=== PATIENT | female | born 1940 | race Hispanic/Latino ===

== ENCOUNTER 2019-09-25 20:04 | Inpatient (IN) | payer SELFPAY ==
[2019-09-25] MEDS ORDERED: MORPHINE 2 MG/ML SYR ONE (20:52)
[2019-09-25] MEDS ORDERED: ONDANSETRON 4 MG/2 ML VIAL ONE ×2 (20:52→22:52)
[2019-09-25 21:18] LABS: Absolute Lymphocytes (CBC) 1.9 K/uL (0.7-4.9); Basophils % 0.6 % (0-1.3); Hematocrit 33.3 % (36.0-45.0); Lymphocytes % 15.2 % (15.3-44.8); MPV 7.8 fL (7.6-11.3); RBC Red Blood Cell Count 4.32 M/uL (3.86-4.86)
[2019-09-25] MEDS ORDERED: PANTOPRAZOLE 40 MG INJ ONE (21:18)
[2019-09-25 21:20] LABS: Protime INR 1.02
[2019-09-25 21:34] LABS: ALT/SGPT 17 U/L (12-78); AST/SGOT 18 U/L (15-37); Albumin 3.7 g/dL (3.4-5.0); Alkaline Phosphatase 66 U/L (45-117); BUN Blood Urea Nitrogen 19 mg/dL (7-18); Bicarbonate 28 mmol/L (21-32); Bilirubin Direct 0.1 mg/dL (0-0.2); Bilirubin Total 0.4 mg/dL (0.2-1.0); Glucose Level 238 mg/dL (74-106); Magnesium 1.8 mg/dL (1.8-2.4); Potassium 3.7 mmol/L (3.5-5.1); Protein, Total 7.4 g/dL (6.4-8.2); Sodium Level 122 mmol/L (136-145); Troponin (Emerg Dept Use Only) < 0.02 ng/mL (0.0-0.045)
[2019-09-25] MEDS ORDERED: MORPHINE 2 MG/ML SYR IV PRN (22:52)
[2019-09-25] MEDS ORDERED: ONDANSETRON 4 MG/2 ML VIAL IV PRN (22:52)
[2019-09-25] MEDS ORDERED: NA CHLORIDE 0.9% 1,000 ML ONE (22:53)
--- NOTE | 2019-09-25 22:54 | ER ---
Nurse's Notes [facility] Name: Emily Villalobos Age: 79 yrs Sex: Female : 1940 Arrival Date: 09/25/2019 Time: 20:11 Bed 20 Private MD: Diagnosis: Nausea and vomiting-intractable;Dehydration Presentation: 09/24 20:14 Chief complaint: Patient's son or daughter states: "The past week she was vomiting, but aj1 today she has constipation, she vomiting like a dark black color" Denies fever. Reports that the last time she had a bowel movement was 3 days ago, but her stool was hard and difficult to pass. Coronavirus screen: The patient has NOT traveled to a country currently being monitored by the CDC within the last 14 days. Ebola Screen: Patient denies travel to an Ebola-affected area in the 21 days before illness onset. Initial Sepsis Screen: Does the patient meet any 2 criteria? HR > 90 bpm. No. Patient's initial sepsis screen is negative. Does the patient have a suspected source of infection? Yes: Acute abdominal pain. Risk Assessment: Do you want to hurt yourself or someone else? Patient reports no desire to harm self or others. 20:14 Method Of Arrival: Ambulatory aj1 20:14 Acuity: HERMAN 3 aj1 20:15 Onset of symptoms was September 2019. rr5 Triage Assessment: 20:22 General: Appears in no apparent distress. uncomfortable, Behavior is calm, cooperative, aj1 appropriate for age. Pain: Pain currently is 10 out of 10 on a pain scale. Neuro: Level of Consciousness is awake, alert, obeys commands. Cardiovascular: Patient's skin is warm and dry. Respiratory: Airway is patent Respiratory effort is even, unlabored, Respiratory pattern is regular, symmetrical. GI: Reports constipation, nausea, vomiting. Historical: - Allergies: 20:22 No Known Allergies; aj1 - Home Meds: 20:22 metformin 850 mg Oral tab 1 tab 2 times per day [Active]; alprazolam 0.25 mg Oral TbDL aj1 1 tab as needed [Active]; gabapentin 100 mg oral cap 3 caps 3 times per day [Active]; bupropion HCl 100 mg Oral tab 1 tab 3 times per day [Active]; Zofran (as hydrochloride) 4 mg Oral tab 1 tabs as needed [Active]; mirtazapine 45 mg Oral tab 1 tab once daily [Active]; nifedipine 30 mg Oral TbER 1 tab once daily [Active]; tramadol 50 mg Oral tab 1 tab as needed [Active]; levothyroxine 100 mcg tab 1 tab once daily [Active]; - PMHx: 20:22 Diabetes - NIDDM; Hypothyroidism; Hypertension; spine fracture; aj1 - Immunization history:: Flu vaccine is not up to date. - Social history:: Smoking status: Patient/guardian denies using tobacco. Screenin:50 Abuse screen: Denies threats or abuse. Denies injuries from another. Nutritional rr5 screening: No deficits noted. Tuberculosis screening: No symptoms or risk factors identified. Fall Risk IV access (20 points). Total Cormier Fall Scale indicates No Risk (0-24 pts). Assessment: 20:30 General: Appears in no apparent distress. uncomfortable, Behavior is calm, cooperative, rr5 appropriate for age. 20:30 Pain: Complains of pain in abdomen Pain does not radiate. Pain currently is 10 out of rr5 10 on a pain scale. Quality of pain is described as aching, Pain began gradually, Is intermittent. Neuro: Level of Consciousness is awake, alert, obeys commands, Oriented to person, place, time, situation, Appropriate for age. Cardiovascular: Capillary refill < 3 seconds Patient's skin is warm and dry. Respiratory: Airway is patent Respiratory effort is even, unlabored, Respiratory pattern is regular, symmetrical. GI: Abdomen is round Reports lower abdominal pain, upper abdominal pain, constipation, nausea, vomiting, dark stool. : No signs and/or symptoms were reported regarding the genitourinary system. EENT: No signs and/or symptoms were reported regarding the EENT system. Derm: Skin is intact, is healthy with good turgor, Skin temperature is warm. Musculoskeletal: Circulation, motion, and sensation intact. Capillary refill < 3 seconds. 22:00 Reassessment: Patient appears in no apparent distress at this time. Patient is alert, rr5 oriented x 3, equal unlabored respirations, skin warm/dry/pink. came back from CT scan Patient states symptoms have improved. 22:45 Reassessment: Patient appears in no apparent distress at this time. complaint of rr5 abdominal pain, review done by ED provider with order made and carried out, advised for admission. 23:11 Reassessment: Patient appears in no apparent distress at this time. hospitalist at rr5 bedside. 09/25 00:00 Reassessment: Patient appears in no apparent distress at this time. Patient is alert, rr5 oriented x 3, equal unlabored respirations, skin warm/dry/pink. for transfer to room [facility] Patient states symptoms have improved. Vital Signs: 09/24 20:14 BP 159 / 92; Pulse 105; Resp 20; Temp 98.1; Pulse Ox 100% on R/A; Weight 55.34 kg (R); aj1 Height 5 ft. 0 in. (152.40 cm) (R); Pain 10/10; 21:00 BP 156 / 105; Pulse 105; Resp 22; Pulse Ox 98% on R/A; Pain 10/10; rr5 22:00 BP 141 / 85; Pulse 99; Resp 15; Pulse Ox 98% ; Pain 7/10; rr5 23:00 BP 132 / 63; Pulse 95; Resp 19; Temp 98.2; Pulse Ox 97% on R/A; Pain 8/10; rr5 20:14 Body Mass Index 23.83 (55.34 kg, 152.40 cm) aj1 ED Course: 20:11 Patient arrived in ED. es 20:17 Triage completed. aj1 20:22 Arm band placed on Patient placed in an exam room. aj1 20:27 Isaiah Schultz PA is PHCP. cp 20:27 Kaden Potter MD is Attending Physician. cp 20:28 Elio Purdy, THUAN is Primary Nurse. rr5 20:30 Patient has correct armband on for positive identification. Placed in gown. Bed in low rr5 position. Call light in reach. Side rails up X2. gambling monitor on. Pulse ox on. NIBP on. 21:00 EKG done, by ED staff, reviewed by Isaiah JOSÉ. rr5 21:03 Radiology exam delayed due to lab results not completed at this time. (BUN/Creatinine). vm2 21:05 No provider procedures requiring assistance completed. Inserted saline lock: 20 gauge rr5 in left forearm, using aseptic technique. Blood collected. 21:26 Radiology exam delayed due to lab results not completed at this time. (BUN/Creatinine). 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 family member at bedside. rr5 22:53 Johan Gao MD is Hospitalizing Provider. cp 23:54 Patient admitted, IV remains in place. intact, No redness/swelling at site. rr5 Administered Medications: 21:05 Drug: Zofran (Ondansetron) 4 mg Route: IVP; Site: left forearm; rr5 22:00 Follow up: Response: No adverse reaction; No change in condition rr5 21:07 Drug: morphine 2 mg {Note: rass 0.} Route: IVP; Site: left forearm; rr5 21:15 Drug: ProTONIX 40 mg Route: IVP; Site: left forearm; rr5 22:15 Follow up: Response: No adverse reaction rr5 22:44 CANCELLED (Physician Discretion): NS 0.9% 500 ml IV at bolus once cp 22:46 CANCELLED (Physician Discretion): Fleet Enema 133 ml [place] once; may repeat once cp 22:48 CANCELLED (Physician Discretion): Zofran (Ondansetron) 4 mg IVP once; over 2 minutes cp 23:05 Drug: NS 0.9% 1000 ml Route: IV; Rate: 1000 ml/hr; Site: left forearm; rr5 23:56 Follow up: Response: No adverse reaction; IV Status: Completed infusion; IV Intake: rr5 1000ml 23:06 Drug: morphine 2 mg {Note: rass 0.} Route: IVP; Site: left forearm; rr5 03 00:10 Follow up: Response: No adverse reaction; Pain is decreased rr5 00:10 Follow up: Response: RASS: Alert and Calm (0) rr5 03 23:06 Drug: Phenergan 25 mg Route: IVP; Site: left forearm; rr5 23:56 Follow up: Response: No adverse reaction rr5 Intake: 23:56 IV: 1000ml; Total: 1000ml. rr5 Outcome: 22:54 Decision to Hospitalize by Provider. cp 23:54 Admitted to Tele accompanied by winter, via stretcher, room 423, with chart, Report rr5 called to foreign 23:54 Condition: stable 23:54 Instructed on the need for admit. 09/25 00:09 Patient left the ED. rr5 Signatures: Triny Nguyen RN RN aj1 Lizzy Jaffe Corey, PA PA cp McGuire, Victoria 2 Elio Purdy, RN RN rr5
--- NOTE | 2019-09-25 22:54 | EDPHYS ---
Physician Documentation [facility] Name: Emily Villalobos Age: 79 yrs Sex: Female : 1940 Arrival Date: 09/25/2019 Time: 20:11 Bed 20 Private MD: ED Physician Kaden Potter HPI: 09/24 20:45 This 79 yrs old Female presents to ER via Ambulatory with complaints of cp Vomiting, Constipation. Historical: - Allergies: 20:22 No Known Allergies; aj1 - Home Meds: 20:22 metformin 850 mg Oral tab 1 tab 2 times per day [Active]; alprazolam 0.25 mg Oral TbDL aj1 1 tab as needed [Active]; gabapentin 100 mg oral cap 3 caps 3 times per day [Active]; bupropion HCl 100 mg Oral tab 1 tab 3 times per day [Active]; Zofran (as hydrochloride) 4 mg Oral tab 1 tabs as needed [Active]; mirtazapine 45 mg Oral tab 1 tab once daily [Active]; nifedipine 30 mg Oral TbER 1 tab once daily [Active]; tramadol 50 mg Oral tab 1 tab as needed [Active]; levothyroxine 100 mcg tab 1 tab once daily [Active]; - PMHx: 20:22 Diabetes - NIDDM; Hypothyroidism; Hypertension; spine fracture; aj1 - Immunization history:: Flu vaccine is not up to date. - Social history:: Smoking status: Patient/guardian denies using tobacco. ROS: 20:55 Constitutional: Positive for poor PO intake, Negative for body aches, chills, fever. cp 20:55 Eyes: Negative for injury, pain, redness, and discharge. cp 20:55 ENT: Negative for drainage from ear(s), ear pain, sore throat, difficulty swallowing, difficulty handling secretions. 20:55 Cardiovascular: Positive for chest pain, Negative for edema, palpitations. 20:55 Respiratory: Negative for cough, shortness of breath, wheezing. 20:55 Abdomen/GI: Positive for abdominal pain, nausea and vomiting, constipation, anorexia, Negative for diarrhea, hematemesis, black/tarry stool, rectal bleeding. 20:55 Back: Positive for pain at rest, pain with movement. 20:55 : Negative for urinary symptoms. 20:55 Neuro: Negative for altered mental status, headache, syncope, weakness. 20:55 All other systems are negative. Exam: 21:00 Constitutional: The patient appears alert, awake, non-diaphoretic, non-toxic, well cp developed, well nourished, uncomfortable. 21:00 Head/Face: Normocephalic, atraumatic. cp 21:00 Eyes: Periorbital structures: appear normal, Pupils: equal, round, and reactive to light and accomodation, Extraocular movements: intact throughout, Conjunctiva: normal, no exudate, no injection, Sclera: no appreciated abnormality, Lids and lashes: appear normal, bilaterally. 21:00 ENT: External ear(s): are unremarkable, Ear canal(s): are normal, clear, TM's: dullness, bilaterally, Nose: is normal, Mouth: Lips: dry, Oral mucosa: pink and intact, moist, Posterior pharynx: is normal, airway is patent, no erythema, no exudate. 21:00 Neck: ROM/movement: is normal, is supple, no meningismus, no nuchal rigidity. 21:00 Chest/axilla: Inspection: normal, Palpation: is normal, no crepitus, no tenderness. 21:00 Cardiovascular: Rate: tachycardic, Rhythm: regular, Edema: is not appreciated, JVD: is not appreciated. 21:00 Respiratory: the patient does not display signs of respiratory distress, Respirations: normal, no use of accessory muscles, no retractions, no tachypnea, labored breathing, is not present, Breath sounds: are clear throughout, no decreased breath sounds, no stridor, no wheezing. 21:00 Abdomen/GI: Inspection: abdomen appears normal, Bowel sounds: active, all quadrants, Palpation: soft, in all quadrants, moderate abdominal tenderness, in all quadrants, rebound tenderness, is not appreciated, voluntary guarding, is elicited in all quadrants. 21:00 Back: pain, that is moderate, ROM is painful, with all movement. 21:00 Skin: cellulitis, is not appreciated, no rash present. 21:00 Neuro: Orientation: to person, place \T\ time. Mentation: is normal, Motor: moves all fours. 21:07 ECG was reviewed by the Attending Physician. cp 22:43 Abdomen/GI: Rectal exam: rectal tone normal, Stool: brown, guaiac negative, fecal cp impaction, that is moderate. Vital Signs: 20:14 BP 159 / 92; Pulse 105; Resp 20; Temp 98.1; Pulse Ox 100% on R/A; Weight 55.34 kg (R); aj1 Height 5 ft. 0 in. (152.40 cm) (R); Pain 10/10; 21:00 BP 156 / 105; Pulse 105; Resp 22; Pulse Ox 98% on R/A; Pain 10/10; rr5 22:00 BP 141 / 85; Pulse 99; Resp 15; Pulse Ox 98% ; Pain 7/10; rr5 23:00 BP 132 / 63; Pulse 95; Resp 19; Temp 98.2; Pulse Ox 97% on R/A; Pain 8/10; rr5 20:14 Body Mass Index 23.83 (55.34 kg, 152.40 cm) aj1 MDM: 20:33 Patient medically screened. cp 22:51 Data reviewed: vital signs, nurses notes, lab test result(s), EKG, radiologic studies, cp CT scan, plain films. Response to treatment: the patient's symptoms have mildly improved after treatment, and as a result, I will admit patient. Physician consultation: Johan Gao MD was called at 22:50, was contacted at 22:50, regarding admission, to the telemetry unit. patient's condition. 03 20:42 Order name: Troponin (emerg Dept Use Only) cp 09/24 20:42 Order name: Basic Metabolic Panel cp 09/24 20:42 Order name: CBC with Diff cp 09/24 20:42 Order name: LFT's cp 09/24 20:42 Order name: Magnesium cp 09/24 20:42 Order name: PT-INR cp 09/24 20:44 Order name: Lipase cp 09/24 21:24 Order name: CBC with Automated Diff; Complete Time: 21:55 EDMS 09/24 22:50 Interpretation: Normal except: WBC 12.2; HGB 11.0; HCT 33.3; MCV 77.1; MCH 25.4; CHERIE% cp 78.7; LYM% 15.2; NEUT A 9.6; RDW 15.0. 09/24 21:27 Order name: Lipase; Complete Time: 21:55 EDMS 09/24 21:55 Interpretation: Abnormal: LIP 70. cp 09/24 21:28 Order name: Protime (+INR); Complete Time: 21:55 EDMS 09/24 21:37 Order name: Basic Metabolic Panel; Complete Time: 21:55 EDMS 09/24 21:55 Interpretation: Normal except: NA 122; CL 83; GLUC 238; BUN 19; GFR 55. cp 09/24 21:37 Order name: Liver (Hepatic) Function; Complete Time: 21:55 EDMS 09/24 21:56 Interpretation: Normal except: GLOB 3.7; A/G 1.0. cp 09/24 21:37 Order name: Troponin (Emerg Dept Use Only); Complete Time: 21:55 EDMS 03 21:56 Interpretation: Within normal limits: TROPED < 0.02. cp 09/24 21:37 Order name: Magnesium; Complete Time: 21:55 EDMS 09/24 21:56 Interpretation: Within normal limits: MG 1.8. cp 09/24 20:42 Order name: XRAY Chest (1 view) cp 09/24 20:42 Order name: EKG; Complete Time: 20:42 cp 09/24 20:42 Order name: Cardiac monitoring; Complete Time: 21:10 cp 09/24 20:42 Order name: EKG - Nurse/Tech; Complete Time: 21:10 cp 09/24 20:42 Order name: IV Saline Lock; Complete Time: 21:10 cp 09/24 20:42 Order name: Labs collected and sent; Complete Time: 21:10 cp 09/24 20:44 Order name: CT Abd/Pelvis - IV Contrast Only cp 09/25 00:07 Order name: Osmolality, Serum EDMS 09/24 20:42 Order name: O2 Per Protocol; Complete Time: 21:10 cp 09/24 20:42 Order name: O2 Sat Monitoring; Complete Time: 21:10 cp 09/24 22:41 Order name: PO challenge; Complete Time: 23:56 cp EC:07 Rate is 94 beats/min. Rhythm is regular. [place] interval is normal. QRS interval is normal. cp QT interval is normal. Interpreted by me. Reviewed by me. Administered Medications: 21:05 Drug: Zofran (Ondansetron) 4 mg Route: IVP; Site: left forearm; rr5 22:00 Follow up: Response: No adverse reaction; No change in condition rr5 21:07 Drug: morphine 2 mg {Note: rass 0.} Route: IVP; Site: left forearm; rr5 21:15 Drug: ProTONIX 40 mg Route: IVP; Site: left forearm; rr5 22:15 Follow up: Response: No adverse reaction rr5 22:44 CANCELLED (Physician Discretion): NS 0.9% 500 ml IV at bolus once cp 22:46 CANCELLED (Physician Discretion): Fleet Enema 133 ml WY once; may repeat once cp 22:48 CANCELLED (Physician Discretion): Zofran (Ondansetron) 4 mg IVP once; over 2 minutes cp 23:05 Drug: NS 0.9% 1000 ml Route: IV; Rate: 1000 ml/hr; Site: left forearm; rr5 23:56 Follow up: Response: No adverse reaction; IV Status: Completed infusion; IV Intake: rr5 1000ml 23:06 Drug: morphine 2 mg {Note: rass 0.} Route: IVP; Site: left forearm; rr5 03 00:10 Follow up: Response: No adverse reaction; Pain is decreased rr5 00:10 Follow up: Response: RASS: Alert and Calm (0) rr5 06 23:06 Drug: Phenergan 25 mg Route: IVP; Site: left forearm; rr5 23:56 Follow up: Response: No adverse reaction rr5 Disposition: 09/25 06:36 Co-signature as Attending Physician, Kaden Potter MD. pk Disposition: 09/25/19 22:54 Hospitalization ordered by Johan Gao for Observation. Preliminary diagnosis are Nausea and vomiting - intractable, Dehydration. - Bed requested for Telemetry/MedSurg (observation). - Status is Observation. rr5 - Condition is Stable. - Problem is new. - Symptoms have improved. Signatures: Dispatcher [employer] EDMS Triny Nguyen RN RN aj1 Kaden Potter MD MD pkl Isaiah Schultz PA PA cp Garcia, Cindy, RN RN Elio Purdy RN RN rr5 Corrections: (The following items were deleted from the chart) 03 22:44 22:44 NS 0.9% 500 ml IV at bolus once ordered. cp cp 22:46 22:41 Fleet Enema 133 ml WY once; may repeat once ordered. cp cp 22:48 22:41 Zofran (Ondansetron) 4 mg IVP once; over 2 minutes ordered. cp cp 22:50 21:55 Normal except: WBC 12.2; HGB 11.0; HCT 33.3; MCV 77.1; MCH 25.4; CHERIE% 78.7; LYM% cp 15.2; NEUT A 9.6. cp 23:15 22:54 Hospitalization Ordered by Johan Gao MD for Observation. Preliminary cg diagnosis is Nausea and vomiting - intractable; Dehydration. Bed requested for Telemetry/MedSurg (observation). Status is Observation. Condition is Stable. Problem is new. Symptoms have improved. cp 09/25 00:09 03 23:15 09/25/2019 22:54 Hospitalization Ordered by Johan Gao MD for rr5 Observation. Preliminary diagnosis is Nausea and vomiting - intractable; Dehydration. Bed requested for Telemetry/MedSurg (observation). Status is Observation. Condition is Stable. Problem is new. Symptoms have improved. cg
[2019-09-25] MEDS ORDERED: PROMETHAZINE INJ 25 MG/ML AMP IV PRN (22:57)
[2019-09-25] MEDS ORDERED: HYDRALAZINE HCL 20 MG/ML VIAL IV PRN (22:58)
[2019-09-25] MEDS ORDERED: CEFTRIAXONE 1000 MG/VIAL ONE (23:58)
[2019-09-26 00:10] LABS: Thyroid Stimulating Hormone 5.75 uIU/mL (0.360-3.740)
[2019-09-26] MEDS: NA CHLORIDE 0.9% 1,000 ML IV SCH ×2 (00:49→12:20)
[2019-09-26] MEDS ORDERED: NA CHLORIDE 0.9% 0 ML ONE (00:50)
[2019-09-26] MEDS: METRONIDAZOLE 250mg IVPB 250 MG/50 ML BAG IV SCH ×3 (01:00→17:05)
[2019-09-26 01:42] VITALS: BMI 40.7
[2019-09-26 02:00] LABS: Urine Appearance CLEAR; Urine Bilirubin NEGATIVE (NEG); Urine Blood NEGATIVE (NEG); Urine Color YELLOW; Urine Glucose 1+ (NEG); Urine Protein NEGATIVE (NEG); Urine Specific Gravity 1.025 (1.005-1.030); Urine Urobilinogen 0.2 mg/dL (0.2-1.0)
[2019-09-26 02:36] LABS: Urine Bacteria <20 /HPF (<20); Urine Culture Reflex Order REFLEXED; Urine RBC <5 /HPF (NONE SEEN)
--- NOTE | 2019-09-26 02:45 | HP ---
Date of Admission: 09/25/2019 Presenting Complaint: Intractable nausea and vomiting. History Of Present Illness: A 79-year-old speaking female with past medical history of hype rtension, hypothyroidism, abdominal hernia repair 4 years ago with mesh, who developed recurrent naus ea with vomiting since the last 1 week. She denies any diarrhea. She admit to abdominal cramps. Kali karimi was evaluated at the [facility] where CT was essentially negative except for diverticulos is, but no diverticulitis. She also had a urinalysis done at the time that shows trace leukocyte est erase. The patient was not started on antibiotics. She was sent on Pepcid and Zofran. Patient stat es as per daughter, her symptoms continued to worsen and she has presented back there today and was s ent to the ER where a repeat CT was still nonrevealing. She was noted with a sodium of 122 and be ad mitted. Daughter who is acting as mold forms builder also provided labs report from the [facility] 1 week ago. Patient admits to transient fever last week that has since resolved. She denies an y cough. She denies any shortness of breath. She is very worried about the pain, which seems to be more generalized in the abdomen, but nonradiating. She admit to intermittent low back pain, but none at this time. Past Medical History: Hypertension, hyperlipidemia, osteoporosis, L1 compression fracture, ventral w all hernias. Past Surgical History: Ventral hernia repair 4 years ago. Allergies: NO KNOWN DRUG ALLERGIES. Home Medications: See med list. Review of Systems: Poor given patient is in pain and distress, but all other review of systems x14 were negative. Daliatrev nt admits to constipation since the last 2 days. Family History: Noncontributory in this 79-year-old female. Social History: She resides in the community with the spouse. Functional at baseline. No history o f tobacco, alcohol, or illicit drug use. Physical Examination: Current Vitals: Blood pressure of 130/68, pulse of 93, respiratory rate of 18, O2 saturation 95 on r oom air, temperature afebrile at 98.6. General: Small built elderly female, lying in bed, in mild pain distress, conversant. HEENT: Head is atraumatic, normocephalic. Pupils equal, reactive to light anicteric. Neck: No JVD. No carotid bruits. Dry oral mucosa. Respiratory: Good air entry. No crepitation. Cardiovascular: S1, S2. Rate and rhythm regular. GI: Mild generalized abdominal tenderness, but no rebound, no guarding. Bowel sounds positive in al l 4 quadrants. Tenderness appears to be more in the left mid and lower quadrant. No palpable hepato splenomegaly. No suprapubic fullness or tenderness. Back: No CVA tenderness. Tenderness over the lumbar spine. Extremities: No pedal edema. No calf tenderness. Neuro: Patient is alert. Conversant. Laboratory Data: WBC 12.2, hemoglobin 11, platelet 335, neutrophils 78%. INR 1.02, potassium 3.7, c hloride 83. Sodium 122, creatinine 0.9, magnesium 1.8. Lipase 70, albumin 3.7. AST, alkaline phosp hatase, T-bilirubin normal. Chest x-ray shows no acute infiltrate. CT of the abdomen shows evidence of small ventral wall hernias with medications in-situ. Evidence of diverticulosis with no divertic ulitis. Otherwise, no acute intraabdominal pathology. CT from 1 week ago has shown a 3 cm soft tiss ue mass calcification around the urethra area of unknown significance. Impression: 1.Presumed gastroenteritis. 2.Acute on chronic hyponatremia. 3.Hypertension. 4.History of hypothyroidism. Plan: We will admit patient to observation. We will do nausea control with Zofran. We will add pro methazine as needed. We will do clear liquid diet for now. We will do gentle hydration with normal saline since hyponatremia is likely due to volume depletion. We will not start fluid restriction. W e will not start free water restriction at this time, but we will monitor. If not improving, then we will consider free water restriction. Obtain urine sodium as well as urine osmolarity. We will con sult Nephrology team to follow in a.m. Given presence of compression fractures, we will start topica l lidocaine patch to lumbar area. Etiology of intractable nausea and vomiting may be due to infectio us etiology given mild leukocytosis. We will obtain urinalysis. We will start patient on empirical Rocephin as well as Flagyl for presumed colitis. Monitor response and CBC trend in a.m. We will do subcutaneous heparin for DVT prophylaxis. We will continue patient on Pepcid. Advanced directives, patient is full code. Total time spent in review of record, discussion with patient and family greater than 60 minutes. EO/MODL Voice ID: [id number]
[2019-09-26 05:34] LABS: Absolute Lymphocytes (CBC) 3.2 K/uL (0.7-4.9); Basophils % 0.4 % (0-1.3); Hematocrit 26.3 % (36.0-45.0); Lymphocytes % 35.3 % (15.3-44.8); MPV 7.5 fL (7.6-11.3); RBC Red Blood Cell Count 3.46 M/uL (3.86-4.86)
[2019-09-26 05:52] LABS: Albumin 2.8 g/dL (3.4-5.0); Bilirubin Total 0.3 mg/dL (0.2-1.0); Potassium 3.4 mmol/L (3.5-5.1); Protein, Total 5.6 g/dL (6.4-8.2)
[2019-09-26] MEDS: INSULIN -REGULAR HUMAN 50 UNIT/0.5 ML ML SQ SCH ×4 (07:30→22:00)
[2019-09-26] MEDS ORDERED: CEFTRIAXONE 1 GM/NS 50 ML 1 GM/50 ML BAG IV SCH (09:00)
[2019-09-26] MEDS: HEPARIN 5000 UNIT/ML 1 ML VIAL SQ SCH ×2 (09:17→22:00)
[2019-09-26] MEDS: LIDOCAINE 4% PATCH TOP SCH (09:18)
[2019-09-26] MEDS: FAMOTIDINE 20 MG/2 ML VIAL IV SCH ×2 (09:18→22:00)
[2019-09-26] MEDS: CEFTRIAXONE/SWI 1gm 1 GM/10 ML SYR IV SCH (09:18)
[2019-09-26 09:21] LABS: Uric Acid 4.3 mg/dL (2.6-6.0)
--- NOTE | 2019-09-26 09:21 | EKG ---
Test Date: 2019-09-25 Test Time: 20:53:35 Commercial Title Examiner: RR MEASUREMENT RESULTS: Intervals: Rate: 94 WY: 154 QRSD: 82 QT: 378 QTc: 472 [place]: P: 18 WY: 154 QRS: -27 T: 45 INTERPRETIVE STATEMENTS: Normal sinus rhythm Septal infarct, age undetermined Abnormal ECG No previous ECG available for comparison Electronically Signed On 09-26-19 09:20:09 FABRICATION MIG WELDER by Matthew Sharp
[2019-09-26 09:26] LABS: Thyroid Stimulating Hormone 5.03 uIU/mL (0.360-3.740)
--- NOTE | 2019-09-26 09:37 | RAD REPORT ---
EXAM DESCRIPTION: [facility] Single View09/25/2019 9:32 pm CLINICAL HISTORY: Chest pain COMPARISON: none FINDINGS: The lungs appear clear of acute infiltrate. The heart is normal size. Small hiatal hernia IMPRESSION: No acute abnormalities displayed
[2019-09-26 10:08] LABS: Urine Appearance CLEAR; Urine Bilirubin NEGATIVE (NEG); Urine Blood NEGATIVE (NEG); Urine Color YELLOW; Urine Glucose TRACE (NEG); Urine Protein NEGATIVE (NEG); Urine Urobilinogen 0.2 mg/dL (0.2-1.0); Urine pH 7.5 (5.0-7.0)
[2019-09-26 10:24] LABS: Urine Microscopic Reflex NO UMIC
--- NOTE | 2019-09-26 11:13 | P.PN ---
Subjective Date of Service: 09/26/19 Chief Complaint: Nausea Patient admitted with nausea some abdominal cramps Kinyarwanda-speaking only feels better now no new complaint CT scan of the abdomen shows diverticulosis in a compression deformity of the were T brown L1 patient was mildly hypernatremic Review of Systems Unremarkable General: Weakness Physical Examination - Vital Signs Temperature: 98.5 F Blood Pressure: 136/57 Pulse: 80 Respirations: 18 Pulse Ox (%): 99 - Physical Exam General: Alert, Oriented x3 HEENT: Atraumatic Neck: Supple Respiratory: Clear to auscultation bilaterally, Diminished Gastrointestinal: Other (Mild left low quadrant tenderness no rebound guarding) - Studies Laboratory Data (last 24 hrs) 09/25/19 21:04: Lipase 70 L 09/25/19 21:04: PT 12.0, INR 1.02 09/25/19 21:04: WBC 12.2 H, Hgb 11.0 L, Hct 33.3 L, Plt Count 335 09/25/19 21:04: Sodium 122 L, Potassium 3.7, BUN 19 H, Creatinine 0.98, Glucose 238 H, Magnesium 1.8, Total Bilirubin 0.4, AST 18, ALT 17, Alkaline Phosphatase 66 Assessment & Plan - Problems (Diagnosis) (1) Nausea Current Visit: No Status: Acute Plan: Patient is 79 years of age admitted with mild nausea mild microcytic anemia mild hyponatremia hypokalemia CT scan just shows diverticulosis neck compression deformity on L1 patient's vital signs are stable she does see a pain doctor is a diabetic patient is on an short continue with observation possible discharge tomorrow quite possible that she has underlying mild diverticulitis white count was elevated probably discharge tomorrow on p.o. antibiotics Discharge Plan: Home Plan to discharge in: 24 Hours
[2019-09-26] MEDS ORDERED: D5.45NS W/KCL 40MEQ 40 MEQ/1,000 ML BAG IV SCH (14:00)
[2019-09-26] MEDS: D5.45NS W/KCL 40MEQ 40 MEQ/1,000 ML BAG IV SCH (17:03)
[2019-09-26 23:33] LABS: BUN Blood Urea Nitrogen 10 mg/dL (7-18); Bicarbonate 26 mmol/L (21-32); Glucose Level 117 mg/dL (74-106); Potassium 3.9 mmol/L (3.5-5.1); Sodium Level 135 mmol/L (136-145)
[2019-09-27] MEDS: D5.45NS W/KCL 40MEQ 40 MEQ/1,000 ML BAG IV SCH ×2 (00:37→03:00)
[2019-09-27] MEDS: METRONIDAZOLE 250mg IVPB 250 MG/50 ML BAG IV SCH ×2 (00:37→09:04)
--- NOTE | 2019-09-27 05:23 | CON ---
Date of Consultation: 09/26/2019 Subjective: The patient was admitted with hyponatremia after GI symptoms ____. Artificial Limb Maker: Terry Grady MD Reason For Consultation: Hyponatremia, hypomagnesemia. History Of Present Illness: This is a 74-year-old f with significant past medical history of coronary artery disease, hypothyroidism, coronary artery disease status post PTCA back in 2014, carotid stenosis status post endarterectomy, hypertension, hypothyroidism. Patient was in the GI doctor's office and found to be low blood pressure down to the 60s. Patient apparently started on IV fluids. Blood pressure upon arrival of 200. Workup show hyponatremia, sodium to 122. For that reason, we have been consulted. Patient apparently been on hydrochlorothiazide as outpatient with the losartan. Patient denied taking any nonsteroidal, no IV contrast. No other changes in her medication. Past Medical History: 1. Hypertension. 2. Hypothyroidism. Past Surgical History: NONE CONTRIUTE Allergy: No known drugs allergy. Social History: Ex-smoker. Denied alcohol. Denied drug abuse. Family History: Positive for hypertension. Home Medications: Include losartan, hydrochlorothiazide, metoprolol, levothyroxine, aspirin, atorvastatin, pantoprazole, isosorbide. Current Medications In The Hospital: Include aspirin, docusate, hydralazine, metoprolol. Review of Systems: Head and Neck: No red eye. No ear pain. GI: Has constipation. : No polyuria. No dysuria. No hematuria. Certified Bench Jeweler Technician: No vaginal discharge. Respiratory: No shortness of breath. Cardiovascular: No chest pain. Endocrine: No polydipsia. Skin: No rash. Neuro: Has dizziness. Musculoskeletal: No joint pain. Physical Examination: Objective: Vital Signs: Blood pressure 154/72, pulse of 73. Chest: Clear to auscultation. Heart: S1, S2 regular. Abdomen: Soft, nontender. Extremities: No edema. Vascular: Carotid bruit on the left side. Laboratory Data: Sodium 122, potassium 3.3, bicarb 25, BUN 12, creatinine 0.8, serum osmolality 255, calcium 8.5, phosphorus 2.8, magnesium 1.4. Cortisol level 38. TSH 0.5. Urinalysis; specific gravity of 1.020, wbc of 10, urine sodium 77, urine potassium of 60. Urine osmolality 370. Again, patient was on hydrochlorothiazide. Assessment And Plan: 1. Hyponatremia, mostly secondary to prerenal superimposed with hydrochlorothiazide use. I WILL go ahead and increase IV fluids and start the patient on salt tablets. We will follow up the lab tomorrow. I am going to repeat the lab in 6 hours. Our goal is to achieve rising sodium to 128 in the next 12 hour. 2. Hypertension with the presence of hyponatremia, hold losartan and hydrochlorothiazide for the time being. 3. Renal cyst. Patient will follow up with primary. JUAN ALBERTO/JASON Voice ID: [id number] Report ID: [id number] CAROL
[2019-09-27 06:47] LABS: ALT/SGPT 13 U/L (12-78); AST/SGOT 17 U/L (15-37); Albumin 2.7 g/dL (3.4-5.0); Alkaline Phosphatase 41 U/L (45-117); BUN Blood Urea Nitrogen 8 mg/dL (7-18); Bicarbonate 24 mmol/L (21-32); Bilirubin Total 0.1 mg/dL (0.2-1.0); Glucose Level 103 mg/dL (74-106); Potassium 4.1 mmol/L (3.5-5.1); Protein, Total 5.5 g/dL (6.4-8.2); Sodium Level 138 mmol/L (136-145)
[2019-09-27 06:55] LABS: Albumin 2.8 g/dL (3.4-5.0); BUN Blood Urea Nitrogen 8 mg/dL (7-18); Bicarbonate 22 mmol/L (21-32); Glucose Level 105 mg/dL (74-106); Magnesium 1.9 mg/dL (1.8-2.4); Phosphorus 2.1 mg/dL (2.5-4.9); Potassium 4.2 mmol/L (3.5-5.1); Sodium Level 139 mmol/L (136-145)
[2019-09-27 06:58] LABS: Hematocrit 24.8 % (36.0-45.0); MPV 8.2 fL (7.6-11.3); RBC Red Blood Cell Count 3.23 M/uL (3.86-4.86)
[2019-09-27] MEDS: INSULIN -REGULAR HUMAN 50 UNIT/0.5 ML ML SQ SCH (07:30)
[2019-09-27 07:48] LABS: Blood Morphology Comment NOT SEEN (NOT SEEN); Platelet Estimate ADEQ; Urine White Blood Cell Casts OK
[2019-09-27] MEDS: CEFTRIAXONE/SWI 1gm 1 GM/10 ML SYR IV SCH (09:03)
[2019-09-27] MEDS: FAMOTIDINE 20 MG/2 ML VIAL IV SCH (09:03)
[2019-09-27] MEDS: LIDOCAINE 4% PATCH TOP SCH (09:03)
[2019-09-27] MEDS: HEPARIN 5000 UNIT/ML 1 ML VIAL SQ SCH (09:04)
--- NOTE | 2019-09-27 09:39 | P.DS ---
Admission Date: 09/25/19 (Hospitalist) Discharge Date: 09/27/19 Disposition: ROUTINE DISCHARGE Discharge Condition: GOOD Reason for Admission: Nausea - Problems (1) Nausea Current Visit: No Status: Acute Brief History of Present Illness: Patient is 79 years of age admitted with abdominal cramps and nausea Hospital Course: Diagnosed with possible diverticulitis white count normal no evidence of sepsis discharged home on Cipro and Flagyl the also has microcytic anemia she needs to follow up with the primary care doctor a GI doctor for endoscopy time of discharge vital signs all stable chest clear abdomen soft tolerating a diet ambulating cultures negative Vital Signs/Physical Exam: Temp Pulse Resp BP Pulse Ox 97.0 F 66 16 143/67 H 100 09/27/19 04:00 09/27/19 04:00 09/27/19 04:00 09/27/19 04:00 09/27/19 04:00 Laboratory Data at Discharge: WBC 7.9 K/uL (4.3-10.9) 09/27/19 06:41 Hgb 8.0 g/dL (12.0-15.0) L 09/27/19 06:41 Hct 24.8 % (36.0-45.0) L 09/27/19 06:41 Plt Count 229 K/uL (152-406) D 09/27/19 06:41 PT 12.0 SECONDS (9.5-12.5) 09/25/19 21:04 INR 1.02 09/25/19 21:04 Sodium 138 mmol/L (136-145) 09/27/19 05:18 Potassium 4.1 mmol/L (3.5-5.1) 09/27/19 05:18 BUN 8 mg/dL (7-18) 09/27/19 05:18 Creatinine 0.60 mg/dL (0.55-1.3) 09/27/19 05:18 Glucose 103 mg/dL (74-106) 09/27/19 05:18 Uric Acid 4.3 mg/dL (2.6-6.0) 09/26/19 08:49 Phosphorus 2.1 mg/dL (2.5-4.9) L 09/27/19 05:00 Magnesium 1.9 mg/dL (1.8-2.4) 09/27/19 05:00 Total Bilirubin 0.1 mg/dL (0.2-1.0) L 09/27/19 05:18 AST 17 U/L (15-37) 09/27/19 05:18 ALT 13 U/L (12-78) 09/27/19 05:18 Alkaline Phosphatase 41 U/L (45-117) L 09/27/19 05:18 Lipase 70 U/L (73-393) L 09/25/19 21:04 Home Medications: Alprazolam [Xanax] 1 tab PO DAILY PRN 09/26/19 Gabapentin 1 tab PO Q8H 09/26/19 Levotiroxina Sodica 100 mcg PO DAILY 09/26/19 Metformina 850 mg PO BID 09/26/19 Mirtazapine 1 tab PO DAILY 09/26/19 Nifedipino 30 mg PO DAILY 09/26/19 Ondansetron HCl 1 tab PO Q6HP PRN 09/26/19 Tramadol HCl [Ultram] 1 tab PO Q8H PRN 09/26/19 buPROPion HCL [Bupropion HCl] 1 tab PO DAILY 09/26/19 Ciprofloxacin HCl [Cipro 500 MG Tablet] 500 mg PO BID #14 tab 09/27/19 metroNIDAZOLE [Flagyl] 500 mg PO Q8H #21 tablet 09/27/19 New Medications: Ciprofloxacin HCl [Cipro 500 MG Tablet] 500 mg PO BID #14 tab metroNIDAZOLE [Flagyl] 500 mg PO Q8H #21 tablet Patient Discharge Instructions: I have faxed in ciprofloxacin and Flagyl to the pharmacy low residue diet please give a list of primary care doctor's. Patient has anemia she needs to see a GI doctor did please give a list of names of the GI doctor Diet: Regular Activity: Ad humphrey
[2019-09-27 10:45] VITALS: BP 145/65; TEMP 97
[2019-09-27 13:12] VITALS: O2SAT 96
--- NOTE | 2019-09-28 08:39 | CON ---
patient admit Past Medical History: hypertension, Allergies: NO KNOWN DRUG ALLERGIES. Social History: denies drugs abuse. Review of Systems: PRESCHOOL EDUCATION DIRECTOR: Endocrine: . SKIN: No rash. Neuro: Altered mental status Physical Examination: Chest: Bilateral breath sounds. irregular. Abdomen: Extremities: No edema. Neuro: Alert . Laboratory Data: Patient anemia MA/MODL Voice ID: [id number] Report ID: [id number]
--- NOTE | 2019-09-28 13:11 | RAD REPORT ---
EXAM DESCRIPTION: CT - Abdomen Pelvis W Contrast - 09/25/2019 10:42 pm CLINICAL HISTORY: Nausea/vomiting COMPARISON: None Available. TECHNIQUE: CT of the abdomen and pelvis performed following IV administration of iodinated contrast FINDINGS: Lung Bases: The visualized lung bases are clear. Bones: Chronic appearing severe compression deformity of the L1 vertebral body. Endplate spondylosis. Degenerative disc height narrowing at L5/S1. Facet arthropathy. Abdomen: Liver: The liver has normal size and density. No intrahepatic mass or biliary dilatation. Gallbladder: No calcified gallstones. Spleen, Pancreas, and Adrenal Glands: The spleen, pancreas, and adrenal glands are unremarkable. Kidneys: The kidneys have normal size without evidence of solid mass or hydronephrosis. Left will l cortical cyst. Vasculature: Aortoiliac atherosclerosis. IVC is unremarkable. The portal vein is patent. The proximal visceral and renal arteries are patent. Stomach: Moderate hiatal hernia. Other: No free intraperitoneal air. Small right paracentral ventral fat-containing hernia. Prior hernia repair. Pelvis: Bladder: Urinary bladder is unremarkable. Bowel: No dilated loops of large or small bowel. Scattered diverticula of the colon. Moderate amoun t of stool. Appendix: Normal appendix. Pelvis: Uterus is not enlarged. IMPRESSION: 1. No acute inflammatory or obstructive process identified. 2. Diverticulosis without evidence of acute diverticulitis. 3. Chronic appearing severe L1 compression deformity. 4. Moderate hiatal hernia. This exam was performed according to our departmental dose-optimization program, which includes autom ated exposure control, adjustment of the mA and/or kV according to patient size and/or use of iterati ve reconstruction technique. Electronically signed by: Pérez Benedict 09/25/2019 10:29 PM ELECTRIC SCOOP OPERATOR Due to temporary technical issues with the PACS/Fluency reporting system, reports are being signed by the in house radiologist as a courtesy to ensure prompt reporting. The interpreting radiologist is f ully responsible for the content of the report.
== END 2019-09-27 11:44 | disposition home or self-care (01) | DRG 392 ==
LOC: ER 20:04 → OBSVTOIN 22:53 → ERHOLD 22:53 → 4TH 23:55
PROVIDERS: ADMIT Internal Medicine Sleep Medicine; ATTEND Internal Medicine
DX: K57.92 Diverticulitis of intestine, part unspecified, without perforation or abscess without bleeding (principal); E87.1 Hypo-osmolality and hyponatremia; D50.9 Iron deficiency anemia, unspecified; I25.10 Atherosclerotic heart disease of native coronary artery without angina pectoris; E03.9 Hypothyroidism, unspecified; I10 Essential (primary) hypertension; N28.1 Cyst of kidney, acquired; E87.6 Hypokalemia
CPT/HCPCS: 36415; 71045; 74177; 80048; 80053; 80069; 80076; 81001; 81003; 82533; 82947; 83690; 83735; 83930; 83935; 84132; 84300; 84439; 84443; 84484; 84550; 85025; 85027; 85610; 87086; 87088; 93005; 96361; 96374; 96375; 99285; C9113; J0696; J1644; J2270; J2405; J2550; J7030; Q9967

== ENCOUNTER 2019-10-09 11:54 | Inpatient (IN) | payer SELFPAY ==
--- OUTSIDE RECORDS SUMMARY | 2019-10-09 11:57 | XMS REPORT ---
:1940 [facility] Address [address] [place] [address] [address] [place] [address] Care Team Providers Name Role Phone Unavailable Unavailable Unavailable Problems This patient has no known problems. Allergies, Adverse Reactions, Alerts This patient has no known allergies or adverse reactions. Medications This patient has no known medications. Results Test Description Test Time Test Comments Text Results Atomic Results Result Comments SCR MAMM BILATERAL CHIN CAD 2019-03-16 16:22:46 - SCR MAMM BILATERAL CHIN CAD DIGITAL DIGITALBILATERAL DIGITAL SCREENING MAMMOGRAM 3D/2D WITH CAD: 02/26/2019CLINICAL: Asymptomatic. Digital breast tomosynthesis was performed in addition to routine CC and MLO views. Current mammographic images were evaluated by either a [employer] M-Vu or a [employer] ImageChecker CAD (computer aided detection system). No requested prior outside exams have yet been made available for comparison. There are scattered fibroglandular tissues in both breasts. There are benign calcifications in both breasts. There also are benign intramammary nodes in both breasts. Additionally, there is a benign-appearing asymmetry in the subareolar left breast. No suspicious mass, architectural distortion, malignant type calcification, or lymph node abnormality detected. IMPRESSION: BENIGNThere is no mammographic evidence of malignancy. Resume annual screening mammography in one year. An addendum will be issued if/when prior outside exams are made available for comparison.Andrea Luna M.D. rb/:03/16/2019 16:22:46 Career Technical Education Teacher: Renetta DANIELS, [facility]-FWletter sent: BIRADS 1-2 Normal Mammogram BI-RADS: 2 Benign
[2019-10-09] MEDS ORDERED: MORPHINE 2 MG/ML SYR ONE (12:44)
[2019-10-09] MEDS ORDERED: NA CHLORIDE 0.9% 1,000 ML ONE ×2 (12:45→15:26)
[2019-10-09] MEDS ORDERED: PANTOPRAZOLE 40 MG INJ ONE (12:45)
[2019-10-09] MEDS ORDERED: ONDANSETRON 4 MG/2 ML VIAL ONE ×2 (12:45→14:33)
[2019-10-09 13:19] LABS: Absolute Lymphocytes (CBC) 1.6 K/uL (0.7-4.9); Basophils % 0.2 % (0-1.3); Hematocrit 30.4 % (36.0-45.0); Lymphocytes % 10.5 % (15.3-44.8); MPV 7.4 fL (7.6-11.3); RBC Red Blood Cell Count 4.07 M/uL (3.86-4.86)
[2019-10-09 13:29] LABS: Protime INR 0.97
--- NOTE | 2019-10-09 13:58 | RAD REPORT ---
EXAM DESCRIPTION: US - Abdomen Exam Limited - 10/09/2019 12:55 pm CLINICAL HISTORY: ABD PAIN COMPARISON: Abdomen Pelvis W Contrast dated 09/25/2019 FINDINGS: No gallstones, sludge or other abnormalities within the gallbladder lumen. There is no wal l thickening or pericholecystic fluid. No common duct stone or biliary tree dilatation identified. IMPRESSION: Normal gallbladder and biliary tree ultrasound.
--- NOTE | 2019-10-09 13:59 | RAD REPORT ---
EXAM DESCRIPTION: RAD - Chest Single View - 10/09/2019 12:58 pm CLINICAL HISTORY: CHEST PAIN COMPARISON: September 24 TECHNIQUE: AP portable chest image was obtained 10/09/2019 12:58 pm . FINDINGS: Lungs are clear. Heart and vasculature are normal. No measurable pleural effusion and no p neumothorax. No acute bony abnormality seen. No acute aortic findings suspected. IMPRESSION: No acute cardiopulmonary process. No significant change from comparison.
[2019-10-09 14:02] LABS: ALT/SGPT 17 U/L (12-78); AST/SGOT 17 U/L (15-37); Albumin 3.4 g/dL (3.4-5.0); Alkaline Phosphatase 54 U/L (45-117); BUN Blood Urea Nitrogen 18 mg/dL (7-18); Bicarbonate 20 mmol/L (21-32); Bilirubin Direct 0.1 mg/dL (0-0.2); Bilirubin Total 0.4 mg/dL (0.2-1.0); Glucose Level 272 mg/dL (74-106); Lipase 99 U/L (73-393); Magnesium 2.1 mg/dL (1.8-2.4); NT PRO-BNP 456 pg/mL (<450); Potassium 3.6 mmol/L (3.5-5.1); Troponin (Emerg Dept Use Only) < 0.02 ng/mL (0.0-0.045)
[2019-10-09 14:05] LABS: Sodium Level 114 mmol/L (136-145)
[2019-10-09] MEDS ORDERED: NACHLORIDE 0.45% 1,000 ML IV ONE (14:58)
--- NOTE | 2019-10-09 15:01 | RAD REPORT ---
EXAM DESCRIPTION: CT - Angio Aorta For Dissection - 10/09/2019 2:39 pm CLINICAL HISTORY: abdominal pain;Chest pain COMPARISON: AP chest October 08, abdominal ultrasound October 08, CT abdomen and pelvis September 24 TECHNIQUE: Dynamically enhanced 3 mm thick images of the chest, abdomen, and upper pelvis were obtai raj during administration of approximately 150mL Isovue 370 IV contrast. Sagittal and coronal reconst ruction images were generated using MIP and reviewed. Exam utilizes a protocol to evaluate entire cou rse of the aorta. All CT scans are performed using dose optimization technique as appropriate and may include automated exposure control or mA/KV adjustment according to patient size. FINDINGS: Aorta is normal in diameter with no dissection or other acute aortic findings. Reconstruct ion images show no significant findings. Aorta is 3 vessel arch configuration with no origins stenose s. Vertebral artery origin show no stenosis. No subclavian artery abnormality identified. Pulmonary arteries are normal as well. No cardiomegaly, pericardial thickening or pericardial effusio n. No mass or infiltrate in the lung parenchyma. No pleural thickening, pleural effusion or pneumothorax . No abnormal mediastinal or hilar mass or lymphadenopathy seen. No chest wall mass or abnormal axillar y lymphadenopathy. Celiac, SMA and renal arteries show no suspicious findings. Inferior mesenteric artery is intact. No acute or suspicious findings in the solid abdominal viscera. Gallbladder is normal size. No biliary t ree dilatation. No mass or abnormal lymphadenopathy. No free air, free fluid or inflammatory strandi ng. No urinary bladder abnormality. Uterus and ovaries show no suspicious findings. Esophagus is dilated along its entire course from the cervicothoracic junction to the GE junction. Th ere is a moderate size hiatal hernia. The dilated esophagus is filled with fluid present to be reflux ed gastric content. Stomach not distended. There is no gastric wall thickening or mass. Small bowel l oops are not dilated. There are fluid-filled distal small bowel loops without wall thickening or yashira a. Terminal ileum is unremarkable. The appendix is normal. Patient has a moderately large stool volum e throughout the colon. Rectum is distended by stool to 6 cm. No wall thickening or edema. No free air, free fluid or inflammatory stranding. No mass or bulky lymphadenopathy. Postsurgical bubba nges are present in the abdominal wall in the periumbilical level. There is a remnant fat only hernia to the right of the umbilicus. No congestion or edema. Degenerative changes are present. The patient has an 80% L1 compression fracture. Posterior wall encr oaches into the central canal. There is advanced degenerative disc disease at L1-L2. The L1 findings are stable back to at least September 24. Significant L5-S1 degenerative disc disease present. Patient has prominent aortoiliac calcifications. No displaced calcifications. IMPRESSION: Negative CT scan of the aorta for acute finding. Atherosclerotic calcifications are pres ent without dissection or displacement of the calcifications. Patient has a dilated esophagus from the cervicothoracic junction to the GE junction. There is a mode rate hiatal hernia as well. Esophagus is filled with fluid presumed to be refluxed gastric content. No acute bowel process seen. Nondilated distal fluid-filled small bowel loops could potentially refle ct a mild enteritis. The kwon are not thickened or edematous. Additional nonacute findings detailed in the body of the report. No other significant findings on chest, abdomen and upper pelvis examination.
[2019-10-09] MEDS ORDERED: FLEET ENEMA ADULT PR ONE (15:27)
--- NOTE | 2019-10-09 15:45 | ER ---
Nurse's Notes [facility] Name: Emily Villalobos Age: 79 yrs Sex: Female : 1940 Arrival Date: 10/09/2019 Time: 11:57 Bed 8 Private MD: Diagnosis: Nausea and vomiting-intractable;Hypo-osmolality and hyponatremia;Diabetes mellitus due to underlying condition with hyperglycemia Presentation: 10/08 12:15 Chief complaint: Patient states: abdominal pain and nausea and vomiting for about a em week, was seen here already and discharged with medication but medications aren't working, made an appointment with GI doctor and they did a upper GI scope but won't have results for about 14 days, denies fever or diarrhea. Coronavirus screen: The patient has NOT traveled to a country currently being monitored by the [facility] within the last 14 days. The patient has NOT had contact with any known and/or suspected case of coronavirus. Ebola Screen: Patient negative for fever greater than or equal to 101.5 degrees Fahrenheit, and additional compatible Ebola Virus Disease symptoms Patient denies exposure to infectious person. Patient denies travel to an Ebola-affected area in the 21 days before illness onset. No symptoms or risks identified at this time. Initial Sepsis Screen: Does the patient meet any 2 criteria? HR > 90 bpm. Does the patient have a suspected source of infection? No. Patient's initial sepsis screen is negative. Risk Assessment: Do you want to hurt yourself or someone else? Patient reports no desire to harm self or others. 12:15 Method Of Arrival: Wheelchair em 12:15 Acuity: HERMAN 3 em Historical: - Allergies: 12:20 No Known Allergies; em - Home Meds: 12:20 alprazolam 0.25 mg Oral TbDL 1 tab as needed [Active]; bupropion HCl 100 mg Oral tab 1 em tab 3 times per day [Active]; tramadol 50 mg Oral tab 1 tab as needed [Active]; Zofran (as hydrochloride) 4 mg Oral tab 1 tabs as needed [Active]; nifedipine 30 mg Oral TbER 1 tab once daily [Active]; mirtazapine 45 mg Oral tab 1 tab once daily [Active]; metformin 850 mg Oral tab 1 tab 2 times per day [Active]; levothyroxine 100 mcg tab 1 tab once daily [Active]; gabapentin 100 mg Oral cap 3 caps 3 times per day [Active]; - PMHx: 12:20 Diabetes - NIDDM; Hypertension; Hypothyroidism; spine fracture; em - Immunization history:: Adult Immunizations up to date. - Social history:: Smoking status: Patient denies any tobacco usage or history of. Screenin:20 Abuse screen: Denies threats or abuse. Nutritional screening: No deficits noted. em Tuberculosis screening: No symptoms or risk factors identified. Fall Risk None identified. Assessment: 12:15 General: Appears in no apparent distress. uncomfortable, well groomed, well developed, em well nourished, Behavior is calm, cooperative, Denies fever. Pain: Complains of pain in abdomen Pain currently is 9 out of 10 on a pain scale. Pain began 1 week. Neuro: Level of Consciousness is awake, alert, obeys commands, Oriented to person, place, time, situation, Appropriate for age. Cardiovascular: Denies chest pain, Capillary refill < 3 seconds Patient's skin is warm and dry. Respiratory: Airway is patent Respiratory effort is even, unlabored, Respiratory pattern is regular, symmetrical. GI: Abdomen is flat, Bowel sounds present X 4 quads. Abd is soft X 4 quads Abdomen is tender to palpation in epigastric area, right upper quadrant and left upper quadrant Reports nausea, vomiting, Patient currently denies diarrhea. : Denies burning with urination. Derm: Skin is intact, is healthy with good turgor, Skin is pink, warm \T\ dry. Musculoskeletal: Capillary refill < 3 seconds, Range of motion: intact in all extremities. 12:30 Reassessment: US at bedside at this time. tw2 12:45 Reassessment: xray at bedside at this time. tw2 13:30 Reassessment: Patient appears in no apparent distress at this time. Patient and/or em family updated on plan of care and expected duration. Pain level reassessed. Patient is alert, oriented x 3, equal unlabored respirations, skin warm/dry/pink. Patient states symptoms have improved. 14:25 Reassessment: pt actively vomiting in CT, provider notified, received new medication em orders. 15:00 Reassessment: Patient appears in no apparent distress at this time. Patient is alert, em oriented x 3, equal unlabored respirations, skin warm/dry/pink. Patient states feeling better. Patient states symptoms have improved. 15:29 Reassessment: Patient appears in no apparent distress at this time. Dr. Proctor at em bedside. 16:30 Reassessment: Patient appears in no apparent distress at this time. Patient and/or em family updated on plan of care and expected duration. Pain level reassessed. Patient is alert, oriented x 3, equal unlabored respirations, skin warm/dry/pink. Patient states symptoms have improved. Vital Signs: 12:15 BP 125 / 57; Pulse 99; Resp 18; Temp 97.7(O); Pulse Ox 100% on R/A; Weight 56.7 kg; em Pain 9/10; 13:30 BP 129 / 62; Pulse 91; Resp 18; Pulse Ox 100% on R/A; Pain 6/10; em 14:30 BP 111 / 54; Pulse 90; Resp 17; Pulse Ox 97% on R/A; tw2 15:30 BP 128 / 55; Pulse 93; Resp 18; Pulse Ox 100% on R/A; tw2 16:41 BP 100 / 56; Pulse 90; Resp 18; Temp 97.7; Pulse Ox 99% on R/A; Pain 3/10; em ED Course: 11:57 Patient arrived in ED. ag5 12:07 Isaiah Schultz PA is PHCP. cp 12:07 David Flores MD is Attending Physician. cp 12:09 Navdeep Blakely, THUAN is Primary Nurse. em 12:19 Triage completed. em 12:20 Arm band placed on. em 12:20 Patient has correct armband on for positive identification. Placed in gown. Bed in low em position. Call light in reach. Adult w/ patient. Pulse ox on. NIBP on. 12:50 Initial lab(s) drawn, by me, sent to lab. Inserted saline lock: 22 gauge in left em antecubital area, using aseptic technique. Blood collected. 12:58 US Abdomen Limited: RUQ/epigastric area In Process Unspecified. EDMS 13:01 XRAY Chest (1 view) In Process Unspecified. EDMS 14:05 Side rails up X 1. Side rails up X2. Seizure precautions initiated. Warm blanket given. jp3 Pillow given. Verbal reassurance given. 14:26 called and left a message with Dr. Erickson's answering service / Dr. Baptiste will be calling eb back. 14:30 Inserted saline lock: 22 gauge in right antecubital area, using aseptic technique. em 14:[address] Baptiste with Isaiah JOSÉ for patient consultation. eb 14:42 CT Aorta for Dissection In Process Unspecified. EDMS 15:42 Mayank Proctor DO is Hospitalizing Provider. cp 15:50 Bahena cath inserted, using sterile technique, 16 Fr., by me, balloon inflated, to tw2 gravity drainage, urine specimen collected. christopher Sethi RN served as expediter service order. 16:35 No provider procedures requiring assistance completed. Patient admitted, IV remains in em place. 17:18 First set of blood cultures drawn by me. em Administered Medications: Discontinued: NS 0.9% 500 ml IV at 100 ml/hr continuous 13:05 Drug: Zofran (Ondansetron) 4 mg Route: IVP; Site: left antecubital; em 13:30 Follow up: Response: No adverse reaction; Marked relief of symptoms; Nausea is decreasedem 13:05 Drug: NS 0.9% 500 ml Route: IV; Rate: 500 ml/hr; Site: left antecubital; em 14:25 Follow up: IV Status: Completed infusion; IV Intake: 500ml em 13:07 Drug: ProTONIX 40 mg Route: IVP; Site: left antecubital; em 14:25 Follow up: Response: No adverse reaction em 13:08 Drug: morphine 2 mg Route: IVP; Site: left antecubital; em 13:30 Follow up: Response: No adverse reaction; Marked relief of symptoms; Pain is decreased; em RASS: Alert and Calm (0) 13:33 Drug: NS 0.9% 500 ml Route: IV; Rate: 100 ml/hr; Site: left antecubital; em 14:30 Drug: Zofran (Ondansetron) 4 mg Route: IVP; Site: left antecubital; em 15:00 Follow up: Response: No adverse reaction; Marked relief of symptoms; Nausea is decreasedem 15:20 Not Given (Physician Discretion): NS 0.45 % 1000 ml IV at 50 ml/hr continuous cp 15:28 Drug: NS 0.9% 1000 ml Route: IV; Rate: 50 ml/hr; Site: left antecubital; em 17:21 Follow up: IV Status: Infusion continued upon admission tw2 16:35 Drug: Fleet Enema 133 ml Route: PA; em 17:41 Follow up: Response: No adverse reaction em Intake: 14:25 IV: 500ml; Total: 500ml. em Output: 17:20 Urine: 850ml (Bahena); Total: 850ml. tw2 Outcome: 15:44 Decision to Hospitalize by Provider. cp 16:35 Admitted to ICU accompanied by nurse, family with patient, via stretcher, on monitor, em with chart, Report called to THUAN Spaulding 16:35 Condition: good 16:35 Instructed on the need for admit, Demonstrated understanding of instructions. 17:40 Patient left the ED. em Signatures: Dispatcher [employer] Navdeep Merritt, RN RN em Isaiah Schultz PA PA cp Wise, Tara RN RN tw2 Maureen Almonte Jacob jp3 Dayana Garcia 5
--- NOTE | 2019-10-09 15:45 | EDPHYS ---
Physician Documentation [facility] Name: Emily Villalobos Age: 79 yrs Sex: Female : 1940 Arrival Date: 10/09/2019 Time: 11:57 Bed 8 Private MD: ED Physician David Flores HPI: 10/08 12:28 This 79 yrs old Female presents to ER via Wheelchair with complaints of cp Vomiting. 12:28 The patient presents to the emergency department with nausea, with "dry heaves", cp vomiting, that is intermittent, abdominal pain, of the epigastric area, right upper quadrant and left upper quadrant. Onset: The symptoms/episode began/occurred 1 week(s) ago. 12:28 Possible causes: unknown. cp 12:28 Associated signs and symptoms: Pertinent positives: constipation, chest pain, Pertinent cp negatives: fever, GI bleeding. The patient has experienced a previous episode, earlier this month. Historical: - Allergies: 12:20 No Known Allergies; em - Home Meds: 12:20 alprazolam 0.25 mg Oral TbDL 1 tab as needed [Active]; bupropion HCl 100 mg Oral tab 1 em tab 3 times per day [Active]; tramadol 50 mg Oral tab 1 tab as needed [Active]; Zofran (as hydrochloride) 4 mg Oral tab 1 tabs as needed [Active]; nifedipine 30 mg Oral TbER 1 tab once daily [Active]; mirtazapine 45 mg Oral tab 1 tab once daily [Active]; metformin 850 mg Oral tab 1 tab 2 times per day [Active]; levothyroxine 100 mcg tab 1 tab once daily [Active]; gabapentin 100 mg Oral cap 3 caps 3 times per day [Active]; - PMHx: 12:20 Diabetes - NIDDM; Hypertension; Hypothyroidism; spine fracture; em - Immunization history:: Adult Immunizations up to date. - Social history:: Smoking status: Patient denies any tobacco usage or history of. ROS: 12:35 Constitutional: Positive for poor PO intake, Negative for body aches, chills, fever. cp 12:35 Eyes: Negative for injury, pain, redness, and discharge. cp 12:35 ENT: Negative for drainage from ear(s), ear pain, sore throat, difficulty swallowing, difficulty handling secretions. 12:35 Cardiovascular: Positive for chest pain, Negative for edema, palpitations. 12:35 Respiratory: Negative for cough, shortness of breath, wheezing. 12:35 Abdomen/GI: Positive for abdominal pain, nausea and vomiting, constipation, Negative for diarrhea, anorexia, hematemesis, black/tarry stool, rectal bleeding. 12:35 Back: Positive for pain at rest, pain with movement. 12:35 : Negative for urinary symptoms. 12:35 Skin: Negative for rash. 12:35 Neuro: Negative for altered mental status, headache, syncope. 12:35 All other systems are negative. Exam: 12:40 ECG was reviewed by the Attending Physician. cp 12:42 Constitutional: The patient appears in no acute distress, alert, awake, cp non-diaphoretic, non-toxic, well developed, well nourished, in obvious pain, uncomfortable. 12:42 Head/Face: Normocephalic, atraumatic. cp 12:42 Eyes: Periorbital structures: appear normal, Pupils: equal, round, and reactive to light and accomodation, Extraocular movements: intact throughout, Conjunctiva: normal, no exudate, no injection, Sclera: no appreciated abnormality, Lids and lashes: appear normal, bilaterally. 12:42 ENT: External ear(s): are unremarkable, Ear canal(s): are normal, TM's: dullness, bilaterally, Nose: is normal, Mouth: Lips: moist, Oral mucosa: pink and intact, moist, Posterior pharynx: is normal, airway is patent, no erythema, no exudate. 12:42 Neck: ROM/movement: is normal, is supple, without pain, no range of motions limitations, no meningismus. 12:42 Chest/axilla: Inspection: normal, Palpation: is normal, no crepitus, no tenderness. 12:42 Cardiovascular: Rate: normal, Rhythm: regular, Edema: is not appreciated, JVD: is not appreciated. 12:42 Respiratory: the patient does not display signs of respiratory distress, Respirations: cp normal, no use of accessory muscles, no retractions, labored breathing, is not present, Breath sounds: are clear throughout, no decreased breath sounds, no stridor, no wheezing. 12:42 Abdomen/GI: Inspection: abdomen appears normal, Bowel sounds: active, all quadrants, Palpation: soft, in all quadrants, severe abdominal tenderness, in the epigastric area, right upper quadrant and left upper quadrant, rebound tenderness, is not appreciated, voluntary guarding, is elicited in the epigastric area, right upper quadrant and left upper quadrant. 12:42 Back: pain, that is moderate, of the mid back area, ROM is painful, with all movement. 12:42 Skin: cellulitis, is not appreciated, no rash present. cp 12:42 Neuro: Orientation: to person, place \\T\\ time. Mentation: is normal, Cerebellar function: is grossly normal, Motor: moves all fours, strength is normal, Sensation: is normal. Vital Signs: 12:15 BP 125 / 57; Pulse 99; Resp 18; Temp 97.7(O); Pulse Ox 100% on R/A; Weight 56.7 kg; em Pain 9/10; 13:30 BP 129 / 62; Pulse 91; Resp 18; Pulse Ox 100% on R/A; Pain 6/10; em 14:30 BP 111 / 54; Pulse 90; Resp 17; Pulse Ox 97% on R/A; tw2 15:30 BP 128 / 55; Pulse 93; Resp 18; Pulse Ox 100% on R/A; tw2 16:41 BP 100 / 56; Pulse 90; Resp 18; Temp 97.7; Pulse Ox 99% on R/A; Pain 3/10; em MDM: 12:26 Patient medically screened. cp 14:38 Physician consultation: DR Baptiste, clerk funeral detail, recommends ICU and sodium replacement cp with NS at 50 mL/hr. 15:15 Differential diagnosis: gastritis, cholecystitis, pancreatitis, viral gastroenteritis, cp gastroenteritis, bowel obstruction, mesenteric ischemia. 15:22 Physician consultation: Mayank Proctor was called at 15:20, was contacted at 15:23, cp regarding admission, to the ICU, patient's condition, and will see patient in ED, shortly. 15:25 Data reviewed: vital signs, nurses notes, lab test result(s), EKG, radiologic studies, cp CT scan, plain films, ultrasound. 15:25 Test interpretation: by ED physician or midlevel provider: ECG. cp 10/08 12:27 Order name: Basic Metabolic Panel; Complete Time: 14:15 cp 10/08 14:26 Interpretation: Normal except: CL 78; CO2 20; GLUC 272; GFR 51; CA 8.3. cp 10/08 12:27 Order name: CBC with Diff; Complete Time: 13:34 cp 10/08 13:34 Interpretation: Normal except: WBC 15.7; RBC 4.07; HGB 9.8; HCT 30.4; MCV 74.7; MCH cp 24.2; PLT 451; RDW 15.3; MPV 7.4; CHERIE% 81.4; LYM% 10.5; NEUT A 12.8. 10/08 12:27 Order name: LFT's; Complete Time: 14:18 cp 10/08 14:19 Interpretation: Normal except: GLOB 3.6; A/G 0.9. cp 10/08 12:27 Order name: Magnesium; Complete Time: 14:18 cp 10/08 12:27 Order name: NT PRO-BNP; Complete Time: 14:18 cp 10/08 12:27 Order name: PT-INR; Complete Time: 13:34 cp 10/08 12:27 Order name: Troponin (emerg Dept Use Only); Complete Time: 14:19 cp 10/08 14:19 Interpretation: TROPED < 0.02; Reviewed. cp 10/08 12:27 Order name: Lipase; Complete Time: 14:19 cp 10/08 12:32 Order name: Urine Microscopic Only cp 10/08 15:16 Order name: Urine Osmolality cp 10/08 15:16 Order name: Urine Potassium Random cp 10/08 15:16 Order name: Urine Sodium Random cp 10/08 15:16 Order name: Osmolality, Serum cp 10/08 16:00 Order name: Urine Dipstick--Ancillary (enter results) eb 10/08 16:33 Order name: Basic Metabolic Panel EDMS 10/08 16:33 Order name: Blood Culture EDFL 10/08 16:33 Order name: Procalcitonin EDFL 10/08 16:37 Order name: Urinalysis EDFL 10/08 16:37 Order name: Basic Metabolic Panel EDMS 10/08 16:37 Order name: Basic Metabolic Panel EDFL 10/08 16:37 Order name: Basic Metabolic Panel EDMS 10/08 16:37 Order name: Basic Metabolic Panel EDFL 10/08 16:37 Order name: CBC with Automated Diff EDMS 10/08 16:37 Order name: CBC with Automated Diff EDMS 10/08 16:37 Order name: CBC with Automated Diff EDMS 10/08 16:37 Order name: CBC with Automated Diff EDMS 10/08 16:37 Order name: Magnesium EDMS 10/08 16:37 Order name: Magnesium EDMS 10/08 16:37 Order name: Magnesium EDMS 10/08 16:37 Order name: Magnesium EDMS 10/08 12:27 Order name: XRAY Chest (1 view); Complete Time: 14:19 cp 10/08 12:27 Order name: EKG; Complete Time: 12:28 cp 10/08 12:27 Order name: Cardiac monitoring; Complete Time: 12:37 cp 10/08 12:27 Order name: EKG - Nurse/Tech; Complete Time: 13:13 cp 10/08 12:27 Order name: IV Saline Lock; Complete Time: 12:37 cp 10/08 12:27 Order name: Labs collected and sent; Complete Time: 12:37 cp 10/08 12:27 Order name: O2 Per Protocol; Complete Time: 12:37 cp 10/08 12:27 Order name: O2 Sat Monitoring; Complete Time: 12:37 cp 10/08 12:32 Order name: US Abdomen Limited: RUQ/epigastric area; Complete Time: 14:19 cp 10/08 14:19 Interpretation: Report reviewed. cp 10/08 12:32 Order name: Urine Dipstick-Ancillary (obtain specimen); Complete Time: 16:08 cp 10/08 12:55 Order name: CT Aorta for Dissection; Complete Time: 15:09 cp 10/08 15:13 Interpretation: Report reviewed. cp 10/08 15:16 Order name: Bahena; Complete Time: 15:55 cp 10/08 15:19 Order name: NPO; Complete Time: 15:24 cp 10/08 16:33 Order name: CONS Pharmacy Consult EDMS 10/08 16:33 Order name: CONS Physician Consult EDMS 10/08 16:33 Order name: NPO EDMS 10/08 16:37 Order name: T4 Free EDMS 10/08 16:37 Order name: T4 Free EDMS 10/08 16:37 Order name: Thyroid Stimulating Hormone EDMS 10/08 16:37 Order name: Thyroid Stimulating Hormone EDMS 10/08 16:38 Order name: Patient Safety Orders EDMS EC:40 Rate is 98 beats/min. Rhythm is regular. MT interval is normal. QRS interval is normal. cp QT interval is normal. Interpreted by me. Reviewed by me. Administered Medications: Discontinued: NS 0.9% 500 ml IV at 100 ml/hr continuous 13:05 Drug: Zofran (Ondansetron) 4 mg Route: IVP; Site: left antecubital; em 13:30 Follow up: Response: No adverse reaction; Marked relief of symptoms; Nausea is decreasedem 13:05 Drug: NS 0.9% 500 ml Route: IV; Rate: 500 ml/hr; Site: left antecubital; em 14:25 Follow up: IV Status: Completed infusion; IV Intake: 500ml em 13:07 Drug: ProTONIX 40 mg Route: IVP; Site: left antecubital; em 14:25 Follow up: Response: No adverse reaction em 13:08 Drug: morphine 2 mg Route: IVP; Site: left antecubital; em 13:30 Follow up: Response: No adverse reaction; Marked relief of symptoms; Pain is decreased; em RASS: Alert and Calm (0) 13:33 Drug: NS 0.9% 500 ml Route: IV; Rate: 100 ml/hr; Site: left antecubital; em 14:30 Drug: Zofran (Ondansetron) 4 mg Route: IVP; Site: left antecubital; em 15:00 Follow up: Response: No adverse reaction; Marked relief of symptoms; Nausea is decreasedem 15:20 Not Given (Physician Discretion): NS 0.45 % 1000 ml IV at 50 ml/hr continuous cp 15:28 Drug: NS 0.9% 1000 ml Route: IV; Rate: 50 ml/hr; Site: left antecubital; em 17:21 Follow up: IV Status: Infusion continued upon admission tw2 16:35 Drug: Fleet Enema 133 ml Route: MT; em 17:41 Follow up: Response: No adverse reaction em Disposition: 18:58 Co-signature as Attending Physician, David Flores MD Did not see or evaluate patient. ps1 Signature for administrative purposes. . Disposition: 10/09/19 15:44 Hospitalization ordered by Mayank Proctor for Inpatient Admission. Preliminary diagnosis are Nausea and vomiting - intractable, Hypo-osmolality and hyponatremia, Diabetes mellitus due to underlying condition with hyperglycemia. - Bed requested for Intensive Care Unit. - Status is Inpatient Admission. em - Condition is Critical. - Problem is an ongoing problem. - Symptoms have improved. Signatures: Dispatcher [employer] [facility] Navdeep Blakely, RN RN em Deepak Skinner PA PA [id number] Isaiah Schultz PA PA cp David Flores MD MD ps1 Botello, Elizabeth eb Wise, Tara RN tw2 Corrections: (The following items were deleted from the chart) 14:27 14:25 Normal except: CL 78; CO2 20; GLUC 272; GFR 51. cp cp 15:44 15:44 Hospitalization Ordered by [facility] for Inpatient Admission. Preliminary cp diagnosis is Nausea and vomiting - intractable; Hypo-osmolality and hyponatremia. Bed requested for Intensive Care Unit. Status is Inpatient Admission. Condition is Critical. Problem is an ongoing problem. Symptoms have improved. cp 16:14 15:44 10/09/2019 15:44 Hospitalization Ordered by [facility] for Inpatient eb Admission. Preliminary diagnosis is Nausea and vomiting - intractable; Hypo-osmolality and hyponatremia; Diabetes mellitus due to underlying condition with hyperglycemia. Bed requested for Intensive Care Unit. Status is Inpatient Admission. Condition is Critical. Problem is an ongoing problem. Symptoms have improved. cp 16:32 16:01 URINE DIPSTICK--ANCILLARY+U.LAB.BRZ ordered. [facility] 17:40 16:14 10/09/2019 15:44 Hospitalization Ordered by [facility] for Inpatient em Admission. Preliminary diagnosis is Nausea and vomiting - intractable; Hypo-osmolality and hyponatremia; Diabetes mellitus due to underlying condition with hyperglycemia. Bed requested for Intensive Care Unit. Status is Inpatient Admission. Condition is Critical. Problem is an ongoing problem. Symptoms have improved. eb
[2019-10-09] MEDS ORDERED: ACETAMINOPHEN 650MG/RECT SUPP PR PRN (16:30)
[2019-10-09] MEDS: INSULIN -REGULAR HUMAN 50 UNIT/0.5 ML ML SQ SCH ×2 (16:30→21:00)
[2019-10-09] MEDS ORDERED: LORazepam 2 MG/ML VIAL IV PRN (16:30)
[2019-10-09] MEDS ORDERED: NA CHLORIDE 0.9% 1,000 ML IV SCH (16:30)
[2019-10-09] MEDS ORDERED: SODIUM CHLORIDE 0.9% 10ML INJ IV PRN (16:30)
[2019-10-09] MEDS ORDERED: HYDRALAZINE HCL 20 MG/ML VIAL IV PRN (16:30)
[2019-10-09] MEDS ORDERED: ACETAMINOPHEN 500 MG TAB PO PRN (16:30)
--- NOTE | 2019-10-09 16:32 | P.HP ---
Certification for Inpatient Patient admitted to: Inpatient With expected LOS: >2 Midnights Patient will require the following post-hospital care: None Practitioner: I am a practitioner with admitting privileges, knowledge of patient current condition, hospital course, and medical plan of care. Services: Services provided to patient in accordance with Admission requirements found in Title 42 Section 412.3 of the Code of Federal Regulations Patient History Date of Service: 10/09/19 Primary Care Provider: None, GI-Dr. House/Adela; Nephrology-Dr. Grady Reason for admission: Nausea, vomiting, abdominal pain History of Present Illness: 79-year-old female with history of diabetes, hypertension, hypothyroidism, GERD with hiatal hernia and recent hospitalization for hyponatremia with suspected diverticulitis. Patient recently admitted to the hospital September 24 through the . She presented with nausea and vomiting at that time. Patient was hypernatremic. Diverticulitis was suspected. CT scan at that time was unremarkable but diverticulosis noted. Patient was discharged with Cipro. Sodium improved to normal range prior to discharge at that time. Since that time she has been having some nausea and vomiting. She has since been to see a GI specialist. She had the EGD done. She does not know the results. Over the past several days he has been having increased nausea and vomiting. She had not been able to keep anything down. She denies any diarrhea. She reports some abdominal pain throughout mainly to the right upper quadrant. She reports some constipation as well. Her last bowel movement was 3 days ago. Patient denies any chest pain or shortness of breath. No fever noted. Patient came to the ER for further evaluation. In the ER patient was evaluated. Vital signs stable. White count 15.7, hemoglobin 9.8. Platelet count 451. Sodium 114. Potassium 3.7. BUN 18, creatinine 1.04 with a GFR 51. Glucose 272. LFTs unremarkable. Lipase unremarkable. Troponin unremarkable. Chest x-ray unremarkable. Abdominal ultrasound unremarkable for cholelithiasis were common bile duct dilation. CT scan revealed moderate-size hiatal hernia at with dilated esophagus. Some nondilated loops of bowel noted. Large amount of stool noted. Evidence is some enteritis likely. Patient was started on IV fluids. Patient admitted to ICU due to severe hyponatremia. When I saw the patient the ER, she denied appear septic. Patient stable this time. Some nausea reported. Allergies No Known Allergies Allergy (Unverified 09/26/19 00:24) Home medications list reviewed: Yes Home Medications: Alprazolam [Xanax] 1 tab PO DAILY PRN 09/26/19 Gabapentin 1 tab PO Q8H 09/26/19 Levotiroxina Sodica 100 mcg PO DAILY 09/26/19 Metformina 850 mg PO BID 09/26/19 Mirtazapine 1 tab PO DAILY 09/26/19 Nifedipino 30 mg PO DAILY 09/26/19 Ondansetron HCl 1 tab PO Q6HP PRN 09/26/19 Tramadol HCl [Ultram] 1 tab PO Q8H PRN 09/26/19 buPROPion HCL [Bupropion HCl] 1 tab PO DAILY 09/26/19 Ciprofloxacin HCl [Cipro 500 MG Tablet] 500 mg PO BID #14 tab 09/27/19 metroNIDAZOLE [Flagyl] 500 mg PO Q8H #21 tablet 09/27/19 - Past Medical/Surgical History Diabetic: Yes -: Diabetes mellitus type 2 [id number] -: Hypothyroidism -: Compression fracture -: GERD with hiatal hernia -: Depression with anxiety -: Insomnia -: Obesity -: Umbilical hernia repair Psychosocial/ Personal History: Patient is - Family History Father -: Heart disease - Social History Smoking Status: Never smoker Alcohol use: No CD- Drugs: No Caffeine use: Yes Place of Residence: Home Review of Systems General: Weakness, As per HPI Eyes: Unremarkable ENT: Unremarkable Respiratory: Unremarkable Cardiovascular: Unremarkable Gastrointestinal: Nausea, Vomiting, Abdominal Pain, Constipation, As per HPI Genitourinary: Unremarkable Musculoskeletal: Unremarkable Integumentary: Unremarkable Neurological: Unremarkable Lymphatics: Unremarkable Physical Examination - Physical Exam General: Alert, Oriented x3, Cooperative, Other (Some nausea noted during examination) HEENT: Atraumatic, Normocephalic, Other (Dry mucous membranes) Neck: Supple Respiratory: Clear to auscultation bilaterally, Normal air movement Cardiovascular: Normal pulses, Regular rate/rhythm Gastrointestinal: Normal bowel sounds, Soft and benign, Non-distended, No masses , No rebound, No guarding, Tenderness (Abdominal pain to route) Musculoskeletal: No erythema, No tenderness, No warmth Integumentary: No tenderness/swelling, No erythema, No warmth, No cyanosis Neurological: Normal speech, Normal strength at 5/5 x4 extr, Normal tone, Normal affect - Studies Laboratory Data (last 24 hrs) 10/09/19 13:05: PT 11.5, INR 0.97 10/09/19 13:05: WBC 15.7 H D, Hgb 9.8 L, Hct 30.4 L D, Plt Count 451 H D 10/09/19 13:05: Sodium 114 L* D, Potassium 3.6, BUN 18, Creatinine 1.04, Glucose 272 H, Magnesium 2.1, Total Bilirubin 0.4, AST 17, ALT 17, Alkaline Phosphatase 54, Lipase 99 Assessment and Plan - Plan Impression: Nausea, vomiting with abdominal pain suspect enteritis with constipation complicated with severe acute on chronic, recurrent hyponatremia Acute renal injury secondary to nausea and vomiting Hiatal hernia with likely esophagitis/GERD Diabetes mellitus type 2 non-insulin dependent with hyperglycemia Depression with anxiety Hypothyroidism Anemia likely of chronic disease Plan: Nausea, vomiting with abdominal pain suspect enteritis with constipation complicated with severe acute on chronic, recurrent hyponatremia: Patient will be admitted to the ICU for close monitoring. Case discussed with Nephrology. Due to her hyponatremia will start normal saline at 50 cc/hour. Will recheck lab-BMP at 9:00 p.m.. Further adjustment will be done by Nephrology. Will start IV Zosyn to cover for enteritis. Will provide medication for pain. Will keep the patient NPO at this time. Once improved will consider starting clear liquids. Patient recently seen by GI for hiatal hernia. Will try to obtain results of recent EGD. Etiology of hyponatremia unclear may be related to nausea and vomiting likely related to GERD/esophagitis versus medication. Will discontinue mirtazapine as this may cause hyponatremia. Enteritis may be related to her constipation and current issues. Will continue to reassess and monitor. Anticipate improvement over the next 2-3 days. Acute renal injury secondary to nausea and vomiting: Continue with IV fluids as recommended above. Will provide medication for nausea. Will continue monitor and assess. Electrolyte protocol in place. Hiatal hernia with likely esophagitis/GERD: Will start PPI. Will discuss with GI and obtained recent EGD results. Diabetes mellitus type 2 non-insulin dependent with hyperglycemia: Will monitor Accu-Cheks. Insulin sliding scale in place. Hold metformin at this time. Depression with anxiety: Hold her current medications this time. Will provide medication for anxiety as needed. Hypothyroidism: Restart home medication. Will recheck tsh and free T4. Anemia likely of chronic disease: Will monitor closely. Would check see if recent iron and B12 studies have been evaluated. Discharge Plan: Home Plan to discharge in: Greater than 2 days - Advance Directives Does patient have a Living Will: No Does patient have a Durable POA for Healthcare: No - Code Status/Comfort Care Code Status Assessed: Yes (Patient is full code) Time Spent Managing Pts Care (In Minutes): 55
[2019-10-09 16:46] LABS: Urine Bacteria <20 /HPF (<20); Urine Culture Reflex Order NOT NEEDED; Urine RBC NONE SEEN /HPF (NONE SEEN)
--- NOTE | 2019-10-09 17:45 | EKG ---
Test Date: 2019-10-09 Test Time: 12:32:00 Pellet Press Operator: ZIGGY MEASUREMENT RESULTS: Intervals: Rate: 98 CO: 164 QRSD: 90 QT: 356 QTc: 454 [place]: P: 58 CO: 164 QRS: 18 T: 64 INTERPRETIVE STATEMENTS: Normal sinus rhythm Septal infarct, age undetermined Abnormal ECG Compared to ECG 09/25/2019 20:53:35 No significant changes Electronically Signed On 10-09-19 17:44:34 CDT by Matthew Sharp
[2019-10-09] MEDS: PIPER/TAZO/NS 3.375gm 3.375 GM/100 ML BAG IVPB SCH (17:54)
[2019-10-09] MEDS: ENOXAPARIN 40 MG/0.4 ML SQ SCH (17:56)
[2019-10-09] MEDS ORDERED: PROMETHAZINE INJ 25 MG/ML AMP IV PRN (18:27)
[2019-10-09] MEDS: ONDANSETRON 4 MG/2 ML VIAL IV PRN (18:41)
[2019-10-09] MEDS: MORPHINE 2 MG/ML SYR IV PRN (18:49)
[2019-10-09 21:11] LABS: Potassium 3.2 mmol/L (3.5-5.1)
[2019-10-09] MEDS: D5W 1,000 ML IV SCH (23:04)
[2019-10-10] MEDS: PIPER/TAZO/NS 3.375gm 3.375 GM/100 ML BAG IVPB SCH ×3 (01:22→17:25)
[2019-10-10 02:59] LABS: Urine Blood NEGATIVE (NEG); Urine Glucose 3+ (NEG); Urine Protein NEGATIVE (NEG)
[2019-10-10] MEDS: D5W 1,000 ML IV SCH (04:05)
[2019-10-10] MEDS: LEVOTHYROXINE SOD 0.1 MG TAB PO SCH (04:22)
[2019-10-10 05:41] LABS: Absolute Lymphocytes (CBC) 2.1 K/uL (0.7-4.9); Basophils % 0.4 % (0-1.3); Hematocrit 24.9 % (36.0-45.0); Lymphocytes % 26.9 % (15.3-44.8); MPV 7.6 fL (7.6-11.3); RBC Red Blood Cell Count 3.31 M/uL (3.86-4.86)
[2019-10-10 05:51] LABS: Uric Acid 2.9 mg/dL (2.6-6.0)
[2019-10-10 05:57] LABS: Thyroid Stimulating Hormone 9.7 uIU/mL (0.360-3.740)
[2019-10-10 06:00] LABS: Magnesium 2.4 mg/dL (1.8-2.4); Potassium 3.2 mmol/L (3.5-5.1)
[2019-10-10] MEDS: INSULIN -REGULAR HUMAN 50 UNIT/0.5 ML ML SQ SCH ×4 (07:30→21:00)
[2019-10-10 08:05] LABS: Blood Morphology Comment NOT SEEN (NOT SEEN); Platelet Estimate ADEQ
--- NOTE | 2019-10-10 08:06 | P.PN ---
Subjective Date of Service: 10/10/19 Primary Care Provider: None, GI-Dr. House/Adela; Nephrology-Dr. Grady Chief Complaint: Nausea, vomiting, abdominal pain Subjective: Improving, Other (No nausea, vomiting or abdominal pain.) Physical Examination - Vital Signs Temperature: 97 F Blood Pressure: 88/40 Pulse: 79 Respirations: 14 Pulse Ox (%): 97 - Physical Exam General: Alert, In no apparent distress, Oriented x3 HEENT: Atraumatic Neck: Supple Respiratory: Clear to auscultation bilaterally, Normal air movement Cardiovascular: Normal pulses, Regular rate/rhythm Gastrointestinal: Normal bowel sounds, Soft and benign, Non-distended, No tenderness, No masses, No rebound, No guarding Musculoskeletal: No tenderness, No warmth Integumentary: No cyanosis Neurological: Normal speech, Normal strength at 5/5 x4 extr, Normal tone, Normal affect - Studies Laboratory Data (last 24 hrs) 10/09/19 13:05: PT 11.5, INR 0.97 10/09/19 13:05: WBC 15.7 H D, Hgb 9.8 L, Hct 30.4 L D, Plt Count 451 H D 10/09/19 13:05: Sodium 114 L* D, Potassium 3.6, BUN 18, Creatinine 1.04, Glucose 272 H, Magnesium 2.1, Total Bilirubin 0.4, AST 17, ALT 17, Alkaline Phosphatase 54, Lipase 99 Medications List Reviewed: Yes Assessment & Plan Discharge Plan: Home Plan to discharge in: 24 Hours Physician Review Additional Text: Impression: Nausea, vomiting with abdominal pain suspect enteritis with constipation complicated with severe acute on chronic, recurrent hyponatremia Acute renal injury secondary to nausea and vomiting Hiatal hernia with likely esophagitis/GERD Diabetes mellitus type 2 non-insulin dependent with hyperglycemia Depression with anxiety Hypothyroidism Anemia likely of chronic disease Plan: Nausea, vomiting with abdominal pain suspect enteritis with constipation complicated with severe acute on chronic, recurrent hyponatremia: IV fluids adjusted by Nephrology Overnite. Sodium level improved. Continue to replace electrolytes. No nausea, vomiting or abdominal pain today. Will start off with a clear liquid diet then advance to ADA diet as tolerated. If Nephrology agrees with transfer to the floor then will transfer to the floor and ambulate. Continue IV antibiotic therapy. Continue DVT prophylaxis. Anticipate improvement over the next 24-48 hr. Acute renal injury secondary to nausea and vomiting: IV fluids adjusted by Nephrology. Continue electrolyte protocol. Hiatal hernia with likely esophagitis/GERD: Continue with PPI. Will discuss with GI and obtained recent EGD results. Diabetes mellitus type 2 non-insulin dependent with hyperglycemia: Will monitor Accu-Cheks. Insulin sliding scale in place. Hold metformin at this time. Depression with anxiety: Restart home medication Hypothyroidism: Continue home medication. Tsh elevated normal free T4. Anemia likely of chronic disease: Hemoglobin drops slightly. Likely dilutional. Will recheck hemoglobin and iron and B12 studies at noontime. Will monitor for melena or bloody stool. Time Spent Managing Pts Care (In Minutes): 55
[2019-10-10] MEDS ORDERED: DESMOPRESSIN 4 MCG/ML AMP SQ ONE (08:58)
[2019-10-10] MEDS ORDERED: D5W 500 ML IV SCH (09:00)
[2019-10-10] MEDS ORDERED: HOME MED 1 EA UNK (Mirtazapine [Mirtazapine] 1 TAB) PO SCH (09:00)
[2019-10-10] MEDS ORDERED: THIAMINE 200 MG/2 ML INJ IVP ONE (09:07)
[2019-10-10] MEDS: ENOXAPARIN 40 MG/0.4 ML SQ SCH (09:15)
[2019-10-10] MEDS: PANTOPRAZOLE 40 MG INJ IVP SCH (09:15)
[2019-10-10] MEDS: buPROPion HCL 100 MG TAB PO SCH (09:27)
[2019-10-10] MEDS: ONDANSETRON 4 MG/2 ML VIAL IV PRN ×2 (09:32→20:24)
[2019-10-10] MEDS ORDERED: D5W 500 ML IV ONE (10:00)
[2019-10-10] MEDS ORDERED: LACTULOSE 20 GM/30 ML UCUP PO PRN (10:24)
[2019-10-10] MEDS ORDERED: NA CHLORIDE 0.9% IV ONE ×2 (10:30→15:00)
[2019-10-10] MEDS ORDERED: DESMOPRESSIN IV ONE ×2 (10:30→15:00)
[2019-10-10 12:32] LABS: Hematocrit 26.3 % (36.0-45.0)
[2019-10-10 13:12] LABS: Potassium 3.3 mmol/L (3.5-5.1)
[2019-10-10] MEDS ORDERED: DESMOPRESSIN 4 MCG/ML AMP IV ONE ×3 (13:34→21:12)
[2019-10-10] MEDS ORDERED: KCL 20 MEQ/100 mL IVPB 20 MEQ/100 ML BAG IV SCH (14:00)
[2019-10-10] MEDS: D5W 1,000 ML with POTASSIUM CL 20 MEQ IV SCH ×2 (14:14)
[2019-10-10 18:33] LABS: BUN Blood Urea Nitrogen 7 mg/dL (7-18); Bicarbonate 23 mmol/L (21-32); Glucose Level 138 mg/dL (74-106); Sodium Level 127 mmol/L (136-145)
[2019-10-10 18:37] LABS: Potassium 2.9 mmol/L (3.5-5.1)
[2019-10-10] MEDS: KCL 20 MEQ/100 mL IVPB 20 MEQ/100 ML BAG IV SCH ×2 (20:23→23:23)
[2019-10-10] MEDS ORDERED: POTASSIUM CL SA 10 MEQ TAB PO ONE (21:18)
[2019-10-10] MEDS: D5W 500 ML IV SCH (22:00)
[2019-10-10] MEDS: MORPHINE 2 MG/ML SYR IV PRN (22:25)
--- NOTE | 2019-10-10 23:18 | CON ---
Date of Consultation: 10/10/2019 Chief Complaint: Hyponatremia, hypoosmolar. History Of Present Illness: Patient came to the hospital and lab work showed severe hyponatremia. Sodium level was 114. Patient received IV fluids and sodium level elevated up to 123 after the first order with IV fluids. Patient subsequently was switched to hypotonic fluids to slow down fast correction of hyponatremia. Patient remains in ICU. She was found to have hypokalemia and received potassium replacement. Patient is on protocol with hypotonic fluids and needs DDAVP to slow down rapid correction of hyponatremia. She has had multiple medical problems including history of hypertension, diabetes mellitus, hypothyroidism, GERD, hernia. She is admitted to ICU with suspected diverticulitis. Patient is a 79-year-old woman with diabetes mellitus, hypertension. Recently, she was admitted to the hospital back in September and discharged on September 26. She presented with nausea, vomiting at that time. She had hyponatremia, diverticulitis was suspected and CT scan was unremarkable, bad diverticulosis was noted. Patient was discharged on Cipro. Sodium improved to normal ranges prior to discharge. Recently, she developed nausea and vomiting at home. She was seen by GI specialist and had an EGD done. She was unable to tolerate p.o. intake. She denied diarrhea, melena, hematemesis. She came to the hospital and was evaluated in the ER and was found to have leukocytosis, white count of 15.7, anemia was present. Hemoglobin was 9.8, platelet count 451, and sodium 114, potassium 3.7, glucose 272. Chest x-ray was unremarkable. Abdominal ultrasound unremarkable for cholelithiasis and common bile duct dilatation. CT scan revealed moderate-sized hernia with dilated esophagus. Some non-dilated loops of bowel were noted and impression was likely enteritis. Patient was started on IV fluids to correct hyponatremia. Subsequently, IV fluids were changed to D5W because of the overly rapid correction of hyponatremia. Review of Systems: Constitutional: Today, patient is feeling better. She denies nausea, vomiting. Eyes: Denies vision changes. Ears, Nose, Mouth and Throat: Denies sore throat, earache. Respiratory: Denies PND, orthopnea. Cardiovascular: Denies chest pain, palpitation. GI: Denies nausea, vomiting. : Denies dysuria, hematuria. All other systems reviewed and all are negative. Past Medical History: Diabetes mellitus, non-insulin dependent; hypothyroidism ; compression fracture; GERD with hiatal hernia; depression with anxiety; insomnia; obesity; umbilical hernia. Family History: Father, heart disease. Social History: Denies tobacco, alcohol, or illicit drugs. Physical Examination: General: The patient is awake, alert, follows commands. Eyes: Anicteric sclerae. EOMI. Ears, Nose, Mouth and Throat: Oral mucosa moist. No pallor. Neck: Supple. No bruits. Lungs: Clear to auscultation bilaterally. No rhonchi, no wheezing. Heart: S1, S2. No pericardial friction rub. Abdomen: Soft, benign, nontender. No rebound, no guarding. Extremities: No edema, no clubbing, no cyanosis. Skin: warm and dry , no oozing Neurologic: no tremor , CN intact Laboratory Data: WBC 15.7, hemoglobin 9.8, platelet count 451. Sodium 114, potassium 3.6, BUN 18, creatinine 1.04, glucose 272, total bilirubin 0.4. Impression And Plan: 1. Nausea, vomiting, abdominal pain, hyponatremia, depletion. Patient will have workup to check TSH, rule out hypothyroidism. Patient will continue IV fluids and IV fluids will be adjusted to gradually correct chronic hyponatremia. Patient at this point is asymptomatic. She did not have nausea or vomiting today. She denies syncope, confusion. 2. Acute kidney injury secondary to prerenal azotemia. Renal hypoperfusion. There is elevation of BUN and creatinine ratio corresponding with prerenal azotemia. Continue IV fluids , adjust treatment according to labs results. . 3. Diabetes mellitus, insulin dependent. Continue insulin. Patient cannot take metformin due to complicated history of kidney problems. 4. Abdominal pain, nausea and vomiting, controlled. Continue treatment. Follow up with GI service. ELVIN/JASON Voice ID: [id number] Report ID: [id number] CAROL
[2019-10-11] MEDS: D5W 1,000 ML with POTASSIUM CL 20 MEQ IV SCH ×2 (00:55)
[2019-10-11] MEDS: PIPER/TAZO/NS 3.375gm 3.375 GM/100 ML BAG IVPB SCH ×3 (00:56→17:31)
[2019-10-11] MEDS: D5W 500 ML IV SCH ×4 (02:00→06:00)
[2019-10-11] MEDS: LEVOTHYROXINE SOD 0.1 MG TAB PO SCH (05:55)
[2019-10-11 06:00] LABS: BUN Blood Urea Nitrogen 3 mg/dL (7-18); Bicarbonate 21 mmol/L (21-32); Glucose Level 152 mg/dL (74-106); Magnesium 1.6 mg/dL (1.8-2.4); Potassium 3.5 mmol/L (3.5-5.1)
[2019-10-11 06:02] LABS: Sodium Level 118 mmol/L (136-145)
[2019-10-11 06:09] LABS: Absolute Lymphocytes (CBC) 2.7 K/uL (0.7-4.9); Basophils % 0.8 % (0-1.3); Hematocrit 22.2 % (36.0-45.0); Lymphocytes % 36.6 % (15.3-44.8); MPV 7.7 fL (7.6-11.3); RBC Red Blood Cell Count 2.97 M/uL (3.86-4.86)
[2019-10-11] MEDS ORDERED: POTASSIUM CL SA 10 MEQ TAB PO ONE ×2 (06:36→12:00)
[2019-10-11] MEDS ORDERED: CALCIUM GLUC 10% INJ 4.65 MEQ in NA CHLORIDE 0.9% 100 ML IV ONE (06:38)
[2019-10-11] MEDS ORDERED: MAGNESIUM SULFATE 1 gm IVPB 1 GM/100 ML BAG IV ONE (06:38)
[2019-10-11] MEDS ORDERED: NA CHLORIDE 0.9% 1,000 ML IV SCH (07:00)
[2019-10-11] MEDS: INSULIN -REGULAR HUMAN 50 UNIT/0.5 ML ML SQ SCH ×4 (07:30→21:00)
[2019-10-11] MEDS: THIAMINE 200 MG/2 ML INJ IVP SCH (08:07)
[2019-10-11] MEDS: PANTOPRAZOLE 40 MG INJ IVP SCH ×2 (08:07→21:45)
[2019-10-11] MEDS: MIRTAZAPINE 15 MG TAB PO SCH (08:07)
[2019-10-11] MEDS: ENOXAPARIN 40 MG/0.4 ML SQ SCH (08:08)
[2019-10-11] MEDS: buPROPion HCL 100 MG TAB PO SCH (08:10)
[2019-10-11] MEDS: ONDANSETRON 4 MG/2 ML VIAL IV PRN (09:15)
[2019-10-11 09:30] LABS: BUN Blood Urea Nitrogen 2 mg/dL (7-18); Bicarbonate 21 mmol/L (21-32); Glucose Level 179 mg/dL (74-106); Potassium 3.4 mmol/L (3.5-5.1)
[2019-10-11 09:31] LABS: Sodium Level 116 mmol/L (136-145)
--- NOTE | 2019-10-11 09:32 | P.PN ---
Subjective Date of Service: 10/11/19 Primary Care Provider: None, GI-Dr. House/Adela; Nephrology-Dr. Grady Chief Complaint: Nausea, vomiting, abdominal pain Subjective: Other (Patient appears improved. Abdominal pain improved. Less nausea and vomiting today.) Physical Examination - Vital Signs Temperature: 98.2 F Blood Pressure: 129/72 Pulse: 74 Respirations: 14 Pulse Ox (%): 99 - Physical Exam General: Alert, In no apparent distress, Oriented x3, Cooperative HEENT: Atraumatic, Other (Dry mucous membranes) Neck: Supple Respiratory: Clear to auscultation bilaterally, Normal air movement Cardiovascular: Normal pulses, Regular rate/rhythm Gastrointestinal: Normal bowel sounds, Soft and benign, Non-distended, No masses , No rebound, No guarding, Tenderness (Less tenderness to the abdomen) Musculoskeletal: No erythema, No tenderness, No warmth Integumentary: No tenderness/swelling, No erythema, No warmth, No cyanosis Neurological: Normal speech, Normal strength at 5/5 x4 extr, Normal tone, Normal affect - Studies Medications List Reviewed: Yes Assessment & Plan Discharge Plan: Other (care home placement) Plan to discharge in: Greater than 2 days Physician Review Additional Text: Impression: Nausea, vomiting with abdominal pain secondary to enteritis/esophagitis with constipation complicated with severe acute on chronic, recurrent hyponatremia Acute renal injury secondary to nausea and vomiting Hiatal hernia with likely esophagitis/GERD Diabetes mellitus type 2 non-insulin dependent with hyperglycemia Depression with anxiety Hypothyroidism Anemia of chronic disease with iron deficiency/B12 deficiency Plan: Nausea, vomiting with abdominal pain secondary to enteritis/esophagitis with constipation complicated with severe acute on chronic, recurrent hyponatremia: Electrolytes improved. Nephrology continues to adjust IV fluids. Hyponatremia improved. Continue with nephrology recommendation. Continue IV antibiotic therapy for enteritis. Will increase Protonix to twice daily. Will add Carafate. Will start clear liquid diet today. Will advance as tolerated. Will have physical therapy assess ambulation. Patient will likely require detention placement at discharge. Will consult social work. Continue DVT prophylaxis. Will check hemoglobin later today. Patient may require transfusion if hemoglobin below 7. Will monitor closely. I will turn the service over to the hospitalist team tomorrow. I will go over the plan of care with him. Acute renal injury secondary to nausea and vomiting: Renal function improved. IV fluids continued to be adjusted by Nephrology. Continue electrolyte protocol in place. Hiatal hernia with likely esophagitis/GERD: Will increase PPI to twice daily. Will add Carafate. Will start with a clear liquid diet and advanced slowly. Will discuss with GI and obtained recent EGD results. Diabetes mellitus type 2 non-insulin dependent with hyperglycemia: Will monitor Accu-Cheks. Insulin sliding scale in place. Hold metformin at this time. Depression with anxiety: Continue medication Hypothyroidism: Continue home medication. Tsh elevated normal free T4. Anemia of chronic disease with iron and B12 deficiency: Will start IV iron. Will start B12 supplementation. Hemoglobin slightly low. Will recheck hemoglobin. If hemoglobin below 7.5 will transfuse. Time Spent Managing Pts Care (In Minutes): 55
[2019-10-11 09:40] LABS: Anisocytosis 1+; Blood Morphology Comment NOTED (NOT SEEN); Platelet Estimate ADEQ; Polychromasia 1+; Urine White Blood Cell Casts OK
[2019-10-11] MEDS ORDERED: SODIUM CHLORIDE 1 GM TAB PO ONE (09:58)
[2019-10-11] MEDS ORDERED: NA CHLORIDE 3% 500 ML IV SCH (11:00)
[2019-10-11] MEDS: SUCRALFATE 1 GM TABLET PO SCH ×3 (11:30→21:39)
[2019-10-11 12:33] LABS: Hematocrit 27.8 % (36.0-45.0)
[2019-10-11 14:08] LABS: BUN Blood Urea Nitrogen 3 mg/dL (7-18); Bicarbonate 21 mmol/L (21-32); Glucose Level 151 mg/dL (74-106); Potassium 3.2 mmol/L (3.5-5.1)
[2019-10-11 14:09] LABS: Sodium Level 117 mmol/L (136-145)
--- NOTE | 2019-10-11 15:38 | RAD REPORT ---
EXAM DESCRIPTION: RAD - Chest Single View - 10/11/2019 3:26 pm CLINICAL HISTORY: R/O Pneumo, central line placement COMPARISON: October 08 TECHNIQUE: AP portable chest image was obtained 10/11/2019 3:26 pm . FINDINGS: Right jugular central line has been placed. Tip is in the mid SVC. No pneumothorax. No significant change to the heart, vasculature or lung parenchyma.
[2019-10-11] MEDS: KCL 20 MEQ/100 mL IVPB 20 MEQ/100 ML BAG IV SCH ×2 (15:45→17:30)
[2019-10-11 18:49] LABS: BUN Blood Urea Nitrogen 2 mg/dL (7-18); Bicarbonate 19 mmol/L (21-32); Glucose Level 236 mg/dL (74-106); Sodium Level 121 mmol/L (136-145)
--- NOTE | 2019-10-11 19:01 | CON ---
Date of Consultation: 10/11/2019 Reason For Consult: Emergent central line placement in the intensive care unit. History Of Present Illness: This is a case of a female, who comes to us with multiple medical proble ms including problems with the sodium. They have been trying to fix with some other ways. Right now , they are trying to fix it with some other medical treatment that requires a central line placement as per primary doctors. So, they asked for an emergent central line placement. Past Medical History: Diabetes, depression, insomnia, obesity, hypothyroidism. Past Surgical History: Umbilical hernia repair. Social History: She does not smoke. She does not drink alcohol. Family History: Noncontributory. Review of Systems: Ten points otherwise unremarkable. Physical Examination: General: Patient is awake and alert. HEENT: Pupils are equal and reactive. Anicteric. Neck: Supple. Chest: Clear. Abdomen: Soft and depressible. No guarding or rebound. Extremities: Good capillary refill. Laboratory Data: Blood work shows a hemoglobin of 7.3, WBC count of 7.4. INR is normal. Sodium is 117. Chloride is 84. Assessment: 79-year-old patient in need for emergent central line. The benefits, alternatives, and risks of central line placement fully explained to the patient and her in Korean and [place]o with benefits, alternatives, and risks including, but not limited to, infection, bleeding, damage to adjacent structures, anesthesia complication, pneumothorax, hemothorax, cardiac arrhythmias, NC, and even . They understood, signed a consent. ELVIS/JASON Voice ID: [id number] Report ID: [id number]
--- NOTE | 2019-10-11 20:16 | OP ---
Date of Procedure: 10/11/2019 Surgeon: Quentin Chapman MD Diagnosis: Improved peripheral access and need for emergent IV therapy with emergent central line pl acement. Postoperative Diagnosis: Improved peripheral access and need for emergent IV therapy with emergent c entral line placement. Procedure: Placement of a triple-lumen central line in the right internal jugular vein. Anesthesia: Local. Indication: This is the case of a 79-year-old patient with multiple medical problems, in the ICU who was requested by the primary doctor an emergent central line placement. The benefits, alternatives, and risks were explained to the patient, which include but are not limited to infection, bleeding, d amage to adjacent structures, anesthesia complication, pneumothorax, hemothorax, ME even . They also understood this may not relieve the symptoms. They might need more than one surgical intervent ion. They understood, signed a consent. Description Of Procedure: Patient was brought to the Trendelenburg position, we are in the room in t ICU. The right chest and neck were prepped and draped in sterile fashion. Patient placed in [place] position. A time-out was called. Local anesthesia was applied in the area the right neck. After that, we proceed to place an 18-gauge needle in the right internal jugular vein on the first attempt. Guidewire was passed through needle was removed and a central line triple lumen was placed using Seldinger technique. Excellent backflow and inflow. The line was secured in place with 3-0 ny rosendo and flushed with normal saline. Chest x-ray was ordered stat. The patient tolerated the procedure well. ELVIS/JASON Voice ID: [id number] Report ID: [id number]
--- NOTE | 2019-10-11 22:16 | PN ---
Date of Progress Note: 10/11/2019 Chief Complaint: Hyponatremia, hypo-osmolar. History Of Present Illness: The patient received DDAVP to slow down overly rapid correction of hyponatremia. Primarily, she came to the hospital because generalized weakness and nausea. When work-up was done in the ER sodium level was 114. Subsequently, patient, when the sodium level was up to 127, was started on DDAVP and IV fluids were adjusted to alleviate overly rapid correction. This morning, sodium level dropped to 118 and 116. Patient had IV line placed for 3% of sodium chloride and she was to be medicated with sodium chloride tablets, although she was vomiting and did not take tablets. Patient was found to have hypokalemia and received potassium replacement. After 2 hours of 3% of sodium chloride infused at 15 cc/hour, she received a total of 30 cc of 3% sodium chloride infusion and sodium level improved gradually to 121. Patient was feeling better and nausea and vomiting resolved. Patient was medicated with potassium by mouth and potassium improved from 3.2 to 4.0. 3% sodium chloride infusion was stopped when Sodium level was at 121 and nausea resolved. The sodium was obtained and it showed sodium being of 121. The patient has a history of diabetes mellitus. Blood glucose was ranging from 151 to 236. Review of Systems: The patient is feeling better. Denies nausea and vomiting. Physical Examination: Lungs: Clear to auscultation bilaterally. Heart: S1, S2. Abdomen: Soft, benign. Extremities: No edema. Impression And Plan: Hyponatremia hypo-osmolar, improving , although the patient required DDAVP to slow down overly rapid correction of hyponatremia and currently sodium level is 121. Plan is to increase p.o. fluid intake and reevaluate another BMP in 3 hours. Diuresis is improving and plan is to control electrolytes accordingly with IV fluids as needed. Currently, patient tolerates p.o. intake and fluid restriction up to 1.3 L per day. I spent total 35 min including 25 min to coordinate care plan. ELVIN/MODL Voice ID: [id number] Report ID: [id number] CAROL
[2019-10-11 23:22] LABS: BUN Blood Urea Nitrogen 3 mg/dL (7-18); Bicarbonate 22 mmol/L (21-32); Glucose Level 151 mg/dL (74-106); Potassium 3.9 mmol/L (3.5-5.1); Sodium Level 127 mmol/L (136-145)
[2019-10-12] MEDS: PIPER/TAZO/NS 3.375gm 3.375 GM/100 ML BAG IVPB SCH ×3 (00:41→17:35)
[2019-10-12 05:41] LABS: Magnesium 2.3 mg/dL (1.8-2.4); Potassium 3.8 mmol/L (3.5-5.1)
[2019-10-12] MEDS: LEVOTHYROXINE SOD 0.1 MG TAB PO SCH (05:43)
[2019-10-12] MEDS ORDERED: D5W 1,000 ML IV SCH (06:00)
[2019-10-12 06:28] LABS: Absolute Lymphocytes (CBC) 2.3 K/uL (0.7-4.9); Basophils % 0.7 % (0-1.3); Hematocrit 24.9 % (36.0-45.0); MPV 7.2 fL (7.6-11.3); RBC Red Blood Cell Count 3.31 M/uL (3.86-4.86)
[2019-10-12] MEDS: INSULIN -REGULAR HUMAN 50 UNIT/0.5 ML ML SQ SCH ×4 (07:30→21:25)
[2019-10-12] MEDS: CALCIUM CARBONATE 500 MG TAB PO SCH ×2 (08:24→21:25)
[2019-10-12] MEDS: ENOXAPARIN 40 MG/0.4 ML SQ SCH (08:28)
[2019-10-12] MEDS: MIRTAZAPINE 15 MG TAB PO SCH (08:28)
[2019-10-12] MEDS: CYANOCOBALAMIN 1,000 MCG TAB PO SCH (08:29)
[2019-10-12] MEDS: VITAMIN D 1000 UNIT TAB PO SCH (08:29)
[2019-10-12] MEDS: THIAMINE 200 MG/2 ML INJ IVP SCH (08:29)
[2019-10-12] MEDS: SUCRALFATE 1 GM TABLET PO SCH ×4 (08:29→21:25)
[2019-10-12] MEDS: buPROPion HCL 100 MG TAB PO SCH (08:29)
[2019-10-12] MEDS: PANTOPRAZOLE 40 MG INJ IVP SCH ×2 (08:30→21:26)
[2019-10-12] MEDS: ONDANSETRON 4 MG/2 ML VIAL IV PRN (08:36)
[2019-10-12 09:16] LABS: Potassium 3.8 mmol/L (3.5-5.1)
[2019-10-12] MEDS: SOD FERRIC GLUC COMPLX/SUCROSE 125 MG in NA CHLORIDE 0.9% 100 ML IV SCH (10:02)
--- NOTE | 2019-10-12 11:42 | P.PN ---
Subjective Date of Service: 10/12/19 Primary Care Provider: None, GI-Dr. House/Adela; Nephrology-Dr. Grady Chief Complaint: Nausea, vomiting, abdominal pain Subjective: No new changes No vomiting today. Patient denies diarrhea. Good urine output. Sodium level at 127 She is tolerating diet. Physical Examination - Vital Signs Temperature: 97 F Blood Pressure: 105/70 Pulse: 82 Respirations: 19 Pulse Ox (%): 100 - Physical Exam General: Alert, In no apparent distress, Oriented x3 HEENT: Mucous membr. moist/pink, Sclerae nonicteric Neck: Supple Respiratory: Clear to auscultation bilaterally, Normal air movement Cardiovascular: No edema, Regular rate/rhythm, Normal S1 S2 Gastrointestinal: Normal bowel sounds, Soft and benign, Non-distended, No tenderness Musculoskeletal: No swelling, No erythema Integumentary: No rashes Neurological: Normal strength at 5/5 x4 extr, Normal affect - Studies Medications List Reviewed: Yes Assessment And Plan - Current Problems (Diagnosis) (1) Esophagitis Current Visit: Yes Status: Acute (2) Hiatal hernia Current Visit: Yes Status: Acute (3) Enteritis Current Visit: Yes Status: Acute (4) Functional constipation Current Visit: Yes Status: Acute (5) Hyponatremia Current Visit: Yes Status: Acute (6) DM type 2 (diabetes mellitus, type 2) Current Visit: Yes Status: Acute (7) Hypothyroidism Current Visit: Yes Status: Acute (8) Chronic anemia Current Visit: Yes Status: Acute - Plan Nephrology input appreciated. Nephrology is assisting with management of the hyponatremia. Patient had multiple bowel movements. Constipation resolved. Continued PPI and Carafate for esophagitis. Advanced diet as tolerated. Continue IV hydration. Continue to monitor urine output. Hemoglobin is stable at 8. Continue to monitor H and H, iron supplementation, constipation prophylaxis. Follow up with GI as outpatient regarding hiatal hernia, dilated esophagus, severe acid reflux and esophagitis. Physician Review: Patient Assessed, Agree with Above Assessment and Plan
[2019-10-12] MEDS: D5W 1,000 ML IV SCH ×2 (13:35→19:45)
[2019-10-12 18:09] LABS: Potassium 3.3 mmol/L (3.5-5.1)
[2019-10-12] MEDS ORDERED: DESMOPRESSIN 4 MCG/ML AMP IV ONE (19:24)
[2019-10-12] MEDS: SENOSIDES 8.6 MG TAB PO SCH ×2 (21:00→21:25)
[2019-10-12 21:47] LABS: Potassium 3.4 mmol/L (3.5-5.1)
--- NOTE | 2019-10-12 23:59 | PN ---
Date of Progress Note: 10/12/2019 Chief Complaint: Hyponatremia, hypo-osmolar. History Of Present Illness: The patient has mild multiple medical problems. She presented to the hospital when she developed generalized weakness associated with nausea and vomiting. The patient has history of diabetes mellitus, has been treated with insulin. She was found to have severe hyponatremia, and during this admission, she received DDAVP to slow down overly rapid correction of hyponatremia. The patient received IV fluids with hypotonic D5W when sodium level was up to 127 and subsequently DDAVP was also used to adjust correction of the hyponatremia. Today, the patient is feeling well. She denies PND or orthopnea. Physical Examination: Lungs: Clear to auscultation bilaterally. Heart: S1, S2. Abdomen: Soft, benign. Extremities: No edema. Lab Work: Sodium 127, potassium 3.8, chloride 98, CO2 of 22, BUN 4, creatinine 0.69, glucose 115, calcium 7.5, magnesium 2.3. Impression And Plan: 1. Hyponatremia, hypo-osmolar. The patient received D5W to slow down overly rapid correction of hyponatremia. DDAVP was used, and to obtain gradual correction, patient received yesterday 3% of sodium chloride 15 cc/hour for 2 hours. Plan is to monitor electrolytes. Adjust IV fluids as needed. Advance p.o. intake with protein intake. 2. Diabetes mellitus. Continue insulin. I spent total 36 min including 25 min to coordinate care plan. EB/MODL Voice ID: [id number] Report ID: [id number] CAROL
[2019-10-13] MEDS: PIPER/TAZO/NS 3.375gm 3.375 GM/100 ML BAG IVPB SCH ×2 (00:46→08:10)
[2019-10-13 05:34] LABS: Absolute Lymphocytes (CBC) 2.2 K/uL (0.7-4.9); Lymphocytes % 32.7 % (15.3-44.8); MPV 6.9 fL (7.6-11.3); RBC Red Blood Cell Count 2.93 M/uL (3.86-4.86)
[2019-10-13 05:59] VITALS: BMI 23.3
[2019-10-13] MEDS: LEVOTHYROXINE SOD 0.1 MG TAB PO SCH (06:03)
[2019-10-13] MEDS: INSULIN -REGULAR HUMAN 50 UNIT/0.5 ML ML SQ SCH ×4 (07:30→20:20)
[2019-10-13 07:57] LABS: ALT/SGPT 13 U/L (12-78); AST/SGOT 12 U/L (15-37); Albumin 2.5 g/dL (3.4-5.0); Alkaline Phosphatase 45 U/L (45-117); BUN Blood Urea Nitrogen 4 mg/dL (7-18); Bicarbonate 24 mmol/L (21-32); Bilirubin Total 0.2 mg/dL (0.2-1.0); Glucose Level 101 mg/dL (74-106); Potassium 3.2 mmol/L (3.5-5.1); Protein, Total 5.2 g/dL (6.4-8.2); Sodium Level 128 mmol/L (136-145)
[2019-10-13] MEDS: CALCIUM CARBONATE 500 MG TAB PO SCH ×2 (08:09→20:19)
[2019-10-13] MEDS: PANTOPRAZOLE 40 MG INJ IVP SCH ×2 (08:09→20:19)
[2019-10-13] MEDS: SUCRALFATE 1 GM TABLET PO SCH ×4 (08:09→20:19)
[2019-10-13] MEDS: CYANOCOBALAMIN 1,000 MCG TAB PO SCH (08:10)
[2019-10-13] MEDS: MIRTAZAPINE 15 MG TAB PO SCH (08:10)
[2019-10-13] MEDS: VITAMIN D 1000 UNIT TAB PO SCH (08:10)
[2019-10-13] MEDS: THIAMINE 200 MG/2 ML INJ IVP SCH (08:10)
[2019-10-13] MEDS: buPROPion HCL 100 MG TAB PO SCH (08:10)
[2019-10-13] MEDS: ENOXAPARIN 40 MG/0.4 ML SQ SCH (09:00)
[2019-10-13] MEDS: SOD FERRIC GLUC COMPLX/SUCROSE 125 MG in NA CHLORIDE 0.9% 100 ML IV SCH (09:19)
[2019-10-13] MEDS: SENOSIDES 8.6 MG TAB PO SCH ×2 (09:54→20:19)
--- NOTE | 2019-10-13 11:45 | P.PN ---
Subjective Date of Service: 10/13/19 Primary Care Provider: None, GI-Dr. House/Adela; Nephrology-Dr. Grady Chief Complaint: Nausea, vomiting, abdominal pain Patient reports the nausea has improved significantly. She is no longer vomiting. Her oral intake has improved. She currently has no complain Noted drop in hemoglobin to 7.2. Physical Examination - Vital Signs Temperature: 96.9 F Blood Pressure: 125/53 Pulse: 83 Respirations: 18 Pulse Ox (%): 100 - Physical Exam General: Alert, In no apparent distress, Oriented x3 HEENT: Mucous membr. moist/pink Neck: Supple Respiratory: Clear to auscultation bilaterally, Normal air movement Cardiovascular: No edema, Normal pulses, Regular rate/rhythm Gastrointestinal: Normal bowel sounds, Soft and benign, Non-distended, No tenderness Musculoskeletal: No swelling, No erythema Integumentary: No rashes Neurological: Other (Nonfocal) - Studies Medications List Reviewed: Yes Assessment And Plan - Current Problems (Diagnosis) (1) Esophagitis Current Visit: Yes Status: Acute (2) Hiatal hernia Current Visit: Yes Status: Acute (3) Enteritis Current Visit: Yes Status: Acute (4) Functional constipation Current Visit: Yes Status: Acute (5) Hyponatremia Current Visit: Yes Status: Acute (6) DM type 2 (diabetes mellitus, type 2) Current Visit: Yes Status: Acute (7) Hypothyroidism Current Visit: Yes Status: Acute (8) Chronic anemia Current Visit: Yes Status: Acute - Plan Patient has clinically improved. Sodium level has stabilized. She was given a dose of desmopressin yesterday for sodium overcorrection. Nephrology is assisting with management of the hyponatremia. Constipation resolved. Patient symptoms have improved with PPI and Carafate. Advanced diet as tolerated. Continue IV hydration. Continue to monitor urine output. Continue to monitor H and H, transfuse for hemoglobin less than 7, iron supplementation, constipation prophylaxis with senna Transfer from the ICU to the medical floor. Follow up with GI as outpatient regarding hiatal hernia, dilated esophagus, severe acid reflux and esophagitis.
[2019-10-13 12:13] LABS: Hematocrit 23.6 % (36.0-45.0)
[2019-10-13 12:29] LABS: Potassium 3.4 mmol/L (3.5-5.1)
[2019-10-13] MEDS ORDERED: POTASSIUM CL SA 10 MEQ TAB PO ONE (13:19)
[2019-10-13] MEDS: SODIUM CHLORIDE 1 GM TAB PO SCH ×2 (13:55→20:18)
--- NOTE | 2019-10-13 21:35 | PN ---
Date of Progress Note: 10/13/2019 Subjective: The patient was admitted with significant hyponatremia. Patient received hypertonic saline. The patient over corrected. For that reason, patient received DDAVP and then placed on D5. D5 has been discontinued since yesterday at 11 o'clock, sodium stabilized. Physical Examination: Vital Signs: When I saw the patient, blood pressure 146/82, pulse of 63, afebrile. The patient had urine output on the last 12 hours only 500 because she was NPO_. Chest: Clear to auscultation. Heart: S1, S2. Regular. Abdomen: Soft, nontender. Extremities: No edema. Neurological: Alert and oriented x3. No focal. No tremor. Laboratory Data: H and H 7.6/23.6. Sodium 128, potassium 3.2, bicarb 24, BUN 4 , creatinine 0.6, calcium 7.6. Urinalysis, specific gravity of 1.010. Urine electrolyte is still pending. Current Medications: The patient on include IV iron, bupropion, calcium carbonate, hydralazine, mirtazapine, pantoprazole, Carafate, levothyroxine, KCl, ergocalciferol. 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 I am going to start the patient on salt tablets. We will monitor the patient. 2. Hypokalemia. We will supplement. 3. Hypothyroidism with the presence of hyponatremia. I going to be more aggressive on the correction. We will increase her levothyroxine to 125 and we will follow up the patient. HO Voice ID: [id number] Report ID: [id number] CAROL
[2019-10-14 05:36] LABS: Absolute Lymphocytes (CBC) 2.5 K/uL (0.7-4.9); Basophils % 0.8 % (0-1.3); Hematocrit 21.8 % (36.0-45.0); Lymphocytes % 34.9 % (15.3-44.8); MPV 6.9 fL (7.6-11.3); RBC Red Blood Cell Count 2.84 M/uL (3.86-4.86)
[2019-10-14 05:48] LABS: Albumin 2.6 g/dL (3.4-5.0); Potassium 3.7 mmol/L (3.5-5.1); Uric Acid 2.6 mg/dL (2.6-6.0)
[2019-10-14] MEDS ORDERED: LEVOTHYROXINE SOD 0.125 MG TAB PO SCH (06:30)
[2019-10-14] MEDS: INSULIN -REGULAR HUMAN 50 UNIT/0.5 ML ML SQ SCH ×2 (07:30→12:10)
[2019-10-14] MEDS: PANTOPRAZOLE 40 MG INJ IVP SCH (08:07)
[2019-10-14] MEDS: buPROPion HCL 100 MG TAB PO SCH (08:07)
[2019-10-14] MEDS: CALCIUM CARBONATE 500 MG TAB PO SCH (08:08)
[2019-10-14] MEDS: VITAMIN D 1000 UNIT TAB PO SCH (08:08)
[2019-10-14] MEDS: MIRTAZAPINE 15 MG TAB PO SCH (08:08)
[2019-10-14] MEDS: CYANOCOBALAMIN 1,000 MCG TAB PO SCH (08:09)
[2019-10-14] MEDS: SENOSIDES 8.6 MG TAB PO SCH (08:09)
[2019-10-14] MEDS: SODIUM CHLORIDE 1 GM TAB PO SCH (08:09)
[2019-10-14] MEDS: SUCRALFATE 1 GM TABLET PO SCH ×2 (08:09→10:37)
[2019-10-14] MEDS: THIAMINE 200 MG/2 ML INJ IVP SCH (08:11)
[2019-10-14] MEDS ORDERED: POTASSIUM CL SA 10 MEQ TAB PO ONE (09:00)
[2019-10-14] MEDS: ENOXAPARIN 40 MG/0.4 ML SQ SCH (09:00)
[2019-10-14] MEDS: SOD FERRIC GLUC COMPLX/SUCROSE 125 MG in NA CHLORIDE 0.9% 100 ML IV SCH (10:19)
[2019-10-14] MEDS ORDERED: NA CHLORIDE 0.9% 250 ML ONE (10:45)
[2019-10-14] MEDS ORDERED: POTASSIUM PHOS 10 MM in NA CHLORIDE 0.9% 250 ML IV ONE (11:45)
--- NOTE | 2019-10-14 12:55 | PN ---
Date of Progress Note: 10/14/2019 Subjective: Patient was admitted with significant hyponatremia, had overcorrection, received DDAVP a nd IV fluid. Day before yesterday, we stopped IV fluid. The patient maintained on salt tablet. Physical Examination: Vital Signs: Blood pressure 114/64, pulse of 86. Patient had urine output of 2900. Chest: Clear to auscultation. Heart: S1, S2. Regular. Abdomen: Soft, nontender. Extremities: No edema. Laboratory Data: Sodium 135, potassium 3.7, bicarb 24, BUN 4, creatinine 0.7, uric acid of 2.6, calc ium 7.9, phosphorus 2. Albumin 2.6. Current Medications: The patient on include IV iron, Lovenox, calcium carbonate, hydralazine, buprop ion, lorazepam, mirtazapine, Zofran, Carafate, levothyroxine, salt tablet 2 g t.i.d., and ergocalcife rol. Assessment And Plan: 1.Hyponatremia secondary to syndrome of inappropriate antidiuretic hormone secretion supported with high sodium in the urine and low uric acid, responding very well to salt tablet, appropriate correcti on. We will decrease salt tablet to 1 g t.i.d. and we will monitor. Patient cleared from the Renal standpoint for discharge planning. To follow up in the office in 2-3 weeks with chemistry. 2.Hypertension, controlled optimal. Continue current treatment. 3.Hypokalemia, hypomagnesemia. We will supplement. HO Voice ID: [id number] Report ID: [id number]
--- NOTE | 2019-10-14 13:21 | P.DS ---
Admission Date: 10/09/19 Discharge Date: 10/14/19 Primary Care Provider: None, GI-Dr. House/Adela; Nephrology-Dr. Grady Disposition: ROUTINE DISCHARGE Discharge Condition: FAIR Reason for Admission: Nausea, vomiting, abdominal pain Consultations: Nephrology-Dr. Grady Surgery-Dr. Chapman. Procedures: Central line placement - Problems (1) Esophagitis Status: Acute (2) Hiatal hernia Status: Acute (3) Enteritis Status: Acute (4) Functional constipation Status: Acute (5) Hyponatremia Status: Acute (6) DM type 2 (diabetes mellitus, type 2) Status: Acute (7) Hypothyroidism Status: Acute (8) Chronic anemia Status: Acute Brief History of Present Illness: 79-year-old woman with a history of hiatal hernia, recurrent nausea and vomiting , recently hospitalized for hyponatremia and abdominal symptoms presented again to the ED with similar symptoms. Patient report intractable nausea and vomiting and not being able to eat. CT abdomen and pelvis done in the ED reported moderate sized hiatal hernia and dilated esophagus, as well as large amount of stool in the colon. Her sodium level was down to 114. Patient was admitted for further management. Hospital Course: Patient admitted to the ICU, started on 3% saline to correct severe hyponatremia. Nephrology team assisted with management. She was on the 3% saline for only a few hrs. Her sodium level responded and improved significantly. She required D5 infusion and desmopressin to prevent over- correction of sodium level. She was also put on oral sodium. Her sodium level improved to normal. Nephrology suspect possible SIADH and recommend to continue oral sodium replacement as outpatient. Her constipation was treated with lactulose and other laxatives. Patient had multiple bowel movements. She was also treated for esophagitis, severe acid reflux disease and hiatal hernia with IV Protonix and oral sucralfate. Patient's symptoms improved significantly , she tolerated feeding without nausea or vomiting. His hemoglobin dropped to 7.1, from 9.8 on admission. She was given 1 unit of PRBC transfusion. Noted she has microcytic anemia and low wall percentage iron saturation indicating significant iron-deficiency. She was treated with IV iron replacement. The patient is discharged with oral iron replacement along with stool softeners for constipation prophylaxis. She is supposed to follow with a aircraft parts assembler as an outpatient regarding her endoscopy result and further management of her severe reflux disease and hiatal hernia. Vital Signs/Physical Exam: Temp Pulse Resp BP Pulse Ox 97.8 F 86 18 114/64 97 10/14/19 08:00 10/14/19 08:00 10/14/19 08:00 10/14/19 08:00 10/14/19 08:00 General: Alert, In no apparent distress, Oriented x3 HEENT: Mucous membr. moist/pink, Sclerae nonicteric Neck: Supple, JVD not distended Respiratory: Clear to auscultation bilaterally, Normal air movement Cardiovascular: No edema, Regular rate/rhythm, Normal S1 S2 Gastrointestinal: Normal bowel sounds, Soft and benign, Non-distended, No tenderness Musculoskeletal: No swelling, No erythema Integumentary: No rashes Neurological: Normal strength at 5/5 x4 extr Laboratory Data at Discharge: WBC 7.3 K/uL (4.3-10.9) 10/14/19 04:40 Hgb 7.1 g/dL (12.0-15.0) L* 10/14/19 04:40 Hct 21.8 % (36.0-45.0) L 10/14/19 04:40 Plt Count 369 K/uL (152-406) 10/14/19 04:40 PT 11.5 SECONDS (9.5-12.5) 10/09/19 13:05 INR 0.97 10/09/19 13:05 Sodium 135 mmol/L (136-145) L 10/14/19 04:40 Potassium 3.7 mmol/L (3.5-5.1) 10/14/19 04:40 BUN 4 mg/dL (7-18) L 10/14/19 04:40 Creatinine 0.70 mg/dL (0.55-1.3) 10/14/19 04:40 Glucose 96 mg/dL (74-106) 10/14/19 04:40 Uric Acid 2.6 mg/dL (2.6-6.0) 10/14/19 04:40 Phosphorus 2.0 mg/dL (2.5-4.9) L 10/14/19 04:40 Magnesium 2.3 mg/dL (1.8-2.4) D 10/12/19 04:47 Total Bilirubin 0.2 mg/dL (0.2-1.0) 10/13/19 07:26 AST 12 U/L (15-37) L 10/13/19 07:26 ALT 13 U/L (12-78) 10/13/19 07:26 Alkaline Phosphatase 45 U/L (45-117) 10/13/19 07:26 Lipase 99 U/L (73-393) 10/09/19 13:05 Home Medications: Levotiroxina Sodica 100 mcg PO DAILY 09/26/19 Mirtazapine 1 tab PO DAILY 09/26/19 Ondansetron HCl 1 tab PO Q8H PRN 09/26/19 Tramadol HCl [Ultram] 1 tab PO Q8H PRN 09/26/19 buPROPion HCL [Bupropion HCl] 1 tab PO DAILY 09/26/19 Omeprazole 20 mg PO DAILY 10/09/19 Calcium Carbonate [Oscal*] 1,000 mg PO BID #60 tab 10/14/19 Cholecalciferol (Vitamin D3) [Vitamin D 1000 Iu Tab*] 1,000 unit PO DAILY #30 tab 10/14/19 Cyanocobalamin [Vitamin B-12*] 1,000 mcg PO DAILY #30 tab 10/14/19 Iron Polysaccharide Complex [Ferric X-150] 150 mg PO DAILY #30 capsule 10/14/19 Senosides [Senokot*] 17.2 mg PO BID #120 tab 10/14/19 Sodium Chloride Tab [Sodium Chloride*] 1 gm PO TID 10 Days #30 tab 10/14/19 Sucralfate [Carafate*] 1 gm PO ACHS #42 tab 10/14/19 New Medications: Calcium Carbonate [Oscal*] 1,000 mg PO BID #60 tab Cholecalciferol (Vitamin D3) [Vitamin D 1000 Iu Tab*] 1,000 unit PO DAILY #30 tab Cyanocobalamin [Vitamin B-12*] 1,000 mcg PO DAILY #30 tab Iron Polysaccharide Complex [Ferric X-150] 150 mg PO DAILY #30 capsule Senosides [Senokot*] 17.2 mg PO BID #120 tab Sodium Chloride Tab [Sodium Chloride*] 1 gm PO TID 10 Days #30 tab Sucralfate [Carafate*] 1 gm PO ACHS #42 tab Diet: ADA Activity: Fall precautions Followup: Terry Grady MD [ACTIVE - CAN ADMIT] - 1-2 Weeks (Follow up in two weeks. Call to make an appointment. ) Time spent managing pt's care (in minutes): 42
[2019-10-14 13:48] VITALS: O2SAT 100
[2019-10-14] MEDS ORDERED: SODIUM CHLORIDE 1 GM TAB PO SCH (14:00)
[2019-10-14 14:09] VITALS: BP 123/59; TEMP 97.3
[2019-10-14 15:22] LABS: Hematocrit 29.4 % (36.0-45.0)
== END 2019-10-14 16:20 | disposition home or self-care (01) | DRG 644 ==
LOC: ER 11:54 → 3RD-ICU 16:43 → 2ND 10-13 15:16
PROVIDERS: ADMIT Family Medicine; ATTEND Internal Medicine
PROC: 05HM33Z Insertion of Infusion Device into Right Internal Jugular Vein, Percutaneous Approach (ICD-10-PCS; principal; 2019-10-11)
PROC: 30233N1 Transfusion of Nonautologous Red Blood Cells into Peripheral Vein, Percutaneous Approach (ICD-10-PCS; 2019-10-14)
DX: E22.2 Syndrome of inappropriate secretion of antidiuretic hormone (principal); N17.9 Acute kidney failure, unspecified; K52.9 Noninfective gastroenteritis and colitis, unspecified; D51.9 Vitamin B12 deficiency anemia, unspecified; I10 Essential (primary) hypertension; Z79.899 Other long term (current) drug therapy; F41.8 Other specified anxiety disorders; K44.9 Diaphragmatic hernia without obstruction or gangrene; K21.0 Gastro-esophageal reflux disease with esophagitis; E11.65 Type 2 diabetes mellitus with hyperglycemia; E03.9 Hypothyroidism, unspecified; D63.8 Anemia in other chronic diseases classified elsewhere; E87.6 Hypokalemia; Z79.4 Long term (current) use of insulin; D50.9 Iron deficiency anemia, unspecified; K59.04 Chronic idiopathic constipation; E83.42 Hypomagnesemia
CPT/HCPCS: 36415; 51702; 71045; 71275; 74175; 76705; 80048; 80053; 80069; 80076; 81003; 81015; 82533; 82607; 82728; 82947; 83540; 83690; 83735; 83880; 83930; 83935; 84132; 84145; 84300; 84439; 84443; 84466; 84484; 84550; 85014; 85018; 85025; 85610; 86850; 86900; 86901; 87040; 93005; 96361; 96374; 96375; 97112; 97116; 97161; 97530; 99285; C9113; J0610; J1650; J2270; J2405; J2543; J2550; J2597; J2916; J3411; J3475; J7030; J7131; P9016; Q9967

== ENCOUNTER 2022-06-09 20:07 | Inpatient (IN) | payer SELFPAY ==
--- OUTSIDE RECORDS SUMMARY | 2022-06-09 20:13 | XMS REPORT | Continuity of Care Document ---
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 Social History Smoking Status Start Date Stop Date Source Social History [facility] Medications Ordered Filled Start Stop Current Ordering Indication Dosage Frequency Signature Comments Components Source Medication Medication Date Date Medication? Clinician (SIG) Name Name Dose 2021-0 No Unknown 5-06 00:00: 00 levothyroxi 2021-0 No 1mcg ne 88 mcg 5-06 tablet 00:00: 00 metformin 2021-0 No 1mg 850 mg 5-06 tablet 00:00: 00 levothyroxi 2021-0 No 1mcg ne 88 mcg 5-06 tablet 00:00: 00 Dose 2021-0 No Unknown 5-05 00:00: 00 nifedipine 2021-0 No 1mg ER 30 mg 5-05 tablet,exte 00:00: nded 00 release atorvastati 2022-0 No 1mg n 10 mg 5-05 tablet 00:00: 00 Dose 2022-0 No Unknown 5-05 00:00: 00 Dose 2022-0 No Unknown 5-05 00:00: 00 nifedipine 2022-0 No 1mg ER 30 mg 5-05 tablet,exte 00:00: nded 00 release atorvastati 2022-0 No 1mg n 10 mg 5-05 tablet 00:00: 00 Dose 2022-0 No Unknown 5-05 00:00: 00 Dose 2022-0 No Unknown 5-05 00:00: 00 Dose 2022-0 No Unknown 5-05 00:00: 00 Dose 2022-0 No Unknown 5-05 00:00: 00 Dose 2022-0 No Unknown 5-05 00:00: 00 Dose 2022-0 No Unknown 5-05 00:00: 00 Dose 2022-0 No Unknown 5-05 00:00: 00 Dose 2022-0 No Unknown 5-05 00:00: 00 Dose 2022-0 No Unknown 5-05 00:00: 00 Dose 2022-0 No Unknown 5-05 00:00: 00 Dose 2022-0 No Unknown 5-05 00:00: 00 Dose 2022-0 No Unknown 5-05 00:00: 00 Dose 2022-0 No Unknown 5-05 00:00: 00 Dose 2022-0 No Unknown 5-05 00:00: 00 Dose 2022-0 No Unknown 5-05 00:00: 00 Dose 2022-0 No Unknown 5-05 00:00: 00 Dose 2022-0 No Unknown 5-05 00:00: 00 Dose 2022-0 No Unknown 5-05 00:00: 00 Dose 2022-0 No Unknown 5-05 00:00: 00 Dose 2022-0 No Unknown 5-05 00:00: 00 Dose 2022-0 No Unknown 5-05 00:00: 00 Dose 2022-0 No Unknown 5-05 00:00: 00 Dose 2022-0 No Unknown 5-05 00:00: 00 Dose 2022-0 No Unknown 5-05 00:00: 00 Dose 2022-0 No Unknown 5-05 00:00: 00 Dose 2022-0 No Unknown 5-05 00:00: 00 Dose 2022-0 No Unknown 5-05 00:00: 00 Dose 2022-0 No Unknown 5-05 00:00: 00 Dose 2022-0 No Unknown 5-05 00:00: 00 Dose 2022-0 No Unknown 5-05 00:00: 00 Dose 2022-0 No Unknown 5-05 00:00: 00 Dose 2022-0 No Unknown 5-05 00:00: 00 Dose 2022-0 No Unknown 5-05 00:00: 00 Dose 2022-0 No Unknown 5-05 00:00: 00 Dose 2022-0 No Unknown 5-05 00:00: 00 Dose 2022-0 No Unknown 5-05 00:00: 00 Dose 2022-0 No Unknown 5-05 00:00: 00 Dose 2022-0 No Unknown 5-05 00:00: 00 Dose 2022-0 No Unknown 5-05 00:00: 00 Dose 2022-0 No Unknown 5-05 00:00: 00 Dose 2022-0 No Unknown 5-05 00:00: 00 Dose 2022-0 No Unknown 5-05 00:00: 00 Dose 2022-0 No Unknown 5-05 00:00: 00 Dose 2022-0 No Unknown 5-05 00:00: 00 Dose 2022-0 No Unknown 5-05 00:00: 00 Dose 2022-0 No Unknown 5-05 00:00: 00 Dose 2022-0 No Unknown 5-05 00:00: 00 Dose 2022-0 No Unknown 5-05 00:00: 00 Dose 2022-0 No Unknown 5-05 00:00: 00 Dose 2022-0 No Unknown 5-05 00:00: 00 Dose 2022-0 No Unknown 5-05 00:00: 00 Dose 2022-0 No Unknown 5-05 00:00: 00 Dose 2022-0 No Unknown 5-05 00:00: 00 Dose 2022-0 No Unknown 5-05 00:00: 00 Dose 2022-0 No Unknown 5-05 00:00: 00 Dose 2022-0 No Unknown 5-05 00:00: 00 Dose 2022-0 No Unknown 5-05 00:00: 00 Dose 2022-0 No Unknown 5-05 00:00: 00 Dose 2022-0 No Unknown 5-05 00:00: 00 Dose 2022-0 No Unknown 5-05 00:00: 00 Dose 2022-0 No Unknown 5-05 00:00: 00 Dose 2022-0 No Unknown 5-05 00:00: 00 Dose 2022-0 No Unknown 5-05 00:00: 00 Dose 2022-0 No Unknown 5-05 00:00: 00 Dose 2022-0 No Unknown 5-05 00:00: 00 Dose 2022-0 No Unknown 5-05 00:00: 00 Dose 2022-0 No Unknown 5-05 00:00: 00 Dose 2022-0 No Unknown 5-05 00:00: 00 Dose 2022-0 No Unknown 5-05 00:00: 00 Dose 2022-0 No Unknown 5-05 00:00: 00 Dose 2022-0 No Unknown 5-05 00:00: 00 Dose 2022-0 No Unknown 5-05 00:00: 00 Dose 2022-0 No Unknown 5-05 00:00: 00 Dose 2022-0 No Unknown 5-05 00:00: 00 Dose 2022-0 No Unknown 5-05 00:00: 00 Dose 2022-0 No Unknown 5-05 00:00: 00 Dose 2022-0 No Unknown 5-05 00:00: 00 Dose 2022-0 No Unknown 5-05 00:00: 00 Dose 2022-0 No Unknown 5-05 00:00: 00 Dose 2022-0 No Unknown 5-05 00:00: 00 Dose 2022-0 No Unknown 5-05 00:00: 00 Dose 2022-0 No Unknown 5-05 00:00: 00 Dose 2022-0 No Unknown 5-05 00:00: 00 Dose 2022-0 No Unknown 5-05 00:00: 00 Dose 2022-0 No Unknown 5-05 00:00: 00 Dose 2022-0 No Unknown 5-05 00:00: 00 Dose 2022-0 No Unknown 5-05 00:00: 00 Dose 2022-0 No Unknown 5-05 00:00: 00 Dose 2022-0 No Unknown 5-05 00:00: 00 Dose 2022-0 No Unknown 5-05 00:00: 00 Dose 2022-0 No Unknown 5-05 00:00: 00 Dose 2022-0 No Unknown 5-05 00:00: 00 Dose 2022-0 No Unknown 5-05 00:00: 00 Dose 2022-0 No Unknown 5-05 00:00: 00 Dose 2022-0 No Unknown 5-05 00:00: 00 Dose 2022-0 No Unknown 5-05 00:00: 00 Dose 2022-0 No Unknown 5-05 00:00: 00 Dose 2022-0 No Unknown 5-05 00:00: 00 Dose 2022-0 No Unknown 5-05 00:00: 00 Dose 2022-0 No Unknown 5-05 00:00: 00 Dose 2022-0 No Unknown 5-05 00:00: 00 Dose 2022-0 No Unknown 5-05 00:00: 00 Dose 2022-0 No Unknown 5-05 00:00: 00 Dose 2022-0 No Unknown 5-05 00:00: 00 Dose 2022-0 No Unknown 5-05 00:00: 00 Dose 2022-0 No Unknown 5-05 00:00: 00 Dose 2022-0 No Unknown 5-05 00:00: 00 Dose 2022-0 No Unknown 5-05 00:00: 00 Dose 2022-0 No Unknown 5-05 00:00: 00 Dose 2022-0 No Unknown 5-05 00:00: 00 Dose 2022-0 No Unknown 5-05 00:00: 00 Dose 2022-0 No Unknown 5-05 00:00: 00 Dose 2022-0 No Unknown 5-05 00:00: 00 Dose 2022-0 No Unknown 5-05 00:00: 00 Dose 2022-0 No Unknown 5-05 00:00: 00 Dose 2022-0 No Unknown 5-05 00:00: 00 Dose 2022-0 No Unknown 5-05 00:00: 00 Dose 2022-0 No Unknown 5-05 00:00: 00 Dose 2022-0 No Unknown 5-05 00:00: 00 Dose 2022-0 No Unknown 5-05 00:00: 00 Dose 2022-0 No Unknown 5-05 00:00: 00 Dose 2022-0 No Unknown 2-15 00:00: 00 Dose 2022-0 No Unknown 2-15 00:00: 00 Dose 2022-0 No Unknown 2-15 00:00: 00 Dose 2022-0 No Unknown 2-15 00:00: 00 Dose 2022-0 No Unknown 2-15 00:00: 00 Dose 2022-0 No Unknown 2-15 00:00: 00 Dose 2021-0 No Unknown 2-15 00:00: 00 Dose 0 No Unknown 2-15 00:00: 00 atorvastati 2020-07 No 1mg n 10 mg 1-15 tablet 00:00: 00 atorvastati 2020-07 No 1mg n 10 mg 1-15 tablet 00:00: 00 Dose 2020-07 No Unknown 1-13 00:00: 00 Dose 2020-07 No Unknown 1-13 00:00: 00 Dose 2020-07 No Unknown 1-13 00:00: 00 amoxicillin 2020-07 No 1mg 875 mg 1-13 tablet 00:00: 00 Dose 2020-07 No Unknown 1-13 00:00: 00 Dose 2020-07 No Unknown 1-13 00:00: 00 Dose 2020-07 No Unknown 1-13 00:00: 00 amoxicillin 2020-07 No 1mg 875 mg 1-13 tablet 00:00: 00 gabapentin 2019-0 Yes PO, 0 Memori a 3-04 Refill(s) l 16:02: Tramadol 2020-0 Yes 50 mg, PO, Mem oria 3-04 Q4-6H, PRN l 16:02: Pain, # 20 tab, 0 Refill(s) Mirtazapine 2020-0 Yes PO, Memori a 3-04 Bedtime, 0 l 16:02: Refill(s) Bupropion 2020-0 Yes PO, 0 Memoria 3-04 Refill(s) l 16:02: Ondansetron 2020-0 Yes 0 Memori a 3-04 Refill(s) l 16:02: Alprazolam 2020-0 Yes PO, 0 Memori a 3-04 Refill(s) l 16:02: NIFEdipine 2020-0 Yes 30 mg = 1 Me moria 30 mg oral 3-04 tab, PO, l tablet, 16:02: Daily, 0 Cole n extended 00 Refill(s) release Thyroxine 2020-0 Yes Daily, 0 Kashif jose 3-04 Refill(s) l 16:02: Metformin 2020-0 Yes PO, 0 Memoria 3-04 Refill(s) l 16:02: gabapentin 2020-0 Yes PO, 0 Memori a 3-04 Refill(s) l 16:02: Tramadol 2020-0 Yes 50 mg, PO, Mem oria 3-04 Q4-6H, PRN l 16:02: Pain, # 20 [place] 00 tab, 0 Refill(s) Mirtazapine 2020-0 Yes PO, Memori a 3-04 Bedtime, 0 l 16:02: Refill(s) Bupropion 2020-0 Yes PO, 0 Memoria 3-04 Refill(s) l 16:02: Ondansetron 2020-0 Yes 0 Memori a 3-04 Refill(s) l 16:02: Alprazolam 2020-0 Yes PO, 0 Memori a 3-04 Refill(s) l 16:02: NIFEdipine 2020-0 Yes 30 mg = 1 Me moria 30 mg oral 3-04 tab, PO, l tablet, 16:02: Daily, 0 Cole n extended 00 Refill(s) release Thyroxine 2020-0 Yes Daily, 0 Kashif jose 3-04 Refill(s) l 16:02: Metformin 2020-0 Yes PO, 0 Memoria 3-04 Refill(s) l 16:02: gabapentin 2020-0 Yes PO, 0 Memori a 3-04 Refill(s) l 16:02: Tramadol 2020-0 Yes 50 mg, PO, Mem oria 3-04 Q4-6H, PRN l 16:02: Pain, # 20 [place] 00 tab, 0 Refill(s) Mirtazapine 2020-0 Yes PO, Memori a 3-04 Bedtime, 0 l 16:02: Refill(s) Bupropion 2020-0 Yes PO, 0 Memoria 3-04 Refill(s) l 16:02: Ondansetron 2020-0 Yes 0 Memori a 3-04 Refill(s) l 16:02: Alprazolam 2020-0 Yes PO, 0 Memori a 3-04 Refill(s) l 16:02: NIFEdipine 2020-0 Yes 30 mg = 1 Me moria 30 mg oral 3-04 tab, PO, l tablet, 16:02: Daily, 0 Cole n extended 00 Refill(s) release Thyroxine 2020-0 Yes Daily, 0 Kashif jose 3-04 Refill(s) l 16:02: Metformin 2020-0 Yes PO, 0 Memoria 3-04 Refill(s) l 16:02: Thyroxine 2020-0 Yes Daily, 0 Kashif jose 3-04 Refill(s) l 16:02: Metformin 2020-0 Yes PO, 0 Memoria 3-04 Refill(s) l 16:02: gabapentin 2020-0 Yes PO, 0 Memori a 3-04 Refill(s) l 16:02: Tramadol 2020-0 Yes 50 mg, PO, Mem oria 3-04 Q4-6H, PRN l 16:02: Pain, # 20 tab, 0 Refill(s) Mirtazapine 2020-0 Yes PO, Memori a 3-04 Bedtime, 0 l 16:02: Refill(s) Bupropion 2020-0 Yes PO, 0 Memoria 3-04 Refill(s) l 16:02: Ondansetron 2020-0 Yes 0 Memori a 3-04 Refill(s) l 16:02: Alprazolam 2020-0 Yes PO, 0 Memori a 3-04 Refill(s) l 16:02: NIFEdipine 2020-0 Yes 30 mg = 1 Me moria 30 mg oral 3-04 tab, PO, l tablet, 16:02: Daily, 0 Cole n extended 00 Refill(s) release mirtazapine 2019-0 No 1mg 45 mg 7-18 tablet 00:00: 00 Wellbutrin 2019-0 No 1mg SR 100 mg 7-18 tablet, 12 00:00: hr 00 sustained-r elease metformin 2019-0 No 1mg 850 mg 7-18 tablet 00:00: 00 tramadol 50 2019-0 No 1mg mg tablet 7-18 00:00: 00 mirtazapine 2019-0 No 1mg 45 mg 7-18 tablet 00:00: 00 Wellbutrin 2019-0 No 1mg SR 100 mg 7-18 tablet, 12 00:00: hr 00 sustained-r elease metformin 2019-0 No 1mg 850 mg 7-18 tablet 00:00: 00 tramadol 50 2019-0 No 1mg mg tablet 18 00:00: 00 Vital Signs Vital Name Observation Time Observation Value Comments Source BP Systolic 2022-05-31 08:05:00 144 mm[Hg] BP Diastolic 2022-05-31 08:05:00 75 mm[Hg] Weight Measured 2022-05-31 08:05:00 125.40 pounds Height Measured 2022-05-31 08:05:00 57.28 inches Body Temperature 2022-05-31 08:05:00 98.20 degrees Heart Rate 2022-05-31 08:05:00 99.00 /min Respiratory Rate 2022-05-31 08:05:00 18.00 /min BP Systolic 2022-03-03 16:19:00 134 mm[Hg] BP Diastolic 2022-03-03 16:19:00 67 mm[Hg] Weight Measured 2022-03-03 16:19:00 126.80 pounds Height Measured 2022-03-03 16:19:00 57.28 inches Body Temperature 2022-03-03 16:19:00 98.90 degrees Heart Rate 2022-03-03 16:19:00 94.00 /min Respiratory Rate 2022-03-03 16:19:00 18.00 /min BP Systolic 2021-11-23 08:52:00 157 mm[Hg] BP Diastolic 2021-11-23 08:52:00 73 mm[Hg] Weight Measured 2021-11-23 08:52:00 120.40 pounds Height Measured 2021-11-23 08:52:00 57.28 inches Body Temperature 2021-11-23 08:52:00 98.10 degrees Heart Rate 2021-11-23 08:52:00 85.00 /min Respiratory Rate 2021-11-23 08:52:00 16.00 /min BP Systolic 2021-09-01 08:16:00 151 mm[Hg] BP Diastolic 2021-09-01 08:16:00 76 mm[Hg] Weight Measured 2021-09-01 08:16:00 121.60 pounds Height Measured 2021-09-01 08:16:00 57.28 inches Body Temperature 2021-09-01 08:16:00 98.10 degrees Heart Rate 2021-09-01 08:16:00 81.00 /min Respiratory Rate 2021-09-01 08:16:00 BP Systolic 2021-07-18 15:09:00 134 mm[Hg] BP Diastolic 2021-07-18 15:09:00 71 mm[Hg] Weight Measured 2021-07-18 15:09:00 121.60 pounds Height Measured 2021-07-18 15:09:00 60.00 inches Body Temperature 2021-07-18 15:09:00 97.80 degrees Heart Rate 2021-07-18 15:09:00 98.00 /min Respiratory Rate 2021-07-18 15:09:00 16.00 /min BP Systolic 2021-06-03 14:21:00 112 mm[Hg] BP Diastolic 2021-06-03 14:21:00 67 mm[Hg] Weight Measured 2021-06-03 14:21:00 120.40 pounds Height Measured 2021-06-03 14:21:00 60.00 inches Body Temperature 2021-06-03 14:21:00 98.70 degrees Heart Rate 2021-06-03 14:21:00 88.00 /min Respiratory Rate 2021-06-03 14:21:00 16.00 /min Systolic (mm Hg) 2019-09-23 15:44:00 Kashif Lewis Diastolic (mm Hg) 2019-09-23 15:44:00 [facility] carmen Lewis Heart Rate 2019-09-23 15:44:00 [facility] Height 2019-09-23 15:44:00 152.4 cm [facility] Weight 2019-09-23 15:44:00 [facility] BMI Calculated 2019-09-23 15:44:00 Danica Figueroa BP Systolic 2019-02-05 14:58:00 139 mm[Hg] BP Diastolic 2019-02-05 14:58:00 80 mm[Hg] Weight Measured 2019-02-05 14:58:00 126.00 pounds Height Measured 2019-02-05 14:58:00 57.68 inches Body Temperature 2019-02-05 14:58:00 97.40 degrees Heart Rate 2019-02-05 14:58:00 97.00 /min Respiratory Rate 2019-02-05 14:58:00 16.00 /min Procedures Procedure Date / Time Performed Performing Clinician [facility] e Hernia repair [facility] Plan of Care Planned Activity Planned Date Details Comments Source Goal Plan of Care Note [code = 62744-8] Goal Plan of Care Note [code = 10162-8] Goal Plan of Care Note [code = 98445-7] Goal Plan of Care Note [code = 84687-9] Goal Plan of Care Note [code = 51804-3] Goal Plan of Care Note [code = 90251-3] Goal Plan of Care Note [code = 90047-0] Goal Plan of Care Note [code = 08758-2] Goal Plan of Care Note [code = 21803-6] Goal Plan of Care Note [code = 12172-4] Goal Plan of Care Note [code = 06391-6] Goal Plan of Care Note [code = 51603-1] Goal Plan of Care Note [code = 66489-0] Goal Plan of Care Note [code = 12734-5] Goal Plan of Care Note [code = 04218-7] Goal Plan of Care Note [code = 81921-0] Goal Plan of Care Note [code = 65373-1] Goal Plan of Care Note [code = 25852-9] Goal Plan of Care Note [code = 40450-6] Goal Plan of Care Note [code = 94447-8] Goal Plan of Care Note [code = 21926-1] Goal Plan of Care Note [code = 89835-3] Goal Plan of Care Note [code = 73594-0] Goal Plan of Care Note [code = 14979-1] Goal Plan of Care Note [code = 16395-2] Goal Plan of Care Note [code = 68178-2] Goal Plan of Care Note [code = 63267-4] Goal Plan of Care Note [code = 75388-0] Goal Plan of Care Note [code = 93538-3] Goal Plan of Care Note [code = 99077-6] Goal Plan of Care Note [code = 05682-9] Goal Plan of Care Note [code = 96803-3] Goal Plan of Care Note [code = 07034-6] Goal Plan of Care Note [code = 83296-3] Goal Plan of Care Note [code = 20084-2] Goal Plan of Care Note [code = 80727-9] Goal Plan of Care Note [code = 58340-7] Goal Plan of Care Note [code = 55486-5] Goal Plan of Care Note [code = 57511-7] Goal Plan of Care Note [code = 71101-2] Goal Plan of Care Note [code = 06090-1] Goal Plan of Care Note [code = 96474-4] Encounters Start End Encounter Admission Attending Care Care Encounter Source Date/Time Date/Time Type Type Clinicians Facility Department ID 2022-06-08 2022-06-08 Outpatient [facility] [id number] [place] 08:04:04 08:04:04 1118 F Mau 2022-06-01 2022-06-01 Outpatient [facility] [id number] [place] 13:21:56 13:21:56 1111 F Mau 2022-05-31 2022-05-31 Outpatient [facility] [id number] [place] 07:54:51 07:54:51 1110 F Mau 2022-05-31 2022-05-31 Outpatient [id number] 00:00:00 00:00:00 Visit [id number] 2022-03-03 2022-03-03 Outpatient [id number] 00:00:00 00:00:00 Visit [id number] 2019-10-16 [place] [id number] Memoria 19:55:00 19:55:00 Pre-Reg r Urology 01 lanny pizarro Time Share 2019-10-16 2019-10-16 Ambulatory nullFlavo [facility] [id number] Memoria 19:55:00 19:55:00 Pre-Reg r Urology 01 lanny pizarro Time Share 2019-10-16 2019-10-16 [place] [id number] Memoria 19:45:00 19:45:00 Pre-Reg r Urology 02 lanny pizarro Time Share 2019-10-16 2019-10-16 [place] [id number] Memoria 19:45:00 19:45:00 Pre-Reg r Urology 02 l [facility] Sulma nn Time Share 2019-10-16 2019-10-16 Outpatient MHIE DEEP [id number] Memoria 14:55:00 14:55:[address] [facility] 2019-10-16 2019-10-16 Outpatient [place], [place] [id number] 14:55:00 14:55:00 Olinda L 01 2019-10-16 2019-10-16 Outpatient MHIE SKYLERIE [id number] Memoria 14:45:00 14:45:[address] [facility] 2019-10-16 2019-10-16 Outpatient VISIT, [facility] [id number] 14:45:00 14:45:00 NURSE UATS 2019-09-23 2019-09-24 Outpatient nullFlavo MG Multi 55 [id number] Memoria 15:40:00 05:59:59 r Specialty 00 l [facility] 2019-09-23 2019-09-24 Outpatient nullFlavo MG Multi 55 [id number] Memoria 15:40:00 05:59:59 r Specialty 00 l [facility] 2019-09-23 2019-09-23 Outpatient Tash, [facility] [id number] 09:40:00 23:59:59 Olinda L 00 Results Test Description Test Time Test Comments Results Result Comments Source TSH, THIRD GENERATION 2022-03-06 06:52:21 Test Item Value Reference Range Interpretation Comme nts TSH, THIRD GENERATION (test 1.330 UIU/ML 0.400-4.100 UNLESS OTHERWISE INDICATED, code = 2821) ALL TESTING PER [facility]MED [facility], [facility]. [address] [place] [address] 2657 CORPORATE DIRECTOR TALENT ASSESSMENT: Reba HORTON [id number] [place] [id number] COMPREHENSIVE METABOLIC [id number] 04:39:29 Test Item Value Reference Range Interpretation Comments GLUCOSE (test code = 167 MG/DL 70-99 H 2216) BUN (test code = 17 MG/DL 03-13) CREATININE (test 0.56 MG/DL 0.60-1.30 L code = 221) eGFR (2020 CKD-EPI) 93 ML/MIN/1.73 >60 (test code = 29881) CALC BUN/CREAT (test 30 RATIO 6-28 H code = 223) SODIUM (test code = 135 MEQ/L 900-826 0146) POTASSIUM (test code 4.5 MEQ/L 3.5-5.4 = 2227) CHLORIDE (test code 95 MEQ/L 95-107 = 2214) CARBON DIOXIDE (test 24 MEQ/L 19-31 code = 220) CALCIUM (test code = 10.0 MG/DL 8.5-10.5 2208) PROTEIN, TOTAL (test 7.4 G/DL 6.1-8.3 code = 2228) ALBUMIN (test code = 4.8 G/DL 3.5-5.2 2200) CALC GLOBULIN (test 2.6 G/DL 1.9-3.7 code = 2239) CALC A/G RATIO (test 1.8 RATIO 1.0-2.6 code = 2233) BILIRUBIN, TOTAL 0.3 MG/DL See_Comment [Automated message] (test code = 220) The syste m which generated this result transmit brian reference range : <=1.2. The refe rence range was not u sed to interpret th is result as normal/abnormal . ALKALINE PHOSPHATASE 60 U/L 40-142 (test code = 220) AST (test code = 18 U/L 9-40 2217) ALT (test code = 11 U/L 5-40 2218) LIPID [id number] 04:39:29 Test Item Value Reference Range Interpretation Comments CHOLESTEROL (test 212 MG/DL <200 H code = 2210) TRIGLYCERIDES (test 250 MG/DL <150 H code = 2232) HDL CHOLESTEROL (test 56 MG/DL >39 code = 2220) CALC LDL CHOL (test 120 MG/DL <100 H NOTE: C ALCULATED LDL code = 2237) IS BASED ON RASHEEDA-BO METHOD WHICHINCLUDES ADJUSTABLE TRIGLYCERIDE:VL DL CHOLESTEROL RAT IO.THIS FACTOR VARIES B Y MEASURED TRIGLY CERIDE AND NON-HDLCHOL ESTEROL CONCENTRATIONS WITH INCREASED CALCU LATED LDL SEENIN HIGH ER TRIGLYCERIDE OR LOWER NON-HDL SPECIME NS. FOR MOREINFORMATION , SEE CLIENT ANNOUNCE MENT AT [email or web address] RATIO LDL/HDL 2.14 RATIO <3.22 (test code = 2238) HEMOGLOBIN [id number] 03:51:11 Test Item Value Reference Range Interpretation Comments HEMOGLOBIN A1c (test 8.8 % 4.2-5.6 H AMERIC AN DIABETES code = 36106) ASSOCIATION IDELINES FOR HGB A1C: PREDIABETES/INC REASED RISK . . . . . . . 5.7 -6.4% DIAGNOSIS OF DI ABETES . . . . . . . . . >=6 .5% WITH CONFIRMATION OR APPROPRIATE SYMPTOMS NOTE: ASSAY MAY BE AFFECTED BY HEMOGLOBINOPATH IES (SICKLE CELL ANEMIA, S- C DISEASE, OTHERS) OR EMMIE FICIALLY LOWERED BY DECR EASED RED CELL SURVIVAL ( HEMOLYTIC ANEMIAS, BLOOD LOSS, ETC.). CONSIDER ALTERN ATE TESTING OR LABORATORY C ONSULTATION. COMPREHENSIVE METABOLIC [id number] 00:00:00 Test Item Value Reference Range Interpretation Comments GLUCOSE (test code = 2217) 167 MG/DL BUN (test code = 2208) 17 MG/DL CREATININE (test code = 2214) 0.56 MG/DL eGFR (2020 CKD-EPI) (test code 93 ML/MIN/1.73 = 20821) CALC BUN/CREAT (test code = 30 RATIO 2235) SODIUM (test code = 2231) 135 MEQ/L POTASSIUM (test code = 2228) 4.5 MEQ/L CHLORIDE (test code = 2215) 95 MEQ/L CARBON DIOXIDE (test code = 24 MEQ/L 2205) CALCIUM (test code = 2209) 10.0 MG/DL PROTEIN, TOTAL (test code = 7.4 G/DL 2228) ALBUMIN (test code = 2201) 4.8 G/DL CALC GLOBULIN (test code = 2.6 G/DL 0) CALC A/G RATIO (test code = 1.8 RATIO 2234) BILIRUBIN, TOTAL (test code = 0.3 MG/DL 2206) ALKALINE PHOSPHATASE (test 60 U/L code = 2204) AST (test code = 2218) 18 U/L ALT (test code = 2219) 11 U/L COMPREHENSIVE METABOLIC [id number] 00:00:00 Test Item Value Reference Range Interpretation Comments GLUCOSE (test code = 2217) 167 MG/DL BUN (test code = 2208) 17 MG/DL CREATININE (test code = 2214) 0.56 MG/DL eGFR (2020 CKD-EPI) (test code 93 ML/MIN/1.73 = 43383) CALC BUN/CREAT (test code = 30 RATIO 2235) SODIUM (test code = 2231) 135 MEQ/L POTASSIUM (test code = 2228) 4.5 MEQ/L CHLORIDE (test code = 2215) 95 MEQ/L CARBON DIOXIDE (test code = 24 MEQ/L 2205) CALCIUM (test code = 2209) 10.0 MG/DL PROTEIN, TOTAL (test code = 7.4 G/DL 2228) ALBUMIN (test code = 220) 4.8 G/DL CALC GLOBULIN (test code = 2.6 G/DL 2239) CALC A/G RATIO (test code = 1.8 RATIO 2233) BILIRUBIN, TOTAL (test code = 0.3 MG/DL 2206) ALKALINE PHOSPHATASE (test 60 U/L code = 2204) AST (test code = 2218) 18 U/L ALT (test code = 2219) 11 U/L LIPID [id number] 00:00:00 Test Item Value Reference Range Interpretation Comments CHOLESTEROL (test code = 2210) 212 MG/DL TRIGLYCERIDES (test code = 2232) 250 MG/DL HDL CHOLESTEROL (test code = 2220) 56 MG/DL CALC LDL CHOL (test code = 2237) 120 MG/DL RISK RATIO LDL/HDL (test code = 2.14 RATIO 2238) LIPID [id number] 00:00:00 Test Item Value Reference Range Interpretation Comments CHOLESTEROL (test code = 2210) 212 MG/DL TRIGLYCERIDES (test code = 2232) 250 MG/DL HDL CHOLESTEROL (test code = 2220) 56 MG/DL CALC LDL CHOL (test code = 2237) 120 MG/DL RISK RATIO LDL/HDL (test code = 2.14 RATIO 2238) HEMOGLOBIN [id number] 00:00:00 Test Item Value Reference Range Interpretation Comments HEMOGLOBIN A1c (test code = 92646) 8.8 % HEMOGLOBIN [id number] 00:00:00 Test Item Value Reference Range Interpretation Comments HEMOGLOBIN A1c (test code = 68127) 8.8 % HEMOGLOBIN [id number] 00:00:00 Test Item Value Reference Range Interpretation Comments HEMOGLOBIN A1c (test code = 42947) 8.8 % TSH, THIRD [id number] 00:00:00 Test Item Value Reference Range Interpretation Comments TSH, THIRD GENERATION (test code 1.330 UIU/ML = 2821) TSH, THIRD [id number] 00:00:00 Test Item Value Reference Range Interpretation Comments TSH, THIRD GENERATION (test code 1.330 UIU/ML = 2821) TSH, THIRD [id number] 00:00:00 Test Item Value Reference Range Interpretation Comments TSH, THIRD GENERATION (test code 1.330 UIU/ML = 2821) TSH, THIRD [id number] 05:54:02 Test Item Value Reference Range Interpretation Comments TSH, THIRD GENERATION (test code 0.342 UIU/ML 0.400-4.100 L = 2821) HEMOGLOBIN [id number] 05:29:39 Test Item Value Reference Range Interpretation Comments HEMOGLOBIN A1c (test 9.1 % 4.2-5.6 H [employer] AN DIABETES code = 43302) ASSOCIATION [employer] FOR HGB A1C: PREDIABETES/INC REASED RISK . . . . . . . 5.7 -6.4% DIAGNOSIS OF DI ABETES . . . . . . . . . >=6 .5% WITH CONFIRMATION OR APPROPRIATE SYMPTOMS NOTE: ASSAY MAY BE AFFECTED BY HEMOGLOBINOPATH IES (SICKLE CELL ANEMIA, S- C DISEASE, OTHERS) OR EMMIE FICIALLY LOWERED BY DECR EASED RED CELL SURVIVAL ( HEMOLYTIC ANEMIAS, BLOOD LOSS, ETC.). CONSIDER ALTERN ATE TESTING OR LABORATORY C ONSULTATION. UNLESS OTHERWIS E INDICATED, ALL TESTING PER FORMED ATCLINICAL PATH [facility], I [address]. [address] [place] [address] LABORATORY DIRE CTOR: JACQUELINE SAUCEDA M.D. CLIA NUMBER [id number] [place]. [id number] ALBUMIN/CREATININE RATIO, URINE, [id number] 03:25:39 Test Item Value Reference Range Interpretation Comments CREATININE, URINE, 126.8 MG/DL NOT ESTAB RANDOM (test code = 2072) ALBUMIN, URINE, 2.5 MG/DL NOT ESTAB RANDOM (test code = 24834) CALC ALBUMIN/CREAT, 20 MG/G <30 Note: RND (test code = Albumin/Cre atinine 46405) ratio reference interval reflec ts ADA and NKF guideli yassine. LIPID [id number] 03:18:58 Test Item Value Reference Range Interpretation Comments CHOLESTEROL (test 219 MG/DL <200 H code = 2210) TRIGLYCERIDES (test 229 MG/DL <150 H code = 2232) HDL CHOLESTEROL (test 57 MG/DL >39 code = 2220) CALC LDL CHOL (test 125 MG/DL <100 H NOTE: C ALCULATED LDL code = 2237) IS BASED ON RASHEEDA-BO METHOD WHICHINCLUDES ADJUSTABLE TRIGLYCERIDE:VL DL CHOLESTEROL RAT IO.THIS FACTOR VARIES B Y MEASURED TRIGLY CERIDE AND NON-HDLCHOL ESTEROL CONCENTRATIONS WITH INCREASED CALCU LATED LDL SEENIN HIGH ER TRIGLYCERIDE OR LOWER NON-HDL SPECIME NS. FOR MOREINFORMATION , SEE CLIENT ANNOUNCE MENT AT [email or web address] [email or web address] RATIO LDL/HDL 2.19 RATIO <3.22 (test code = 2238) COMPREHENSIVE METABOLIC [id number] 03:18:58 Test Item Value Reference Range Interpretation Comments GLUCOSE (test code = 171 MG/DL 70-99 H 2216) BUN (test code = 16 MG/DL 8-23 2207) CREATININE (test 0.59 MG/DL 0.60-1.30 L code = 2214) eGFR (2020 CKD-EPI) 92 ML/MIN/1.73 >60 (test code = 48334) CALC BUN/CREAT (test 27 RATIO 6-28 code = 2235) SODIUM (test code = 138 MEQ/L 786-316 9739) POTASSIUM (test code 4.6 MEQ/L 3.5-5.4 = 222) CHLORIDE (test code 99 MEQ/L 95-107 = 2215) CARBON DIOXIDE (test 24 MEQ/L 19-31 code = 2206) CALCIUM (test code = 10.2 MG/DL 8.5-10.5 2208) PROTEIN, TOTAL (test 7.7 G/DL 6.1-8.3 code = 2229) ALBUMIN (test code = 4.9 G/DL 3.5-5.2 2200) CALC GLOBULIN (test 2.8 G/DL 1.9-3.7 code = 2240) CALC A/G RATIO (test 1.8 RATIO 1.0-2.6 code = 2234) BILIRUBIN, TOTAL 0.3 MG/DL See_Comment [Automated message] (test code = 2207) The syste m which generated this result transmit brian reference range : <=1.2. The refe rence range was not u sed to interpret th is result as normal/abnormal . ALKALINE PHOSPHATASE 62 U/L 40-142 (test code = 2204) AST (test code = 19 U/L 9-40 2217) ALT (test code = 17 U/L 5-40 2218) LIPID [id number] 00:00:00 Test Item Value Reference Range Interpretation Comments CHOLESTEROL (test code = 2210) 219 MG/DL TRIGLYCERIDES (test code = 2232) 229 MG/DL HDL CHOLESTEROL (test code = 2220) 57 MG/DL CALC LDL CHOL (test code = 2237) 125 MG/DL RISK RATIO LDL/HDL (test code = 2.19 RATIO 2238) LIPID [id number] 00:00:00 Test Item Value Reference Range Interpretation Comments CHOLESTEROL (test code = 2210) 219 MG/DL TRIGLYCERIDES (test code = 2232) 229 MG/DL HDL CHOLESTEROL (test code = 2220) 57 MG/DL CALC LDL CHOL (test code = 2237) 125 MG/DL RISK RATIO LDL/HDL (test code = 2.19 RATIO 2238) COMPREHENSIVE METABOLIC [id number] 00:00:00 Test Item Value Reference Range Interpretation Comments GLUCOSE (test code = 2217) 171 MG/DL BUN (test code = 2208) 16 MG/DL CREATININE (test code = 2214) 0.59 MG/DL eGFR (2020 CKD-EPI) (test code 92 ML/MIN/1.73 = 09178) CALC BUN/CREAT (test code = 27 RATIO 2235) SODIUM (test code = 2231) 138 MEQ/L POTASSIUM (test code = 2228) 4.6 MEQ/L CHLORIDE (test code = 2215) 99 MEQ/L CARBON DIOXIDE (test code = 24 MEQ/L 2205) CALCIUM (test code = 2209) 10.2 MG/DL PROTEIN, TOTAL (test code = 7.7 G/DL 2228) ALBUMIN (test code = 220) 4.9 G/DL CALC GLOBULIN (test code = 2.8 G/DL 2240) CALC A/G RATIO (test code = 1.8 RATIO 2234) BILIRUBIN, TOTAL (test code = 0.3 MG/DL 2206) ALKALINE PHOSPHATASE (test 62 U/L code = 2204) AST (test code = 2218) 19 U/L ALT (test code = 2219) 17 U/L COMPREHENSIVE METABOLIC [id number] 00:00:00 Test Item Value Reference Range Interpretation Comments GLUCOSE (test code = 2217) 171 MG/DL BUN (test code = 2208) 16 MG/DL CREATININE (test code = 2214) 0.59 MG/DL eGFR (2020 CKD-EPI) (test code 92 ML/MIN/1.73 = 80649) CALC BUN/CREAT (test code = 27 RATIO 2235) SODIUM (test code = 2231) 138 MEQ/L POTASSIUM (test code = 2228) 4.6 MEQ/L CHLORIDE (test code = 2215) 99 MEQ/L CARBON DIOXIDE (test code = 24 MEQ/L 2205) CALCIUM (test code = 2209) 10.2 MG/DL PROTEIN, TOTAL (test code = 7.7 G/DL 2228) ALBUMIN (test code = 2201) 4.9 G/DL CALC GLOBULIN (test code = 2.8 G/DL 2240) CALC A/G RATIO (test code = 1.8 RATIO 2234) BILIRUBIN, TOTAL (test code = 0.3 MG/DL 2206) ALKALINE PHOSPHATASE (test 62 U/L code = 2204) AST (test code = 2218) 19 U/L ALT (test code = 2219) 17 U/L HEMOGLOBIN [id number] 00:00:00 Test Item Value Reference Range Interpretation Comments HEMOGLOBIN A1c (test code = 33014) 9.1 % HEMOGLOBIN [id number] 00:00:00 Test Item Value Reference Range Interpretation Comments HEMOGLOBIN A1c (test code = 43166) 9.1 % HEMOGLOBIN [id number] 00:00:00 Test Item Value Reference Range Interpretation Comments HEMOGLOBIN A1c (test code = 06551) 9.1 % [id number] 00:00:00 Test Item Value Reference Range Interpretation Comments TSH, THIRD GENERATION (test code 0.342 UIU/ML = 2821) [id number] 00:00:00 Test Item Value Reference Range Interpretation Comments TSH, THIRD GENERATION (test code 0.342 UIU/ML = 2821) [id number] 00:00:00 Test Item Value Reference Range Interpretation Comments TSH, THIRD GENERATION (test code 0.342 UIU/ML = 2821) MICROALBUMIN/CREATININE, RANDOM AND [id number] 00:00:00 Test Item Value Reference Range Interpretation Comments CREATININE, URINE, RANDOM (test 126.8 MG/DL code = 2072) ALBUMIN, URINE, RANDOM (test code 2.5 MG/DL = 07441) CALC ALBUMIN/CREAT, RND (test 20 MG/G code = 83640) MICROALBUMIN/CREATININE, RANDOM AND [id number] 00:00:00 Test Item Value Reference Range Interpretation Comments CREATININE, URINE, RANDOM (test 126.8 MG/DL code = 2072) ALBUMIN, URINE, RANDOM (test code 2.5 MG/DL = 54233) CALC ALBUMIN/CREAT, RND (test 20 MG/G code = 00284) LIPID [id number] 00:00:00 Test Item Value Reference Range Interpretation Comments CHOLESTEROL (test code = 2210) 219 MG/DL TRIGLYCERIDES (test code = 2232) 229 MG/DL HDL CHOLESTEROL (test code = 2220) 57 MG/DL CALC LDL CHOL (test code = 2237) 125 MG/DL RISK RATIO LDL/HDL (test code = 2.19 RATIO 2238) LIPID [id number] 00:00:00 Test Item Value Reference Range Interpretation Comments CHOLESTEROL (test code = 2210) 219 MG/DL TRIGLYCERIDES (test code = 2232) 229 MG/DL HDL CHOLESTEROL (test code = 2220) 57 MG/DL CALC LDL CHOL (test code = 2237) 125 MG/DL RISK RATIO LDL/HDL (test code = 2.19 RATIO 2238) COMPREHENSIVE METABOLIC [id number] 00:00:00 Test Item Value Reference Range Interpretation Comments GLUCOSE (test code = 2217) 171 MG/DL BUN (test code = 2208) 16 MG/DL CREATININE (test code = 2214) 0.59 MG/DL eGFR (2020 CKD-EPI) (test code 92 ML/MIN/1.73 = 42213) CALC BUN/CREAT (test code = 27 RATIO 2235) SODIUM (test code = 2231) 138 MEQ/L POTASSIUM (test code = 2228) 4.6 MEQ/L CHLORIDE (test code = 2215) 99 MEQ/L CARBON DIOXIDE (test code = 24 MEQ/L 220) CALCIUM (test code = 2209) 10.2 MG/DL PROTEIN, TOTAL (test code = 7.7 G/DL 2228) ALBUMIN (test code = 2201) 4.9 G/DL CALC GLOBULIN (test code = 2.8 G/DL 2240) CALC A/G RATIO (test code = 1.8 RATIO 2234) BILIRUBIN, TOTAL (test code = 0.3 MG/DL 2206) ALKALINE PHOSPHATASE (test 62 U/L code = 2204) AST (test code = 2218) 19 U/L ALT (test code = 2219) 17 U/L COMPREHENSIVE METABOLIC [id number] 00:00:00 Test Item Value Reference Range Interpretation Comments GLUCOSE (test code = 2217) 171 MG/DL BUN (test code = 2208) 16 MG/DL CREATININE (test code = 2214) 0.59 MG/DL eGFR (2020 CKD-EPI) (test code 92 ML/MIN/1.73 = 79747) CALC BUN/CREAT (test code = 27 RATIO 2235) SODIUM (test code = 2231) 138 MEQ/L POTASSIUM (test code = 2228) 4.6 MEQ/L CHLORIDE (test code = 2215) 99 MEQ/L CARBON DIOXIDE (test code = 24 MEQ/L 2205) CALCIUM (test code = 2209) 10.2 MG/DL PROTEIN, TOTAL (test code = 7.7 G/DL 2228) ALBUMIN (test code = 2201) 4.9 G/DL CALC GLOBULIN (test code = 2.8 G/DL 2240) CALC A/G RATIO (test code = 1.8 RATIO 2234) BILIRUBIN, TOTAL (test code = 0.3 MG/DL 2206) ALKALINE PHOSPHATASE (test 62 U/L code = 2204) AST (test code = 2218) 19 U/L ALT (test code = 2219) 17 U/L HEMOGLOBIN [id number] 00:00:00 Test Item Value Reference Range Interpretation Comments HEMOGLOBIN A1c (test code = 25536) 9.1 % HEMOGLOBIN [id number] 00:00:00 Test Item Value Reference Range Interpretation Comments HEMOGLOBIN A1c (test code = 37900) 9.1 % HEMOGLOBIN [id number] 00:00:00 Test Item Value Reference Range Interpretation Comments HEMOGLOBIN A1c (test code = 82873) 9.1 % [id number] 00:00:00 Test Item Value Reference Range Interpretation Comments TSH, THIRD GENERATION (test code 0.342 UIU/ML = 2821) [id number] 00:00:00 Test Item Value Reference Range Interpretation Comments TSH, THIRD GENERATION (test code 0.342 UIU/ML = 2821) [id number] 00:00:00 Test Item Value Reference Range Interpretation Comments TSH, THIRD GENERATION (test code 0.342 UIU/ML = 2821) MICROALBUMIN/CREATININE, RANDOM AND [id number] 00:00:00 Test Item Value Reference Range Interpretation Comments CREATININE, URINE, RANDOM (test 126.8 MG/DL code = 2072) ALBUMIN, URINE, RANDOM (test code 2.5 MG/DL = 94839) CALC ALBUMIN/CREAT, RND (test 20 MG/G code = 76748) MICROALBUMIN/CREATININE, RANDOM AND [id number] 00:00:00 Test Item Value Reference Range Interpretation Comments CREATININE, URINE, RANDOM (test 126.8 MG/DL code = 2072) ALBUMIN, URINE, RANDOM (test code 2.5 MG/DL = 54049) CALC ALBUMIN/CREAT, RND (test 20 MG/G code = 54276) HEMOGLOBIN [id number] 06:20:45 Test Item Value Reference Range Interpretation Comments HEMOGLOBIN A1c (test 7.6 % 4.2-5.6 H AMERIC AN DIABETES code = 99120) ASSOCIATION IDELINES FOR HGB A1C: PREDIABETES/INC REASED RISK . . . . . . . 5.7 -6.4% DIAGNOSIS OF DI ABETES . . . . . . . . . >=6 .5% WITH CONFIRMATION OR APPROPRIATE SYMPTOMS NOTE: ASSAY MAY BE AFFECTED BY HEMOGLOBINOPATH IES (SICKLE CELL ANEMIA, S- C DISEASE, OTHERS) OR EMMIE FICIALLY LOWERED BY DECR EASED RED CELL SURVIVAL ( HEMOLYTIC ANEMIAS, BLOOD LOSS, ETC.). CONSIDER ALTERN ATE TESTING OR LABORATORY C ONSULTATION. TSH, THIRD [id number] 06:10:36 Test Item Value Reference Range Interpretation Comments TSH, THIRD GENERATION (test code 0.566 UIU/ML 0.400-4.100 = 2821) LIPID [id number] 05:02:41 Test Item Value Reference Range Interpretation Comments CHOLESTEROL (test 289 MG/DL <200 H code = 2210) TRIGLYCERIDES (test 268 MG/DL <150 H code = 2232) HDL CHOLESTEROL (test 53 MG/DL >39 code = 2220) CALC LDL CHOL (test 188 MG/DL <100 H NOTE: C ALCULATED LDL code = 2237) IS BASED ON RASHEEDA-BO METHOD WHICHINCLUDES ADJUSTABLE TRIGLYCERIDE:VL DL CHOLESTEROL RAT IO.THIS FACTOR VARIES B Y MEASURED TRIGLY CERIDE AND NON-HDLCHOL ESTEROL CONCENTRATIONS WITH INCREASED CALCU LATED LDL SEENIN HIGH ER TRIGLYCERIDE OR LOWER NON-HDL SPECIME NS. FOR MOREINFORMATION , SEE CLIENT ANNOUNCE MENT AT [email or web address] [email or web address] RATIO LDL/HDL 3.55 RATIO <3.22 H (test code = 2238) COMPREHENSIVE METABOLIC [id number] 05:02:41 Test Item Value Reference Range Interpretation Comments GLUCOSE (test code = 161 MG/DL 70-99 H 2216) BUN (test code = 16 MG/DL 8-23 2207) CREATININE (test 0.58 MG/DL 0.60-1.30 L code = 2214) eGFR (2020 CKD-EPI) 92 >60 (test code = 54048) ML/MIN/1.73 CALC BUN/CREAT (test 28 RATIO 6-28 code = 2235) SODIUM (test code = 139 MEQ/L 834-966 1315) POTASSIUM (test code 4.6 MEQ/L 3.5-5.4 = 222) CHLORIDE (test code 99 MEQ/L 95-107 = 221) CARBON DIOXIDE (test 25 MEQ/L 19-31 code = 220) CALCIUM (test code = 10.1 MG/DL 8.5-10.5 2208) PROTEIN, TOTAL (test 7.1 G/DL 6.1-8.3 code = 222) ALBUMIN (test code = 4.5 G/DL 3.5-5.2 2200) CALC GLOBULIN (test 2.6 G/DL 1.9-3.7 code = 2240) CALC A/G RATIO (test 1.7 RATIO 1.0-2.6 code = 2234) BILIRUBIN, TOTAL <0.2 MG/DL See_Comment [Automated message] (test code = 2207) The syste m which generated this result transmitted ref erence range: <=1.2. T he reference range was not used to int erpret this result as normal/abnormal . ALKALINE PHOSPHATASE 64 U/L 40-142 (test code = 220) AST (test code = 18 U/L 9-40 2218) ALT (test code = 16 U/L 5-40 UNLESS OTH ERWISE 2219) INDICATED, ALL TESTING PERFORM ED ATCLINICAL PATH [facility], [facility]. [address] [place], [place] [id number] [place] [address] DIRECTOR: JACQUELINE SAUCEDA M.D. CLIA NUMBER [id number] CAP ACCREDITATION N O. [id number] CBC W/AUTO DIFF WITH [id number] 04:53:02 Test Item Value Reference Range Interpretation Comments WBC (test code = 5.8 K/UL 3.5-11.0 1001) RBC (test code = 4.62 M/UL 3.80-5.40 1002) HEMOGLOBIN (test code 11.0 G/DL 11.5-15.5 L = 1003) HEMATOCRIT (test code 34.3 % 34.0-45.0 = 1004) MCV (test code = 74.2 fL 80.0-99.0 L 1005) MCH (test code = 23.8 PG 25.0-33.0 L 1006) MCHC (test code = 32.1 G/DL 31.0-36.0 1007) RDW (test code = 17.2 % 11.5-15.0 H 1038) NEUTROPHILS (test 47.8 % code = 1008) LYMPHOCYTES (test 34.1 % code = 1010) MONOCYTES (test code 14.0 % = 1011) EOSINOPHILS (test 2.9 % code = 1012) BASOPHILS (test code 0.9 % = 1013) IMMATURE GRANULOCYTES 0.3 % (test code = 1036) NUCLEATED RBCS (test 0.0 /100 WBC'S See_Comment [Aut omated code = 1065) message] The sy stem which generated this result transmitted reference range : 0.0. The refere nce range was not u sed to interpret th is result as normal/abnormal . PLATELET COUNT (test 388 K/UL 130-400 code = 1015) ABSOLUTE NEUTROPHILS 2.77 K/UL 1.50-7.50 (test code = 1066) ABSOLUTE LYMPHOCYTES 1.98 K/UL 1.00-4.00 (test code = 1067) ABSOLUTE MONOCYTES 0.81 K/UL 0.20-1.00 (test code = 1068) ABSOLUTE EOSINOPHILS 0.17 K/UL 0.00-0.50 (test code = 1040) ABSOLUTE BASOPHILS 0.05 K/UL 0.00-0.20 (test code = 1069) ABS IMMATURE 0.02 K/UL 0.00-0.10 GRANULOCYTES (test code = 1020) ABS NUCLEATED RBCS 0.00 K/UL 0.00-0.11 (test code = 00185) LIPID [id number] 00:00:00 Test Item Value Reference Range Interpretation Comments CHOLESTEROL (test code = 2210) 289 MG/DL TRIGLYCERIDES (test code = 2232) 268 MG/DL HDL CHOLESTEROL (test code = 2220) 53 MG/DL CALC LDL CHOL (test code = 2237) 188 MG/DL RISK RATIO LDL/HDL (test code = 3.55 RATIO 2238) CBC W/AUTO [id number] 00:00:00 Test Item Value Reference Range Interpretation Comments WBC (test code = 1001) 5.8 K/UL RBC (test code = 1002) 4.62 M/UL HEMOGLOBIN (test code = 1003) 11.0 G/DL HEMATOCRIT (test code = 1004) 34.3 % MCV (test code = 1005) 74.2 fL MCH (test code = 1006) 23.8 PG MCHC (test code = 1007) 32.1 G/DL RDW (test code = 1038) 17.2 % NEUTROPHILS (test code = 1008) 47.8 % LYMPHOCYTES (test code = 1010) 34.1 % MONOCYTES (test code = 1011) 14.0 % EOSINOPHILS (test code = 1012) 2.9 % BASOPHILS (test code = 1013) 0.9 % IMMATURE GRANULOCYTES (test 0.3 % code = 1036) NUCLEATED RBCS (test code = 0.0 /100WBC'S 1065) PLATELET COUNT (test code = 388 K/UL 1015) ABSOLUTE NEUTROPHILS (test code 2.77 K/UL = 1066) ABSOLUTE LYMPHOCYTES (test code 1.98 K/UL = 1067) ABSOLUTE MONOCYTES (test code = 0.81 K/UL 1068) ABSOLUTE EOSINOPHILS (test code 0.17 K/UL = 1040) ABSOLUTE BASOPHILS (test code = 0.05 K/UL 1069) ABS IMMATURE GRANULOCYTES (test 0.02 K/UL code = 1020) ABS NUCLEATED RBCS (test code = 0.00 K/UL 93568) CBC W/AUTO [id number] 00:00:00 Test Item Value Reference Range Interpretation Comments WBC (test code = 1001) 5.8 K/UL RBC (test code = 1002) 4.62 M/UL HEMOGLOBIN (test code = 1003) 11.0 G/DL HEMATOCRIT (test code = 1004) 34.3 % MCV (test code = 1005) 74.2 fL MCH (test code = 1006) 23.8 PG MCHC (test code = 1007) 32.1 G/DL RDW (test code = 1038) 17.2 % NEUTROPHILS (test code = 1008) 47.8 % LYMPHOCYTES (test code = 1010) 34.1 % MONOCYTES (test code = 1011) 14.0 % EOSINOPHILS (test code = 1012) 2.9 % BASOPHILS (test code = 1013) 0.9 % IMMATURE GRANULOCYTES (test 0.3 % code = 1036) NUCLEATED RBCS (test code = 0.0 /100WBC'S 1065) PLATELET COUNT (test code = 388 K/UL 1015) ABSOLUTE NEUTROPHILS (test code 2.77 K/UL = 1066) ABSOLUTE LYMPHOCYTES (test code 1.98 K/UL = 1067) ABSOLUTE MONOCYTES (test code = 0.81 K/UL 1068) ABSOLUTE EOSINOPHILS (test code 0.17 K/UL = 1040) ABSOLUTE BASOPHILS (test code = 0.05 K/UL 1069) ABS IMMATURE GRANULOCYTES (test 0.02 K/UL code = 1020) ABS NUCLEATED RBCS (test code = 0.00 K/UL 40820) CBC W/AUTO [id number] 00:00:00 Test Item Value Reference Range Interpretation Comments WBC (test code = 1001) 5.8 K/UL RBC (test code = 1002) 4.62 M/UL HEMOGLOBIN (test code = 1003) 11.0 G/DL HEMATOCRIT (test code = 1004) 34.3 % MCV (test code = 1005) 74.2 fL MCH (test code = 1006) 23.8 PG MCHC (test code = 1007) 32.1 G/DL RDW (test code = 1038) 17.2 % NEUTROPHILS (test code = 1008) 47.8 % LYMPHOCYTES (test code = 1010) 34.1 % MONOCYTES (test code = 1011) 14.0 % EOSINOPHILS (test code = 1012) 2.9 % BASOPHILS (test code = 1013) 0.9 % IMMATURE GRANULOCYTES (test 0.3 % code = 1036) NUCLEATED RBCS (test code = 0.0 /100WBC'S 1065) PLATELET COUNT (test code = 388 K/UL 1015) ABSOLUTE NEUTROPHILS (test code 2.77 K/UL = 1066) ABSOLUTE LYMPHOCYTES (test code 1.98 K/UL = 1067) ABSOLUTE MONOCYTES (test code = 0.81 K/UL 1068) ABSOLUTE EOSINOPHILS (test code 0.17 K/UL = 1040) ABSOLUTE BASOPHILS (test code = 0.05 K/UL 1069) ABS IMMATURE GRANULOCYTES (test 0.02 K/UL code = 1020) ABS NUCLEATED RBCS (test code = 0.00 K/UL 99105) COMPREHENSIVE METABOLIC [id number] 00:00:00 Test Item Value Reference Range Interpretation Comments GLUCOSE (test code = 2217) 161 MG/DL BUN (test code = 2208) 16 MG/DL CREATININE (test code = 2214) 0.58 MG/DL eGFR (2020 CKD-EPI) (test code 92 ML/MIN/1.73 = 15746) CALC BUN/CREAT (test code = 28 RATIO 2235) SODIUM (test code = 2231) 139 MEQ/L POTASSIUM (test code = 2228) 4.6 MEQ/L CHLORIDE (test code = 2215) 99 MEQ/L CARBON DIOXIDE (test code = 25 MEQ/L 2205) CALCIUM (test code = 2209) 10.1 MG/DL PROTEIN, TOTAL (test code = 7.1 G/DL 2228) ALBUMIN (test code = 2201) 4.5 G/DL CALC GLOBULIN (test code = 2.6 G/DL 2240) CALC A/G RATIO (test code = 1.7 RATIO 2234) BILIRUBIN, TOTAL (test code = <0.2 MG/DL 2206) ALKALINE PHOSPHATASE (test 64 U/L code = 2204) AST (test code = 2218) 18 U/L ALT (test code = 2219) 16 U/L COMPREHENSIVE METABOLIC [id number] 00:00:00 Test Item Value Reference Range Interpretation Comments GLUCOSE (test code = 2217) 161 MG/DL BUN (test code = 2208) 16 MG/DL CREATININE (test code = 2214) 0.58 MG/DL eGFR (2020 CKD-EPI) (test code 92 ML/MIN/1.73 = 30140) CALC BUN/CREAT (test code = 28 RATIO 2235) SODIUM (test code = 2231) 139 MEQ/L POTASSIUM (test code = 2228) 4.6 MEQ/L CHLORIDE (test code = 2215) 99 MEQ/L CARBON DIOXIDE (test code = 25 MEQ/L 2205) CALCIUM (test code = 2209) 10.1 MG/DL PROTEIN, TOTAL (test code = 7.1 G/DL 2228) ALBUMIN (test code = 2201) 4.5 G/DL CALC GLOBULIN (test code = 2.6 G/DL 2240) CALC A/G RATIO (test code = 1.7 RATIO 2234) BILIRUBIN, TOTAL (test code = <0.2 MG/DL 2206) ALKALINE PHOSPHATASE (test 64 U/L code = 2204) AST (test code = 2218) 18 U/L ALT (test code = 2219) 16 U/L HEMOGLOBIN [id number] 00:00:00 Test Item Value Reference Range Interpretation Comments HEMOGLOBIN A1c (test code = 72275) 7.6 % HEMOGLOBIN [id number] 00:00:00 Test Item Value Reference Range Interpretation Comments HEMOGLOBIN A1c (test code = 19168) 7.6 % HEMOGLOBIN [id number] 00:00:00 Test Item Value Reference Range Interpretation Comments HEMOGLOBIN A1c (test code = 55461) 7.6 % [id number] 00:00:00 Test Item Value Reference Range Interpretation Comments TSH, THIRD GENERATION (test code 0.566 UIU/ML = 2821) [id number] 00:00:00 Test Item Value Reference Range Interpretation Comments TSH, THIRD GENERATION (test code 0.566 UIU/ML = 2821) [id number] 00:00:00 Test Item Value Reference Range Interpretation Comments TSH, THIRD GENERATION (test code 0.566 UIU/ML = 2821) LIPID [id number] 00:00:00 Test Item Value Reference Range Interpretation Comments CHOLESTEROL (test code = 2210) 289 MG/DL TRIGLYCERIDES (test code = 2232) 268 MG/DL HDL CHOLESTEROL (test code = 2220) 53 MG/DL CALC LDL CHOL (test code = 2237) 188 MG/DL RISK RATIO LDL/HDL (test code = 3.55 RATIO 2238) LIPID [id number] 00:00:00 Test Item Value Reference Range Interpretation Comments CHOLESTEROL (test code = 2210) 289 MG/DL TRIGLYCERIDES (test code = 2232) 268 MG/DL HDL CHOLESTEROL (test code = 2220) 53 MG/DL CALC LDL CHOL (test code = 2237) 188 MG/DL RISK RATIO LDL/HDL (test code = 3.55 RATIO 2238) CBC W/AUTO [id number] 00:00:00 Test Item Value Reference Range Interpretation Comments WBC (test code = 1001) 5.8 K/UL RBC (test code = 1002) 4.62 M/UL HEMOGLOBIN (test code = 1003) 11.0 G/DL HEMATOCRIT (test code = 1004) 34.3 % MCV (test code = 1005) 74.2 fL MCH (test code = 1006) 23.8 PG MCHC (test code = 1007) 32.1 G/DL RDW (test code = 1038) 17.2 % NEUTROPHILS (test code = 1008) 47.8 % LYMPHOCYTES (test code = 1010) 34.1 % MONOCYTES (test code = 1011) 14.0 % EOSINOPHILS (test code = 1012) 2.9 % BASOPHILS (test code = 1013) 0.9 % IMMATURE GRANULOCYTES (test 0.3 % code = 1036) NUCLEATED RBCS (test code = 0.0 /100WBC'S 1065) PLATELET COUNT (test code = 388 K/UL 1015) ABSOLUTE NEUTROPHILS (test code 2.77 K/UL = 1066) ABSOLUTE LYMPHOCYTES (test code 1.98 K/UL = 1067) ABSOLUTE MONOCYTES (test code = 0.81 K/UL 1068) ABSOLUTE EOSINOPHILS (test code 0.17 K/UL = 1040) ABSOLUTE BASOPHILS (test code = 0.05 K/UL 1069) ABS IMMATURE GRANULOCYTES (test 0.02 K/UL code = 1020) ABS NUCLEATED RBCS (test code = 0.00 K/UL 11878) CBC W/AUTO [id number] 00:00:00 Test Item Value Reference Range Interpretation Comments WBC (test code = 1001) 5.8 K/UL RBC (test code = 1002) 4.62 M/UL HEMOGLOBIN (test code = 1003) 11.0 G/DL HEMATOCRIT (test code = 1004) 34.3 % MCV (test code = 1005) 74.2 fL MCH (test code = 1006) 23.8 PG MCHC (test code = 1007) 32.1 G/DL RDW (test code = 1038) 17.2 % NEUTROPHILS (test code = 1008) 47.8 % LYMPHOCYTES (test code = 1010) 34.1 % MONOCYTES (test code = 1011) 14.0 % EOSINOPHILS (test code = 1012) 2.9 % BASOPHILS (test code = 1013) 0.9 % IMMATURE GRANULOCYTES (test 0.3 % code = 1036) NUCLEATED RBCS (test code = 0.0 /100WBC'S 1065) PLATELET COUNT (test code = 388 K/UL 1015) ABSOLUTE NEUTROPHILS (test code 2.77 K/UL = 1066) ABSOLUTE LYMPHOCYTES (test code 1.98 K/UL = 1067) ABSOLUTE MONOCYTES (test code = 0.81 K/UL 1068) ABSOLUTE EOSINOPHILS (test code 0.17 K/UL = 1040) ABSOLUTE BASOPHILS (test code = 0.05 K/UL 1069) ABS IMMATURE GRANULOCYTES (test 0.02 K/UL code = 1020) ABS NUCLEATED RBCS (test code = 0.00 K/UL 52590) CBC W/AUTO [id number] 00:00:00 Test Item Value Reference Range Interpretation Comments WBC (test code = 1001) 5.8 K/UL RBC (test code = 1002) 4.62 M/UL HEMOGLOBIN (test code = 1003) 11.0 G/DL HEMATOCRIT (test code = 1004) 34.3 % MCV (test code = 1005) 74.2 fL MCH (test code = 1006) 23.8 PG MCHC (test code = 1007) 32.1 G/DL RDW (test code = 1038) 17.2 % NEUTROPHILS (test code = 1008) 47.8 % LYMPHOCYTES (test code = 1010) 34.1 % MONOCYTES (test code = 1011) 14.0 % EOSINOPHILS (test code = 1012) 2.9 % BASOPHILS (test code = 1013) 0.9 % IMMATURE GRANULOCYTES (test 0.3 % code = 1036) NUCLEATED RBCS (test code = 0.0 /100WBC'S 1065) PLATELET COUNT (test code = 388 K/UL 1015) ABSOLUTE NEUTROPHILS (test code 2.77 K/UL = 1066) ABSOLUTE LYMPHOCYTES (test code 1.98 K/UL = 1067) ABSOLUTE MONOCYTES (test code = 0.81 K/UL 1068) ABSOLUTE EOSINOPHILS (test code 0.17 K/UL = 1040) ABSOLUTE BASOPHILS (test code = 0.05 K/UL 1069) ABS IMMATURE GRANULOCYTES (test 0.02 K/UL code = 1020) ABS NUCLEATED RBCS (test code = 0.00 K/UL 04663) COMPREHENSIVE METABOLIC [id number] 00:00:00 Test Item Value Reference Range Interpretation Comments GLUCOSE (test code = 2217) 161 MG/DL BUN (test code = 2208) 16 MG/DL CREATININE (test code = 2214) 0.58 MG/DL eGFR (2020 CKD-EPI) (test code 92 ML/MIN/1.73 = 01056) CALC BUN/CREAT (test code = 28 RATIO 2235) SODIUM (test code = 2231) 139 MEQ/L POTASSIUM (test code = 2228) 4.6 MEQ/L CHLORIDE (test code = 2215) 99 MEQ/L CARBON DIOXIDE (test code = 25 MEQ/L 2205) CALCIUM (test code = 2209) 10.1 MG/DL PROTEIN, TOTAL (test code = 7.1 G/DL 2228) ALBUMIN (test code = 2201) 4.5 G/DL CALC GLOBULIN (test code = 2.6 G/DL 2240) CALC A/G RATIO (test code = 1.7 RATIO 2234) BILIRUBIN, TOTAL (test code = <0.2 MG/DL 2206) ALKALINE PHOSPHATASE (test 64 U/L code = 2204) AST (test code = 2218) 18 U/L ALT (test code = 2219) 16 U/L COMPREHENSIVE METABOLIC [id number] 00:00:00 Test Item Value Reference Range Interpretation Comments GLUCOSE (test code = 2217) 161 MG/DL BUN (test code = 2208) 16 MG/DL CREATININE (test code = 2214) 0.58 MG/DL eGFR (2020 CKD-EPI) (test code 92 ML/MIN/1.73 = 44206) CALC BUN/CREAT (test code = 28 RATIO 2235) SODIUM (test code = 2231) 139 MEQ/L POTASSIUM (test code = 2228) 4.6 MEQ/L CHLORIDE (test code = 2215) 99 MEQ/L CARBON DIOXIDE (test code = 25 MEQ/L 2205) CALCIUM (test code = 2209) 10.1 MG/DL PROTEIN, TOTAL (test code = 7.1 G/DL 2228) ALBUMIN (test code = 2201) 4.5 G/DL CALC GLOBULIN (test code = 2.6 G/DL 2239) CALC A/G RATIO (test code = 1.7 RATIO 4) BILIRUBIN, TOTAL (test code = <0.2 MG/DL 2206) ALKALINE PHOSPHATASE (test 64 U/L code = 2204) AST (test code = 2218) 18 U/L ALT (test code = 2219) 16 U/L HEMOGLOBIN [id number] 00:00:00 Test Item Value Reference Range Interpretation Comments HEMOGLOBIN A1c (test code = 46223) 7.6 % HEMOGLOBIN [id number] 00:00:00 Test Item Value Reference Range Interpretation Comments HEMOGLOBIN A1c (test code = 38834) 7.6 % HEMOGLOBIN [id number] 00:00:00 Test Item Value Reference Range Interpretation Comments HEMOGLOBIN A1c (test code = 33347) 7.6 % [id number] 00:00:00 Test Item Value Reference Range Interpretation Comments TSH, THIRD GENERATION (test code 0.566 UIU/ML = 2821) [id number] 00:00:00 Test Item Value Reference Range Interpretation Comments TSH, THIRD GENERATION (test code 0.566 UIU/ML = 2821) [id number] 00:00:00 Test Item Value Reference Range Interpretation Comments TSH, THIRD GENERATION (test code 0.566 UIU/ML = 2821) LIPID [id number] 00:00:00 Test Item Value Reference Range Interpretation Comments CHOLESTEROL (test code = 2210) 289 MG/DL TRIGLYCERIDES (test code = 2232) 268 MG/DL HDL CHOLESTEROL (test code = 2220) 53 MG/DL CALC LDL CHOL (test code = 2237) 188 MG/DL RISK RATIO LDL/HDL (test code = 3.55 RATIO 2238) [id number] 00:00:00 Test Item Value Reference Range Interpretation Comments TSH, THIRD GENERATION (test code 0.428 UIU/ML = 2821) [id number] 00:00:00 Test Item Value Reference Range Interpretation Comments TSH, THIRD GENERATION (test code 0.428 UIU/ML = 2821) [id number] 00:00:00 Test Item Value Reference Range Interpretation Comments TSH, THIRD GENERATION (test code 0.428 UIU/ML = 2821) COMPREHENSIVE METABOLIC [id number] 00:00:00 Test Item Value Reference Range Interpretation Comments GLUCOSE (test code = 2217) 140 MG/DL BUN (test code = 2208) 19 MG/DL CREATININE (test code = 2214) 0.80 MG/DL eGFR AMER. (test code 82 ML/MIN/1.73 = 36634) eGFR NON- AMER. (test 71 ML/MIN/1.73 code = 05711) CALC BUN/CREAT (test code = 24 RATIO 2235) SODIUM (test code = 2231) 135 MEQ/L POTASSIUM (test code = 2228) 4.7 MEQ/L CHLORIDE (test code = 2215) 94 MEQ/L CARBON DIOXIDE (test code = 18 MEQ/L 2205) CALCIUM (test code = 2209) 10.3 MG/DL PROTEIN, TOTAL (test code = 8.0 G/DL 2228) ALBUMIN (test code = 2201) 5.1 G/DL CALC GLOBULIN (test code = 2.9 G/DL 2239) CALC A/G RATIO (test code = 1.8 RATIO 2234) BILIRUBIN, TOTAL (test code = <0.2 MG/DL 2206) ALKALINE PHOSPHATASE (test 75 U/L code = 2204) AST (test code = 2218) 26 U/L ALT (test code = 2219) 17 U/L COMPREHENSIVE METABOLIC [id number] 00:00:00 Test Item Value Reference Range Interpretation Comments GLUCOSE (test code = 2217) 140 MG/DL BUN (test code = 2208) 19 MG/DL CREATININE (test code = 2214) 0.80 MG/DL eGFR AMER. (test code 82 ML/MIN/1.73 = 64687) eGFR NON- AMER. (test 71 ML/MIN/1.73 code = 78545) CALC BUN/CREAT (test code = 24 RATIO 2235) SODIUM (test code = 2231) 135 MEQ/L POTASSIUM (test code = 2228) 4.7 MEQ/L CHLORIDE (test code = 2215) 94 MEQ/L CARBON DIOXIDE (test code = 18 MEQ/L 2205) CALCIUM (test code = 2209) 10.3 MG/DL PROTEIN, TOTAL (test code = 8.0 G/DL 2228) ALBUMIN (test code = 2201) 5.1 G/DL CALC GLOBULIN (test code = 2.9 G/DL 2239) CALC A/G RATIO (test code = 1.8 RATIO 2234) BILIRUBIN, TOTAL (test code = <0.2 MG/DL 2206) ALKALINE PHOSPHATASE (test 75 U/L code = 2204) AST (test code = 2218) 26 U/L ALT (test code = 2219) 17 U/L LIPID [id number] 00:00:00 Test Item Value Reference Range Interpretation Comments CHOLESTEROL (test code = 2210) 218 MG/DL TRIGLYCERIDES (test code = 2232) 200 MG/DL HDL CHOLESTEROL (test code = 2220) 46 MG/DL CALC LDL CHOL (test code = 2237) 138 MG/DL RISK RATIO LDL/HDL (test code = 3.00 RATIO 2238) LIPID [id number] 00:00:00 Test Item Value Reference Range Interpretation Comments CHOLESTEROL (test code = 2210) 218 MG/DL TRIGLYCERIDES (test code = 2232) 200 MG/DL HDL CHOLESTEROL (test code = 2220) 46 MG/DL CALC LDL CHOL (test code = 2237) 138 MG/DL RISK RATIO LDL/HDL (test code = 3.00 RATIO 2238) [id number] 00:00:00 Test Item Value Reference Range Interpretation Comments TSH, THIRD GENERATION (test code 0.428 UIU/ML = 2821) [id number] 00:00:00 Test Item Value Reference Range Interpretation Comments TSH, THIRD GENERATION (test code 0.428 UIU/ML = 2821) [id number] 00:00:00 Test Item Value Reference Range Interpretation Comments TSH, THIRD GENERATION (test code 0.428 UIU/ML = 2821) COMPREHENSIVE METABOLIC [id number] 00:00:00 Test Item Value Reference Range Interpretation Comments GLUCOSE (test code = 2217) 140 MG/DL BUN (test code = 2208) 19 MG/DL CREATININE (test code = 2214) 0.80 MG/DL eGFR AMER. (test code 82 ML/MIN/1.73 = 09303) eGFR NON- AMER. (test 71 ML/MIN/1.73 code = 28670) CALC BUN/CREAT (test code = 24 RATIO 2235) SODIUM (test code = 2231) 135 MEQ/L POTASSIUM (test code = 2228) 4.7 MEQ/L CHLORIDE (test code = 2215) 94 MEQ/L CARBON DIOXIDE (test code = 18 MEQ/L 2205) CALCIUM (test code = 2209) 10.3 MG/DL PROTEIN, TOTAL (test code = 8.0 G/DL 2228) ALBUMIN (test code = 2201) 5.1 G/DL CALC GLOBULIN (test code = 2.9 G/DL 0) CALC A/G RATIO (test code = 1.8 RATIO 2234) BILIRUBIN, TOTAL (test code = <0.2 MG/DL 2206) ALKALINE PHOSPHATASE (test 75 U/L code = 2204) AST (test code = 2218) 26 U/L ALT (test code = 2219) 17 U/L COMPREHENSIVE METABOLIC [id number] 00:00:00 Test Item Value Reference Range Interpretation Comments GLUCOSE (test code = 2217) 140 MG/DL BUN (test code = 2208) 19 MG/DL CREATININE (test code = 2214) 0.80 MG/DL eGFR AMER. (test code 82 ML/MIN/1.73 = 94006) eGFR NON- AMER. (test 71 ML/MIN/1.73 code = 83252) CALC BUN/CREAT (test code = 24 RATIO 2235) SODIUM (test code = 2231) 135 MEQ/L POTASSIUM (test code = 2228) 4.7 MEQ/L CHLORIDE (test code = 2215) 94 MEQ/L CARBON DIOXIDE (test code = 18 MEQ/L 2205) CALCIUM (test code = 2209) 10.3 MG/DL PROTEIN, TOTAL (test code = 8.0 G/DL 2228) ALBUMIN (test code = 2201) 5.1 G/DL CALC GLOBULIN (test code = 2.9 G/DL 2239) CALC A/G RATIO (test code = 1.8 RATIO 4) BILIRUBIN, TOTAL (test code = <0.2 MG/DL 2206) ALKALINE PHOSPHATASE (test 75 U/L code = 220) AST (test code = 2218) 26 U/L ALT (test code = 2219) 17 U/L LIPID [id number] 00:00:00 Test Item Value Reference Range Interpretation Comments CHOLESTEROL (test code = 2210) 218 MG/DL TRIGLYCERIDES (test code = 2232) 200 MG/DL HDL CHOLESTEROL (test code = 2220) 46 MG/DL CALC LDL CHOL (test code = 2237) 138 MG/DL RISK RATIO LDL/HDL (test code = 3.00 RATIO 2238) LIPID [id number] 00:00:00 Test Item Value Reference Range Interpretation Comments CHOLESTEROL (test code = 2210) 218 MG/DL TRIGLYCERIDES (test code = 2232) 200 MG/DL HDL CHOLESTEROL (test code = 2220) 46 MG/DL CALC LDL CHOL (test code = 2237) 138 MG/DL RISK RATIO LDL/HDL (test code = 3.00 RATIO 2238) CBC W/AUTO [id number] 00:00:00 Test Item Value Reference Range Interpretation Comments WBC (test code = 1001) 6.5 K/UL RBC (test code = 1002) 4.09 M/UL HEMOGLOBIN (test code = 1003) 9.9 G/DL HEMATOCRIT (test code = 1004) 31.0 % MCV (test code = 1005) 75.8 fL MCH (test code = 1006) 24.2 PG MCHC (test code = 1007) 31.9 G/DL RDW (test code = 1038) 16.4 % NEUTROPHILS (test code = 1008) 46.0 % LYMPHOCYTES (test code = 1010) 38.1 % MONOCYTES (test code = 1011) 12.5 % EOSINOPHILS (test code = 1012) 2.3 % BASOPHILS (test code = 1013) 0.8 % IMMATURE GRANULOCYTES (test 0.3 % code = 1036) NUCLEATED RBCS (test code = 0.0 /100WBC'S 1065) PLATELET COUNT (test code = 368 K/UL 1015) ABSOLUTE NEUTROPHILS (test code 3.01 K/UL = 1066) ABSOLUTE LYMPHOCYTES (test code 2.49 K/UL = 1067) ABSOLUTE MONOCYTES (test code = 0.82 K/UL 1068) ABSOLUTE EOSINOPHILS (test code 0.15 K/UL = 1040) ABSOLUTE BASOPHILS (test code = 0.05 K/UL 1069) ABS IMMATURE GRANULOCYTES (test 0.02 K/UL code = 1020) ABS NUCLEATED RBCS (test code = 0.00 K/UL 81212) HEMOGLOBIN [id number] 00:00:00 Test Item Value Reference Range Interpretation Comments HEMOGLOBIN A1c (test code = 09859) 6.6 % HEMOGLOBIN [id number] 00:00:00 Test Item Value Reference Range Interpretation Comments HEMOGLOBIN A1c (test code = 47584) 6.6 % HEMOGLOBIN [id number] 00:00:00 Test Item Value Reference Range Interpretation Comments HEMOGLOBIN A1c (test code = 40127) 6.6 % CBC W/AUTO [id number] 00:00:00 Test Item Value Reference Range Interpretation Comments WBC (test code = 1001) 6.5 K/UL RBC (test code = 1002) 4.09 M/UL HEMOGLOBIN (test code = 1003) 9.9 G/DL HEMATOCRIT (test code = 1004) 31.0 % MCV (test code = 1005) 75.8 fL MCH (test code = 1006) 24.2 PG MCHC (test code = 1007) 31.9 G/DL RDW (test code = 1038) 16.4 % NEUTROPHILS (test code = 1008) 46.0 % LYMPHOCYTES (test code = 1010) 38.1 % MONOCYTES (test code = 1011) 12.5 % EOSINOPHILS (test code = 1012) 2.3 % BASOPHILS (test code = 1013) 0.8 % IMMATURE GRANULOCYTES (test 0.3 % code = 1036) NUCLEATED RBCS (test code = 0.0 /100WBC'S 1065) PLATELET COUNT (test code = 368 K/UL 1015) ABSOLUTE NEUTROPHILS (test code 3.01 K/UL = 1066) ABSOLUTE LYMPHOCYTES (test code 2.49 K/UL = 1067) ABSOLUTE MONOCYTES (test code = 0.82 K/UL 1068) ABSOLUTE EOSINOPHILS (test code 0.15 K/UL = 1040) ABSOLUTE BASOPHILS (test code = 0.05 K/UL 1069) ABS IMMATURE GRANULOCYTES (test 0.02 K/UL code = 1020) ABS NUCLEATED RBCS (test code = 0.00 K/UL 80288) CBC W/AUTO [id number] 00:00:00 Test Item Value Reference Range Interpretation Comments WBC (test code = 1001) 6.5 K/UL RBC (test code = 1002) 4.09 M/UL HEMOGLOBIN (test code = 1003) 9.9 G/DL HEMATOCRIT (test code = 1004) 31.0 % MCV (test code = 1005) 75.8 fL MCH (test code = 1006) 24.2 PG MCHC (test code = 1007) 31.9 G/DL RDW (test code = 1038) 16.4 % NEUTROPHILS (test code = 1008) 46.0 % LYMPHOCYTES (test code = 1010) 38.1 % MONOCYTES (test code = 1011) 12.5 % EOSINOPHILS (test code = 1012) 2.3 % BASOPHILS (test code = 1013) 0.8 % IMMATURE GRANULOCYTES (test 0.3 % code = 1036) NUCLEATED RBCS (test code = 0.0 /100WBC'S 1065) PLATELET COUNT (test code = 368 K/UL 1015) ABSOLUTE NEUTROPHILS (test code 3.01 K/UL = 1066) ABSOLUTE LYMPHOCYTES (test code 2.49 K/UL = 1067) ABSOLUTE MONOCYTES (test code = 0.82 K/UL 1068) ABSOLUTE EOSINOPHILS (test code 0.15 K/UL = 1040) ABSOLUTE BASOPHILS (test code = 0.05 K/UL 1069) ABS IMMATURE GRANULOCYTES (test 0.02 K/UL code = 1020) ABS NUCLEATED RBCS (test code = 0.00 K/UL 78710) CBC W/AUTO [id number] 00:00:00 Test Item Value Reference Range Interpretation Comments WBC (test code = 1001) 6.5 K/UL RBC (test code = 1002) 4.09 M/UL HEMOGLOBIN (test code = 1003) 9.9 G/DL HEMATOCRIT (test code = 1004) 31.0 % MCV (test code = 1005) 75.8 fL MCH (test code = 1006) 24.2 PG MCHC (test code = 1007) 31.9 G/DL RDW (test code = 1038) 16.4 % NEUTROPHILS (test code = 1008) 46.0 % LYMPHOCYTES (test code = 1010) 38.1 % MONOCYTES (test code = 1011) 12.5 % EOSINOPHILS (test code = 1012) 2.3 % BASOPHILS (test code = 1013) 0.8 % IMMATURE GRANULOCYTES (test 0.3 % code = 1036) NUCLEATED RBCS (test code = 0.0 /100WBC'S 1065) PLATELET COUNT (test code = 368 K/UL 1015) ABSOLUTE NEUTROPHILS (test code 3.01 K/UL = 1066) ABSOLUTE LYMPHOCYTES (test code 2.49 K/UL = 1067) ABSOLUTE MONOCYTES (test code = 0.82 K/UL 1068) ABSOLUTE EOSINOPHILS (test code 0.15 K/UL = 1040) ABSOLUTE BASOPHILS (test code = 0.05 K/UL 1069) ABS IMMATURE GRANULOCYTES (test 0.02 K/UL code = 1020) ABS NUCLEATED RBCS (test code = 0.00 K/UL 28299) HEMOGLOBIN [id number] 00:00:00 Test Item Value Reference Range Interpretation Comments HEMOGLOBIN A1c (test code = 98475) 6.6 % HEMOGLOBIN [id number] 00:00:00 Test Item Value Reference Range Interpretation Comments HEMOGLOBIN A1c (test code = 48950) 6.6 % HEMOGLOBIN [id number] 00:00:00 Test Item Value Reference Range Interpretation Comments HEMOGLOBIN A1c (test code = 66816) 6.6 % CBC W/AUTO [id number] 00:00:00 Test Item Value Reference Range Interpretation Comments WBC (test code = 1001) 6.5 K/UL RBC (test code = 1002) 4.09 M/UL HEMOGLOBIN (test code = 1003) 9.9 G/DL HEMATOCRIT (test code = 1004) 31.0 % MCV (test code = 1005) 75.8 fL MCH (test code = 1006) 24.2 PG MCHC (test code = 1007) 31.9 G/DL RDW (test code = 1038) 16.4 % NEUTROPHILS (test code = 1008) 46.0 % LYMPHOCYTES (test code = 1010) 38.1 % MONOCYTES (test code = 1011) 12.5 % EOSINOPHILS (test code = 1012) 2.3 % BASOPHILS (test code = 1013) 0.8 % IMMATURE GRANULOCYTES (test 0.3 % code = 1036) NUCLEATED RBCS (test code = 0.0 /100WBC'S 1065) PLATELET COUNT (test code = 368 K/UL 1015) ABSOLUTE NEUTROPHILS (test code 3.01 K/UL = 1066) ABSOLUTE LYMPHOCYTES (test code 2.49 K/UL = 1067) ABSOLUTE MONOCYTES (test code = 0.82 K/UL 1068) ABSOLUTE EOSINOPHILS (test code 0.15 K/UL = 1040) ABSOLUTE BASOPHILS (test code = 0.05 K/UL 1069) ABS IMMATURE GRANULOCYTES (test 0.02 K/UL code = 1020) ABS NUCLEATED RBCS (test code = 0.00 K/UL 57734) CBC W/AUTO [id number] 00:00:00 Test Item Value Reference Range Interpretation Comments WBC (test code = 1001) 6.5 K/UL RBC (test code = 1002) 4.09 M/UL HEMOGLOBIN (test code = 1003) 9.9 G/DL HEMATOCRIT (test code = 1004) 31.0 % MCV (test code = 1005) 75.8 fL MCH (test code = 1006) 24.2 PG MCHC (test code = 1007) 31.9 G/DL RDW (test code = 1038) 16.4 % NEUTROPHILS (test code = 1008) 46.0 % LYMPHOCYTES (test code = 1010) 38.1 % MONOCYTES (test code = 1011) 12.5 % EOSINOPHILS (test code = 1012) 2.3 % BASOPHILS (test code = 1013) 0.8 % IMMATURE GRANULOCYTES (test 0.3 % code = 1036) NUCLEATED RBCS (test code = 0.0 /100WBC'S 1065) PLATELET COUNT (test code = 368 K/UL 1015) ABSOLUTE NEUTROPHILS (test code 3.01 K/UL = 1066) ABSOLUTE LYMPHOCYTES (test code 2.49 K/UL = 1067) ABSOLUTE MONOCYTES (test code = 0.82 K/UL 1068) ABSOLUTE EOSINOPHILS (test code 0.15 K/UL = 1040) ABSOLUTE BASOPHILS (test code = 0.05 K/UL 1069) ABS IMMATURE GRANULOCYTES (test 0.02 K/UL code = 1020) ABS NUCLEATED RBCS (test code = 0.00 K/UL 32886) SCR MAMM BILATERAL CHIN CAD [id number] 16:22:46 - SCR MAMM BILATERAL CHIN CAD DIGITALBILATERAL DIGITAL SCREENING MAMMOGRAM 3D/2D WITH CAD: 02/26/2019C LINICAL: Asymptomatic. Digital breast tomosynthesis was performed in addition to routine CC and MLO views. Current mammographic images were evaluated by either a [employer] M-Vu or a [employer] CAD (computer aided detection system). No requested [...] available for comparison.Andrea Luna M.D. rb/:03/16/2019 16:22:46 [employer] Polisher: Renetta DANIELS, [facility]-FWletter sent: BIRADS 1-2 Normal Mammogram BI-RADS: 2 Benign
[2022-06-09] MEDS ORDERED: MAGNES/ALUMIN/SIMET 30ML UCUP ONE (20:35)
[2022-06-09] MEDS ORDERED: ASPIRIN 81 MG CHEWABLE TABLET ONE (20:35)
[2022-06-09] MEDS ORDERED: PANTOPRAZOLE 40 MG INJ ONE (20:36)
[2022-06-09] MEDS ORDERED: LIDOCAINE VISCOUS 2% SOLN 15 ML UDC ONE (20:36)
[2022-06-09] MEDS ORDERED: ONDANSETRON 4 MG/2 ML VIAL ONE (20:36)
[2022-06-09 20:53] LABS: Absolute Lymphocytes (CBC) 1.2 K/uL (0.7-4.9); Hematocrit 26.8 % (36.0-45.0); MCV 62.6 fL (80-100); MPV 7.8 fL (7.6-11.3); RBC Red Blood Cell Count 4.28 M/uL (3.86-4.86)
[2022-06-09 21:13] LABS: Magnesium 1.9 mg/dL (1.8-2.4); Potassium 3.8 mmol/L (3.5-5.1)
[2022-06-09 21:18] LABS: Troponin High Sensitivity 483.5 pg/mL (<58.9)
[2022-06-09] MEDS ORDERED: MORPHINE 4 MG/ML SYR ONE (21:31)
[2022-06-09] MEDS ORDERED: NITROGLYCERIN 0.4 MG/TAB SL ONE (21:31)
--- NOTE | 2022-06-09 21:56 | RAD REPORT ---
EXAM DESCRIPTION: [facility]06/09/2022 9:10 pm CLINICAL HISTORY: Chest pain COMPARISON: 2019 FINDINGS: The lungs appear clear of acute infiltrate. The heart is normal size IMPRESSION: No acute abnormalities displayed
--- NOTE | 2022-06-09 22:58 | EDPHYS ---
Physician Documentation [facility] Name: Emily Villalobos Age: 81 yrs Sex: Female : 1940 Arrival Date: 06/09/2022 Time: 20:08 Bed 14 Private MD: ED Physician Keysha Miranda HPI: 06/09 20:22 This 81 yrs old Female presents to ER via Unassigned with complaints of Chest sd2 Pain, Vomiting. 20:22 81 yo F with a history of DM and "esophageal hernia" presents with CC of L sided chest sd2 pain and vomiting. Reports chest pain and vomiting is ongoing daily issue due to her hernia which she sees a physician for but the pain stayed constant today and is normally intermittent. Pt is not currently on any medications for GERD or her hernia per her report and medications brought with her. Denies any associated SOB, diarrhea or diaphoresis. No known prior cardiac history. . Historical: - Allergies: 20:22 No Known Allergies; tw5 - PMHx: 20:22 Diabetes - NIDDM; Hypertension; Hypothyroidism; spine fracture; Angina pectoris; Angina tw5 pectoris; - Immunization history:: Flu vaccine is up to date. - Social history:: Smoking status: Patient denies any tobacco usage or history of. ROS: 20:22 Constitutional: Negative for fever, chills, and weight loss, Eyes: Negative for injury, sd2 pain, redness, and discharge. 20:22 Respiratory: Negative for shortness of breath, cough, wheezing. 20:22 : Negative for dysuria, urinary frequency, hesitancy, urgency and hematuria. MS/Extremity: Negative for injury and deformity, Skin: Negative for injury, rash, and discoloration, Neuro: Negative for headache, numbness and tingling. 20:22 Cardiovascular: Positive for chest pain, Negative for orthopnea, palpitations. 20:22 Abdomen/GI: Positive for nausea and vomiting, Negative for diarrhea, abdominal distension. Exam: 20:22 Constitutional: This is a well developed, well nourished patient who is awake, alert, sd2 and in no acute distress. Head/Face: Normocephalic, atraumatic. Eyes: EOMI, normal conjunctiva bilaterally Chest/axilla: Normal chest wall appearance and motion. Nontender with no deformity. Cardiovascular: Tachycardic rate and regular rhythm with a normal S1 and S2. No gallops, murmurs, or rubs. 2+ distal pulses. Respiratory: Lungs have equal breath sounds bilaterally, clear to auscultation and percussion. No rales, rhonchi or wheezes noted. No increased work of breathing, no retractions or nasal flaring. Abdomen/GI: Soft, non-tender, with normal bowel sounds. No guarding or rebound. No evidence of tenderness throughout. Skin: Warm, dry with normal turgor. Normal color with no rashes, no lesions, and no evidence of cellulitis. MS/ Extremity: Pulses equal, no cyanosis. Neurovascular intact. Full, normal range of motion. Ambulatory without difficulty. Psych: Awake, alert, with orientation to person, place and time. Behavior, mood, and affect are within normal limits. 20:22 ECG was reviewed by the Attending Physician. NSR, rate 98, no STEMI criteria, LVH with sd2 QRS widening and repolarization changes 23:05 ECG was reviewed by the Attending Physician. NSR, rate 93, no STEMI criteria or sd2 evolution from prior EKG Vital Signs: 20:21 BP 143 / 71; Pulse 102; Resp 12; Temp 98.4; Pulse Ox 98% ; Weight 68.04 kg; Height 5 tw5 ft. (152.40 cm); Pain 10/10; 21:27 Pain 6/10; ke1 21:45 Pulse Ox 87% on R/A; ke1 21:47 BP 135 / 111; Pulse 102; Resp 22; Pulse Ox 95% on 2 lpm NC; ke1 22:01 Pain 2/10; ke1 22:03 Pain 1/10; ke1 22:51 BP 145 / 84; Pulse 94; Resp 19; Temp 98.3(O); Pulse Ox 99% on 2 lpm NC; Pain 0/10; ke1 23:25 BP 131 / 86; Pulse 87; Resp 18; Pulse Ox 99% on 2 lpm NC; Pain 0/10; ke1 06/10 01:02 BP 133 / 70; Pulse 94; Resp 15; Temp 98.3; Pulse Ox 98% on 2 lpm NC; Pain 0/10; ke1 06/09 20:21 Body Mass Index 29.29 (68.04 kg, 152.40 cm) tw5 MDM: 06/09 20:10 Patient medically screened. sd2 20:22 Differential diagnosis: Differential diagnosis includes but is not limited to: ACS, sd2 DVT/PE, pneumothorax, dissection, musculoskeletal, anxiety, anemia, electrolyte abnormality, pneumonia, CHF, COPD among others. The patient was given aspirin in the Emergency Department. Data reviewed: vital signs, nurses notes, EKG. 22:57 ED course: Labs and imaging reviewed. Elevated troponin present with negative D-dimer. sd2 Pain improved with treatment to 2 out of 10. pt currently resting comfortably. ASA given. pt to be admitted for further management at this time.. 06/09 20:22 Order name: Basic Metabolic Panel; Complete Time: 21:19 sd2 06/09 20:22 Order name: CBC with Diff; Complete Time: 23:49 sd2 06/09 20:22 Order name: Magnesium; Complete Time: 21:19 sd2 06/09 20:22 Order name: NT PRO-BNP; Complete Time: 21:19 sd2 06/09 20:22 Order name: Troponin HS; Complete Time: 21:19 sd2 06/09 20:22 Order name: Lipase; Complete Time: 21:19 sd2 06/09 20:22 Order name: XRAY Chest (1 view); Complete Time: 22:00 sd2 06/09 22:19 Order name: D-Dimer; Complete Time: 22:57 sd2 06/09 23:03 Order name: SARS-COV-2 Antigen Rapid; Complete Time: 23:49 [facility] 06/09 23:09 Order name: CBC Smear Scan; Complete Time: 23:49 [facility] 06/10 01:02 Order name: Troponin HS [facility] 06/09 20:22 Order name: EKG; Complete Time: 20:23 sd2 06/09 20:22 Order name: Cardiac monitoring; Complete Time: 20:37 sd2 06/09 20:22 Order name: EKG - Nurse/Tech; Complete Time: 20:37 sd2 06/09 20:22 Order name: IV Saline Lock; Complete Time: 20:37 sd2 06/09 20:22 Order name: Labs collected and sent; Complete Time: 20:37 sd2 06/09 20:22 Order name: O2 Per Protocol; Complete Time: 20:44 sd2 06/09 20:22 Order name: O2 Sat Monitoring; Complete Time: 20:44 sd2 06/09 21:22 Order name: EKG - Nurse/Tech; Complete Time: 22:50 sd2 Administered Medications: 20:44 Drug: Aspirin Chewable Tablet 324 mg Route: PO; ke1 20:44 Drug: Zofran (Ondansetron) 4 mg Route: IVP; Site: left antecubital; ke1 21:05 Follow up: Response: Nausea is decreased ke1 20:44 Drug: GI Cocktail without - (Maalox Suspension 30 ml, Lidocaine Liquid 2 % 15 ke1 ml) Route: PO; 21:27 Follow up: Pain 6/10 Adult; Response: Pain is decreased ke1 20:44 Drug: ProTONIX (pantoprazole) 40 mg Route: IVP; Site: left antecubital; ke1 21:27 Follow up: Response: No adverse reaction ke1 21:46 Drug: morphine 4 mg Route: IVP; Infused Over: 4 mins; Site: left antecubital; ke1 22:03 Follow up: Pain 1/10 Adult; Response: Pain is decreased ke1 21:46 Drug: Nitroglycerin 0.4 mg Route: Sublingual; ke1 22:01 Follow up: Pain 2/10 Adult; Response: Pain is decreased ke1 23:12 Drug: Lovenox (enoxaparin) 1 mg/kg Route: Sub-Q; Site: left lower abdomen; ke1 23:26 Follow up: Response: No adverse reaction ke1 Disposition Summary: 06/09/22 22:58 Hospitalization Ordered Hospitalization Status: Inpatient Admission sd2 Location: Telemetry/MedSurg (Inpatient) sd2 Condition: Stable sd2 Problem: new sd2 Symptoms: have improved sd2 Bed/Room Type: Standard sd2 Provider: Derrick Jaquez(06/10/22 00:54) triny Room Assignment: [facility](06/10/22 00:54) Diagnosis - Subsequent non-ST elevation (NSTEMI) myocardial infarction sd2 Forms: - Medication Reconciliation Form sd2 - SBAR form sd2 Signatures: Dispatcher [employer] EDNick Chavarria, KEYONNAC CAT SWAMPER-Cla1 Yamile El RN RN Katherine Bennett tw5 Raulito Malagon RN RN ke1 Keysha Miranda MD MD sd2 Corrections: (The following items were deleted from the chart) 20:27 20:22 Constitutional: This is a well developed, well nourished patient who is awake, sd2 alert, and in no acute distress. Head/Face: Normocephalic, atraumatic. Eyes: EOMI, normal conjunctiva bilaterally Chest/axilla: Normal chest wall appearance and motion. Nontender with no deformity. Cardiovascular: Regular rate and rhythm with a normal S1 and S2. No gallops, murmurs, or rubs. 2+ distal pulses. Respiratory: Lungs have equal breath sounds bilaterally, clear to auscultation and percussion. No rales, rhonchi or wheezes noted. No increased work of breathing, no retractions or nasal flaring. Abdomen/GI: Soft, non-tender, with normal bowel sounds. No guarding or rebound. No evidence of tenderness throughout. Skin: Warm, dry with normal turgor. Normal color with no rashes, no lesions, and no evidence of cellulitis. MS/ Extremity: Pulses equal, no cyanosis. Neurovascular intact. Full, normal range of motion. Ambulatory without difficulty. Psych: Awake, alert, with orientation to person, place and time. Behavior, mood, and affect are within normal limits. sd2 06/10 00:54 06/09 22:58 Derrick Jaquez sd2 cg 06/10 00:54 06/09 22:58 sd2
--- NOTE | 2022-06-09 22:58 | ER ---
Nurse's Notes [facility] Name: Emily Villalobos Age: 81 yrs Sex: Female : 1940 Arrival Date: 06/09/2022 Time: 20:08 Bed 14 Private MD: Diagnosis: Subsequent non-ST elevation (NSTEMI) myocardial infarction Presentation: 06/09 20:21 Chief complaint: Patient's son or daughter states: "She always have N/V and the chest tw5 pain she always has as well, but this time that it staying.". Coronavirus screen: Vaccine status: Patient reports receiving the 2nd dose of the covid vaccine. Ebola Screen: Patient negative for fever greater than or equal to 101.5 degrees Fahrenheit, and additional compatible Ebola Virus Disease symptoms Patient denies exposure to infectious person. Patient denies travel to an Ebola-affected area in the 21 days before illness onset. Initial Sepsis Screen: Does the patient meet any 2 criteria? HR > 90 bpm. Does the patient have a suspected source of infection? No. Patient's initial sepsis screen is negative. Risk Assessment: Do you want to hurt yourself or someone else? Patient reports no desire to harm self or others. Onset of symptoms is unknown. 20:21 Method Of Arrival: Wheelchair tw5 20:21 Acuity: HERMAN 3 tw5 Triage Assessment: 20:22 General: Appears uncomfortable, Behavior is calm, cooperative, appropriate for age. tw5 Pain: Complains of pain in chest Pain currently is 10 out of 10 on a pain scale. Historical: - Allergies: 20:22 No Known Allergies; tw5 - PMHx: 20:22 Diabetes - NIDDM; Hypertension; Hypothyroidism; spine fracture; Angina pectoris; Angina tw5 pectoris; - Immunization history:: Flu vaccine is up to date. - Social history:: Smoking status: Patient denies any tobacco usage or history of. Screenin:48 Abuse screen: Denies threats or abuse. Nutritional screening: No deficits noted. ke1 Tuberculosis screening: No symptoms or risk factors identified. Fall Risk No fall in past 12 months (0 pts). No secondary diagnosis (0 pts). IV access (20 points). Ambulatory Aid- None/Bed Rest/Nurse Assist (0 pts). Gait- Normal/Bed Rest/Wheelchair (0 pts) Mental Status- Oriented to own ability (0 pts). Total Cormier Fall Scale indicates No Risk (0-24 pts). Assessment: 21:48 Reassessment: Patient appears in no apparent distress at this time. Patient and/or ke1 family updated on plan of care and expected duration. Pain level reassessed. Patient is alert, oriented x 3, equal unlabored respirations, skin warm/dry/pink. Pain: 21:49 Cardiovascular: Rhythm is sinus rhythm. ke1 22:51 Reassessment: Patient denies pain at this time. Patient states symptoms have improved. ke1 06/10 01:11 Reassessment: called for report , n answer. ke Vital Signs: 06/09 20:21 BP 143 / 71; Pulse 102; Resp 12; Temp 98.4; Pulse Ox 98% ; Weight 68.04 kg; Height 5 tw5 ft. (152.40 cm); Pain 10/10; 21:27 Pain 6/10; ke1 21:45 Pulse Ox 87% on R/A; ke1 21:47 BP 135 / 111; Pulse 102; Resp 22; Pulse Ox 95% on 2 lpm NC; ke1 22:01 Pain 2/10; ke1 22:03 Pain 1/10; ke1 22:51 BP 145 / 84; Pulse 94; Resp 19; Temp 98.3(O); Pulse Ox 99% on 2 lpm NC; Pain 0/10; ke1 23:25 BP 131 / 86; Pulse 87; Resp 18; Pulse Ox 99% on 2 lpm NC; Pain 0/10; ke1 06/10 01:02 BP 133 / 70; Pulse 94; Resp 15; Temp 98.3; Pulse Ox 98% on 2 lpm NC; Pain 0/10; ke1 06/09 20:21 Body Mass Index 29.29 (68.04 kg, 152.40 cm) tw5 ED Course: 06/09 20:08 Patient arrived in ED. as 20:10 Keysha Miranda MD is Attending Physician. sd2 20:16 Raulito Malagon, THUAN is Primary Nurse. ke1 20:22 Triage completed. tw5 20:22 Arm band placed on right wrist. tw5 20:37 Lipase Sent. zm 20:37 Basic Metabolic Panel Sent. zm 20:37 CBC with Diff Sent. zm 20:37 Magnesium Sent. zm 20:37 NT PRO-BNP Sent. zm 20:38 Troponin HS Sent. zm 20:38 Inserted saline lock: 22 gauge in left antecubital area, using aseptic technique. Blood zm collected. 21:12 XRAY Chest (1 view) In Process Unspecified. EDMS 21:49 Client placed on continuous cardiac and pulse oximetry monitoring. NIBP monitoring ke1 applied. pvc monitor on. Pulse ox on. NIBP on. 21:50 Call light in reach. Side rails up X 1. ke1 21:51 Oxygen administration via nasal cannula \\T\\ 2L/min. ke1 23:33 SARS-COV-2 Antigen Rapid Sent. ke1 06/10 00:54 Derrick Jaquez is Hospitalizing Provider. 01:28 No provider procedures requiring assistance completed. Patient admitted, IV remains in ke1 place. Administered Medications: 06/09 20:44 Drug: Aspirin Chewable Tablet 324 mg Route: PO; ke1 20:44 Drug: Zofran (Ondansetron) 4 mg Route: IVP; Site: left antecubital; ke1 21:05 Follow up: Response: Nausea is decreased ke1 20:44 Drug: GI Cocktail without - (Maalox Suspension 30 ml, Lidocaine Liquid 2 % 15 ke1 ml) Route: PO; 21:27 Follow up: Pain 6/10 Adult; Response: Pain is decreased ke1 20:44 Drug: ProTONIX (pantoprazole) 40 mg Route: IVP; Site: left antecubital; ke1 21:27 Follow up: Response: No adverse reaction ke1 21:46 Drug: morphine 4 mg Route: IVP; Infused Over: 4 mins; Site: left antecubital; ke1 22:03 Follow up: Pain 1/10 Adult; Response: Pain is decreased ke1 21:46 Drug: Nitroglycerin 0.4 mg Route: Sublingual; ke1 22:01 Follow up: Pain 2/10 Adult; Response: Pain is decreased ke1 23:12 Drug: Lovenox (enoxaparin) 1 mg/kg Route: Sub-Q; Site: left lower abdomen; ke1 23:26 Follow up: Response: No adverse reaction ke1 Medication: 06/10 01:29 VIS not applicable for this client. ke1 Outcome: 06/09 22:58 Decision to Hospitalize by Provider. sd2 06/10 01:28 Admitted to Tele accompanied by tech. ke1 Condition: stable Instructed on the need for admit. 01:29 Patient left the ED. ke1 Signatures: Dispatcher [employer] Mey Garcia Cindy, RN RN cg Wood, Tiffany tw5 Raulito Malagon RN RN ke1 Shaneka Chapman Stephanie, MD MD sd2 Corrections: (The following items were deleted from the chart) 06/09 21:53 21:47 BP 135 / 111; Pulse 102bpm; Resp 22bpm; Pulse Ox 95% RA; ke1 ke1
[2022-06-09 23:08] LABS: Blood Morphology Comment NOTED (NOT SEEN); Hypochromasia 2+; Platelet Estimate INCR; White Blood Cell Scan OK (OK)
[2022-06-09 23:09] LABS: Burr Cells 1+; Ovalocytes 1+; Poikilocytosis 1+; Teardrop Cell 1+
[2022-06-09] MEDS ORDERED: ENOXAPARIN 100 MG/ML SYR SQ ONE (23:09)
[2022-06-09 23:43] LABS: SARS-CoV-2 Antigen Rapid Res Negative (Negative)
--- NOTE | 2022-06-10 00:35 | P.HP ---
Certification for Inpatient Patient admitted to: Inpatient With expected LOS: >2 Midnights Patient will require the following post-hospital care: None Practitioner: I am a practitioner with admitting privileges, knowledge of patient current condition, hospital course, and medical plan of care. Services: Services provided to patient in accordance with Admission requirements found in Title 42 Section 412.3 of the Code of Federal Regulations Patient History Date of Service: 06/10/22 History of Present Illness: 81-year-old female with history of hypertension, hypothyroidism, no j-tojqacm-ttaaytdjn diabetes, GERD, iron deficiency anemia presents the emergency department for chest pain she reports her episodes began around 4 PM while she is sitting down watching TV. She describes pain as sharp, nonradiating with associated nausea. She was evaluated in the emergency department EKG was without STEMI criteria initial high-sensitivity troponin 480.5 BNP 1028 chest x-ray was negative for an acute findings glucose moderately elevated 245 her hemoglobin was 8.4 hematocrit 26.8. She was given aspirin, Lovenox in the emergency department patient is currently chest pain-free ED read wishes to admit for further evaluation and management of NSTEMI. Patient denies any previous cardiac evaluation. Allergies No Known Allergies Allergy (Unverified 09/26/19 00:24) Home Medications: Levotiroxina Sodica 100 mcg PO DAILY 09/26/19 Mirtazapine 1 tab PO DAILY 09/26/19 Ondansetron HCl 1 tab PO Q8H PRN 09/26/19 Tramadol HCl [Ultram] 1 tab PO Q8H PRN 09/26/19 buPROPion HCL [Bupropion HCl] 1 tab PO DAILY 09/26/19 Omeprazole 20 mg PO DAILY 10/09/19 Calcium Carbonate [Oscal*] 1,000 mg PO BID #60 tab 10/14/19 Cholecalciferol (Vitamin D3) [Vitamin D 1000 Iu Tab*] 1,000 unit PO DAILY #30 tab 10/14/19 Cyanocobalamin [Vitamin B-12*] 1,000 mcg PO DAILY #30 tab 10/14/19 Iron Polysaccharide Complex [Ferric X-150] 150 mg PO DAILY #30 capsule 10/14/19 Senosides [Senokot*] 17.2 mg PO BID #120 tab 10/14/19 Sodium Chloride Tab [Sodium Chloride*] 1 gm PO TID 10 Days #30 tab 10/14/19 Sucralfate [Carafate*] 1 gm PO ACHS #42 tab 10/14/19 - Past Medical/Surgical History Diabetic: Yes -: Diabetes mellitus type 2 [id number] -: Hypothyroidism -: Compression fracture -: GERD with hiatal hernia -: Depression with anxiety -: Insomnia -: Obesity -: Umbilical hernia repair Psychosocial/ Personal History: Patient is - Family History Father -: Heart disease, Hypertension, Diabetes - Social History Smoking Status: Never smoker Alcohol use: No CD- Drugs: No Caffeine use: No Place of Residence: Home Review of Systems 10-point ROS is otherwise unremarkable Cardiovascular: Chest Pain, As per HPI Physical Examination - Physical Exam General: Alert, In no apparent distress, Oriented x3 HEENT: Atraumatic, PERRLA, Mucous membr. moist/pink, EOMI, Sclerae nonicteric Neck: Supple, 2+ carotid pulse no bruit, No LAD, Without JVD or thyroid abnormality Respiratory: Clear to auscultation bilaterally, Normal air movement Cardiovascular: Regular rate/rhythm, Normal S1 S2 Gastrointestinal: Normal bowel sounds, No tenderness Musculoskeletal: No tenderness Integumentary: No rashes Neurological: Normal speech, Normal strength at 5/5 x4 extr, Normal tone, Normal affect - Studies Laboratory Data (last 24 hrs) 06/09/22 20:35: WBC 10.90, Hgb 8.4 L, Hct 26.8 L, Plt Count 421 H 06/09/22 20:35: Sodium 131 L, Potassium 3.8, BUN 23 H, Creatinine 0.92, Glucose 245 H, Magnesium 1.9, Lipase 92 Assessment and Plan - Plan Assessment: NSTEMI Diabetes mellitus type [id number]-fkjyddlps with hyperglycemia Microcytic anemia Hypertension Hypothyroidism GERD Plan: NSTEMI: On therapeutic Lovenox, continue aspirin, statin, beta-aisha. Cardiology consulted, echocardiogram ordered as well. Patient currently chest pain-free. She denies any previous cardiac evaluation. Diabetes mellitus type [id number]-[id number] with hyperglycemia: ACHS Accu- Chek, sliding scale insulin. A1c in the morning. Microcytic anemia: History of iron deficiency anemia, no signs of active bleeding patient denies any melena, hematochezia, hematemesis. Transfuse as needed. Type and screen this morning. Hypertension: Initiated therapy with beta-blockermetoprolol Hypothyroidism: Continue home medication appropriate GERD: Protonix continued. DVT PPX: Therapeutic Lovenox Code status: Full Discharge Plan: Home Plan to discharge in: 48 Hours - Advance Directives Does patient have a Living Will: No Does patient have a Durable POA for Healthcare: No - Code Status/Comfort Care Code Status Assessed: Yes (Full code) Critical Care: No Time Spent Managing Pts Care (In Minutes): 70
[2022-06-10] MEDS ORDERED: NITROGLYCERIN 0.4 MG/TAB SL PRN (01:43)
[2022-06-10] MEDS ORDERED: NA CHLORIDE 0.9% 1,000 ML IV SCH (01:43)
[2022-06-10 02:33] VITALS: BMI 29.2
[2022-06-10] MEDS ORDERED: MORPHINE 2 MG/ML SYR IV PRN (02:45)
[2022-06-10] MEDS ORDERED: ONDANSETRON 4 MG/2 ML VIAL IV PRN (02:45)
[2022-06-10] MEDS: PANTOPRAZOLE 40MG TABLET PO SCH (05:57)
[2022-06-10] MEDS: METOPROLOL TAR 25 MG TAB PO SCH ×2 (05:57→17:03)
[2022-06-10 06:00] LABS: Hematocrit 22.1 % (36.0-45.0); Lymphocytes % 22.7 % (15.3-44.8); MCV 62.7 fL (80-100); MPV 7.8 fL (7.6-11.3); RBC Red Blood Cell Count 3.53 M/uL (3.86-4.86)
[2022-06-10 06:40] LABS: Albumin 3.4 g/dL (3.4-5.0); Bilirubin Total 0.3 mg/dL (0.2-1.0); Potassium 3.8 mmol/L (3.5-5.1); Protein, Total 6.6 g/dL (6.4-8.2)
[2022-06-10 06:47] LABS: Troponin High Sensitivity 30706.8 pg/mL (<58.9)
[2022-06-10] MEDS: INSULIN -REGULAR HUMAN 50 UNIT/0.5 ML ML SQ SCH ×4 (07:30→20:35)
[2022-06-10] MEDS ORDERED: NA CHLORIDE 0.9% 250 ML ONE ×2 (08:09→21:54)
[2022-06-10] MEDS: ASPIRIN EC 81 MG TAB PO SCH (08:12)
[2022-06-10] MEDS: ENOXAPARIN 80 MG/0.8 ML SQ SCH ×2 (08:12→20:34)
[2022-06-10] MEDS ORDERED: POTASSIUM CL SA 10 MEQ TAB PO ONE (09:00)
--- NOTE | 2022-06-10 12:38 | P.PN ---
Date of Service: 06/10/22 Patient seen and examined. Diagnosis: NSTEMI Microcytic anemia. Currently has no chest pain. Hemoglobin dropped to 6.8. Patient seen by cardiology who is planning cardiac cath on Saturday. Cardiology recommend patient hemoglobin to be greater than 9 before cardiac cath. We will transfuse 2 more units PRBC. She will need GI work-up for GI bleed. Continue full anticoagulation for now. Check stool for occult blood. Echocardiogram.
[2022-06-10 14:01] LABS: Hematocrit 29.7 % (36.0-45.0)
[2022-06-10 20:10] LABS: Hematocrit 27.3 % (36.0-45.0)
[2022-06-10] MEDS: ATORVASTATIN 40 MG TAB PO SCH (20:34)
[2022-06-10] MEDS ORDERED: NA CHLORIDE 0.9% 250 ML IV SCH (21:00)
--- NOTE | 2022-06-10 22:45 | CON ---
Date of Consultation: 06/10/2022 Reason For Consultation: Non-STEMI. History Of Present Illness: Ms. Deedee Villalobos is 81. Has history of diabetes, hypertension, hyp othyroidism, no previous history of GI bleed, anemia, or coronary artery disease, came in with vomiti ng, and midepigastric chest pain. No cardiac symptoms per se. She was found to have a hemoglobin is 6.8. Troponin is 20,000. BNP is 1026. EKG is nonspecific. Chest x-ray is nonspecific. Denied PN D, orthopnea, pedal edema, palpitation, or syncope. She has been having weakness and shortness of br eath spells. She goes to [facility]. Past Medical History: As stated above. Allergies: NONE. Review of Systems: Negative. Social History: Negative. Family History: Negative. Medications: At home include metformin, nifedipine, Synthroid, and glipizide. Physical Examination: General: Mrs. Deedee Villalobos does not speak Greek. The history was obtained by talking to her daughter who translated. She was in no acute distress. Vital Signs: Stable, afebrile. HEENT: Negative. Neck: Supple. No bruit. Chest: Clear. Cardiac: Normal. Abdomen: Benign. Extremities: Revealed a regular rhythm and rate with an S3 gallops. No murmurs or rubs. Abdomen: Benign. Extremities: Revealed trace edema. Diagnostic Data: As stated earlier. Impression And Plan: Yzu-ND-heygwqqfa myocardial infarction, most likely secondary to severe anemia that seems to be acute in onset. I think we need to transfuse her, try to get her hemoglobin about 9 and plan a heart catheterization sometime down the road this week. Obtain a 2D echocardiogram. Obt ain a GI consultation. Will continue to follow as far as her diabetes, hypertension and hypothyroidi sm. She is on appropriate therapy. We will continue those. We will continue to follow her. Case w as discussed with Dr. Jaquez and with her family understands what the plan is. ARIANNE/JASON Voice ID: [id number] Report ID: [id number]
[2022-06-11 04:06] LABS: Absolute Lymphocytes (CBC) 2.4 K/uL (0.7-4.9); Lymphocytes % 20.9 % (15.3-44.8); MCV 70.4 fL (80-100); MPV 8.3 fL (7.6-11.3); RBC Red Blood Cell Count 4.69 M/uL (3.86-4.86)
[2022-06-11 04:33] LABS: Albumin 3.4 g/dL (3.4-5.0); Bilirubin Total 0.5 mg/dL (0.2-1.0); Potassium 4.1 mmol/L (3.5-5.1); Protein, Total 6.6 g/dL (6.4-8.2)
[2022-06-11] MEDS: PANTOPRAZOLE 40MG TABLET PO SCH (05:39)
[2022-06-11] MEDS: METOPROLOL TAR 25 MG TAB PO SCH ×2 (05:40→17:28)
[2022-06-11] MEDS: INSULIN -REGULAR HUMAN 50 UNIT/0.5 ML ML SQ SCH ×4 (07:30→19:56)
[2022-06-11] MEDS: ASPIRIN EC 81 MG TAB PO SCH (08:58)
[2022-06-11] MEDS: ENOXAPARIN 80 MG/0.8 ML SQ SCH ×2 (08:58→19:56)
--- NOTE | 2022-06-11 14:58 | P.PN ---
Subjective Date of Service: 06/11/22 Patient denies any complaint. She denies any history of GI bleeding or dark stools. Physical Examination - Vital Signs Temperature: 97.9 F Blood Pressure: 136/62 Pulse: 69 Respirations: 20 Pulse Ox (%): 97 Assessment And Plan - Current Problems (Diagnosis) (1) NSTEMI (non-ST elevated myocardial infarction) Current Visit: Yes Status: Acute (2) Chronic anemia Current Visit: No Status: Acute (3) DM type 2 (diabetes mellitus, type 2) Current Visit: No Status: Acute - Plan Physical Exam General: Alert, In no apparent distress, Oriented x3 Neck: Supple, 2+ carotid pulse no bruit, No LAD, Without JVD or thyroid abnormality Respiratory: Clear to auscultation bilaterally, Normal air movement Cardiovascular: Regular rate/rhythm, Normal S1 S2 Gastrointestinal: Normal bowel sounds, No tenderness Musculoskeletal: No tenderness Integumentary: No rashes Neurological: Normal speech, Normal strength at 5/5 x4 extr, Normal tone, Normal affect Plan: Troponin trended up to 30,000. Patient seen by cardiology who is recommending cardiac cath tomorrow. Continue full dose Lovenox. Hold tonight dose. Continue aspirin. Patient denies any history of GIB or dark stool. Noted microcytic anemia. Status post 2 unit PRBC transfusion. Target hemoglobin is 9. Transfuse as needed to keep hemoglobin above 9. She will need a GI work-up for microcytic anemia to rule out GI bleed. Source of bleeding needs to be identified and abdomen especially when patient is likely to be on dual platelet therapy. Insulin sliding scale for glucose management. Monitor and optimize electrolytes.
--- NOTE | 2022-06-11 15:33 | EKG ---
Test Date: 2022-06-09 Test Time: 22:43:30 Russian Language Professor: STEVE MEASUREMENT RESULTS: Intervals: Rate: 93 IN: 162 QRSD: 116 QT: 394 QTc: 489 [place]: P: 64 IN: 162 QRS: -36 T: 103 INTERPRETIVE STATEMENTS: Normal sinus rhythm Left axis deviation T wave abnormality, consider lateral ischemia Prolonged QT Abnormal ECG Compared to ECG 10/09/2019 12:32:00 Left-axis deviation now present T-wave abnormality now present Possible ischemia now present Prolonged QT interval now present Myocardial infarct finding no longer present Electronically Signed On 06-11-22 15:29:47 CHIEF CONSTRUCTION INSPECTOR by Robbie Walker
--- NOTE | 2022-06-11 15:33 | EKG ---
Test Date: 2022-06-09 Test Time: 20:24:07 Glove Finisher: STEVE MEASUREMENT RESULTS: Intervals: Rate: 98 AR: 166 QRSD: 118 QT: 386 QTc: 492 [place]: P: 70 AR: 166 QRS: -45 T: 108 INTERPRETIVE STATEMENTS: Normal sinus rhythm Left axis deviation Left ventricular hypertrophy with QRS widening and repolarization abnormality Prolonged QT Abnormal ECG Compared to ECG 10/09/2019 12:32:00 Left-axis deviation now present Left ventricular hypertrophy now present Early repolarization now present Prolonged QT interval now present Myocardial infarct finding no longer present Electronically Signed On 06-11-22 15:29:52 DICE SPOTTER by Robbie Walker
[2022-06-11] MEDS: ATORVASTATIN 40 MG TAB PO SCH (19:55)
[2022-06-12 04:08] LABS: Absolute Lymphocytes (CBC) 2.9 K/uL (0.7-4.9); Hematocrit 33.5 % (36.0-45.0); Lymphocytes % 30.3 % (15.3-44.8); MCV 70.2 fL (80-100); MPV 8.5 fL (7.6-11.3); RBC Red Blood Cell Count 4.77 M/uL (3.86-4.86)
[2022-06-12] MEDS: ASPIRIN EC 81 MG TAB PO SCH (05:28)
[2022-06-12] MEDS: PANTOPRAZOLE 40MG TABLET PO SCH (05:28)
[2022-06-12] MEDS: METOPROLOL TAR 25 MG TAB PO SCH ×2 (05:28→18:12)
--- NOTE | 2022-06-12 06:55 | ECHO ---
HEIGHT: 5 ft 0 in WEIGHT: 150 lb 0 oz DATE OF STUDY: 06/11/[address]: Nick Garcia NP 2-DIMENSIONAL: YES M.MODE: YES DOPPLER: YES COLOR FLOW: YES TDS: PORTABLE: YES DEFINITY: BUBBLE STUDY: DIAGNOSIS: NON ST ELEVATION MYOCARDIAL INFARCTION CARDIAC HISTORY: CATHERIZATION: SURGERY: PROSTHETIC VALVE: PACEMAKER: MEASUREMENTS (cm) DIASTOLIC (NORMALS) SYSTOLIC (NORMALS) IVSd 1.2 (0.6-1.2) LA Diam 3.0 (1.9-4.0) LVEF 40-45% LVIDd 3.9 (3.5-5.7) LVIDs 2.9 (2.0-3.5) %FS 24% LVPWd 0.9 (0.6-1.2) Ao Diam 2.0 (2.0-3.7) 2 DIMENSIONAL ASSESSMENT: RIGHT ATRIUM: NORMAL LEFT ATRIUM: NORMAL RIGHT VENTRICLE: NORMAL LEFT VENTRICLE: LEFT VENTRICULAR HYPERTROPHY MILD TRICUSPID VALVE: MITRAL VALVE: MILD MITRAL REGURGITATION PULMONIC VALVE: AORTIC VALVE: MILD AORTIC INSUFFICIENCY PERICARDIAL EFFUSION: AORTIC ROOT: NORMAL LEFT VENTRICULAR WALL MOTION: LADONNA SEPTAL/ ANTERIOR MILD HYPOKINESIS DOPPLER/COLOR FLOW: SEE BELOW COMMENTS: 1. MILDLY DEPRESSED LEFT VENTRICULAR EJECTION FRACTION 40-45% 2. LADONNA SEPTAL/ ANTERIOR MILD HYPOKINESIS 3. MILD MITRAL REGURGITATION/ AORTIC INSUFFICIENCY TECHNOLOGIST: PROSPER PATEL
[2022-06-12] MEDS: INSULIN -REGULAR HUMAN 50 UNIT/0.5 ML ML SQ SCH ×4 (07:18→20:41)
[2022-06-12] MEDS: ENOXAPARIN 80 MG/0.8 ML SQ SCH (07:20)
[2022-06-12] MEDS ORDERED: NA CHLORIDE 0.9% 500 ML ONE (09:43)
[2022-06-12] MEDS ORDERED: FENTANYL CITR 100 MCG/2 ML ONE (10:08)
[2022-06-12] MEDS ORDERED: MIDAZOLAM HCL 2 MG/2 ML INJ ONE (10:08)
[2022-06-12] MEDS ORDERED: NA CHLORIDE 0.9% 0 ML IV ONE (10:09)
[2022-06-12] MEDS ORDERED: ATROPINE SULF 1 MG/10 ML SYR IV ONE (10:09)
--- NOTE | 2022-06-12 14:53 | PN ---
Date of Progress Note: 06/11/2022 Subjective: The patient had come in with severe anemia and non-STEMI, vomiting. Diagnostic Studies: Troponin was 20,000 and had come down a little bit. She is receiving a blood tr ansfusion. Her last hemoglobin is over 9. She is asymptomatic from a cardiovascular standpoint. We will plan to do a left heart catheterization on her on 06/12/2022. She understands the risk and the benefits of the procedure and she agrees to proceed. Continue present regimen for now. She did hav e an echocardiogram on 06/11/2022 and it showed an ejection fraction of 40% to 45% with mild anterose ptal and anterior hypokinesis. ARIANNE/JASON Voice ID: [id number] Report ID: [id number]
--- NOTE | 2022-06-12 17:35 | P.PN ---
Date of Service: 06/12/22 Subjective: s/p cardiac cath this morning noted to have 100% LAD And RCA occlusion patient with dyspnea on exertion, fatigues quickly no nausea/vomiting, no chest pain ROS: 10 point ROS as noted above, otherwise negative Physical exam GEN: Alert, oriented, NAD HEENT: Normal conjunctiva, sclera anicteric CV: Regular rate and rhythm, no edema Pulm: Nonlabored respirations on room air ABD: Soft, nontender, nondistended Neuro: Normal speech, normal affect Problem List NSTEMI Chronic anemia NIDDM2 Hypothyroidism Iron deficiency anemia Troponin trended up to 30,000 cardiology consulted s/p cath 06/12 - 100% occlusion LAD and RCA, with distal reconstitution from collaterals off circumflex transfer initiated for CABG, accepted to [facility], pending bed family updated at bedside Continue full dose Lovenox. Continue aspirin. Patient denies any history of GIB or dark stool. Noted microcytic anemia. Status post 2 unit PRBC transfusion. Target hemoglobin is 9. She will need a GI work-up for microcytic anemia to rule out GI bleed in near future Insulin sliding scale for glucose management. Monitor and optimize electrolytes. VTE: lovenox therapeutic Code: full Dispo: transfer initiated to [facility] needs CABG Time Spent Managing Pts Care (In Minutes): 35
--- NOTE | 2022-06-12 17:53 | OP ---
Surgeon: Garo Mejía MD Slasher Tender Helper: Ms. Irene Mcneill. Admitted to Dr. Almonte on 06/10/2022 with severe anemia and non-STEMI, troponin in the 20,0 00. Procedure In Detail: Brought to the lab manager today as an inpatient, prepped and draped in routine st erile fashion. Given Versed and fentanyl for sedation. A 6-Yoruba sheath introduced in the right co mmon femoral artery successfully using Seldinger technique and 10 cc of Xylocaine. Zachery catheters were used to do the diagnostic catheterization. She was found to have a 50% distal left main, osiel l circumflex with collateral to the RCA, 100% mid LAD with NETO 2 flow, 100% RCA very proximal, osiel l left ventricular ejection fraction, end-diastolic pressure of 19 mmHg. No complications. Blood Loss: 5 cc. Anesthesia: Total conscious sedation 30 minutes. Postoperative Diagnosis: Severe coronary artery disease. Plan: For CABG. We will attempt to transfer her. ARIANNE/JASON Voice ID: [id number] Report ID: [id number]
[2022-06-12] MEDS: ATORVASTATIN 40 MG TAB PO SCH (20:41)
[2022-06-13 04:33] LABS: Hematocrit 30.8 % (36.0-45.0); MPV 8.2 fL (7.6-11.3)
[2022-06-13 05:42] LABS: Magnesium 2.1 mg/dL (1.8-2.4); Potassium 3.6 mmol/L (3.5-5.1)
[2022-06-13] MEDS: PANTOPRAZOLE 40MG TABLET PO SCH (05:59)
[2022-06-13] MEDS: METOPROLOL TAR 25 MG TAB PO SCH (05:59)
[2022-06-13] MEDS: INSULIN -REGULAR HUMAN 50 UNIT/0.5 ML ML SQ SCH (07:30)
[2022-06-13 08:26] VITALS: BP 118/53; TEMP 97
[2022-06-13] MEDS ORDERED: POTASSIUM CL SA 10 MEQ TAB PO ONE (09:00)
[2022-06-13] MEDS: ENOXAPARIN 80 MG/0.8 ML SQ SCH (09:04)
[2022-06-13] MEDS: ASPIRIN EC 81 MG TAB PO SCH (09:04)
[2022-06-13 10:09] VITALS: O2SAT 96
--- NOTE | 2022-06-13 11:38 | EKG ---
Test Date: 2022-06-10 Test Time: 02:03:33 Needle Loom Tender: NELSON MEASUREMENT RESULTS: Intervals: Rate: 87 VT: 170 QRSD: 108 QT: 398 QTc: 478 [place]: P: 53 VT: 170 QRS: -48 T: 75 INTERPRETIVE STATEMENTS: Normal sinus rhythm Possible Left atrial enlargement Left axis deviation Left ventricular hypertrophy Prolonged QT Abnormal ECG Compared to ECG 06/09/2022 22:43:30 Left ventricular hypertrophy now present T-wave abnormality no longer present Possible ischemia no longer present Electronically Signed On 06-13-22 11:34:45 ELECTRIC METER REPAIRER HELPER by Garo Mejía
--- NOTE | 2022-06-13 17:38 | P.DS ---
Admission Date: 06/10/22 Discharge Date: 06/13/22 Disposition: TRANSFER TO [facility] Discharge Condition: GOOD Consultations: Cardiology - Dr. Mejía Brief History of Present Illness: 81yo F, PMH: HTN, hypothyroidism, NIDDM2, GERD, iron deficiency anemia. Presented to ED due to chest pain. Began ~4pm while sitting down, watching TV. Described as sharp, non-radiating, with nausea. In the ED, noted to have high troponin of 480.05, BNP: 1028, and CXR without acute findings. EKG without ST-T wave changes. She was given aspirin, Lovenox in the emergency department patient is currently chest pain-free ED read wishes to admit for further evaluation and management of NSTEMI. Patient denied any previous cardiac evaluation Hospital Course: Patient's troponin trended up significantly. She underwent cardiac catheterization which revealed 100% occlusion of LAD and RCA. Cardiology recommended transfer to tertiary care center for CABG. Transfer initiated on 06/12. Patient accepted on 06/12, and bed available on 06/13. On day of discharge, she reported feeling back to her usual with exception of some dyspnea on exertion, no longer had chest pain. Cardiac cath (06/12): She was found to have a 50% distal left main, normal circumflex with collateral to the RCA, 100% mid LAD with NETO 2 flow, 100% RCA very proximal, normal left ventricular ejection fraction, end-diastolic pressure of 19 mmHg. No complications. Vital Signs/Physical Exam: Temp Pulse Resp BP Pulse Ox 97 F 58 16 118/53 L 96 06/13/22 08:00 06/13/22 08:00 06/13/22 08:00 06/13/22 08:00 06/13/22 08:00 General: Alert, In no apparent distress, Oriented x3 HEENT: EOMI, Sclerae nonicteric Neck: Supple, No LAD Respiratory: Clear to auscultation bilaterally, Normal air movement Cardiovascular: No edema, Regular rate/rhythm Gastrointestinal: Soft and benign, Non-distended, No tenderness Musculoskeletal: No contractures, No tenderness Integumentary: No rashes, No significant lesion Neurological: Normal speech, Normal strength at 5/5 x4 extr, Normal affect Laboratory Data at Discharge: WBC 8.80 K/uL (4.3-10.9) 06/13/22 03:49 Hgb 10.1 g/dL (12.0-15.0) L 06/13/22 03:49 Hct 30.8 % (36.0-45.0) L 06/13/22 03:49 Plt Count 297 K/uL (152-406) 06/13/22 03:49 Sodium 134 mmol/L (136-145) L 06/13/22 03:49 Potassium 3.6 mmol/L (3.5-5.1) 06/13/22 03:49 BUN 14 mg/dL (7-18) 06/13/22 03:49 Creatinine 0.57 mg/dL (0.55-1.3) 06/13/22 03:49 Glucose 112 mg/dL (74-106) H 06/13/22 03:49 Magnesium 2.1 mg/dL (1.8-2.4) 06/13/22 03:49 Total Bilirubin 0.5 mg/dL (0.2-1.0) 06/11/22 03:39 AST 66 U/L (15-37) H 06/11/22 03:39 ALT 23 U/L (12-78) 06/11/22 03:39 Alkaline Phosphatase 43 U/L (45-117) L 06/11/22 03:39 Triglycerides 102 mg/dL (<150) 06/10/22 05:31 Cholesterol 153 mg/dL (<200) 06/10/22 05:31 HDL Cholesterol 60 mg/dL (40-60) 06/10/22 05:31 Cholesterol/HDL Ratio 2.55 06/10/22 05:31 Lipase 92 U/L (73-393) 06/09/22 20:35 Home Medications: Glipizide [Glipizide Xl] 2.5 mg PO DAILY 06/10/22 Levothyroxine [Synthroid] 88 mcg PO DAILY 06/10/22 Metformin HCl 850 mg PO BID 06/10/22 Nifedipine [Nifedipine ER] 30 mg PO DAILY 06/10/22 Followup: KURT BARNEY [Primary Care Provider] - 1 Week (Call for appointment.) Time spent managing pt's care (in minutes): 45
== END 2022-06-13 10:27 | disposition short-term general hospital (02) | DRG 282 ==
LOC: ER 20:07 → 4TH 06-10 00:15
PROVIDERS: ADMIT Internal Medicine; ATTEND Hospitalist
PROC: 30233N1 Transfusion of Nonautologous Red Blood Cells into Peripheral Vein, Percutaneous Approach (ICD-10-PCS; 2022-06-10)
PROC: 4A023N7 Measurement of Cardiac Sampling and Pressure, Left Heart, Percutaneous Approach (ICD-10-PCS; principal; 2022-06-12)
PROC: B2111ZZ Fluoroscopy of Multiple Coronary Arteries using Low Osmolar Contrast (ICD-10-PCS; 2022-06-12)
DX: I21.4 Non-ST elevation (NSTEMI) myocardial infarction (principal); I10 Essential (primary) hypertension; K21.9 Gastro-esophageal reflux disease without esophagitis; E11.65 Type 2 diabetes mellitus with hyperglycemia; D50.9 Iron deficiency anemia, unspecified; I25.10 Atherosclerotic heart disease of native coronary artery without angina pectoris; E03.9 Hypothyroidism, unspecified; Z79.84 Long term (current) use of oral hypoglycemic drugs; Z79.890 Hormone replacement therapy; Z79.899 Other long term (current) drug therapy; Z20.822 Contact with and (suspected) exposure to COVID-19
CPT/HCPCS: 36415; 36430; 71045; 80048; 80053; 80061; 82274; 82947; 83036; 83540; 83690; 83735; 83880; 84466; 84484; 85014; 85018; 85025; 85027; 85379; 86850; 86900; 86901; 87811; 93005; 93306; 93458; 96372; 96374; 96375; 99285; C1893; C9113; J0461; J0583; J1650; J1815; J2250; J2405; J3010; J7030; J7040; J7050; P9016; Q9966

== ENCOUNTER 2022-07-25 15:21 | Inpatient (IN) | payer OTHER, SELFPAY ==
[2022-07-25 16:04] LABS: SARS-CoV-2 Antigen Rapid Res Negative (Negative)
[2022-07-25] MEDS ORDERED: GLUCAGON 1 MG/VIAL IM PRN (16:48)
--- NOTE | 2022-07-25 16:55 | P.HP ---
Certification for Inpatient Patient admitted to: Inpatient With expected LOS: >2 Midnights Practitioner: I am a practitioner with admitting privileges, knowledge of patient current condition, hospital course, and medical plan of care. Services: Services provided to patient in accordance with Admission requirements found in Title 42 Section 412.3 of the Code of Federal Regulations Patient History Date of Service: 07/25/22 Primary Care Provider: Cirilo Reason for admission: Surgical wound infections History of Present Illness: Patient is an office patient of ours. She has a history of dm2, cad, hypothyroidism,htn and hypothyroidism. She had a cabg in [place] on 07/03. She came to the office today complaining of pain. She as 3 sutures in 3 surgical wounds on her abdomen. She was worried as they have not been removed and they are starting to hurt as of last night. On examination the left most wound had yellow drainage and was tender. There was some erythema in adjoining areas. Considering these were surgical wounds and there is a possible abcess. Safest course would be admission with a surgical consult. The patient also recommended a rescue boat operator see her. Allergies No Known Allergies Allergy (Verified 06/10/22 01:49) Home Medications: Glipizide [Glipizide Xl] 2.5 mg PO DAILY 06/10/22 Levothyroxine [Synthroid] 88 mcg PO DAILY 06/10/22 Metformin HCl 850 mg PO BID 06/10/22 Nifedipine [Nifedipine ER] 30 mg PO DAILY 06/10/22 - Past Medical/Surgical History Diabetic: Yes -: Diabetes mellitus type 2 [id number] -: Hypothyroidism -: Compression fracture -: GERD with hiatal hernia -: Depression with anxiety -: Insomnia -: Obesity -: Umbilical hernia repair Psychosocial/ Personal History: Patient is - Family History Father -: Heart disease, Hypertension, Diabetes - Social History Alcohol use: No CD- Drugs: No Caffeine use: Yes Review of Systems 10-point ROS is otherwise unremarkable Integumentary: Other (pain and discharge at the site of her surgical wounds ) Physical Examination - Physical Exam General: Alert, In no apparent distress HEENT: Atraumatic, PERRLA, Mucous membr. moist/pink, EOMI, Sclerae nonicteric Neck: Supple, 2+ carotid pulse no bruit, No LAD, Without JVD or thyroid abnormality Respiratory: Clear to auscultation bilaterally, Normal air movement Cardiovascular: Regular rate/rhythm, Normal S1 S2 Gastrointestinal: Normal bowel sounds, No tenderness Musculoskeletal: No tenderness Integumentary: No rashes, Erythema (pain on the three wounds. She has discharge from the left wound ), Warmth, Other Neurological: Normal gait, Normal speech, Normal strength at 5/5 x4 extr, Normal tone, Normal affect Lymphatics: No axilla or inguinal lymphadenopathy Assessment and Plan - Problems (Diagnosis) (1) Skin abscess Current Visit: Yes Status: Acute Plan: possible abcess. Will have her seen by Dr. Chapman as she may need incision and drainage of the wound Qualifiers: Site of cutaneous abscess of trunk: abdominal wall (2) Surgical wound infection Current Visit: Yes Status: Acute Plan: start the patient on fluids and antibiotics. (3) CAD (coronary artery disease) Current Visit: Yes Status: Chronic Plan: no active chest pain. restart atorvastatin, asp and metoprolol. Will consult Dr. Mejía. patient needs a local rescue boat operator at this point. Qualifiers: Coronary Disease-Associated Artery/Lesion type: bypass graft [place] vs. transplanted heart: [place] heart Associated angina: without angina Qualified Code(s): I25.810 - Atherosclerosis of coronary artery bypass graft(s) without angina pectoris (4) HTN (hypertension) Current Visit: Yes Status: Acute Plan: restart nifedipine Qualifiers: Hypertension type: primary hypertension Qualified Code(s): I10 - Essential (primary) hypertension (5) DM type 2 (diabetes mellitus, type 2) Current Visit: No Status: Resolved Plan: she is currently only on metformin 850mg po bid. Will check her labs first before restarting. Order an ada diet, check an a1c and start an insulin sliding scale on the patient. Qualifiers: Diabetes mellitus long distance operator insulin use: without long distance operator use Diabetes mellitus complication status: without complication Qualified Code(s): E11.9 - Type 2 diabetes mellitus without complications (6) Hypothyroidism Current Visit: No Status: Acute Plan: check a tsh. Will restart her home dosage of levothyroxine Qualifiers: Hypothyroidism type: unspecified Qualified Code(s): E03.9 - Hypothyroidism, unspecified Discharge Plan: Home Plan to discharge in: 48 Hours - Advance Directives Does patient have a Living Will: No Does patient have a Durable POA for Healthcare: No - Code Status/Comfort Care Code Status Assessed: No Code Status: Full Code Physician Review: Patient Assessed, Agree with Above Assessment and Plan Critical Care: No Time Spent Managing Pts Care (In Minutes): 75
[2022-07-25] MEDS ORDERED: D10W 250 ML BAG IV PRN (16:58)
--- OUTSIDE RECORDS SUMMARY | 2022-07-25 16:59 | XMS REPORT | Continuity of Care Document ---
:1940 Author Organization [facility] t Address [address] [place] [address] Care Team Providers Name Role Phone ELISE GARCIA Primary Care Physician Unavailable RADIOLOGY Attending Clinician Unavailable Radiology Attending Clinician Unavailable Mikey Charles MD Attending Clinician Hilda Lemus MD Attending Clinician Srini Restrepo MD Attending Clinician HILDA LEMUS Attending Clinician Unavailable SHELLIE BRAR Attending Clinician Unavailable Manjeet Lindsay MD Attending Clinician Nestor Briscoe Attending Clinician Unavailable Nury Deleon MD Attending Clinician [phone] Walter Vasquez Attending Clinician MIKEY CHARLES Attending Clinician Unavailable Olinda Bianchi Attending Clinician VISIT, NURSE POLLO Attending Clinician Unavailable ELISE GARCIA Admitting Clinician Unavailable MIKEY CHARLES Admitting Clinician Unavailable Payers Payer Name Policy Type Policy Number Effective Date Expiration Date S ource Problems Condition Condition Condition Status Onset Resolution Last Treating Co mments Source Name Details Category Date Date Treatment Clinician Date 06/21(Katelin 06/21(Katelin Disease Active 2021-[address] [facility]) ACB n) ACB [facility]23 [facility]ATH-[facility], HEATH-LAD, 00:00: Medi shira SVG-RCA SVG-RCA 00 Center /Impella /Impella 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 01:38:29 l (disorder) (disorder) He rmann Resolved Problem 10/19/2019 [facility] Diabetes Diabetes Problem Resolve 2019-10-19 Memoria mellitus mellitus d 01:38:29 l (disorder) (disorder) He rmann Resolved Problem 10/19/2019 Medical Group Disease of Disease Problem Resolve 2019-10-19 Memoria thyroid of thyroid d 01:38:29 l gland gland Joshua (disorder) (disorder) Resolved Problem 10/19/2019 Medical Group Acute Acute Disease Active [facility] anemia [facility] Coagulopat Coagulopat Disease Active [facility] hy hy [facility] Postoperat Postoperat Disease Active [facility] avril shock, avril shock, Angella kes unspecifie unspecifie Me dical d shock d shock Center type, type, initial initial encounter encounter Allergies, Adverse Reactions, Alerts Allergy Allergy Status Severity Reaction(s) Onset Inactive Treating Comm ents Source Name Type Date Date Clinician NO KNOWN Drug Active [facility] NO KNOWN Allergy Active [facility] Social History Social Habit Start Date Stop Date Quantity Comments Source History SDOH [facility] Alcohol Std Drinks Medica l Center History SDOH [facility] Alcohol Binge Medical Tish [facility] History [facility] Alcohol Comment Medical C enter History [facility] Transport [facility]-Med Medical [facility] Alcohol intake 2022-06-22 2022-06-[address] [facility] 00:00:00 00:00:00 non-drinker Medical Cente r (finding) Exposure to 2022-06-03 2022-06-[address] [facility] SARS-CoV-2 (event) 00:00:00 12:17:00 Medica l Center History [facility] 2022-06-13 2022-06-[address] [facility] Alcohol Frequency 00:00:00 00:00:00 Medical Center History [facility] 2022-06-13 2022-06-[address] [facility] Transport Med 00:00:00 00:00:[address] History [facility] 2022-06-13 2022-06-[address] [facility] Housing Unable to 00:00:00 00:00:00 Medical Center Pay History [facility] 2022-06-13 2022-06-[address] [facility] Housing Places 00:00:00 00:00:00 Medical Ce nter Lived History [facility] 2022-06-13 2022-06-[address] [facility] Housing Homeless 00:00:00 00:00:00 Medical Center Last Year Tobacco use and 2022-06-13 2022-06-[address] [facility] [address] Angella kes exposure 00:00:00 00:00:00 Medical Center Sex Ass[birth year] At [birth year] SHIRAZ Mata kes 00:00:00 00:00:00 Medical Center Smoking Status Start Date Stop Date Source Tobacco smoking consumption [facility] Social History [facility] Medications Ordered Filled Start Stop Current Ordering Indication Dosage Frequency Signature Comments Components Source Medication Medication Date Date Medication? Clinician (SIG) Name Name pantoprazol 2021-07 Yes 40mg QD Take [address] [facility] e 2-14 tablet (40 [facility] (PROTONIX) 00:00: mg total) Me dical 40 MG 00 by mouth Center tablet daily. levothyroxi 2021-07- Yes 100ug Take [address] ne 2-14 12-14 tablet [facility] (SYNTHROID, 00:00: 23:59 (100 mcg M edical LEVOTHROID) 00 :00 total) by Tish ter 100 MCG mouth tablet Every morning on an empty stomach. aspirin 81 2021-07- Yes 81mg QD Take [address] [facility] MG chewable 2-14 12-14 tablet (81 L ukes tablet 00:00: 23:59 mg total) Medic al 00 :00 by mouth Center daily. glipiZIDE 2021-07 Yes 2.5mg QD Take 2.[address] (GLUCOTROL 2-13 mg by [facility] XL) 2.5 MG 18:00: mouth Medica l 24 hr 37 daily. Center tablet metFORMIN 2021-07 Yes 850mg Take [address] [facility] (GLUCOPHAGE 2-13 mg by [facility] ) 850 MG 18:00: mouth 2 Medica l tablet 37 (two) Center times daily with breakfast and dinner. NIFEdipine 2021-07- No 30mg QD Take [address] (ADALAT CC) 2-13 12-13 by mouth Tony es 30 MG 24 hr 10:25: 00:00 daily. Med ical tablet 05 :00 Center levothyroxi 2021-07- No 88ug Take [address] ne - 12-13 mcg by [facility] (SYNTHROID, 10:25: 00:00 mouth Medi shira LEVOTHROID) 05 :00 Every Center 88 MCG morning on tablet an empty stomach. acetaminoph 2021-07- No 750mg QD Take [address] en - 12-13 mg by [facility] (TYLENOL) 10:25: 00:00 mouth Medica l 500 MG 05 :00 daily. Center tablet metoprolol 2021-07- Yes 12.5mg QD Take 0.[address] succinate 09-03- tablets [facility] (TOPROL-XL) 00:00: 23:59 (12.5 mg M edical 25 MG 24 hr 00 :00 total) by [facility] tablet mouth daily. rosuvastati 2021-07- Yes 20mg QD Take [address] n (CRESTOR) 09-03- tablet (20 L ukes 20 MG 00:00: 23:59 mg total) Medica l tablet 00 :00 by mouth Center nightly. torsemide 2021-07- Yes 10mg Take 1 [facility] (DEMADEX) 09-03- tablet (10 Tony es 10 MG 00:00: 23:59 mg total) Medica l tablet 00 :00 by mouth 2 Center (two) times daily. traMADoL 2021-07- No 50mg Take [address] (ULTRAM) 50 09-03 tablet (50 L ukes mg tablet 00:00: 23:59 mg total) Me dical 00 :00 by mouth Center every 6 (six) hours as needed for up to 10 days. Max Daily Amount: 200 mg glipiZIDE 2021-07 Yes 2.5mg QD Take 2.[address] (GLUCOTROL 1-29 mg by [facility] XL) 2.5 MG 13:49: mouth Medica l 24 hr 57 daily. Center tablet metFORMIN 2021-07 Yes 850mg Take [address] (GLUCOPHAGE 1-29 mg by [facility] ) 850 MG 13:49: mouth 2 Medica l tablet 57 (two) Center times daily with breakfast and dinner. NIFEdipine 2021-07 Yes 30mg QD Take [address] (ADALAT CC) 1-26 by mouth Luke s 30 MG 24 hr 12:29: daily. Medi shira tablet 28 Center levothyroxi 2021-07 Yes 88ug Take [address] ne 1-26 mcg by [facility] (SYNTHROID, 12:29: mouth Medic al LEVOTHROID) 28 Every Center 88 MCG morning on tablet an empty stomach. acetaminoph 2021-07 Yes 750mg QD Take [address] en 1-26 mg by [facility] (TYLENOL) 12:29: mouth Medical 500 MG 28 daily. Center tablet Dose No Unknown 5-06 00:00: 00 levothyroxi 2021-0 No 1mcg ne 88 mcg 5-06 tablet 00:00: 00 metformin 2021-0 No 1mg 850 mg 5-06 tablet 00:00: 00 levothyroxi 2021-0 No 1mcg ne 88 mcg 5-06 tablet 00:00: 00 Dose 2021-0 No Unknown 5-05 00:00: 00 nifedipine 2021-0 No 1mg ER 30 mg 5-05 tablet,exte 00:00: nded 00 release atorvastati 2021-0 No 1mg n 10 mg 5-05 tablet 00:00: 00 Dose 2021-0 No Unknown 5-05 00:00: 00 Dose 2021-0 No Unknown 5-05 00:00: 00 nifedipine 2021-0 No 1mg ER 30 mg 5-05 tablet,exte 00:00: nded 00 release atorvastati 2021-0 No 1mg n 10 mg 5-05 tablet 00:00: 00 Dose 2-0 No Unknown 5-05 00:00: 00 Dose 2-0 No Unknown 5-05 00:00: 00 Dose 2-0 No Unknown 5-05 00:00: 00 Dose 2-0 No Unknown 5-05 00:00: 00 Dose 2-0 No Unknown 5-05 00:00: 00 Dose 2021-0 No Unknown 5-05 00:00: 00 Dose 2-0 No Unknown 5-05 00:00: 00 Dose 2021-0 No Unknown 5-05 00:00: 00 Dose 2021-0 No Unknown 5-05 00:00: 00 Dose 2022-0 [...] 2022-0 No Unknown 5-05 00:00: 00 Dose 2-0 No Unknown 2-15 00:00: 00 Dose 2022-0 No Unknown 2-15 00:00: 00 Dose 2022-0 No Unknown 2-15 00:00: 00 Dose 2022-0 No Unknown 2-15 00:00: 00 Dose 2022-0 No Unknown 2-15 00:00: 00 Dose 2022-0 No Unknown 2-15 00:00: 00 Dose 2-0 No Unknown 2-15 00:00: 00 Dose 2022-0 No Unknown 2-15 00:00: 00 atorvastati 2020-1 No 1mg n 10 mg 1-15 tablet 00:00: 00 atorvastati 2020-1 No 1mg n 10 mg 1-15 tablet 00:00: 00 Dose 2020-1 No Unknown 1-13 00:00: 00 Dose 2020-1 No Unknown 1-13 00:00: 00 Dose 2020-1 No Unknown 1-13 00:00: 00 amoxicillin 2020-1 No 1mg 875 mg 1-13 tablet 00:00: 00 Dose 2020-1 No Unknown 1-13 00:00: 00 Dose 2020-1 No Unknown 1-13 00:00: 00 Dose 2020-1 No Unknown 1-13 00:00: 00 amoxicillin 2020-1 No 1mg 875 mg 1-13 tablet 00:00: 00 gabapentin 2020-0 Yes PO, 0 Memori a 3-04 Refill(s) l 16:02: Tramadol 2020-0 Yes 50 mg, PO, Mem oria 3-04 Q4-6H, PRN l 16:02: Pain, # 20 00 tab, 0 Refill(s) Mirtazapine 2020-0 Yes [...] Q4-6H, PRN l 16:02: Pain, # 20 00 tab, 0 Refill(s) Mirtazapine 2020-0 Yes [...] Q4-6H, PRN l 16:02: Pain, # 20 00 tab, 0 Refill(s) Mirtazapine 2020-0 Yes [...] Q4-6H, PRN l 16:02: Pain, # 20 00 tab, 0 Refill(s) Mirtazapine 2020-0 Yes PO, Memori a 3-04 Bedtime, 0 l 16:02: Refill(s) Thyroxine 2020-0 Yes Daily, 0 Kashif jose 3-04 Refill(s) l 16:02: Metformin 2020-0 Yes PO, 0 Memoria 3-04 Refill(s) l 16:02: [place] 00 Bupropion 2020-0 Yes PO, 0 Memoria 3-04 [...] 0 Cole n extended 00 Refill(s) release Ondansetron 2020-0 Yes 0 Memori a 3-04 [...] Q4-6H, PRN l 16:02: Pain, # 20 00 tab, 0 Refill(s) Mirtazapine 2020-0 Yes [...] l tablet, 16:02: Daily, 0 Cole n 00 Refill(s) release Thyroxine 2020-0 Yes Daily, 0 Kashif jose 3-04 Refill(s) l 16:02: Metformin 2020-0 Yes PO, 0 Memoria 3-04 Refill(s) l 16:02: mirtazapine 2019-0 No 1mg 45 mg 7-18 [...] No 1mg mg tablet 7-18 00:00: 00 Immunizations Ordered Filled Immunization Date Status Comments [facility] Immunization Name Name SARS-COV-2 COVID-19 2020-10-08 Completed Unive rsity of PFIZER VACCINE 00:00:00 [facility] SARS-COV-2 COVID-19 2020-09-17 Completed Unive rsity of PFIZER VACCINE 00:00:00 [facility] Vital Signs Vital Name Observation Time Observation Value Comments Source WEIGHT 2022-07-02 08:51:00 54.7 kg WEIGHT 2022-06-28 10:00:00 60.2 kg WEIGHT 2022-06-25 05:30:00 63.5 kg WEIGHT 2022-06-24 06:00:00 63.7 kg HEIGHT 2022-06-13 12:00:00 152.4 cm WEIGHT 2022-06-13 12:00:00 56.1 kg WEIGHT 2022-07-02 08:51:00 54.7 kg WEIGHT 2022-06-28 10:00:00 60.2 kg WEIGHT 2022-06-25 05:30:00 63.5 kg WEIGHT 2022-06-24 06:00:00 63.7 kg HEIGHT 2022-06-13 12:00:00 152.4 cm WEIGHT 2022-06-13 12:00:00 56.1 kg WEIGHT 2022-07-02 08:51:00 54.7 kg WEIGHT 2022-06-28 10:00:00 60.2 kg WEIGHT 2022-06-25 05:30:00 63.5 kg WEIGHT 2022-06-24 06:00:00 63.7 kg HEIGHT 2022-06-13 12:00:00 152.4 cm WEIGHT 2022-06-13 12:00:00 56.1 kg Systolic blood 2022 12:00:00 98 mm[Hg] [facility] Diastolic blood 2022 12:00:00 46 mm[Hg] [facility] Heart rate 2022 12:00:00 94 /min [facility] Body temperature 2022 12:00:00 37 [place] [facility] Respiratory rate 2022 12:00:00 19 /min [facility] Oxygen saturation in 2022 12:00:00 96 /min [facility] Arterial blood by Medical Ce nter Pulse oximetry Body weight 2022-07-02 08:51:00 54.7 kg [facility] BMI 2022-07-02 08:51:00 23.55 kg/m2 [facility] Systolic blood 2022-06-19 12:59:00 109 mm[Hg] [facility] Diastolic blood 2022-06-19 12:59:00 55 mm[Hg] [facility] Heart rate 2022-06-19 12:59:00 72 /min [facility] Body temperature 2022-06-19 04:14:00 36.61 [facility] Respiratory rate 2022-06-19 04:14:00 18 /min [facility] Oxygen saturation in 2022-06-19 04:14:00 95 /min [facility] Arterial blood by Medical Ce nter Pulse oximetry Body height 2022-06-13 12:00:00 152.4 cm [facility] Body weight 2022-06-13 12:00:00 56.1 kg [facility] BMI 2022-06-13 12:00:00 24.15 kg/m2 [facility] BP Systolic 2022-05-31 08:05:00 144 mm[Hg] BP [...] /min Respiratory Rate 2021-06-03 14:21:00 16.00 /min Diastolic (mm Hg) 2019-09-23 15:44:00 Roc Lewis Heart Rate 2019-09-23 15:44:00 [facility] Height 2019-09-23 15:44:00 152.4 cm [facility] Weight 2019-09-23 15:44:00 [facility] BMI Calculated 2019-09-23 15:44:00 Danica Figueroa Systolic (mm Hg) 2019-09-23 15:44:00 Kashif Lewis BP Systolic 2019-02-05 14:58:00 139 mm[Hg] BP Diastolic 2019-02-05 14:58:00 80 mm[Hg] Weight Measured 2019-02-05 14:58:00 126.00 pounds Height Measured 2019-02-05 14:58:00 57.68 inches Body Temperature 2019-02-05 14:58:00 97.40 degrees Heart Rate 2019-02-05 14:58:00 97.00 /min Respiratory Rate 2019-02-05 14:58:00 16.00 /min Procedures Procedure Date / Time Performing Source Performed Clinician XR KNEE 3 VW RIGHT 2022-07-10 21:54:00 Elise Garcia [facility] POCT-GLUCOSE METER 2022 12:09[facility] / 2022 06:32:00 Caleb Ghosh [facility] CBC W/PLT COUNT & AUTO 2022 04:58:[address] [facility] MAGNESIUM 2022 04:58:[address] [facility] PHOSPHORUS 2022 04:58:[address] [facility] PT/APTT 2022 04:58:00 Blank Davies [facility] BASIC METABOLIC PANEL 2022 04:58:00 Dixon-SmartLeonardo [facility] CBC W/PLT COUNT & AUTO 2022 04:58:[address] [facility] POCT-GLUCOSE METER 2022-07-02 20:48:00 [facility]SE [facility] 2022-07-02 16:44:00 [facility] PO[facility]UCOSE METER 2022-07-02 11:57:00 [facility] POCT-GLUCOSE METER 2022-07-02 07:09:00 [facility] XR CHEST 1 VIEW PORTABLE / 2022-07-02 06:52:00 Caleb Ghosh [facility] CBC W/PLT COUNT & AUTO 2022-07-02 05:42:00 CariCecille [facility] MAGNESIUM 2022-07-02 05:42:[address] [facility] PHOSPHORUS 2022-07-02 05:42:00 [facility] PT/APTT 2022-07-02 05:42:00 Blank Davies [facility] BASIC METABOLIC PANEL 2022-07-02 05:42:00 Dixon-Leonardo Anderson [facility] CBC W/PLT COUNT & AUTO 2022-07-02 05:42:00 Cecille Knight [facility] POCT-GLUCOSE METER 2022-07-01 21:27:00 [facility] POCT-GLUCOSE METER 2022-07-01 16:36:00 [facility] SARS-COV2/RT-PCR (HS & REF 2022-07-01 13:45:00 [facility] POCT-GLUCOSE METER 2022-07-01 11:43:00 [facility] POCT-GLUCOSE METER 2022-07-01 07:27:00 [facility] XR CHEST 1 VIEW PORTABLE / 2022-07-01 06:52:00 Caleb Ghosh [facility] CBC W/PLT COUNT & AUTO 2022-07-01 03:52:00 Cecille Knight [facility] CBC W/PLT COUNT & AUTO 2022-07-01 03:52:00 Cecille Knight [facility] MAGNESIUM 2022-07-01 03:51:[address] [facility] PHOSPHORUS 2022-07-01 03:51:[address] [facility] PT/APTT 2022-07-01 03:51:00 Blank Davies [facility] BASIC METABOLIC PANEL 2022-07-01 03:51:00 Dixon[facility]Smart, [facility] POCT-GLUCOSE METER 2022-06-30 21:26:00 [facility]SE [facility] 2022-06-30 16:57:00 [facility] POCT-GLUCOSE METER 2022-06-30 11:49:00 [facility] POCT-GLUCOSE METER 2022-06-30 08:05:00 [facility] CHEST 1 VIEW PORTABLE / 2022-06-30 07:35:00 Caleb Ghosh [facility] CBC W/PLT COUNT & AUTO 2022-06-30 05:08:00 Cecille Knight [facility] MAGNESIUM 2022-06-30 05:08:[address] [facility] PHOSPHORUS 2022-06-30 05:08:[address] [facility] PT/APTT 2022-06-30 05:08:00 Blank Davies [facility] BASIC METABOLIC PANEL 2022-06-30 05:08:00 [facility], [facility] CBC W/PLT COUNT & AUTO 2022-06-30 05:08:00 Cecille Knight [facility] POCT-GLUCOSE METER 2022-06-29 21:33:00 [facility] ECHOCARD[facility]GRAM 2022-06-29 17:14:05 [facility], [facility] POCT-GLUCOSE METER 2022-06-29 16:47:00 Jamir [facility] POCT-GLUCOSE METER 2022-06-29 12:02:00 Jamir [facility] POCT-GLUCOSE METER 2022-06-29 08:27:00 Jamir [facility] XR CHEST 1 VIEW PORTABLE / 2022-06-29 06:40:00 Caleb Ghosh [facility] CBC W/PLT COUNT & AUTO 2022-06-29 04:29:00 Cecille Knight [facility] S [facility] MAGNESIUM 2022-06-29 04:29:[address] [facility] PHOSPHORUS 2022-06-29 04:29:[address] [facility] Cec[facility] PT/APTT 2022-06-29 04:29:00 Blank Davies [facility] BASIC METABOLIC PANEL 2022-06-29 04:29:00 [facility], [facility] CBC W/PLT COUNT & AUTO 2022-06-29 04:29:00 Cecille Knight [facility] POCT-GLUCOSE METER 2022-06-28 20:47:00 [facility] 2022-06-28 16:25:00 [facility]ST 1 VIEW PORTABLE / 2022-06-28 15:54:00 Dixon-Smart, Nancy h [facility] POCT-GLUCOSE METER 2022-06-28 11:48:00 [facility] PO[facility]SE [facility]ER 2022-06-28 07:21:00 Jamir [facility] XR CHEST 1 VIEW PORTABLE / 2022-06-28 07:12:00 Caleb Ghosh [facility] CBC W/PLT COUNT & AUTO 2022-06-28 04:23:00 Cecille Knight [facility] MAGNESIUM 2022-06-28 04:23:[address] [facility] PHOSPHORUS 2022-06-28 04:23:[address] [facility] PT/APTT 2022-06-28 04:23:00 Blank Davies [facility] CALCIUM, IONIZED 2022-06-28 04:23:00 [facility] 2022-06-28 04:23:00 [facility] W/[facility] COUNT & AUTO 2022-06-28 04:23:[address] [facility] POCT-GLUCOSE METER 2022-06-27 21:10:00 [facility] 2022-06-27 17:00:00 [facility] 2022-06-27 11:48:00 [facility] PO[facility]-GLUCOSE METER 2022-06-27 08:07:00 [facility]ST 1 VIEW PORTABLE / 2022-06-27 06:28:00 Caleb Ghosh [facility] CBC W/PLT COUNT & AUTO 2022-06-27 04:21:00 Nubia Knightghnevaeh WELDON S [facility] MAGNESIUM 2022-06-27 04:21:[address] [facility] PHOSPHORUS 2022-06-27 04:21:[address] [facility] PT/APTT 2022-06-27 04:21:00 Blank Davies [facility] BASIC METABOLIC PANEL 2022-06-27 04:21:00 [facility] W/PLT COUNT & AUTO 2022-06-27 04:21:[address] [facility] POCT-GLUCOSE METER 2022-06-26 20:45:00 Jamir [facility] POCT-GLUCOSE METER 2022-06-26 16:06:00 Jamir [facility] POCT-GLUCOSE METER 2022-06-26 11:39:00 [facility] PO[facility]SE [facility] 2022-06-26 07:23:00 Jamir [facility] XR CHEST 1 VIEW PORTABLE / 2022-06-26 06:45:00 Caleb Ghosh [facility] CALCIUM, IONIZED 2022-06-26 04:01:00 Eloisa Herbert [facility] CBC W/PLT COUNT & AUTO 2022-06-26 04:01:00 Nubia Knightghan [facility] John fritz [facility] MAGNESIUM 2022-06-26 04:01:[address] [facility] PHOSPHORUS 2022-06-26 04:01:[address] [facility] Cecille [facility] PT/APTT 2022-06-26 04:01:00 [facility] COMPREHENSIVE METABOLIC 2022-06-26 04:01:00 [facility] LACTATE DEHYDROGENASE (LDH) 2022-06-26 04:01:00 [facility] OXYGEN SATURATION, MEASURED 2022-06-26 04:01:00 Caleb Ghosh [facility] CBC W/PLT COUNT & AUTO 2022-06-26 04:01:00 Cecille Knight [facility] PREPARE RBC 2022-06-25 23:54:00 Mikey Charles [facility] POCT-GLUCOSE METER 2022-06-25 21:34:00 Jamir [facility] POTASSIUM 2022-06-25 17:34:00 Eloisa Herbert [facility] MAGNESIUM 2022-06-25 17:34:00 Eloisa Herbert [facility] PHOSPHORUS 2022-06-25 17:34:00 Eloisa Herbert [facility] POCT-GLUCOSE METER 2022-06-25 17:18:00 Hilda Lemus [facility] POCT-GLUCOSE METER 2022-06-25 14:30:00 Hilda Lemus [facility] HC VENOUS DOPPLER EXT UNI 2022-06-25 14:30:00 Darryl Baig [place] XR CHEST 1 VIEW PORTABLE / 2022-06-25 12:42:00 Julio C Medrano [facility] POCT-GLUCOSE METER 2022-06-25 08:39:00 Hilda Lemus [facility] XR CHEST 1 VIEW PORTABLE / 2022-06-25 05:15:00 Caleb Ghosh [facility] CBC W/PLT COUNT & AUTO 2022-06-25 02:34:[address] [facility] MAGNESIUM 2022-06-25 02:34:[address] [facility] PHOSPHORUS 2022-06-25 02:34:[address] [facility] CALCIUM, IONIZED 2022-06-25 02:34:00 [facility] PT/APTT 2022-06-25 02:34:00 Blank Davies [facility] COMPREHENSIVE METABOLIC 2022-06-25 02:34:00 Blank Davies [facility] PANEL [facility] LACTATE DEHYDROGENASE (LDH) 2022-06-25 02:34:00 Blank Davies [facility] OXYGEN SATURATION, MEASURED 2022-06-25 02:34:00 Caleb Ghosh [facility] LACTIC ACID, ARTERIAL 2022-06-25 02:34:00 Darryl Baig [facility] BLOOD GAS, ARTERIAL 2022-06-25 02:34:00 Darryl Baig [facility] CBC W/PLT COUNT & AUTO 2022-06-25 02:34:[address] [facility] PREPARE RBC 2022-06-24 23:54:00 Mikey Charles [facility] POCT-GLUCOSE METER 2022-06-24 21:46:00 Hilda Lemus [facility] BLOOD GAS, ARTERIAL 2022-06-24 20:06[facility] 2022-06-24 [facility]:06[facility], [facility]ASURED 2022-06-24 20:06:00 [facility] SARS-[facility]OV[facility] (HS & REF 2022-06-24 16:47:00 Hilda Lemus [facility] PHOSPHORUS 2022-06-24 16:41:00 [facility]OL[facility] PANEL 2022-06-24 15:36:00 [facility] BLOOD GAS, ARTERIAL 2022-06-24 15:36:00 [facility] CALCIUM, IONIZED 2022-06-24 15:36:00 [facility] CBC W/PLT COUNT & AUTO 2022-06-24 15:36:00 [facility] LACTIC ACID, ARTERIAL 2022-06-24 15:36:00 [facility] OXYGEN SATURATION, MEASURED 2022-06-24 15:36:00 [facility] CBC W/PLT COUNT & AUTO 2022-06-24 15:36:00 [facility] DIFFERENTIAL [facility] POCT-GLUCOSE METER 2022-06-24 12:35:00 [facility]UKO-REDUCED RED 2022-06-24 11:03:00 [facility] POCT-GLUCOSE METER 2022-06-24 10:56:00 [facility] PO[facility]SE METER 2022-06-24 09:33:00 Kaye [facility] BASIC METABOLIC PANEL 2022-06-24 09:03:00 Jovanni [facility] [place] MAGNESIUM 2022-06-24 09:03:00 Jovanni [facility] PHOSPHORUS 2022-06-24 09:03[facility]00 [facility] 2022-06-24 09:03:00 Jovanni [facility] OXYGEN SATURATION, MEASURED 2022-06-24 08:21:00 Davina [facility] POCT-GLUCOSE METER 2022-06-24 07:42:00 [facility] OXYGEN SATURATION, MEASURED 2022-06-24 07:01:00 Davina [facility] POCT-GLUCOSE METER 2022-06-24 06:39:00 Giveon, [facility] POCT-GLUCOSE METER 2022-06-24 05:54:00 [facility] LACTIC ACID, ARTERIAL 2022-06-24 05:33:00 Jovanni [facility] [place] POCT-GLUCOSE METER 2022-06-24 05:19:00 Giveon, [facility] POCT-GLUCOSE METER 2022-06-24 04:23:00 [facility] POCT-GLUCOSE METER 2022-06-24 03:45:00 Giveon, [facility] POCT-GLUCOSE METER 2022-06-24 03:07:00 [facility] X[facility] CHEST 1 VIEW PORTABLE / 2022-06-24 03:05:00 Rafita Garza [facility] BEDSIDE [facility] POCT-GLUCOSE METER 2022-06-24 02:21:00 [facility] CALCIUM, IONIZED 2022-06-24 01:39:00 Cecille Knight [facility] OXYGEN SATURATION, MEASURED 2022-06-24 01:39:00 Samson, [facility] BLOOD GAS, ARTERIAL 2022-06-24 01:39:00 Samson Blank [facility] CBC W/PLT COUNT & AUTO 2022-06-24 01:38:[address] [facility] MAGNESIUM 2022-06-24 01:38:[address] [facility] PHOSPHORUS 2022-06-24 01:38:00 Cari [facility] PT/APTT 2022-06-24 01:38:00 Samson [facility] COMPREHENSIVE METABOLIC 2022-06-24 01:38:00 Samson [facility] LACTATE DEHYDROGENASE (LDH) 2022-06-24 01:38:00 Henrietta DaviesJoint [facility] CBC W/PLT COUNT & AUTO 2022-06-24 01:38:[address] [facility] POCT-GLUCOSE METER 2022-06-24 01:04:00 Kaye [facility] PREPARE RBC 2022-06-23 23:54:00 Mikey Charles [facility] POCT-GLUCOSE METER 2022-06-23 23:46:00 Kaye [facility] POCT-GLUCOSE METER 2022-06-23 22:46:00 Kaye [facility] POCT-GLUCOSE METER 2022-06-23 21:53:00 Slimon [facility] BLOOD GAS, ARTERIAL 2022-06-23 21:34:00 Nury Deleon [facility] GLUCOSE 2022-06-23 21:34:00 [facility] POT[facility]SIUM 2022-06-23 21:34:00 Anuja [facility] POCT-GLUCOSE METER 2022-06-23 19:53:00 [facility] BLOOD GAS, ARTERIAL 2022-06-23 16:17:00 Samson Blank [facility] RRL CRITICAL LABS 2022-06-23 16:17:00 Nury Deleon CHIk es (ABG,NA,K,H&H,GLUCOSE) [facility] C enter SODIUM NA-STAT LAB 2022-06-23 16:17:[address] [facility] POTASSIUM-STAT LAB 2022-06-23 16:17:00 [facility] GLUCOSE-STAT LAB 2022-06-23 16:17:00 [facility] (H&H) - STAT LAB 2022-06-23 16:17:00 Pancho [facility] CBC W/PLT COUNT & AUTO 2022-06-23 11:42:00 Alesia [facility] RRL CRITICAL LABS 2022-06-23 11:42:00 Nury Deleon [facility] Tony es (ABG,NA,K,H&H,GLUCOSE) [facility] enter BLOOD GAS, ARTERIAL 2022-06-23 11:42:00 Nury Deleon [facility] SODIUM NA-STAT LAB 2022-06-23 11:42:00 [facility]hames [facility] POTASSIUM-STAT LAB 2022-06-23 11:42:00 DeleonRadhames colemanBoise [facility] GLUCOSE-STAT LAB 2022-06-23 11:42:00 Deleon, [facility] HGB/HCT (H&H) - STAT LAB 2022-06-23 11:42:00 Pancho [facility] CBC W/PLT COUNT & AUTO 2022-06-23 11:42:00 Alesia [facility] 2D ECHO W/ DOPPLER 2022-06-23 09:20:57 Alesia [facility] (CW/PW/COLOR) [facility] MAGNESIUM 2022-06-23 07:53:[address] [facility] CALCIUM, IONIZED 2022-06-23 07:53:00 Eloisa Herbert [facility] RRL CRITICAL LABS 2022-06-23 07:53:00 Nury Deleon [facility] (ABG,NA,K,H&H,GLUCOSE) [facility] enter BLOOD GAS, ARTERIAL 2022-06-23 07:53:00 Pancho Nury [facility] SODIUM NA-STAT LAB 2022-06-23 07:53:00 Pancho [facility] POTASSIUM-STAT LAB 2022-06-23 07:53:00 Pancho [facility] GLUCOSE-STAT LAB 2022-06-23 07:53:[address] [facility] HGB/HCT (H&H) - STAT LAB 2022-06-23 07:53:00 Pancho Nury [facility] TRANSFUSE LEUKO-REDUCED RED 2022-06-23 05:00:00 Sami Pan [facility] BLOOD CELLS [facility] CBC W/PLT COUNT & AUTO 2022-06-23 03:40:00 [facility] Cecille [facility] MAGNESIUM 2022-06-23 03:40:00 [facility] Cecille [facility] PHOSPHORUS 2022-06-23 03:40:00 [facility] CALCIUM, IONIZED 2022-06-23 03:40:00 [facility] PT/APTT 2022-06-23 03:40:00 Blank Davies [facility] COMPREHENSIVE METABOLIC 2022-06-23 03:40:00 Blank Davies [facility] PANEL [facility] LACTATE DEHYDROGENASE (LDH) 2022-06-23 03:40:00 Blank Davies [facility] OXYGEN SATURATION, MEASURED 2022-06-23 03:40:00 Blank Davies [facility] CBC W/PLT COUNT & AUTO 2022-06-23 03:40:[address] [facility] XR CHEST 1 VIEW PORTABLE / 2022-06-23 02:04:00 Rafita Garza [facility] BEDSIDE [facility] MAGNESIUM 2022-06-22 23:57:[address] [facility] RRL CRITICAL LABS 2022-06-22 23:57:00 [facility] (ABG,NA,K,H&H,GLUCOSE) [facility] enter BLOOD GAS, ARTERIAL 2022-06-22 23:57:00 [facility] SODIUM NA-STAT LAB 2022-06-22 23:57:00 Pancho [facility] POTASSIUM-STAT LAB 2022-06-22 23:57:00 Pancho [facility] GLUCOSE-STAT LAB 2022-06-22 23:57:00 Nury Deleon [facility] HGB/HCT (H&H) - STAT LAB 2022-06-22 23:57:00 Pancho [facility] CALCIUM, IONIZED 2022-06-22 23:57:00 Eloisa Herbert [facility] PREPARE RBC 2022-06-22 23:54:00 Nelson Alexander [facility] [place] PREPARE LEUKO-REDUCED 2022-06-22 23:54:00 Blank Davies [facility] PLATELETS [facility] PREPARE PLASMA 2022-06-22 23:54:00 Blank Davies [facility] POCT-GLUCOSE METER 2022-06-22 18:21:00 Srini Restrepo [facility] CALCIUM, IONIZED 2022-06-22 16:55:00 Eloisa Herbert [facility] MAGNESIUM 2022-06-22 16:55:00 Chase Carl [facility] CBC W/PLT COUNT & AUTO 2022-06-22 16:55:00 Adithya Vital [facility] BASIC METABOLIC PANEL 2022-06-22 16:55:00 Adithya Vital [facility] CBC W/PLT COUNT & AUTO 2022-06-22 16:55:00 Adithya Vital [facility] AMMONIA 2022-06-22 16:54:00 [place] Hebert [facility] POCT-GLUCOSE METER 2022-06-22 16:52:00 Kaye [facility] BLOOD GAS, ARTERIAL 2022-06-22 14:50:00 Blank Davies [facility] POCT-GLUCOSE METER 2022-06-22 14:00:00 Kaye [facility] POCT-GLUCOSE METER 2022-06-22 12:36:00 Kaye [facility] RRL CRITICAL LABS 2022-06-22 09:19:00 Pancho Nury [facility] (ABG,NA,K,H&H,GLUCOSE) [facility] enter BLOOD GAS, ARTERIAL 2022-06-22 09:19:00 Nury Deleon [facility] SODIUM NA-STAT LAB 2022-06-22 09:19:[address] [facility] POTASSIUM-STAT LAB 2022-06-22 09:19:00 Radhames [facility] GLUCOSE-STAT LAB 2022-06-22 09:19:00 Nury Deleon [facility] HGB/HCT (H&H) - STAT LAB 2022-06-22 09:19:00 Nury Deleon [facility] LACTIC ACID, ARTERIAL 2022-06-22 08:02:00 Adithya Vital [facility] POCT-GLUCOSE METER 2022-06-22 08:00:00 [facility] HEMOGLOBIN AND HEMATOCRIT 2022-06-22 07:08:00 Blank Davies Stephen [facility] BLOOD GAS, ARTERIAL 2022-06-22 07:08:00 Blank Davies [facility] POCT-GLUCOSE METER 2022-06-22 06:15:00 Slimon [facility] APTT 2022-06-22 05:40:00 Henrietta [facility] POCT-GLUCOSE METER 2022-06-22 05:12:00 [facility] TRANSFUSE LEUKO-REDUCED RED 2022-06-22 04:45:00 Blank Davies [facility] BLOOD CELLS [facility] POCT-GLUCOSE METER 2022-06-22 03:42:00 [facility] BLOOD GAS, ARTERIAL 2022-06-22 03:39:00 Blank Davies [facility] CBC W/PLT COUNT & AUTO 2022-06-22 03:31:[address] [facility] MAGNESIUM 2022-06-22 03:31:00 [facility] PHOSPHORUS 2022-06-22 03:31:00 [facility] CALCIUM, IONIZED 2022-06-22 03:31:00 [facility] LACTIC ACID, ARTERIAL 2022-06-22 03:31:00 Henrietta [facility]Joint [facility] PT/APTT 2022-06-22 03:31:00 Samson [facility] COMPREHENSIVE METABOLIC 2022-06-22 03:31:00 Blank Davies [facility] LACTATE DEHYDROGENASE (LDH) 2022-06-22 03:31:00 Henrietta [facility]Joint [facility] OXYGEN SATURATION, MEASURED 2022-06-22 03:31:00 Blank Davies [facility] CBC W/PLT COUNT & AUTO 2022-06-22 03:31:00 Cecille Knight [facility] (CELLAVISION MANUAL DIFF) 2022-06-22 03:31:[address] [facility] XR CHEST 1 VIEW PORTABLE / 2022-06-22 02:14:00 Chase Carl [facility] RRL CRITICAL LABS 2022-06-22 01:20:00 Blank Davies [facility] (ABG,NA,K,H&H,GLUCOSE) [facility] enter BLOOD GAS, ARTERIAL 2022-06-22 01:20:00 Blank Davies [facility] SODIUM NA-STAT LAB 2022-06-22 01:20:00 [facility] POTASSIUM-STAT LAB 2022-06-22 01:20:00 Samson [facility] GLUCOSE-STAT LAB 2022-06-22 01:20:00 [facility]H&H) - STAT LAB 2022-06-22 01:20:00 Henrietta [facility]Joint [facility] LACTIC ACID, ARTERIAL 2022-06-22 00:22:00 Samson [facility] TRANSFUSE LEUKO-REDUCED 2022-06-22 00:15:00 [facility]TS [facility] PREPARE RBC 2022-06-22 00:09:00 Mikey Charles [facility] POCT-GLUCOSE METER 2022-06-21 23:47:00 Srini Restrepo [facility] PT/APTT 2022-06-21 23:43:00 Samson [facility] FIBRINOGEN 2022-06-21 23:43:00 Samson Blank [facility] CBC (HEMOGRAM ONLY) 2022-06-21 23:43:00 Samson [facility] TYPE AND SCREEN, AUTOMATED 2022-06-21 23:43:00 Blank Davies [facility] TRANSFUSE LEUKO-REDUCED 2022-06-21 23:15:00 Blank Davies [facility] PLATELETS [facility] STAT-LAB IONIZED CALCIUM 2022-06-21 22:12:00 Barrera [facility] RRL CRITICAL LABS 2022-06-21 22:12:00 Henrietta Daviesa [facility] es (ABG,NA,K,H&H,GLUCOSE) [facility] enter BLOOD GAS, ARTERIAL 2022-06-21 22:12:00 [facility] NA-STAT LAB 2022-06-21 22:12:00 Samson [facility] POTASSIUM-STAT LAB 2022-06-21 22:12:00 Samson [facility] GLUCOSE-STAT LAB 2022-06-21 22:12:00 Sams[facility] (H&H) - STAT LAB 2022-06-21 22:12:00 Samson [facility] TRANSFUSE PLASMA 2022-06-21 22:00:[address] [facility] POCT-GLUCOSE METER 2022-06-21 21:02:00 Srini Restrepo [facility] TRANSFUSE LEUKO-REDUCED RED 2022-06-21 20:45:00 Tanner Rust [facility] BLOOD CELLS [facility] PREPARE PLASMA 2022-06-21 20:32:00 Mikey Charles [facility] CALCIUM, IONIZED 2022-06-21 19:39:00 Eloisa Herbert [facility] BASIC METABOLIC PANEL 2022-06-21 19:35:00 [facility] BLOOD GAS, ARTERIAL 2022-06-21 19:35:00 [facility] MAGNESIUM 2022-06-21 19:35:00 Siddhartha [facility] PHOSPHORUS 2022-06-21 19:35:00 [facility] W/PLT COUNT & AUTO 2022-06-21 19:35:00 [facility] DIFFERENTIAL [facility] SODIUM NA-STAT LAB 2022-06-21 19:35:00 Pancho [facility] POTASSIUM-STAT LAB 2022-06-21 19:35:00 Pancho [facility] GLUCOSE-STAT LAB 2022-06-21 19:35:[address] [facility] HGB/HCT (H&H) - STAT LAB 2022-06-21 19:35:00 Deleon [facility] CBC W/PLT COUNT & AUTO 2022-06-21 19:35:00 [facility] DIFFERENTIAL [facility] XR CHEST 1 VIEW PORTABLE / 2022-06-21 17:18:00 Uk [facility] CALCIUM, IONIZED 2022-06-21 17:04:00 [facility] THROMBOELASTOGRAPH (TEG) 2022-06-21 17:04:00 [facility] OXYGEN SATURATION, MEASURED 2022-06-21 17:04:00 Adithya [facility] LACTIC ACID, ARTERIAL 2022-06-21 17:04:00 , [facility] I [facility] SODIUM NA-STAT LAB 2022-06-21 17:04:00 [facility] POTASSIUM-STAT LAB 2022-06-21 17:04:00 Uk, [facility] GLUCOSE-STAT LAB 2022-06-21 17:04:00 [facility] HGB/HCT (H&H) - STAT LAB 2022-06-21 17:04:00 Amanuel [facility] RRL CRITICAL LABS 2022-06-21 17:03:00 [facility] (ABG,NA,K,H&H,GLUCOSE) Medical C enter PROTHROMBIN TIME/INR 2022-06-21 17:03:00 [facility] APTT 2022-06-21 17:03:00 [facility] FIBRINOGEN 2022-06-21 17:03:00 [facility] BASIC METABOLIC PANEL 2022-06-21 17:03:00 [facility] CBC (HEMOGRAM ONLY) 2022-06-21 17:03:00 [facility] BLOOD GAS, ARTERIAL 2022-06-21 17:03:00 [facility] MAGNESIUM 2022-06-21 17:03:00 [facility] PHOSPHORUS 2022-06-21 17:03:00 [facility] HEPATIC FUNCTION PANEL 2022-06-21 17:03:00 Eloisa Herbert [facility] LACTATE DEHYDROGENASE (LDH) 2022-06-21 17:03:00 Eloisa Herbert [facility] POCT-ACT 2022-06-21 15:33:00 Srini Restrepo [facility] RRL CRITICAL LABS 2022-06-21 15:31:34 Maria L Epstein [facility] (ABG,NA,K,H&H,GLUCOSE) [facility] C enter APTT 2022-06-21 15:31:[address] [facility] PROTHROMBIN TIME/INR 2022-06-21 15:31:34 Lucian [facility] FIBRINOGEN 2022-06-21 15:31:34 Lucian [facility] PLATELET COUNT 2022-06-21 15:31:34 Lucian [facility] BLOOD GAS, ARTERIAL 2022-06-21 15:31:34 Lucian [facility] SODIUM NA-STAT LAB 2022-06-21 15:31:34 Lucian [facility] POTASSIUM-STAT LAB 2022-06-21 15:31:34 Lucian [facility] GLUCOSE-STAT LAB 2022-06-21 15:31:34 [facility]H) - STAT LAB 2022-06-21 15:31:34 Lucian [facility] MISCELLANEOUS LAB ORDER 2022-06-21 15:31:34 Lucian [facility] TRANSFUSE LEUKO-REDUCED RED 2022-06-21 14:52:00 [facility] BLOOD [facility]LLS [facility] POCT-ACT 2022-06-21 14:45:00 [facility]ITICAL LABS 2022-06-21 14:43:12 [facility] (ABG,NA,K,H&H,GLUCOSE) [facility] enter BLOOD GAS, ARTERIAL 2022-06-21 14:43:12 [facility] SODIUM NA-STAT LAB 2022-06-21 14:43:12 Pancho [facility] POTASSIUM-STAT LAB 2022-06-21 14:43:12 [facility] GLU[facility]-STAT [facility] 2022-06-21 14:43:12 [facility] (H&H) - STAT LAB 2022-06-21 14:43:12 Deleon, Nury [facility] POCT-ACT 2022-06-21 14:09:00 Srini Restrepo [facility] RRL CRITICAL LABS 2022-06-21 14:08:56 Nury Deleon [facility] es (ABG,NA,K,H&H,GLUCOSE) [facility] enter BLOOD GAS, ARTERIAL 2022-06-21 14:08:56 DeleonNury coleman [facility] SODIUM NA-STAT LAB 2022-06-21 14:08:56 Pancho [facility] POTASSIUM-STAT LAB 2022-06-21 14:08:56 Pancho [facility] GLUCOSE-STAT LAB 2022-06-21 14:08:56 [facility] H[facility] (H&H) - STAT LAB 2022-06-21 14:08:56 Pancho [facility] TRANSFUSE LEUKO-REDUCED RED 2022-06-21 13:55:00 Maria L Epstein [facility] BLOOD CELLS [facility] RRL CRITICAL LABS 2022-06-21 13:42:24 PanchoNury [facility] es (ABG,NA,K,H&H,GLUCOSE) [facility] enter BLOOD GAS, ARTERIAL 2022-06-21 13:42:24 PanchoNury [facility] SODIUM NA-STAT LAB 2022-06-21 13:42:24 Pancho [facility] POTASSIUM-STAT LAB 2022-06-21 13:42:24 [facility] GLUCOSE-STAT LAB 2022-06-21 13:42:24 [facility] H[facility]/HCT (H&H) - STAT LAB 2022-06-21 13:42:24 Pancho [facility] POCT-ACT 2022-06-21 13:42:00 Giveon, [facility] RRL CRITICAL LABS 2022-06-21 13:28:55 Pancho [facility] (ABG,NA,K,H&H,GLUCOSE) [facility] enter BLOOD GAS, ARTERIAL 2022-06-21 13:28:55 Pancho [facility] SODIUM NA-STAT LAB 2022-06-21 13:28:55 Pancho [facility] POTASSIUM-STAT LAB 2022-06-21 13:28:55 Pancho [facility] GLUCOSE-STAT LAB 2022-06-21 13:28:55 Deleon, [facility] HGB/HCT (H&H) - STAT LAB 2022-06-21 13:28:55 Pancho [facility] POCT-ACT 2022-06-21 12:48:00 Kaye [facility] ANESTHESIA MARIAH 2022-06-21 12:10:39 [facility] LEUKO-REDUCED RED 2022-06-21 11:40:00 [facility] BLOOD CELLS [facility] RRL CRITICAL LABS 2022-06-21 09:51:48 Lucian Maria L [facility] es (ABG,NA,K,H&H,GLUCOSE) [facility] enter BLOOD GAS, ARTERIAL 2022-06-21 09:51:48 Lucian [facility] SODIUM NA-STAT LAB 2022-06-21 09:51:48 [facility] POTASSIUM-STAT LAB 2022-06-21 09:51:48 [facility] GLUCOSE-STAT LAB 2022-06-21 09:51:48 [facility] (H&H) - STAT LAB 2022-06-21 09:51:48 Lucian [facility] CABG, USING INTERNAL 2022-06-21 08:41:00 Nury Deleon [facility] THORACIC ARTERY AND [facility] SAPHENOUS VEIN GRAFT SURGICAL PROCUREMENT, VEIN, 2022-06-21 08:41:00 Nury Deleon [facility] ENDOSCOPIC [facility] INSERTION, CARDIAC ASSIST 2022-06-21 08:41:00 Nury Deleon [facility] DEVICE, IMPELLA [facility] CABG (CORONARY ARTERY BYPASS 2022-06-21 07:30:00 Nury Deleon [facility] GRAFT) [facility] SURGICAL PROCUREMENT, VEIN, 2022-06-21 07:30:00 Nury Deleon [facility] ENDOSCOPIC [facility] BASIC METABOLIC PANEL 2022-06-21 05:31:00 [facility] CBC W/PLT COUNT & AUTO 2022-06-21 05:31:00 [facility] MAGNESIUM 2022-06-21 05:31:00 [facility] PHOSPHORUS 2022-06-21 05:31:00 [facility] CALCIUM, IONIZED 2022-06-21 05:31:00 [facility] URIC ACID 2022-06-21 05:31:00 [facility] 2022-06-21 05:31:00 [facility] CBC W/PLT COUNT & AUTO 2022-06-21 05:31:00 [facility] (CELLAVISION MANUAL DIFF) 2022-06-21 05:31:00 [facility] Cecille [facility] POCT-GLUCOSE METER 2022-06-20 21:50:00 [facility] 2022-06-20 19:43:00 [facility] POCT-GLUCOSE METER 2022-06-20 16:36:00 Kaye [facility] APTT 2022-06-20 12:00:[address] [facility] [address] [facility] POCT-GLUCOSE METER 2022-06-20 10:37:00 Srini Restrepo [facility] POCT-GLUCOSE METER 2022-06-20 06:31:00 Hilda Lemus [facility] BASIC METABOLIC PANEL 2022-06-20 03:37:[address] [facility] [address] CBC W/PLT COUNT & AUTO 2022-06-20 03:37:[address] [facility] [address] MAGNESIUM 2022-06-20 03:37:[address] [facility] PHOSPHORUS 2022-06-20 03:37:00 [facility] CALCIUM, IONIZED 2022-06-20 03:37:00 [facility] APTT 2022-06-20 03:37:00 [facility] Cecille [facility] CBC W/PLT COUNT & AUTO 2022-06-20 03:37:[address] [facility] [address] [facility] (CELLAVISION MANUAL DIFF) 2022-06-20 03:37:[address] [facility] POCT-GLUCOSE METER 2022-06-19 21:31:00 Mikey Charles [facility] POCT-GLUCOSE METER 2022-06-19 16:20:00 Mikey Charles [facility] NM PET/CT CARDIAC METABOLISM 2022-06-19 13:18:00 Mikey Charles [facility] PERFUSION (REST/OR STRESS) [facility] POCT-GLUCOSE METER 2022-06-19 10:56:00 Mikey Charles [facility] POCT-GLUCOSE METER 2022-06-19 09:17:00 Mikey Charles [facility] POCT-GLUCOSE METER 2022-06-19 08:10:00 Mikey Charles [facility] POCT-GLUCOSE METER 2022-06-19 06:44:00 Mikey Charles [facility] BASIC METABOLIC PANEL 2022-06-19 04:53:[address] [facility] CBC W/PLT COUNT & AUTO 2022-06-19 04:53:[address] [facility] MAGNESIUM 2022-06-19 04:53:[address] [facility] PHOSPHORUS 2022-06-19 04:53:00 [facility] CALCIUM, IONIZED 2022-06-19 04:53:00 CariNubiaCecille [facility] APTT 2022-06-19 04:53:00 CariNubiaCecilleBoise [facility] CBC W/PLT COUNT & AUTO 2022-06-19 04:53:[address] [facility] POCT-GLUCOSE METER 2022-06-18 21:52:00 [facility] POCT-GLUCOSE METER 2022-06-18 16:17:00 [facility] POCT-GLUCOSE METER 2022-06-18 13:32:00 [facility] ABORH, MANUAL 2022-06-18 11:51:00 Brenda Ballesteros [facility] POCT-GLUCOSE METER 2022-06-18 10:34:00 [facility] POCT-GLUCOSE METER 2022-06-18 06:22:00 [facility] BASIC METABOLIC PANEL 2022-06-18 05:47:[address] [facility] CBC W/PLT COUNT & AUTO 2022-06-18 05:47:[facility] MAGNESIUM 2022-06-18 05:47:[address] [facility] PHOSPHORUS 2022-06-18 05:47:00 [facility] CALCIUM, IONIZED 2022-06-18 05:47:00 [facility] LIPID PANEL 2022-06-18 05:47:00 Brianna Norton [facility] APTT 2022-06-18 05:47:00 [facility] TYPE AND SCREEN, AUTOMATED 2022-06-18 05:47:00 Gertrudis Norton [facility] CBC W/PLT COUNT & AUTO 2022-06-18 05:47:00 Ivettetrev Sin [facility] DIFFERENTIAL [facility] POCT-GLUCOSE METER 2022-06-17 21:30:00 Mikey [facility] ECG 12-LEAD 2022-06-17 18:06:56 Errol [facility] BLOOD GAS, ARTERIAL 2022-06-17 17:36:[address] [facility] SARS-COV2/RT-PCR ([facility] REF 2022-06-17 17:20:00 Hilda Lemus [facility] POCT-GLUCOSE METER 2022-06-17 16:57:00 Mikey Charles [facility] XR CHEST 1 VIEW PORTABLE / 2022-06-17 15:03:00 Gertrudis Norton [facility] POCT-GLUCOSE METER 2022-06-17 11:53:00 Mikey Charles [facility] APTT 2022-06-17 09:14:00 [facility] POCT-GLUCOSE METER 2022-06-17 06:23:00 Mikey Charles [facility] BASIC METABOLIC PANEL 2022-06-17 05:59:[address] [facility] [address] [facility] CBC W/PLT COUNT & AUTO 2022-06-17 05:59:[address] [facility] Cecille [facility] MAGNESIUM 2022-06-17 05:59:00 [facility] PHOSPHORUS 2022-06-17 05:59:00 [facility] CALCIUM, IONIZED 2022-06-17 05:59:[address] [facility] CBC W/PLT COUNT & AUTO 2022-06-17 05:59:00 IvetteSin karimi [facility] DIFFERENTIAL [facility] POCT-GLUCOSE METER 2022-06-16 20:46:00 Mikey Charles [facility] POCT-GLUCOSE METER 2022-06-16 18:13:00 Mikey Charles [facility] POCT-GLUCOSE METER 2022-06-16 10:53:00 Mikey Charles [facility] APTT 2022-06-16 08:56:00 [facility] POCT-GLUCOSE METER 2022-06-16 08:03:00 Vignesh Mikey [facility] BASIC METABOLIC PANEL 2022-06-16 02:54:00 [facility] CBC W/PLT COUNT & AUTO 2022-06-16 02:54:00 [facility] MAGNESIUM 2022-06-16 02:54:00 [facility] PHOSPHORUS 2022-06-16 02:54:00 [facility] CALCIUM, IONIZED 2022-06-16 02:54:00 [facility] APTT 2022-06-16 02:54:00 [facility] CBC W/PLT COUNT & AUTO 2022-06-16 02:54:00 GoldieSin tristan [facility] DIFFERENTIAL [facility] POCT-GLUCOSE METER 2022-06-15 23:11:00 Mikey Charles [facility] APTT 2022-06-15 17:39:00 [facility] POCT-GLUCOSE METER 2022-06-15 16:38:00 Vignesh [facility] POCT-GLUCOSE METER 2022-06-15 11:07:00 Mikey Charles [facility] APTT 2022-06-15 09:05:00 [facility] POCT-GLUCOSE METER 2022-06-15 07:29:00 Mikey Charles [facility] CBC W/PLT COUNT & AUTO 2022-06-15 02:46:00 Celli, [facility] DIFFERENTIAL [facility] CBC W/PLT COUNT & AUTO 2022-06-15 02:46:00 Celli, [facility] DIFFERENTIAL [facility] BASIC METABOLIC PANEL 2022-06-15 02:45:00 Celli, [facility] MAGNESIUM 2022-06-15 02:45:00 Celli, [facility] PHOSPHORUS 2022-06-15 02:45:00 Celli [facility] APTT 2022-06-15 02:45:00 [facility] POCT-GLUCOSE METER 2022-06-14 20:48:00 Velarde [facility] APTT 2022-06-14 20:39:00 [facility] PO[facility]ER 2022-06-14 17:14:00 [facility] CAROTID DOPPLER BILATERAL 2022-06-14 15:25:00 CharlesMikey [facility] APTT 2022-06-14 12:09:00 [facility] POCT-GLUCOSE METER 2022-06-14 11:19:00 Velarde [facility] 2D ECHO W/ DOPPLER 2022-06-14 11:00:43 Velarde [facility] (CW/PW/COLOR) [facility] IRON, TIBC, % SAT. (WITHOUT 2022-06-14 09:19:00 Shashi [facility] FERRITIN) [facility] FERRITIN 2022-06-14 09:19:00 Guanako Danielle [facility] POCT-GLUCOSE METER 2022-06-14 07:56:00 Mikey Charles [facility] APTT 2022-06-14 06:08:00 [facility] W/PLT COUNT & AUTO 2022-06-14 03:36:00 Cellstephen [facility] BASIC METABOLIC PANEL 2022-06-14 03:36:00 Celli, [facility] MAGNESIUM 2022-06-14 03:36:00 Cellstephen [facility] PHOSPHORUS 2022-06-14 03:36:00 Celli [facility] LIPID PANEL 2022-06-14 03:36:00 Cellstephen [facility] HEMOGLOBIN A1C 2022-06-14 03:36:00 Cellstephen [facility] CBC W/PLT COUNT & AUTO 2022-06-14 03:36:00 Cellstephen [facility] POCT-GLUCOSE METER 2022-06-13 22:24:00 Mikey Charles [facility] HIGH SENSITIVITY TROPONIN I 2022-06-13 18:21:00 [facility]FREE T4 IF INDICATED 2022-06-13 18:21:00 Cassie Mayes [place] [facility] T4, FREE 2022-06-13 18:21:00 Cassie Mayes [facility] XR CHEST 1 VIEW PORTABLE / 2022-06-13 15:34:[address] [facility] APTT 2022-06-13 15:24:00 Cellstephen [facility] MAGNESIUM 2022-06-13 15:23:00 Cellstephen [facility] COMPREHENSIVE METABOLIC 2022-06-13 15:23:00 Cellstephen [facility] PHOSPHORUS 2022-06-13 15:23:00 [facility] HIGH SENSITIVITY TROPONIN I 2022-06-13 15:23:00 Cellstephen [facility] CBC W/PLT COUNT & AUTO 2022-06-13 15:23:00 Celli, [facility] APTT 2022-06-13 15:23:00 CellRomeo mitchell [facility] CBC W/PLT COUNT & AUTO 2022-06-13 15:23:00 CellRomeo mitchell [facility] DIFFERENTIAL [facility] ECG 12-LEAD 2022-06-13 15:12:38 CelliRomeo [facility] ECG 12-LEAD 2022-06-13 15:12:38 Unknown, [facility] ECG 12-LEAD 2022-06-13 15:12:38 Unknown, Hl7 [facility] EKG-SCANNED 2022-06-13 00:00:00 ProviderDorinda [facility] es [facility] Hernia repair [facility] Plan of Care Planned Activity Planned Date Details Comments Source Future Scheduled 2023-06-[address] [facility] Test 00:00:00 [facility] r Screening (12+) [code = Tobacco Cessation Counseling and Screening (12+)] Future Scheduled 2023-06-[address] [facility] Test 00:00:00 [facility] Cent[facility] r Screening (12+) [code = Tobacco Cessation Counseling and Screening (12+)] Future Scheduled 2022-07-[address] [facility] Test 00:00:00 (12+) [code = Medical Center DEPRESSION SCREENING (12+)] Future Scheduled 2022-07-22 FALLS RISK SCREENING [facility] Test 00:00:00 [code = FALLS RISK Medical C enter SCREENING] Future Scheduled 2022-06-[address] [facility] 00:00:00 measurement Medical Center (procedure) [code = 29500065] Future Scheduled 2022-06-04 DTAP/TDAP/TD VACCINES [facility] 00:00:00 (2 - Td or Tdap) [code Medic al Center = DTAP/TDAP/TD VACCINES (2 - Td or Tdap)] Future Scheduled 2022-06-04 DTAP/TDAP/TD VACCINES [facility] 00:00:00 (2 - Td or Tdap) [code Medic al Center = DTAP/TDAP/TD VACCINES (2 - Td or Tdap)] Future Scheduled 2022-03-22 INFLUENZA VACCINE (#1) [facility]00 [code = INFLUENZA Medical Ce nter VACCINE (#1)] Future Scheduled 2022-03-22 INFLUENZA VACCINE (#1) [facility] 00:00:00 [code = INFLUENZA Medical Ce nter VACCINE (#1)] Future Scheduled 2021-07-[address] [facility] Test 00:00:00 (12+) [code = Medical Center DEPRESSION SCREENING (12+)] Future Scheduled 2021-07-22 FALLS RISK SCREENING [facility] Test 00:00:00 [code = FALLS RISK Medical C enter SCREENING] Future Scheduled 1992 SHINGLES VACCINES ([address] [facility] Test 00:00:00 of 2) [code = SHINGLES Medic al Center VACCINES (1 of 2)] Future Scheduled 1992 SHINGLES VACCINES ([address] [facility] Test 00:00:00 of 2) [code = SHINGLES Medic al Center VACCINES (1 of 2)] Future Scheduled 1960 HEPATITIS C [facility]CRE[facility]ING [facility] 00:00:00 [code = HEPATITIS C Medical Center SCREENING] Future Scheduled 1952 DIABETIC EYE EXAM [facility] Test 00:00:00 [code = DIABETIC EYE Medical Center EXAM] Future Scheduled [address] [facility] 00:00:00 examination Medical Center (regime/therapy) [code = 836725059] Future Scheduled 1952 Urine screening for [facility] Test 00:00:00 protein (procedure) Medical Center [code = 520868169] Future Scheduled 1948 PNEUMOCOCCAL 65+ YRS [facility] Test 00:00:00 (1 - PCV) [code = Medical Ce nter PNEUMOCOCCAL 65+ YRS (1 - PCV)] Future Scheduled 1948 PNEUMOCOCCAL 65+ YRS [facility] Test 00:00:00 (1 - PCV) [code = Medical Ce nter PNEUMOCOCCAL 65+ YRS (1 - PCV)] Future Scheduled 1941-01[birth year]01 COVID-19 VACCINE (#1) [facility] 00:00:00 [code = COVID-[address] VACCINE (#1)] Future Scheduled 1943-01-01 COVID-19 VACCINE (#1) [facility] 00:00:00 [code = COVID-[address] VACCINE (#1)] Future Scheduled 1940 DXA SCAN [code = DXA [facility] Test 00:00:00 SCAN] [facility] Future Scheduled 1940 DXA SCAN [code = DXA [facility] Test 00:00:00 SCAN] [facility] Goal Plan of Care Note [code = 93917-3] Goal Plan of Care Note [code = 18753-8] Goal Plan of Care Note [code = 62837-9] Goal Plan of Care Note [code = 72362-6] Goal Plan of Care Note [code = 92210-2] Goal Plan of Care Note [code = 92312-9] Goal Plan of Care Note [code = 18413-7] Goal Plan of Care Note [code = 16012-5] Goal Plan of Care Note [code = 22585-7] Goal Plan of Care Note [code = 11711-3] Goal Plan of Care Note [code = 06373-0] Goal Plan of Care Note [code = 19285-3] Goal Plan of Care Note [code = 91207-9] Goal Plan of Care Note [code = 56172-0] Goal Plan of Care Note [code = 42831-7] Goal Plan of Care Note [code = 97365-6] Goal Plan of Care Note [code = 98912-9] Goal Plan of Care Note [code = 79613-0] Goal Plan of Care Note [code = 83494-2] Goal Plan of Care Note [code = 34441-9] Goal Plan of Care Note [code = 44490-8] Goal Plan of Care Note [code = 93016-5] Goal Plan of Care Note [code = 64698-1] Goal Plan of Care Note [code = 63325-3] Goal Plan of Care Note [code = 36565-9] Goal Plan of Care Note [code = 09447-9] Goal Plan of Care Note [code = 94332-2] Goal Plan of Care Note [code = 53779-3] Goal Plan of Care Note [code = 96380-0] Goal Plan of Care Note [code = 18164-0] Goal Plan of Care Note [code = 72246-0] Goal Plan of Care Note [code = 09400-9] Goal Plan of Care Note [code = 03059-3] Goal Plan of Care Note [code = 55839-9] Goal Plan of Care Note [code = 65512-8] Goal Plan of Care Note [code = 30439-4] Goal Plan of Care Note [code = 38445-3] Goal Plan of Care Note [code = 87813-0] Goal Plan of Care Note [code = 38418-5] Goal Plan of Care Note [code = 30254-8] Goal Plan of Care Note [code = 72370-7] Goal Plan of Care Note [code = 33609-9] Encounters Start End Encounter Admission Attending Care Care Encounter Source Date/Time Date/Time Type Type Clinicians Facility Department ID 2022-07-10 2022-07-10 Outpatient R RADIOLOGY [facility] [id number] Univers 15:37:11 23:59:00 ity [facility] 2022-07-10 2022-07-10 Outpatient R RADIOLOGY [facility] [id number] Univers 15:37:11 23:59:00 itFoundation [facility] 2022-07-10 2022-07-10 [facility] Radiology [facility] [id number] Univers 15:00:00 23:59:00 Encounter [place] [id number] [facility] [id number] [facility] [id number] [facility] [address] 2022-06-[address] [facility] [id number] [facility] St 11:30:00 18:00:00 Encounter Hilda Lemus Ron [facility] 2022-06-13 2022 Inpatient UR CHINTAN LEMUS Surgery [id number] SLE 11:30:00 18:00:00 HILDA 2022-06-29 2022-06-29 Outpatient CHINTAN ORONA [facility] [id number] SLE 00:00:00 00:00:00 SHELLIE 2022-06-21 2022-06-[address] [facility] [id number] 08[facility]58[facility]00 17:06:00 Event Nestor Wang [facility] 2022-06-21 2022-06-21 Surgery Pancho, [facility] [id number] 07:30:00 16:32:00 [facility] 2022-06-20 2022-06-20 Anesthesia Pedro, [facility] [id number] 19:22:27 19:22:27 Event [facility] 2022-06-14 2022-06-14 Outpatient [facility] [id number] [facility] 00:00:00 23:59:00 [facility] 2022-06-13 2022-06-13 [facility] [id number] [facility] 11:30:00 23:59:00 [facility] 2022-06-13 2022-06-[address] [facility] [id number] 00:00:00 00:00:00 Only [facility] 2022-06-13 2022-06-13 Travel [facility] [id number] [facility] 00:[facility] 00:00:00 [facility] 2022-06-13 2022-06-[address] [facility] [id number] 00:00:00 00:00:00 Only [facility] 2022-06-13 2022-06-13 Travel [facility] [id number] [facility] 00:[facility]00 00:00:00 [facility] 2022-06-08 2022-06-08 Outpatient SFA SFA [id number] [place] 08:04:04 08:04:04 1118 F Mau 2022-06-01 2022-06-01 Outpatient SFA SFA [id number] [place] 13:21:56 13:21:56 1111 F Mau 2022-05-31 2022-05-31 Outpatient SFA SFA [id number] [place] 07:54:51 07:54:51 1110 F Mau 2022-05-31 2022-05-31 Outpatient [id number] 00:00:00 00:00:00 Visit [id number] [id number] 2022-03-03 2022-03-03 Outpatient [id number] 00:00:00 00:00:00 Visit [id number] [id number] 2019-10-16 Ambulatory nullFlavo [facility] [id number] [facility]oria 19:55:00 19:55:00 Pre-Reg r Urology [facility] l [facility] 2019-10-16 2019-10-16 Ambulatory nullFlavo [facility] [id number] [facility] 19:55:00 19:55:00 Pre-Reg r Urology 01 [facility] 2019-10-16 2019-10-16 Ambulatory nullFlavo [facility] [id number] Memoria 19:45:00 19:45:00 Pre-Reg r Urology 02 l [facility] 2019-10-16 2019-10-16 Ambulatory nullFlavo [facility] [id number] [facility] 19:45:00 19:45:00 Pre-Reg r Urology 02 l [facility] 2019-10-16 2019-10-16 Outpatient MHIE MHIE [id number] [facility] 14:55:00 14:55:00 01 l [place] 2019-10-16 2019-10-16 Outpatient Staller, [facility] [id number] 14:55:00 14:55:00 Olinda L 2019-10-16 2019-10-16 Outpatient MHIE MHIE [id number] [facility]oria 14:45:00 14:45:00 02 l Joshua 2019-10-16 2019-10-16 Outpatient VISIT, [facility] [id number] 14:45:00 14:45:00 NURSE POLLO 2019-09-23 2019-09-24 Outpatient nullFlavo [facility] Multi 55 [id number] Memoria 15:40:00 05:59:59 r Specialty 00 l [facility] 2019-09-23 2019-09-24 Outpatient nullFlavo [facility] Multi 55 [id number] Memoria 15:40:00 05:59:59 r Specialty 00 l [facility] Walter Gregg 2019-09-23 2019-09-23 Outpatient Tash [facility] [id number] 09:40:00 23:59:59 Olinda L 00 Results Test Description Test Time Test Comments Results Result Comments Source POC-Glucose meter 2022 12:25:56 Test Item Value Reference Range Interpretation Comme nts POC-Glucose Meter (test code = 209 mg/dL 70-110 H : TESTED AT [facility] [address]) [facility], 7[address] 30: Thickener Operator/Techni jo ann ID = [id number] for Julisa Gardiner Lab Interpretation (test code = Abnormal 40207-1) [facility] [id number] 12:25:56 Test Item Value Reference Range Interpretation Comments POC-GLUCOSE METER 209 mg/dL 70-110 H : [facility] [address] (BEAKER) (test code = [address] [facility], 1538) [address]: Thickener Operator/Techni jo ann ID = [id number] for Sa Julisa juarez RAD, CHEST, 1 VIEW, NON [id number] 08:49:00Reason for exam:->Post ACB,Reason for exam:->pulm edemaShould this be performed at the bedside? ->Yes[facility] : 1940 Sex: FFINAL REPORT RAD, CHEST, 1 VIEW, NON DEPT INDICATION: Post ACB,pulm edema COMPARISON: Prior day's exam FINDINGS: Portable frontal view of the chest. IMPRESSION: Support Lines: Overlying leads/monitors. Status post ACB. Lungs and pleura: Lungs are predominantly clear. No significant pneumothorax. Heart and mediastinum: Normal contours. Stable surgical changes. Additional findings:None. Signed: Irene Hyde Verified Date/Time: 2022 08:49:04 Reading Location: [address] Reading Room POCT-GLUCOSE [id number] 08:22:08 Test Item Value Reference Range Interpretation Comments POC-GLUCOSE METER 124 mg/dL 70-110 H : TESTED A T [facility] [address] (BEAKER) (test code = [place], 1538) [address]: Thickener Operator/Techni jo ann ID = [id number] for Julisa Casey [id number] 06:10:16 Test Item Value Reference Range Interpretation Comments MAGNESIUM (BEAKER) (test code = 1.8 mg/dL 1.6-2.6 627) Thickener Operator ID - DANIELLE [id number] 06:10:16 Test Item Value Reference Range Interpretation Comments PHOSPHORUS (BEAKER) (test code = 3.6 mg/dL 2.3-4.7 604) Thickener Operator ID - DANIELLE LBASIC METABOLIC [id number] 06:10:15 Test Item Value Reference Range Interpretation Comments SODIUM (BEAKER) 133 meq/L 136-145 L (test code = 381) POTASSIUM 4.0 meq/L 3.5-5.1 (BEAKER) (test code = 379) CHLORIDE (BEAKER) 100 meq/L 98-107 (test code = 382) CO2 (BEAKER) 24 meq/L 22-29 (test code = 355) BLOOD UREA 17 mg/dL 7-21 NITROGEN (BEAKER) (test code = 354) CREATININE 0.81 mg/dL 0.57-1.25 (BEAKER) (test code = 358) GLUCOSE RANDOM 113 mg/dL 70-105 H (BEAKER) (test code = 652) CALCIUM (BEAKER) 9.0 mg/dL 8.4-10.2 (test code = 697) EGFR (BEAKER) 73 Interpretatio n of eGFR (test code = mL/min/1.73 values Stage De scription 1092) sq m Result G1 Nalini l or high >=90 G2 Mildly decreased 60-89 G3a Mildl y to moderately 45-5 9 G3b Moderately to s everely 30-44 G4 Severl y decreased 15-29 G5 Kidney failure <15Reported eGF R is based on the CKD-EPI 2020 equation that d oes not use a race coefficientEsti mated GFR is not as accur ate as Creatinine Keira saurabh in predicting glom erular filtration rate . Estimated GFR is not appl icable for dialysis patien ts Thickener Operator ID - PIAYA LCBC W/PLT COUNT & AUTO [id number] 05:40:01 Test Item Value Reference Range Interpretation Comments WHITE BLOOD CELL COUNT (BEAKER) 9.8 K/ L 3.5-10.5 (test code = 775) RED BLOOD CELL COUNT (BEAKER) 3.64 M/ L 3.93-5.22 L (test code = 761) HEMOGLOBIN (BEAKER) (test code = 10.3 GM/DL 11.2-15.7 L 410) HEMATOCRIT (BEAKER) (test code = 31.8 % 34.1-44.9 L 411) MEAN CORPUSCULAR VOLUME (BEAKER) 87 fL 79-95 (test code = 753) MEAN CORPUSCULAR HEMOGLOBIN 28.3 pg 25.6-32.2 (BEAKER) (test code = 751) MEAN CORPUSCULAR HEMOGLOBIN CONC 32.4 GM/DL 32.2-35.5 (BEAKER) (test code = 752) RED CELL DISTRIBUTION WIDTH 21.8 % 11.7-14.4 H (BEAKER) (test code = 412) PLATELET COUNT (BEAKER) (test 451 K/CU MM 150-450 H code = 756) MEAN PLATELET VOLUME (BEAKER) 9.1 fL 9.4-12.3 L (test code = 754) NUCLEATED RED BLOOD CELLS 0 /100 WBC 0-0 (BEAKER) (test code = 413) NEUTROPHILS RELATIVE PERCENT 66 % (BEAKER) (test code = 429) LYMPHOCYTES RELATIVE PERCENT 18 % (BEAKER) (test code = 430) MONOCYTES RELATIVE PERCENT 11 % (BEAKER) (test code = 431) EOSINOPHILS RELATIVE PERCENT 4 % (BEAKER) (test code = 432) BASOPHILS RELATIVE PERCENT 0 % (BEAKER) (test code = 437) NEUTROPHILS ABSOLUTE COUNT 6.46 K/ L 1.56-6.13 H (BEAKER) (test code = 670) LYMPHOCYTES ABSOLUTE COUNT 1.71 K/ L 1.18-3.74 (BEAKER) (test code = 414) MONOCYTES ABSOLUTE COUNT (BEAKER) 1.04 K/ L 0.24-0.36 H (test code = 415) EOSINOPHILS ABSOLUTE COUNT 0.36 K/ L 0.04-0.36 (BEAKER) (test code = 416) BASOPHILS ABSOLUTE COUNT (BEAKER) 0.04 K/ L 0.01-0.08 (test code = 417) IMMATURE GRANULOCYTES-RELATIVE 1.50 % 0.00-1.00 H PERCENT (BEAKER) (test code = 2801) [id number] 05:39:26 Test Item Value Reference Range Interpretation Comments PROTIME (BEAKER) (test 13.4 seconds 11.9-14.2 code = 759) INR (BEAKER) (test 1.04 See_Comment [Automat ed code = 370) message] The sy stem which generated this result transmitted reference range : <=5.90. The reference range was not used to interpret this result as normal/abnormal . PARTIAL THROMBOPLASTIN 30.7 seconds 22.5-36.0 TIME (BEAKER) (test code = 760) RECOMMENDED COUMADIN/WARFARIN INR THERAPY RANGESSTANDARD DOSE: 2.0 - 3.0 Includes: PROPHYLAXIS for venous thrombosis, systemic embolization; TREATMENT for venous thrombosis and/or pulmonary embolus.HIGH RISK: Target INR is 2.5-3.5 for patients with mechanical heart valves.POCT-GLUCOSE [id number] 21:00:13 Test Item Value Reference Range Interpretation Comments POC-GLUCOSE METER 133 mg/dL 70-110 H : [facility] ([employer]) (test code = [facility], 1538) [address]: Thickener Operator/Techni jo ann ID = [id number] for JULIANE CLARK POCT-GLUCOSE [id number] 16:55:42 Test Item Value Reference Range Interpretation Comments POC-GLUCOSE METER 172 mg/dL 70-110 H : [facility]ED [facility] T [facility] [address] ([employer]) (test code = ЕЛЕНА Borden [facility], 1538) [address]: Thickener Operator/Techni jo ann ID = [id number] for HU NTER, HIWITHA POCT-GLUCOSE [id number] 12:09:10 Test Item Value Reference Range Interpretation Comments POC-GLUCOSE METER 161 mg/dL 70-110 H : TESTED A T [facility] [address] (ARIE) (test code = [place], 1538) [id number]: Thickener Operator/Techni jo ann ID = [id number] for HU NTER, HIWITHA RAD, CHEST, 1 VIEW, NON [id number] 08:19:00Reason for exam:->Post ACB,Reason for exam:->pulm edemaShould this be performed at the bedside? ->Yes[facility] : 1940 Sex: FFINAL REPORT RAD, CHEST, 1 VIEW, NON DEPT INDICATION: Post ACB,pulm edema COMPARISON: Prior day's exam FINDINGS: Portable frontal view of the chest. IMPRESSION: Support Lines: Overlying leads/monitors. Status post ACB. Lungs and pleura: Unchanged airspace disease on the left concerning for worsening volume overload No significant pneumothorax. Heart and mediastinum: Normal contours. Stable surgical changes. Additional findings: None. Signed: Irene Hyde Verified Date/Time: 07/02/2022 08:19:17 Reading Location: [address] Reading Room POCT-GLUCOSE [id number] 07:21:31 Test Item Value Reference Range Interpretation Comments POC-GLUCOSE METER 106 mg/dL 70-110 : TESTED A T [facility] 6720 (BEAKER) (test code = [place], 1538) [id number]: Thickener Operator/Techni jo ann ID = [id number] for ERIN PRO [id number] 07:05:58 Test Item Value Reference Range Interpretation Comments PHOSPHORUS (BEAKER) (test code = 3.3 mg/dL 2.3-4.7 604) Thickener Operator ID - DANIELLE LBASIC METABOLIC [id number] 07:05:57 Test Item Value Reference Range Interpretation Comments SODIUM (BEAKER) 136 meq/L 136-145 (test code = 381) POTASSIUM 4.0 meq/L 3.5-5.1 (BEAKER) (test code = 379) CHLORIDE (BEAKER) 104 meq/L 98-107 (test code = 382) CO2 (BEAKER) 24 meq/L 22-29 (test code = 355) BLOOD UREA 14 mg/dL 7-21 NITROGEN (BEAKER) (test code = 354) CREATININE 0.78 mg/dL 0.57-1.25 (BEAKER) (test code = 358) GLUCOSE RANDOM 103 mg/dL 70-105 (BEAKER) (test code = 652) CALCIUM (BEAKER) 9.0 mg/dL 8.4-10.2 (test code = 697) EGFR (BEAKER) 77 Interpretatio n of eGFR (test code = mL/min/1.73 values Stage De scription 1092) sq m Result G1 Nalini l or high >=90 G2 Mildly decreased 60-89 G3a Mildl y to moderately 45-5 9 G3b Moderately to s everely 30-44 G4 Severl y decreased 15-29 G5 Kidney failure <15Reported eGF R is based on the CKD-EPI 1 equation that d oes not use a race coefficientEsti mated GFR is not as accur ate as Creatinine Keira wiley in predicting glom erular filtration rate . Estimated GFR is not appl icable for dialysis patien ts Thickener Operator ID - DANIELLE [id number] 07:05:57 Test Item Value Reference Range Interpretation Comments MAGNESIUM (BEAKER) (test code = 1.9 mg/dL 1.6-2.6 627) Thickener Operator ID - DANIELLE LCBC W/PLT COUNT & AUTO [id number] 06:27:58 Test Item Value Reference Range Interpretation Comments WHITE BLOOD CELL COUNT (BEAKER) 9.0 K/ L 3.5-10.5 (test code = 775) RED BLOOD CELL COUNT (BEAKER) 3.57 M/ L 3.93-5.22 L (test code = 761) HEMOGLOBIN (BEAKER) (test code = 10.1 GM/DL 11.2-15.7 L 410) HEMATOCRIT (BEAKER) (test code = 31.3 % 34.1-44.9 L 411) MEAN CORPUSCULAR VOLUME (BEAKER) 88 fL 79-95 (test code = 753) MEAN CORPUSCULAR HEMOGLOBIN 28.3 pg 25.6-32.2 (BEAKER) (test code = 751) MEAN CORPUSCULAR HEMOGLOBIN CONC 32.3 GM/DL 32.2-35.5 (BEAKER) (test code = 752) RED CELL DISTRIBUTION WIDTH 21.3 % 11.7-14.4 H (BEAKER) (test code = 412) PLATELET COUNT (BEAKER) (test 441 K/CU MM 150-450 code = 756) MEAN PLATELET VOLUME (BEAKER) 9.3 fL 9.4-12.3 L (test code = 754) NUCLEATED RED BLOOD CELLS 0 /100 WBC 0-0 (BEAKER) (test code = 413) NEUTROPHILS RELATIVE PERCENT 67 % (BEAKER) (test code = 429) LYMPHOCYTES RELATIVE PERCENT 15 % (BEAKER) (test code = 430) MONOCYTES RELATIVE PERCENT 12 % (BEAKER) (test code = 431) EOSINOPHILS RELATIVE PERCENT 4 % (BEAKER) (test code = 432) BASOPHILS RELATIVE PERCENT 1 % (BEAKER) (test code = 437) NEUTROPHILS ABSOLUTE COUNT 6.02 K/ L 1.56-6.13 (BEAKER) (test code = 670) LYMPHOCYTES ABSOLUTE COUNT 1.30 K/ L 1.18-3.74 (BEAKER) (test code = 414) MONOCYTES ABSOLUTE COUNT (BEAKER) 1.10 K/ L 0.24-0.36 H (test code = 415) EOSINOPHILS ABSOLUTE COUNT 0.36 K/ L 0.04-0.36 (BEAKER) (test code = 416) BASOPHILS ABSOLUTE COUNT (BEAKER) 0.05 K/ L 0.01-0.08 (test code = 417) IMMATURE GRANULOCYTES-RELATIVE 1.50 % 0.00-1.00 H PERCENT (BEAKER) (test code = 2801) [id number] 06:24:00 Test Item Value Reference Range Interpretation Comments PROTIME (BEAKER) (test 13.9 seconds 11.9-14.2 code = 759) INR (BEAKER) (test 1.09 See_Comment [Automat ed code = 370) message] The sy stem which generated this result transmitted reference range : <=5.90. The reference range was not used to interpret this result as normal/abnormal . PARTIAL THROMBOPLASTIN 30.8 seconds 22.5-36.0 TIME (BEAKER) (test code = 760) RECOMMENDED COUMADIN/WARFARIN INR THERAPY RANGESSTANDARD DOSE: 2.0 - 3.0 Includes: PROPHYLAXIS for venous thrombosis, systemic embolization; TREATMENT for venous thrombosis and/or pulmonary embolus.HIGH RISK: Target INR is 2.5-3.5 for patients with mechanical heart valves.POCT-GLUCOSE [id number] 21:38:58 Test Item Value Reference Range Interpretation Comments POC-GLUCOSE METER 142 mg/dL 70-110 H : TESTED A T [facility] [address]20 (BEAKER) (test code = [place], 1538) [id number]: Thickener Operator/Techni jo ann ID = [id number] for JOSE MCDERMOTT SARS-CoV2/RT-PCR (Asymptomatic ONLY)2022-07-01 17:08:22 Test Item Value Reference Interpretation Comments Range SARS-COV2/RT-PCR Negative Negative The SARS-Co V-2 (test code = target nucleic 67415-3) acids are not detected in [facility] s specimen. Negat avril results do not preclude SARS-C oV-2 infection and should not be u sed as the sole bas is for patient management decisions. Nega tive results must be combined with clinical observations, patient history , and epidemiolog ical information. A false negative result may occu r if a specimen is improperly collected, transported or handled. This S ARS CoV-2 test is a rapid, real-cecy e RT-PCR test intended for e qualitative detection of nucleic acid fr om SARS-CoV-2 in a nasopharyngeal swab specimen [facility] from individual s suspected of COVID-19 by the ir healthcare provider. YOGESH (test code = This test has been YOGESH) authorized by FDA under an EUA for use by authorized laboratories. This test is only authorized for the duration of the declaration that circumstances exist justifying the authorization of emergency use of in vitro diagnostic tests for detection and/or diagnosis of COVID-19 under Section 564(b)(1) of the Federal Food, Drug and Cosmetic Act, 21 U.S.C. 360bbb-3(b)(1), unless the authorization is terminated or revoked sooner. Fact Sheet for Healthcare Providers: https://www.[employer]/Documents/Xp ert%20Xpress%20SAR S%20CoV-2/Fact%20S heets/302-3802%20S ARS-COV-2%20HEALTH CARE%20PROVIDERS%2 0FACT%20SHEET.pdf Fact Sheet for Healthcare Patients: https://wwwAtigeo/Documents/Xp ert%20Xpress%20SAR S%20CoV-2/Fact%20S heets/302-3801%20S ARS-COV-2%20PATIEN T%20FACT%20SHEET.p df Lab Interpretation Normal (test code = 15204-0) [facility])2022-07-01 17:08:22 Test Item Value Reference Range Interpretation Comments SARS-COV2/RT-PCR Negative Negative The SARS-Co V-2 target (test code = nucleic acids a re not [id number]) detected in thi s specimen. Negative result s do not preclude SARS-C oV-2 infection and s hould not be used as the yanira e basis for patient managem ent decisions. Nega tive results must be combine d with clinical observ ations, patient history , and epidemiological information. A false negativ e result may occur if a spec imen is improperly deo ected, transported or handled. This SARS CoV-2 test is a rapid, real-time RT-PC R test intended for th e qualitative detection of nu cleic acid from SARS-CoV-2 in a nasopharyngeal swab specimen collected from individuals suspected of CO VID-19 by their healthcar e provider. This test has been authorized by FDA under an EUA for use by authorized laboratories. This test is only authorized for the duration of the declaration that circumstances exist justifying the authorization of emergency use of in vitro diagnostic tests for detection and/or diagnosis of COVID-19 under Section 564(b)(1) of the Federal Food, Drug and Cosmetic Act, 21 U.S.C. 360bbb-3(b)(1), unless the authorization is terminated or revoked sooner. Fact Sheet for Healthcare Providers: https://www.[employer]/Documents/Xpert%20Xpress%20SARS%20CoV-2/Fact%20Sheets/302-3802%04MGUZ-JTK-6%20 HEALTHCARE%20PROVIDERS%20FACT%20SHEET.pdf Fact Sheet for Healthcare Patients: https://www.[employer]/Documents/Xpert%20Xp ress%20SARS%20CoV-2/Fact%20Sheets/302-3801%82WGWQ-LYJ-5%20PATIENT%20FACT%20SHEET .pdfPOCT-GLUCOSE [id number] 16:48:37 Test Item Value Reference Range Interpretation Comments POC-GLUCOSE METER 163 mg/dL 70-110 H : TESTED A T [facility] 6720 ([employer]) (test code = [place] [facility], 1538) [address]: Thickener Operator/Techni jo ann ID = [id number] for Do Luciano barrera POCT-GLUCOSE [id number] 11:55:14 Test Item Value Reference Range Interpretation Comments POC-GLUCOSE METER 208 mg/dL 70-110 H : TESTED A T [facility] [address] ([employer]) (test code = [place] [facility], 1538) [address]: Thickener Operator/Techni jo ann ID = [id number] for Do Luciano barrera RAD, CHEST, 1 VIEW, NON [id number] 09:20:00Reason for exam:->Post ACB,Reason for exam:->pulm edemaShould this be performed at the bedside? ->YesCHI [facility] : 1940 Sex: FFINAL REPORT RAD, CHEST, 1 VIEW, NON DEPT INDICATION: Post ACB,pulm edema COMPARISON: Prior day's exam FINDINGS: Portable frontal view of the chest. IMPRESSION: Support Lines: Overlying leads/monitors. Status post ACB. Lungs and pleura: Increased airspace disease on the left concerning for worsening volume overload No significant pneumothorax. Heart and mediastinum: Normal contours. Additional findings: None. Signed: Irene Hyde Verified Date/Time: 07/01/2022 09:20:07 POCT-GLUCOSE [id number] 07:39:07 Test Item Value Reference Range Interpretation Comments POC-GLUCOSE METER 125 mg/dL 70-110 H : TESTED A T [facility] 6720 (BEAKER) (test code = MELAKOMAL Borden [facility], 1538) [address]: Thickener Operator/Techni jo ann ID = [id number] for Tahmina Gardnerlon CBC W/PLT COUNT & AUTO [id number] 05:20:19 Test Item Value Reference Range Interpretation Comments WHITE BLOOD CELL COUNT (BEAKER) 8.4 K/ L 3.5-10.5 (test code = 775) RED BLOOD CELL COUNT (BEAKER) 3.47 M/ L 3.93-5.22 L (test code = 761) HEMOGLOBIN (BEAKER) (test code = 9.7 GM/DL 11.2-15.7 L 410) HEMATOCRIT (BEAKER) (test code = 30.4 % 34.1-44.9 L 411) MEAN CORPUSCULAR VOLUME (BEAKER) 88 fL 79-95 (test code = 753) MEAN CORPUSCULAR HEMOGLOBIN 28.0 pg 25.6-32.2 (BEAKER) (test code = 751) MEAN CORPUSCULAR HEMOGLOBIN CONC 31.9 GM/DL 32.2-35.5 L (BEAKER) (test code = 752) RED CELL DISTRIBUTION WIDTH 20.6 % 11.7-14.4 H (BEAKER) (test code = 412) PLATELET COUNT (BEAKER) (test 358 K/CU MM 150-450 code = 756) MEAN PLATELET VOLUME (BEAKER) 10.0 fL 9.4-12.3 (test code = 754) NUCLEATED RED BLOOD CELLS 0 /100 WBC 0-0 (BEAKER) (test code = 413) NEUTROPHILS RELATIVE PERCENT 65 % (BEAKER) (test code = 429) LYMPHOCYTES RELATIVE PERCENT 17 % (BEAKER) (test code = 430) MONOCYTES RELATIVE PERCENT 12 % (BEAKER) (test code = 431) EOSINOPHILS RELATIVE PERCENT 4 % (BEAKER) (test code = 432) BASOPHILS RELATIVE PERCENT 1 % (BEAKER) (test code = 437) NEUTROPHILS ABSOLUTE COUNT 5.49 K/ L 1.56-6.13 (BEAKER) (test code = 670) LYMPHOCYTES ABSOLUTE COUNT 1.41 K/ L 1.18-3.74 (BEAKER) (test code = 414) MONOCYTES ABSOLUTE COUNT (BEAKER) 0.97 K/ L 0.24-0.36 H (test code = 415) EOSINOPHILS ABSOLUTE COUNT 0.35 K/ L 0.04-0.36 (BEAKER) (test code = 416) BASOPHILS ABSOLUTE COUNT (BEAKER) 0.05 K/ L 0.01-0.08 (test code = 417) IMMATURE GRANULOCYTES-RELATIVE 1.40 % 0.00-1.00 H PERCENT (BEAKER) (test code = 2801) No platelet clumps [id number] 04:31:50 Test Item Value Reference Range Interpretation Comments PHOSPHORUS (BEAKER) (test code = 2.6 mg/dL 2.3-4.7 604) Thickener Operator ID - MARCOBASIC METABOLIC [id number] 04:31:50 Test Item Value Reference Range Interpretation Comments SODIUM (BEAKER) 136 meq/L 136-145 (test code = 381) POTASSIUM 4.1 meq/L 3.5-5.1 (BEAKER) (test code = 379) CHLORIDE (BEAKER) 103 meq/L 98-107 (test code = 382) CO2 (BEAKER) 23 meq/L 22-29 (test code = 355) BLOOD UREA 14 mg/dL 7-21 NITROGEN (BEAKER) (test code = 354) CREATININE 0.76 mg/dL 0.57-1.25 (BEAKER) (test code = 358) GLUCOSE RANDOM 114 mg/dL 70-105 H (BEAKER) (test code = 652) CALCIUM (BEAKER) 9.0 mg/dL 8.4-10.2 (test code = 697) EGFR (BEAKER) 80 Interpretatio n of eGFR (test code = mL/min/1.73 values Stage De scription 1092) sq m Result G1 Nalini l or high >=90 G2 Mildly decreased 60-89 G3a Mildl y to moderately 45-5 9 G3b Moderately to s everely 30-44 G4 Severl y decreased 15-29 G5 Kidney failure <15Reported eGF R is based on the CKD-EPI 2020 equation that d oes not use a race coefficientEsti mated GFR is not as accur ate as Creatinine Keira saurabh in predicting glom erular filtration rate . Estimated GFR is not appl icable for dialysis patien ts Thickener Operator ID - MARCOSpecimen slightly [id number] 04:31:49 Test Item Value Reference Range Interpretation Comments MAGNESIUM (BEAKER) (test code = 1.6 mg/dL 1.6-2.6 627) Thickener Operator ID - MARCOPT/[id number] 04:09:56 Test Item Value Reference Range Interpretation Comments PROTIME (BEAKER) (test 13.6 seconds 11.9-14.2 code = 759) INR (BEAKER) (test 1.10 See_Comment [Automat ed code = 370) message] The sy stem which generated this result transmitted reference range : <=5.90. The reference range was not used to interpret this result as normal/abnormal . PARTIAL THROMBOPLASTIN 28.3 seconds 22.5-36.0 TIME (BEAKER) (test code = 760) RECOMMENDED COUMADIN/WARFARIN INR THERAPY RANGESSTANDARD DOSE: 2.0 - 3.0 Includes: PROPHYLAXIS for venous thrombosis, systemic embolization; TREATMENT for venous thrombosis and/or pulmonary embolus.HIGH RISK: Target INR is 2.5-3.5 for patients with mechanical heart valves.POCT-GLUCOSE [id number] 21:38:08 Test Item Value Reference Range Interpretation Comments POC-GLUCOSE METER 182 mg/dL 70-110 H : TESTED A T [facility] 6720 (BEAKER) (test code = [facility], 153) [address]: Thickener Operator/Techni jo ann ID = [id number] for JOSE MCDERMOTT [employer] 2D [id number] 19:04:08Ejection FractionSLEH ECHO HEARTLAB MKCKESSON CPACSCHI [facility]PO[facility]SE [id number] 17:08:31 Test Item Value Reference Range Interpretation Comments POC-GLUCOSE METER 173 mg/dL 70-110 H : TESTED A T [facility] 6720 (BEAKER) (test code = [facility], 153) [address]: Thickener Operator/Techni jo ann ID = [id number] for Do minguez, Luciano POCT-GLUCOSE [id number] 12:01:04 Test Item Value Reference Range Interpretation Comments POC-GLUCOSE METER 229 mg/dL 70-110 H : TESTED A T [facility] 6720 (BEAKER) (test code = [facility], 153) [address]: Thickener Operator/Techni jo ann ID = [id number] for Do minguez, Luciano POCT-GLUCOSE [id number] 08:18:03 Test Item Value Reference Range Interpretation Comments POC-GLUCOSE METER 104 mg/dL 70-110 : TESTED A T [facility] 6720 (BEAKER) (test code = [facility], 153) [address]: Thickener Operator/Techni jo ann ID = [id number] for Do minguez, Luciano RAD, CHEST, 1 VIEW, NON [id number] 08:15:00Reason for exam:->Post ACB,Reason for exam:->pulm edemaShould this be performed at the bedside? ->YesG[facility] : 1940 Sex: FFINAL REPORT INDICATION: Post ACB,pulm edema COMPARISON: 06/29/2022 TECHNIQUE: Single frontal view of the chest. FINDINGS: Lungs and pleura: Mild bibasilar atelectasis. Small bilateral effusions persist.Heart and mediastinum: Normal heart size. Unremarkable mediastinal contours.Osseous structures: No acute abnormality.Other: Overlying leads/monitors. Signed: Irene Hyde Verified Date/Time: 06/30/2022 08:15:44 [id number] 06:16:45 Test Item Value Reference Range Interpretation Comments MAGNESIUM (BEAKER) (test code = 1.8 mg/dL 1.6-2.6 627) Thickener Operator ID - PIAYA [id number] 06:16:45 Test Item Value Reference Range Interpretation Comments PHOSPHORUS (BEAKER) (test code = 2.5 mg/dL 2.3-4.7 604) Thickener Operator ID - PIAYA LBASIC METABOLIC [id number] 06:16:45 Test Item Value Reference Range Interpretation Comments SODIUM (BEAKER) 138 meq/L 136-145 (test code = 381) POTASSIUM 4.0 meq/L 3.5-5.1 (BEAKER) (test code = 379) CHLORIDE (BEAKER) 104 meq/L 98-107 (test code = 382) CO2 (BEAKER) 22 meq/L 22-29 (test code = 355) BLOOD UREA 13 mg/dL 7-21 NITROGEN (BEAKER) (test code = 354) CREATININE 0.74 mg/dL 0.57-1.25 (BEAKER) (test code = 358) GLUCOSE RANDOM 91 mg/dL 70-105 (BEAKER) (test code = 652) CALCIUM (BEAKER) 9.0 mg/dL 8.4-10.2 (test code = 697) EGFR (BEAKER) 82 Interpretatio n of eGFR (test code = mL/min/1.73 values Stage De scription 1092) sq m Result G1 Nalini l or high >=90 G2 Mildly decreased 60-89 G3a Mildl y to moderately 45-5 9 G3b Moderately to s everely 30-44 G4 Severl y decreased 15-29 G5 Kidney failure <15Reported eGF R is based on the CKD-EPI 2021 equation that d oes not use a race coefficientEsti mated GFR is not as accur ate as Creatinine Keira saurabh in predicting glom erular filtration rate . Estimated GFR is not appl icable for dialysis patien ts Thickener Operator ID - DANIELLE LSpecimen slightly ictericPT/[id number] 05:52:36 Test Item Value Reference Range Interpretation Comments PROTIME (BEAKER) (test 13.3 seconds 11.9-14.2 code = 759) INR (BEAKER) (test 1.03 See_Comment [Automat ed code = 370) message] The sy stem which generated this result transmitted reference range : <=5.90. The reference range was not used to interpret this result as normal/abnormal . PARTIAL THROMBOPLASTIN 32.5 seconds 22.5-36.0 TIME (BEAKER) (test code = 760) RECOMMENDED COUMADIN/WARFARIN INR THERAPY RANGESSTANDARD DOSE: 2.0 - 3.0 Includes: PROPHYLAXIS for venous thrombosis, systemic embolization; TREATMENT for venous thrombosis and/or pulmonary embolus.HIGH RISK: Target INR is 2.5-3.5 for patients with mechanical heart valves.CBC W/PLT COUNT & AUTO [id number] 05:39:36 Test Item Value Reference Range Interpretation Comments WHITE BLOOD CELL COUNT (BEAKER) 8.4 K/ L 3.5-10.5 (test code = 775) RED BLOOD CELL COUNT (BEAKER) 3.76 M/ L 3.93-5.22 L (test code = 761) HEMOGLOBIN (BEAKER) (test code = 10.5 GM/DL 11.2-15.7 L 410) HEMATOCRIT (BEAKER) (test code = 32.8 % 34.1-44.9 L 411) MEAN CORPUSCULAR VOLUME (BEAKER) 87 fL 79-95 (test code = 753) MEAN CORPUSCULAR HEMOGLOBIN 27.9 pg 25.6-32.2 (BEAKER) (test code = 751) MEAN CORPUSCULAR HEMOGLOBIN CONC 32.0 GM/DL 32.2-35.5 L (BEAKER) (test code = 752) RED CELL DISTRIBUTION WIDTH 19.9 % 11.7-14.4 H (BEAKER) (test code = 412) PLATELET COUNT (BEAKER) (test 362 K/CU MM 150-450 code = 756) MEAN PLATELET VOLUME (BEAKER) 9.6 fL 9.4-12.3 (test code = 754) NUCLEATED RED BLOOD CELLS 0 /100 WBC 0-0 (BEAKER) (test code = 413) NEUTROPHILS RELATIVE PERCENT 61 % (BEAKER) (test code = 429) LYMPHOCYTES RELATIVE PERCENT 19 % (BEAKER) (test code = 430) MONOCYTES RELATIVE PERCENT 13 % (BEAKER) (test code = 431) EOSINOPHILS RELATIVE PERCENT 5 % (BEAKER) (test code = 432) BASOPHILS RELATIVE PERCENT 1 % (BEAKER) (test code = 437) NEUTROPHILS ABSOLUTE COUNT 5.15 K/ L 1.56-6.13 (BEAKER) (test code = 670) LYMPHOCYTES ABSOLUTE COUNT 1.57 K/ L 1.18-3.74 (BEAKER) (test code = 414) MONOCYTES ABSOLUTE COUNT (BEAKER) 1.10 K/ L 0.24-0.36 H (test code = 415) EOSINOPHILS ABSOLUTE COUNT 0.43 K/ L 0.04-0.36 H (BEAKER) (test code = 416) BASOPHILS ABSOLUTE COUNT (BEAKER) 0.04 K/ L 0.01-0.08 (test code = 417) IMMATURE GRANULOCYTES-RELATIVE 1.30 % 0.00-1.00 H PERCENT (BEAKER) (test code = 2801) POCT-GLUCOSE [id number] 21:44:48 Test Item Value Reference Range Interpretation Comments POC-GLUCOSE METER 168 mg/dL 70-110 H : TESTED Sonja Fritz [facility] 67[address] (BEAKER) (test code = [place], 1538) [address]: Thickener Operator/Techni jo ann ID = [id number] for Luz Hay POCT-GLUCOSE [id number] 16:59:32 Test Item Value Reference Range Interpretation Comments POC-GLUCOSE METER 164 mg/dL 70-110 H : TESTED A T [facility] 6720 (ARIE) (test code = ЕЛЕ[address]А Borden [facility], 1538) [address]: Thickener Operator/Techni jo ann ID = [id number] for Do Luciano barrera POCT-GLUCOSE [id number] 12:13:48 Test Item Value Reference Range Interpretation Comments POC-GLUCOSE METER 209 mg/dL 70-110 H : TESTED A T [facility] 6720 (ARIE) (test code = ЕЛЕНА Borden [facility], 1538) [address]: Thickener Operator/Techni jo ann ID = [id number] for Do Luciano barrera RAD, CHEST, 1 VIEW, NON [id number] 10:41:00Reason for exam:->Post ACB,Reason for exam:->pulm edemaShould this be performed at the bedside? ->YesG[facility]Name[facility] : 1940 Sex: FFINAL REPORT Chest AP portable Comparison exam: 06/28/2022 History provided: Status post ACB Heart size normal. Minimal right basilar density consistent with small effusion/atelectatic change. Lungs otherwise clear and vascularity normal. Signed: Fernando Christie Verified Date/Time: 06/29/2022 10:41:14 Reading Location: [facility] Imaging Reading Room - [facility] [address] [address] POCT- GLUCOSE [id number] 08:45:20 Test Item Value Reference Range Interpretation Comments POC-GLUCOSE METER 82 mg/dL 70-110 : TESTED A T [facility] [address] (BEAKER) (test code = [place], 1538) [address]: Thickener Operator/Techni jo ann ID = [id number] for Luciano Correia [id number] 06:32:36 Test Item Value Reference Range Interpretation Comments PHOSPHORUS (BEAKER) (test code = 2.2 mg/dL 2.3-4.7 L 604) Thickener Operator ID - ODELLHEATHER LBASIC METABOLIC [id number] 06:32:36 Test Item Value Reference Range Interpretation Comments SODIUM (BEAKER) 136 meq/L 136-145 (test code = 381) POTASSIUM 3.5 meq/L 3.5-5.1 (BEAKER) (test code = 379) CHLORIDE (BEAKER) 102 meq/L 98-107 (test code = 382) CO2 (BEAKER) 26 meq/L 22-29 (test code = 355) BLOOD UREA 12 mg/dL 7-21 NITROGEN (BEAKER) (test code = 354) CREATININE 0.69 mg/dL 0.57-1.25 (BEAKER) (test code = 358) GLUCOSE RANDOM 77 mg/dL 70-105 (BEAKER) (test code = 652) CALCIUM (BEAKER) 8.2 mg/dL 8.4-10.2 L (test code = 697) EGFR (BEAKER) 88 Interpretatio n of eGFR (test code = mL/min/1.73 values Stage De scription 1092) sq m Result G1 Nalini l or high >=90 G2 Mildly decreased 60-89 G3a Mildl y to moderately 45-5 9 G3b Moderately to s everely 30-44 G4 Severl y decreased 15-29 G5 Kidney failure <15Reported eGF R is based on the CKD-EPI 202 equation that d oes not use a race coefficientEsti mated GFR is not as accur ate as Creatinine Keira wiley in predicting glom erular filtration rate . Estimated GFR is not appl icable for dialysis patien ts Thickener Operator ID - ODELLHEATHER LSpecimen slightly [id number] 06:32:35 Test Item Value Reference Range Interpretation Comments MAGNESIUM (BEAKER) (test code = 1.8 mg/dL 1.6-2.6 627) Thickener Operator ID - DANIELLE LCBC W/PLT COUNT & AUTO [id number] 05:16:16 Test Item Value Reference Range Interpretation Comments WHITE BLOOD CELL COUNT (BEAKER) 10.1 K/ L 3.5-10.5 (test code = 775) RED BLOOD CELL COUNT (BEAKER) 3.36 M/ L 3.93-5.22 L (test code = 761) HEMOGLOBIN (BEAKER) (test code = 9.4 GM/DL 11.2-15.7 L 410) HEMATOCRIT (BEAKER) (test code = 28.4 % 34.1-44.9 L 411) MEAN CORPUSCULAR VOLUME (BEAKER) 85 fL 79-95 (test code = 753) MEAN CORPUSCULAR HEMOGLOBIN 28.0 pg 25.6-32.2 (BEAKER) (test code = 751) MEAN CORPUSCULAR HEMOGLOBIN CONC 33.1 GM/DL 32.2-35.5 (BEAKER) (test code = 752) RED CELL DISTRIBUTION WIDTH 18.9 % 11.7-14.4 H (BEAKER) (test code = 412) PLATELET COUNT (BEAKER) (test 283 K/CU MM 150-450 code = 756) MEAN PLATELET VOLUME (BEAKER) 10.3 fL 9.4-12.3 (test code = 754) NUCLEATED RED BLOOD CELLS 0 /100 WBC 0-0 (BEAKER) (test code = 413) NEUTROPHILS RELATIVE PERCENT 71 % (BEAKER) (test code = 429) LYMPHOCYTES RELATIVE PERCENT 14 % (BEAKER) (test code = 430) MONOCYTES RELATIVE PERCENT 10 % (BEAKER) (test code = 431) EOSINOPHILS RELATIVE PERCENT 4 % (BEAKER) (test code = 432) BASOPHILS RELATIVE PERCENT 0 % (BEAKER) (test code = 437) NEUTROPHILS ABSOLUTE COUNT 7.16 K/ L 1.56-6.13 H (BEAKER) (test code = 670) LYMPHOCYTES ABSOLUTE COUNT 1.39 K/ L 1.18-3.74 (BEAKER) (test code = 414) MONOCYTES ABSOLUTE COUNT (BEAKER) 1.03 K/ L 0.24-0.36 H (test code = 415) EOSINOPHILS ABSOLUTE COUNT 0.42 K/ L 0.04-0.36 H (BEAKER) (test code = 416) BASOPHILS ABSOLUTE COUNT (BEAKER) 0.03 K/ L 0.01-0.08 (test code = 417) IMMATURE GRANULOCYTES-RELATIVE 1.00 % 0.00-1.00 PERCENT (BEAKER) (test code = 2801) [id number] 05:04:43 Test Item Value Reference Range Interpretation Comments PROTIME (BEAKER) (test 12.8 seconds 11.9-14.2 code = 759) INR (BEAKER) (test 0.98 See_Comment [Automat ed code = 370) message] The sy stem which generated this result transmitted reference range : <=5.90. The reference range was not used to interpret this result as normal/abnormal . PARTIAL THROMBOPLASTIN 30.6 seconds 22.5-36.0 TIME (BEAKER) (test code = 760) RECOMMENDED COUMADIN/WARFARIN INR THERAPY RANGESSTANDARD DOSE: 2.0 - 3.0 Includes: PROPHYLAXIS for venous thrombosis, systemic embolization; TREATMENT for venous thrombosis and/or pulmonary embolus.HIGH RISK: Target INR is 2.5-3.5 for patients with mechanical heart valves.POCT-GLUCOSE [id number] 21:02:02 Test Item Value Reference Range Interpretation Comments POC-GLUCOSE METER 143 mg/dL 70-110 H : TESTED A T [facility] 6720 (AMIEAKER) (test code = [place], 1538) [address]: Thickener Operator/Techni jo ann ID = [id number] for Es pinoza, Luz RAD, CHEST, 1 VIEW, NON [id number] 17:29:00Reason for exam:->post chest tube removalShould this be performed at the bedside?->Yes [facility]ENTERName: EMILY PALACIO : 1940 Sex: FFINAL REPORT TECHNIQUE: Frontal view of the chest. INDICATION: post chest tube removal. COMPARISON: 06/28/2022 at 7:12 AM. FINDINGS: LINES/TUBES: None. HEART AND MEDIASTINUM: Cardiomediastinal contour is stable. Prior median sternotomy. LUNGS: Mild bibasilar atelectatic change. No consolidation or pulmonary edema. PLEURA: Small bilateral pleural effusions. No pneumothorax. SOFT TISSUES AND BONES: Unremarkable. IMPRESSION:Small bilateral pleural effusions with mild bibasilar atelectatic change. No pneumothorax. Signed: Kaila Clementseport Verified Date/Time: 06/28/2022 17:29:09 POCT- GLUCOSE [id number] 16:37:07 Test Item Value Reference Range Interpretation Comments POC-GLUCOSE METER 112 mg/dL 70-110 H : TESTED A T [facility] 6720 (BEAKER) (test code = ЕЛЕНА Michi [place], 1538) [address]: Thickener Operator/Techni jo ann ID = [id number] for HU NTER, HIWITHA RAD, CHEST, 1 VIEW, NON [id number] 13:39:00Reason for exam:->Post ACB,Reason for exam:->pulm edemaShould this be performed at the bedside? ->Yes[facility] PATT[facility] GALLEGOS BOSEEMILY : 1940 Sex: FFINAL REPORT CLINICAL HISTORY: Post ACB,pulm edema TECHNIQUE: 1 view of the chest. COMPARISON: 06/27/2022 IMPRESSION: Left chest tube again seen without pneumothorax. Mild bilateralairspace opacities grossly similar. Small bilateral pleural effusions remain. The cardiomediastinal silhouette is magnified by technique with sternotomy wires. Signed: Nabil Vazquez MDReport Verified Da te/Time: 06/28/2022 13:39:55 Reading Location: [address] Reading Room POCT- GLUCOSE [id number] 12:00:09 Test Item Value Reference Range Interpretation Comments POC-GLUCOSE METER 173 mg/dL 70-110 H : TESTED A T [facility] 6720 (BEAKER) (test code = ЕЛЕНА Borden [facility], 1538) [address]: Thickener Operator/Techni jo ann ID = [id number] for ERIN PRO BASIC METABOLIC [id number] 07:56:29 Test Item Value Reference Range Interpretation Comments SODIUM (BEAKER) 135 meq/L 136-145 L (test code = 381) POTASSIUM 3.8 meq/L 3.5-5.1 (BEAKER) (test code = 379) CHLORIDE (BEAKER) 103 meq/L 98-107 (test code = 382) CO2 (BEAKER) 25 meq/L 22-29 (test code = 355) BLOOD UREA 13 mg/dL 7-21 NITROGEN (BEAKER) (test code = 354) CREATININE 0.64 mg/dL 0.57-1.25 (BEAKER) (test code = 358) GLUCOSE RANDOM 72 mg/dL 70-105 (BEAKER) (test code = 652) CALCIUM (BEAKER) 7.9 mg/dL 8.4-10.2 L (test code = 697) EGFR (BEAKER) 90 Interpretatio n of eGFR (test code = mL/min/1.73 values Stage De scription 1092) sq m Result G1 Norm al or high >=90 G2 Mildly decreased 60-89 G3a Mildl y to moderately 45-5 9 G3b Moderately to s everely 30-44 G4 Severl y decreased 15-29 G5 Kidney failure <15Reported eGF R is based on the CKD-EPI 2020 equation that d oes not use a race coefficientEsti mated GFR is not as accur ate as Creatinine Keira wiley in predicting glom erular filtration rate . Estimated GFR is not appl icable for dialysis patien ts Thickener Operator ID - NELSONOPOCT-GLUCOSE [id number] 07:33:42 Test Item Value Reference Range Interpretation Comments POC-GLUCOSE METER 86 mg/dL 70-110 : TESTED A T [facility] 6720 (BEAKER) (test code = ЕЛЕНА Borden [place], 1538) [address]: Thickener Operator/Techni jo ann ID = [id number] for NARANJO ER, JOHNWITHSonja [id number] 06:04:55 Test Item Value Reference Range Interpretation Comments MAGNESIUM (BEAKER) (test code = 2.0 mg/dL 1.6-2.6 627) Thickener Operator ID - TK [id number] 06:04:55 Test Item Value Reference Range Interpretation Comments PHOSPHORUS (BEAKER) (test code = 2.5 mg/dL 2.3-4.7 604) Thickener Operator ID - TK MPT/[id number] 05:36:02 Test Item Value Reference Range Interpretation Comments PROTIME (BEAKER) (test 14.6 seconds 11.9-14.2 H code = 759) INR (BEAKER) (test 1.21 See_Comment [Automat ed code = 370) message] The sy stem which generated this result transmitted reference range : <=5.90. The reference range was not used to interpret this result as normal/abnormal . PARTIAL THROMBOPLASTIN 32.2 seconds 22.5-36.0 TIME (BEAKER) (test code = 760) RECOMMENDED COUMADIN/WARFARIN INR THERAPY RANGESSTANDARD DOSE: 2.0 - 3.0 Includes: PROPHYLAXIS for venous thrombosis, systemic embolization; TREATMENT for venous thrombosis and/or pulmonary embolus.HIGH RISK: Target INR is 2.5-3.5 for patients with mechanical heart valves.CBC W/PLT COUNT & AUTO [id number] 05:13:13 Test Item Value Reference Range Interpretation Comments WHITE BLOOD CELL COUNT (BEAKER) 8.6 K/ L 3.5-10.5 (test code = 775) RED BLOOD CELL COUNT (BEAKER) 3.19 M/ L 3.93-5.22 L (test code = 761) HEMOGLOBIN (BEAKER) (test code = 8.6 GM/DL 11.2-15.7 L 410) HEMATOCRIT (BEAKER) (test code = 27.0 % 34.1-44.9 L 411) MEAN CORPUSCULAR VOLUME (BEAKER) 85 fL 79-95 (test code = 753) MEAN CORPUSCULAR HEMOGLOBIN 27.0 pg 25.6-32.2 (BEAKER) (test code = 751) MEAN CORPUSCULAR HEMOGLOBIN CONC 31.9 GM/DL 32.2-35.5 L (BEAKER) (test code = 752) RED CELL DISTRIBUTION WIDTH 18.2 % 11.7-14.4 H (BEAKER) (test code = 412) PLATELET COUNT (BEAKER) (test 195 K/CU MM 150-450 code = 756) MEAN PLATELET VOLUME (BEAKER) 10.2 fL 9.4-12.3 (test code = 754) NUCLEATED RED BLOOD CELLS 0 /100 WBC 0-0 (BEAKER) (test code = 413) NEUTROPHILS RELATIVE PERCENT 65 % (BEAKER) (test code = 429) LYMPHOCYTES RELATIVE PERCENT 18 % (BEAKER) (test code = 430) MONOCYTES RELATIVE PERCENT 10 % (BEAKER) (test code = 431) EOSINOPHILS RELATIVE PERCENT 5 % (BEAKER) (test code = 432) BASOPHILS RELATIVE PERCENT 0 % (BEAKER) (test code = 437) NEUTROPHILS ABSOLUTE COUNT 5.61 K/ L 1.56-6.13 (BEAKER) (test code = 670) LYMPHOCYTES ABSOLUTE COUNT 1.51 K/ L 1.18-3.74 (BEAKER) (test code = 414) MONOCYTES ABSOLUTE COUNT (BEAKER) 0.89 K/ L 0.24-0.36 H (test code = 415) EOSINOPHILS ABSOLUTE COUNT 0.46 K/ L 0.04-0.36 H (BEAKER) (test code = 416) BASOPHILS ABSOLUTE COUNT (BEAKER) 0.03 K/ L 0.01-0.08 (test code = 417) IMMATURE GRANULOCYTES-RELATIVE 1.20 % 0.00-1.00 H PERCENT (BEAKER) (test code = 2801) CALCIUM, [id number] 05:09:55 Test Item Value Reference Range Interpretation Comments CALCIUM IONIZED (BEAKER) (test 1.00 mmol/L 1.12-1.27 L code = 698) PH, BLOOD (BEAKER) (test code = 7.45 1810) POCT-GLUCOSE [id number] 21:22:14 Test Item Value Reference Range Interpretation Comments POC-GLUCOSE METER 217 mg/dL 70-110 H : TESTED A T [facility] 6720 (BEAKER) (test code = ЕЛЕНА Borden [facility], 1538) [address]: Thickener Operator/Techni jo ann ID = [id number] for PE RALES, JAMAR POCT-GLUCOSE [id number] 17:13:25 Test Item Value Reference Range Interpretation Comments POC-GLUCOSE METER 128 mg/dL 70-110 H : TESTED A T [facility] 6720 (BEAKER) (test code = [facility], 1538) [address]: Thickener Operator/Techni jo ann ID = [id number] for Sa ntos, Julisa RAD, CHEST, 1 VIEW, NON [id number] 12:19:00Reason for exam:->Post ACB,Reason for exam:->pulm edemaShould this be performed at the bedside? ->YesG[facility] : 1940 Sex: FFINAL REPORT Chest AP portable COMPARISON STUDY: 06/26/2022 History provided: Status post ACB Heart size magnified by projection. Left chest tube with no pneumothorax. Left lung is clear. Faint opacity across the right hemithorax may represent pleural fluid layering posteriorly. Normal vascularity. Signed: Fernando Christieeport Verified Date/Time: 06/27/2022 12:19:43 Reading Location: [facility] Diagnostic Imaging Reading Room - [facility] 1.310.12 Electronically signed by: FERNANDO Cruz 06/27/2022 12:19 PMPOCT-GLUCOSE [id number] 12:02:11 Test Item Value Reference Range Interpretation Comments POC-GLUCOSE METER 200 mg/dL 70-110 H : TESTED A T [facility] 6720 (BEAKER) (test code = ЕЛЕНА Borden [place], 1538) [address]: Thickener Operator/Techni jo ann ID = [id number] for Julisa Casey BASIC METABOLIC [id number] 09:57:21 Test Item Value Reference Range Interpretation Comments SODIUM (BEAKER) 136 meq/L 136-145 (test code = 381) POTASSIUM 4.0 meq/L 3.5-5.1 (BEAKER) (test code = 379) CHLORIDE (BEAKER) 103 meq/L 98-107 (test code = 382) CO2 (BEAKER) 26 meq/L 22-29 (test code = 355) BLOOD UREA 14 mg/dL 7-21 NITROGEN (BEAKER) (test code = 354) CREATININE 0.62 mg/dL 0.57-1.25 (BEAKER) (test code = 358) GLUCOSE RANDOM 67 mg/dL 70-105 L (BEAKER) (test code = 652) CALCIUM (BEAKER) 7.8 mg/dL 8.4-10.2 L (test code = 697) EGFR (BEAKER) 91 Interpretatio n of eGFR (test code = mL/min/1.73 values Stage D escription 1092) sq m Result G1 Nalini l or high >=90 G2 Mildly decreased 60-89 G3a Mildl y to moderately 45-5 9 G3b Moderately to s everely 30-44 G4 Severl y decreased 15-29 G5 Kidney failure <15Reported eGF R is based on the CKD-EPI 202 equation that d oes not use a race coefficientEsti mated GFR is not as accur ate as Creatinine Keira wiley in predicting glom erular filtration rate . Estimated GFR is not appl icable for dialysis patien ts Thickener Operator ID - TK MPOCT-GLUCOSE [id number] 08:28:03 Test Item Value Reference Range Interpretation Comments POC-GLUCOSE METER 90 mg/dL 70-110 : TESTED A T [facility] 6720 (BEAKER) (test code = Е[place], 1538) [address]: Thickener Operator/Techni jo ann ID = [id number] for Julisa Cramer [id number] 05:15:40 Test Item Value Reference Range Interpretation Comments MAGNESIUM (BEAKER) (test code = 1.7 mg/dL 1.6-2.6 627) Thickener Operator ID - TK [id number] 05:15:40 Test Item Value Reference Range Interpretation Comments PHOSPHORUS (BEAKER) (test code = 2.0 mg/dL 2.3-4.7 L 604) Thickener Operator ID - TK MPT/[id number] 05:05:48 Test Item Value Reference Range Interpretation Comments PROTIME (BEAKER) (test 14.5 seconds 11.9-14.2 H code = 759) INR (BEAKER) (test 1.20 See_Comment [Automat ed code = 370) message] The sy stem which generated this result transmitted reference range : <=5.90. The reference range was not used to interpret this result as normal/abnormal . PARTIAL THROMBOPLASTIN 30.5 seconds 22.5-36.0 TIME (BEAKER) (test code = 760) RECOMMENDED COUMADIN/WARFARIN INR THERAPY RANGESSTANDARD DOSE: 2.0 - 3.0 Includes: PROPHYLAXIS for venous thrombosis, systemic embolization; TREATMENT for venous thrombosis and/or pulmonary embolus.HIGH RISK: Target INR is 2.5-3.5 for patients with mechanical heart valves.CBC W/PLT COUNT & AUTO [id number] 04:57:06 Test Item Value Reference Range Interpretation Comments WHITE BLOOD CELL COUNT (BEAKER) 9.0 K/ L 3.5-10.5 (test code = 775) RED BLOOD CELL COUNT (BEAKER) 3.34 M/ L 3.93-5.22 L (test code = 761) HEMOGLOBIN (BEAKER) (test code = 9.0 GM/DL 11.2-15.7 L 410) HEMATOCRIT (BEAKER) (test code = 27.9 % 34.1-44.9 L 411) MEAN CORPUSCULAR VOLUME (BEAKER) 84 fL 79-95 (test code = 753) MEAN CORPUSCULAR HEMOGLOBIN 26.9 pg 25.6-32.2 (BEAKER) (test code = 751) MEAN CORPUSCULAR HEMOGLOBIN CONC 32.3 GM/DL 32.2-35.5 (BEAKER) (test code = 752) RED CELL DISTRIBUTION WIDTH 17.4 % 11.7-14.4 H (BEAKER) (test code = 412) PLATELET COUNT (BEAKER) (test 153 K/CU MM 150-450 code = 756) MEAN PLATELET VOLUME (BEAKER) 10.9 fL 9.4-12.3 (test code = 754) NUCLEATED RED BLOOD CELLS 0 /100 WBC 0-0 (BEAKER) (test code = 413) NEUTROPHILS RELATIVE PERCENT 61 % (BEAKER) (test code = 429) LYMPHOCYTES RELATIVE PERCENT 20 % (BEAKER) (test code = 430) MONOCYTES RELATIVE PERCENT 11 % (BEAKER) (test code = 431) EOSINOPHILS RELATIVE PERCENT 6 % (BEAKER) (test code = 432) BASOPHILS RELATIVE PERCENT 0 % (BEAKER) (test code = 437) NEUTROPHILS ABSOLUTE COUNT 5.51 K/ L 1.56-6.13 (BEAKER) (test code = 670) LYMPHOCYTES ABSOLUTE COUNT 1.82 K/ L 1.18-3.74 (BEAKER) (test code = 414) MONOCYTES ABSOLUTE COUNT (BEAKER) 1.01 K/ L 0.24-0.36 H (test code = 415) EOSINOPHILS ABSOLUTE COUNT 0.54 K/ L 0.04-0.36 H (BEAKER) (test code = 416) BASOPHILS ABSOLUTE COUNT (BEAKER) 0.04 K/ L 0.01-0.08 (test code = 417) IMMATURE GRANULOCYTES-RELATIVE 0.80 % 0.00-1.00 PERCENT (BEAKER) (test code = 2801) POCT-GLUCOSE [id number] 20:56:53 Test Item Value Reference Range Interpretation Comments POC-GLUCOSE METER 199 mg/dL 70-110 H : TESTED A T [facility] 6720 (BEAKER) (test code = ЕЛЕНА [place], 1538) [address]: Thickener Operator/Techni jo ann ID = [id number] for BERHANE BURTON POCT-GLUCOSE [id number] 16:18:08 Test Item Value Reference Range Interpretation Comments POC-GLUCOSE METER 142 mg/dL 70-110 H : TESTED A T [facility] 6720 (BEAKER) (test code = ЕЛЕНА Borden [facility], 1538) [address]: Thickener Operator/Techni jo ann ID = [id number] for Mary Mei RAD, CHEST, 1 VIEW, NON [id number] 13:42:00Reason for exam:->Post ACB,Reason for exam:->pulm edemaShould this be performed at the bedside? ->YesCH[facility] : 1940 Sex: FFINAL REPORT CLINICAL HISTORY: Post ACB,pulm edema TECHNIQUE: 1 view of the chest. COMPARISON: 06/25/2022 IMPRESSION: Right jugular sheath removal. Left chest tube remains without pneumothorax. Bilateral airspace opacities and small pleural effusions have decreased. The cardiomediastinal silhouette is magnified by technique with sternotomy wires. Signed: Nabil Vazquez Verified Date/Time: 06/26/2022 13:42:44 Reading Location: [address] Reading Room POCT- GLUCOSE [id number] 11:51:01 Test Item Value Reference Range Interpretation Comments POC-GLUCOSE METER 227 mg/dL 70-110 H : TESTED A T [facility] 6720 (ARIE) (test code = [place], 1538) [address]: Thickener Operator/Techni jo ann ID = [id number] for CARLOS BAUMAN Venous doppler arm, [id number] 07:44:33Ejection FractionSGRITMAN MEDICAL CENTER ECHO HEARTLAB MKCKESSON [facility] CenterPO[facility]SE [id number] 07:36:42 Test Item Value Reference Range Interpretation Comments POC-GLUCOSE METER 85 mg/dL 70-110 : TESTED A T [facility] 6720 (BEAKER) (test code = [place], 1538) [address]11[address]: Thickener Operator/Techni jo ann ID = [id number] for CARLOS GUILLEN LACTATE DEHYDROGENASE (LDH)2022-06-26 05:58:15 Test Item Value Reference Range Interpretation Comments LACTATE DEHYDROGENASE (BEAKER) (test 461 U/L 125-220 H code = 635) Thickener Operator ID - [id number] 05:58:14 Test Item Value Reference Range Interpretation Comments PHOSPHORUS (BEAKER) (test code = 2.0 mg/dL 2.3-4.7 L 604) Thickener Operator ID - MARCOCOMPREHENSIVE METABOLIC [id number] 05:58:13 Test Item Value Reference Range Interpretation Comments TOTAL PROTEIN 5.2 gm/dL 6.0-8.3 L (BEAKER) (test code = 770) ALBUMIN (BEAKER) 2.8 g/dL 3.5-5.0 L (test code = 1145) ALKALINE 64 U/L 40-150 PHOSPHATASE (BEAKER) (test code = 346) BILIRUBIN TOTAL 1.3 mg/dL 0.2-1.2 H (BEAKER) (test code = 377) SODIUM (BEAKER) 137 meq/L 136-145 (test code = 381) POTASSIUM (BEAKER) 3.1 meq/L 3.5-5.1 L (test code = 379) CHLORIDE (BEAKER) 105 meq/L 98-107 (test code = 382) CO2 (BEAKER) (test 24 meq/L 22-29 code = 355) BLOOD UREA 14 mg/dL 7-21 NITROGEN (BEAKER) (test code = 354) CREATININE 0.62 mg/dL 0.57-1.25 (BEAKER) (test code = 358) GLUCOSE RANDOM 92 mg/dL 70-105 (BEAKER) (test code = 652) CALCIUM (BEAKER) 8.1 mg/dL 8.4-10.2 L (test code = 697) AST (SGOT) 23 U/L 5-34 (BEAKER) (test code = 353) ALT (SGPT) 16 U/L 6-55 (BEAKER) (test code = 347) EGFR (BEAKER) 91 Interpretatio n of eGFR (test code = 1092) mL/min/1.[address] age Description sq m Result G1 Nalini l or high >=90 G2 Mildly decreased 60-89 G3a Mildl y to moderately 45-5 9 G3b Moderately to s everely 30-44 G4 Severl y decreased 15-29 G5 Kidney failure <15Reported eGF R is based on the CKD-EPI 2020 equation that d oes not use a race coefficientEsti mated GFR is not as accur ate as Creatinine Keira saurabh in predicting glom erular filtration rate . Estimated GFR is not appl icable for dialysis patien ts Thickener Operator ID - [id number] 05:58:13 Test Item Value Reference Range Interpretation Comments MAGNESIUM (BEAKER) (test code = 1.8 mg/dL 1.6-2.6 627) Thickener Operator ID - NELSONOCALCIUM, [id number] 05:13:25 Test Item Value Reference Range Interpretation Comments CALCIUM IONIZED (BEAKER) (test 0.99 mmol/L 1.12-1.27 L code = 698) PH, BLOOD (BEAKER) (test code = 7.48 1810) OXYGEN SATURATION, [id number] 05:12:26 Test Item Value Reference Range Interpretation Comments O2 SATURATION (MEASURED) (BEAKER) 91.2 % (test code = 1455) [id number] 05:09:23 Test Item Value Reference Range Interpretation Comments PROTIME (BEAKER) (test 14.4 seconds 11.9-14.2 H code = 759) INR (BEAKER) (test 1.19 See_Comment [Automat ed code = 370) message] The sy stem which generated this result transmitted reference range : <=5.90. The reference range was not used to interpret this result as normal/abnormal . PARTIAL THROMBOPLASTIN 30.4 seconds 22.5-36.0 TIME (BEAKER) (test code = 760) RECOMMENDED COUMADIN/WARFARIN INR THERAPY RANGESSTANDARD DOSE: 2.0 - 3.0 Includes: PROPHYLAXIS for venous thrombosis, systemic embolization; TREATMENT for venous thrombosis and/or pulmonary embolus.HIGH RISK: Target INR is 2.5-3.5 for patients with mechanical heart valves.CBC W/PLT COUNT & AUTO [id number] 04:50:15 Test Item Value Reference Range Interpretation Comments WHITE BLOOD CELL COUNT (BEAKER) 9.4 K/ L 3.5-10.5 (test code = 775) RED BLOOD CELL COUNT (BEAKER) 3.59 M/ L 3.93-5.22 L (test code = 761) HEMOGLOBIN (BEAKER) (test code = 9.8 GM/DL 11.2-15.7 L 410) HEMATOCRIT (BEAKER) (test code = 29.8 % 34.1-44.9 L 411) MEAN CORPUSCULAR VOLUME (BEAKER) 83 fL 79-95 (test code = 753) MEAN CORPUSCULAR HEMOGLOBIN 27.3 pg 25.6-32.2 (BEAKER) (test code = 751) MEAN CORPUSCULAR HEMOGLOBIN CONC 32.9 GM/DL 32.2-35.5 (BEAKER) (test code = 752) RED CELL DISTRIBUTION WIDTH 17.4 % 11.7-14.4 H (BEAKER) (test code = 412) PLATELET COUNT (BEAKER) (test 111 K/CU MM 150-450 L code = 756) MEAN PLATELET VOLUME (BEAKER) 11.2 fL 9.4-12.3 (test code = 754) NUCLEATED RED BLOOD CELLS 0 /100 WBC 0-0 (BEAKER) (test code = 413) NEUTROPHILS RELATIVE PERCENT 65 % (BEAKER) (test code = 429) LYMPHOCYTES RELATIVE PERCENT 19 % (BEAKER) (test code = 430) MONOCYTES RELATIVE PERCENT 11 % (BEAKER) (test code = 431) EOSINOPHILS RELATIVE PERCENT 4 % (BEAKER) (test code = 432) BASOPHILS RELATIVE PERCENT 0 % (BEAKER) (test code = 437) NEUTROPHILS ABSOLUTE COUNT 6.09 K/ L 1.56-6.13 (BEAKER) (test code = 670) LYMPHOCYTES ABSOLUTE COUNT 1.80 K/ L 1.18-3.74 (BEAKER) (test code = 414) MONOCYTES ABSOLUTE COUNT (BEAKER) 1.01 K/ L 0.24-0.36 H (test code = 415) EOSINOPHILS ABSOLUTE COUNT 0.38 K/ L 0.04-0.36 H (BEAKER) (test code = 416) BASOPHILS ABSOLUTE COUNT (BEAKER) 0.04 K/ L 0.01-0.08 (test code = 417) IMMATURE GRANULOCYTES-RELATIVE 0.50 % 0.00-1.00 PERCENT (BEAKER) (test code = 2801) Prepare [id number] 23:54:00 Test Item Value Reference Range Interpretation Comments CROSSMATCH (test code = 2264) COMPATIBLE Unit ABO (test code = O Pos 3889653) UNIT NUMBER (test code = [id number] 934-0) Status (test code = 6813111) TX_TIMEPENOBSCOT VALLEY HOSPITALT Blood Bank Product (test code RED BLOOD CELLS = 2263) PRODUCT CODE (test code = I9669A80 933-2) [facility]PO[facility] [id number] 21:45:49 Test Item Value Reference Range Interpretation Comments POC-GLUCOSE METER 86 mg/dL 70-110 : TESTED A T [facility] 6720 [facility] (test code = ЕЛЕНА Borden [facility], 1538) [address]: Thickener Operator/Techni jo ann ID = [id number] for Lashanda Richardson [id number] 19:02:13 Test Item Value Reference Range Interpretation Comments PHOSPHORUS (BEAKER) 1.9 mg/dL 2.3-4.7 L Specimen slightly (test code = 604) hemolyzed Thickener Operator ID - [id number] 19:02:13 Test Item Value Reference Range Interpretation Comments POTASSIUM (BEAKER) 3.5 meq/L 3.5-5.1 Specimen slightly (test code = 379) hemolyzed Thickener Operator ID - [id number] 19:02:12 Test Item Value Reference Range Interpretation Comments MAGNESIUM (BEAKER) 1.7 mg/dL 1.6-2.6 Specimen slightly (test code = 627) hemolyzed Thickener Operator ID - ADMINPOCT-GLUCOSE [id number] 17:29:54 Test Item Value Reference Range Interpretation Comments POC-GLUCOSE METER 149 mg/dL 70-110 H : Notified RN/MD: ([facility]) (test code = TESTED AT [facility] 6720 1538) [facility], [address]: Thickener Operator/Techni jo ann ID = [id number] for Milana Peguero POCT-GLUCOSE [id number] 15:53:03 Test Item Value Reference Range Interpretation Comments POC-GLUCOSE METER 195 mg/dL 70-110 H : TESTED A T [facility] 6720 ([employer]) (test code = [place], 1538) [address]: Thickener Operator/Techni jo ann ID = [id number] for ABEL FUENTES RAD, CHEST, 1 VIEW, NON [id number] 13:24:00Reason for exam:->S/P removal of both mediastinal chest tubes.Should this be performed at the bedside?->Yes [facility] 1940 Sex: FFINAL REPORT CLINICAL HISTORY: S/P removal of both mediastinal chest tubes. TECHNIQUE: 1 view of the chest. COMPARISON: 06/25/2022 IMPRESSION: Chest tubes and [place] catheter removal. Right jugular sheath remains. No pneumothorax. Increased bilateral mid and lower lung airspaceopacities and small pleural effusions. The cardiomediastinal silhouette is magnified by technique with sternotomy wires. Signed: Nabil Vazquez MDReport Verified Date/Time: 06/25/2022 13:24:48 Reading Location: [address] Reading Room POCT- GLUCOSE [id number] 10:39:18 Test Item Value Reference Range Interpretation Comments POC-GLUCOSE METER 105 mg/dL 70-110 : TESTED A T [facility] 6720 (ARIE) (test code = [place], 1538) [id number]: Thickener Operator/Techni jo ann ID = [id number] for ABEL FUENTES RAD, CHEST, 1 VIEW, NON [id number] 09:29:00Reason for exam:->Post ACB,Reason for exam:->pulm edemaShould this be performed at the bedside? ->YesCH[facility] : 1940 Sex: FFINAL REPORT CLINICAL HISTORY: Post ACB,pulm edema TECHNIQUE: 1 view of the chest. COMPARISON: 06/24/2022 IMPRESSION: The supporting lines and tubes are similar appearing. No pneumothorax. Mild bilateral airspace opacities and small pleural effusions unchanged. The cardiomediastinal silhouette is magnified by technique with sternotomy wires. Signed: Nabil Vazquez MDReport Verified Date/Time: 06/25/2022 09:29:35 Reading Location: [address] Reading Room Electronicallysigned by: NABIL VAZQUEZ M.D. on 06/25/2022 09:29 AMLACTATE DEHYDROGENASE (LDH)2022-06-25 03:24:33 Test Item Value Reference Range Interpretation Comments LACTATE DEHYDROGENASE 523 U/L 125-220 H Specim en slightly (BEAKER) (test code = hemoly zed 635) Thickener Operator ID - NAOMI WCOMPREHENSIVE METABOLIC [id number] 03:18:07 Test Item Value Reference Range Interpretation Comments TOTAL PROTEIN 5.2 gm/dL 6.0-8.3 L Specimen sligh tly (BEAKER) (test hemolyzed code = 770) ALBUMIN (BEAKER) 2.9 g/dL 3.5-5.0 L Specimen sl ightly (test code = 1145) hemolyzed ALKALINE 57 U/L 40-150 PHOSPHATASE (BEAKER) (test code = 346) BILIRUBIN TOTAL 0.8 mg/dL 0.2-1.2 Specimen sli ghtly (BEAKER) (test hemolyzed code = 377) SODIUM (BEAKER) 139 meq/L 136-145 (test code = 381) POTASSIUM (BEAKER) 3.1 meq/L 3.5-5.1 L Specimen slightly (test code = 379) hemolyzed CHLORIDE (BEAKER) 105 meq/L 98-107 (test code = 382) CO2 (BEAKER) (test 25 meq/L 22-29 code = 355) BLOOD UREA 19 mg/dL 7-21 NITROGEN (BEAKER) (test code = 354) CREATININE 0.72 mg/dL 0.57-1.25 Specimen slight ly (BEAKER) (test hemolyzed code = 358) GLUCOSE RANDOM 88 mg/dL 70-105 (BEAKER) (test code = 652) CALCIUM (BEAKER) 8.8 mg/dL 8.4-10.2 (test code = 697) AST (SGOT) 21 U/L 5-34 Specimen slight ly (BEAKER) (test hemolyzed code = 353) ALT (SGPT) 14 U/L 6-55 Specimen slight ly (BEAKER) (test hemolyzed code = 347) EGFR (BEAKER) 85 Interpretatio n of eGFR (test code = 1092) mL/min/1.73 values St age Description sq m Result G1 Nalini l or high >=90 G2 Mildly decreased 60-89 G3a Mildl y to moderately 45-5 9 G3b Moderately to s everely 30-44 G4 Severl y decreased 15-29 G5 Kidney failure <15Reported eGF R is based on the CKD-EPI 2021 equation that d oes not use a race coefficientEsti mated GFR is not as accur ate as Creatinine Keira wiley in predicting glom erular filtration rate . Estimated GFR is not appl icable for dialysis patien ts Thickener Operator ID - NAOMI [id number] 03:18:06 Test Item Value Reference Range Interpretation Comments MAGNESIUM (BEAKER) 1.8 mg/dL 1.6-2.6 Specimen slightly (test code = 627) hemolyzed Thickener Operator ID - NAOMI [id number] 03:18:06 Test Item Value Reference Range Interpretation Comments PHOSPHORUS (BEAKER) 1.7 mg/dL 2.3-4.7 L Specimen slightly (test code = 604) hemolyzed Thickener Operator ID Priti SALGADO WLactic Acid, [id number] 03:10:22 Test Item Value Reference Range Interpretation Comments Lactate, Art (test 1.5 mmol/L 0.5-2.2 Specimen code = 2874) slightly hemolyzed YOGESH (test code = YOGESH) Thickener Operator ID Priti SALGADO W Lab Interpretation Normal (test code = 53072-0) [facility] [id number] 03:10:22 Test Item Value Reference Range Interpretation Comments LACTATE BLOOD 1.5 mmol/L 0.5-2.2 Specimen sligh tly ARTERIAL (2) (BEAKER) hemoly zed (test code = 2874) Thickener Operator ID Priti SALGADO WPT/[id number] 03:09:20 Test Item Value Reference Range Interpretation Comments PROTIME (BEAKER) (test 14.7 seconds 11.9-14.2 H code = 759) INR (BEAKER) (test 1.18 See_Comment [Automat ed code = 370) message] The sy stem which generated this result transmitted reference range : <=5.90. The reference range was not used to interpret this result as normal/abnormal . PARTIAL THROMBOPLASTIN 32.5 seconds 22.5-36.0 TIME (BEAKER) (test code = 760) RECOMMENDED COUMADIN/WARFARIN INR THERAPY RANGESSTANDARD DOSE: 2.0 - 3.0 Includes: PROPHYLAXIS for venous thrombosis, systemic embolization; TREATMENT for venous thrombosis and/or pulmonary embolus.HIGH RISK: Target INR is 2.5-3.5 for patients with mechanical heart valves.CBC W/PLT COUNT & AUTO [id number] 03:07:41 Test Item Value Reference Range Interpretation Comments WHITE BLOOD CELL COUNT (BEAKER) 11.6 K/ L 3.5-10.5 H (test code = 775) RED BLOOD CELL COUNT (BEAKER) 3.36 M/ L 3.93-5.22 L (test code = 761) HEMOGLOBIN (BEAKER) (test code = 9.3 GM/DL 11.2-15.7 L 410) HEMATOCRIT (BEAKER) (test code = 27.6 % 34.1-44.9 L 411) MEAN CORPUSCULAR VOLUME (BEAKER) 82 fL 79-95 (test code = 753) MEAN CORPUSCULAR HEMOGLOBIN 27.7 pg 25.6-32.2 (BEAKER) (test code = 751) MEAN CORPUSCULAR HEMOGLOBIN CONC 33.7 GM/DL 32.2-35.5 (BEAKER) (test code = 752) RED CELL DISTRIBUTION WIDTH 17.8 % 11.7-14.4 H (BEAKER) (test code = 412) PLATELET COUNT (BEAKER) (test code 83 K/CU MM 150-450 L = 756) MEAN PLATELET VOLUME (BEAKER) 11.0 fL 9.4-12.3 (test code = 754) NUCLEATED RED BLOOD CELLS (BEAKER) 0 /100 WBC 0-0 (test code = 413) NEUTROPHILS RELATIVE PERCENT 70 % (BEAKER) (test code = 429) LYMPHOCYTES RELATIVE PERCENT 19 % (BEAKER) (test code = 430) MONOCYTES RELATIVE PERCENT 8 % (BEAKER) (test code = 431) EOSINOPHILS RELATIVE PERCENT 2 % (BEAKER) (test code = 432) BASOPHILS RELATIVE PERCENT 0 % (BEAKER) (test code = 437) NEUTROPHILS ABSOLUTE COUNT 8.14 K/ L 1.56-6.13 H (BEAKER) (test code = 670) LYMPHOCYTES ABSOLUTE COUNT 2.14 K/ L 1.18-3.74 (BEAKER) (test code = 414) MONOCYTES ABSOLUTE COUNT (BEAKER) 0.94 K/ L 0.24-0.36 H (test code = 415) EOSINOPHILS ABSOLUTE COUNT 0.22 K/ L 0.04-0.36 (BEAKER) (test code = 416) BASOPHILS ABSOLUTE COUNT (BEAKER) 0.03 K/ L 0.01-0.08 (test code = 417) IMMATURE GRANULOCYTES-RELATIVE 0.80 % 0.00-1.00 PERCENT (BEAKER) (test code = 2801) Blood gas, [id number] 02:53:14 Test Item Value Reference Range Interpretation Comments pH, Arterial (test code 7.57 7.35-7.45 H = 2744-1) pCO2, Arterial (test 29 See_Comment L [Autom ated message] code = 2019-8) The system [facility] generated this result transmit brian reference range : 35 - 45 mm Hg. The reference range was not used to interpret this result as normal/abnormal . pO2, Arterial (test 88 See_Comment [Automa brian message] code = 2703-7) The system ich generated this result transmit brian reference range : 80 - 90 mm Hg. The reference range was not used to interpret this result as normal/abnormal . O2 Sat, Arterial (test 97.9 % 96.0-97.0 H code = 2708-6) HCO3, Arterial (test 26 mmol/L 21-29 code = 1960-4) Base Excess, Arterial 3.9 mmol/L -2.0-3.0 H (test code = 1925-7) Patient Temperature 36.9 (test code = 8310-5) FIO2 (test code = 1819) 21 Lab Interpretation Abnormal (test code = 75733-3) [facility], [id number] 02:53:14 Test Item Value Reference Range Interpretation Comments PH ARTERIAL (BEAKER) (test code = 7.57 7.35-7.45 H 383) PCO2 ARTERIAL (BEAKER) (test code 29 mm Hg 35-45 L = 384) PO2 ARTERIAL (BEAKER) (test code = 88 mm Hg 80-90 385) O2 SATURATION ARTERIAL (BEAKER) 97.9 % 96.0-97.0 H (test code = 386) HCO3 ARTERIAL (BEAKER) (test code 26 mmol/L 21-29 = 388) BASE EXCESS ARTERIAL (BEAKER) 3.9 mmol/L -2.0-3.0 H (test code = 387) PATIENT TEMPERATURE (BEAKER) (test 36.9 code = 1818) FIO2 (BEAKER) (test code = 1819) 21.0 CALCIUM, [id number] 02:53:04 Test Item Value Reference Range Interpretation Comments CALCIUM IONIZED (BEAKER) (test 1.05 mmol/L 1.12-1.27 L code = 698) PH, BLOOD (BEAKER) (test code = 7.57 1810) OXYGEN SATURATION, [id number] 02:52:20 Test Item Value Reference Range Interpretation Comments O2 SATURATION (MEASURED) (BEAKER) 71.3 % (test code = 1455) POCT-GLUCOSE [id number] 21:57:30 Test Item Value Reference Range Interpretation Comments POC-GLUCOSE METER 165 mg/dL 70-110 H : TESTED A T [facility] 6720 (BEAKER) (test code = [place], 1538) [address]: Thickener Operator/Techni jo ann ID = [id number] for DO BRITTANY BARRERA LACTIC ACID, [id number] 21:04:55 Test Item Value Reference Range Interpretation Comments LACTATE BLOOD ARTERIAL (2) 2.8 mmol/L 0.5-2.2 H (BEAKER) (test code = 2874) Thickener Operator ID - NICBLOOD GAS, [id number] 20:46:55 Test Item Value Reference Range Interpretation Comments PH ARTERIAL (BEAKER) (test code = 7.55 7.35-7.45 H 383) PCO2 ARTERIAL (BEAKER) (test code 28 mm Hg 35-45 L = 384) PO2 ARTERIAL (BEAKER) (test code = 83 mm Hg 80-90 385) O2 SATURATION ARTERIAL (BEAKER) 97.4 % 96.0-97.0 H (test code = 386) HCO3 ARTERIAL (BEAKER) (test code 24 mmol/L 21-29 = 388) BASE EXCESS ARTERIAL (BEAKER) 2.3 mmol/L -2.0-3.0 (test code = 387) PATIENT TEMPERATURE (BEAKER) (test 36.8 code = 1818) FIO2 (BEAKER) (test code = 1819) 21.0 OXYGEN SATURATION, [id number] 20:45:35 Test Item Value Reference Range Interpretation Comments O2 SATURATION (MEASURED) (BEAKER) 65.0 % (test code = 1455) SARS-COV2/RT-PCR ([facility])2022-06-24 18:17:22 Test Item Value Reference Range Interpretation Comments SARS-COV2/RT-PCR Negative Negative The SARS-Co V-2 target (test code = nucleic acids a re not 4432520) detected in thi s specimen. Negative result s do not preclude SARS-C oV-2 infection and s hould not be used as the yanira e basis for patient managem ent decisions. Nega tive results must be combine d with clinical observ ations, patient history , and epidemiological information. A false negativ e result may occur if a spec imen is improperly deo ected, transported or handled. This SARS CoV-2 test is a rapid, real-time RT-PC R test intended for th e qualitative detection of nu cleic acid from SARS-CoV-2 in a nasopharyngeal swab specimen collected from individuals suspected of CO VID-19 by their healthcar e provider. This test has been authorized by FDA under an EUA for use by authorized laboratories. This test is only authorized for the duration of the declaration that circumstances exist justifying the authorization of emergency use of in vitro diagnostic tests for detection and/or diagnosis of COVID-19 under Section 564(b)(1) of the Federal Food, Drug and Cosmetic Act, 21 U.S.C. 360bbb-3(b)(1), unless the authorization is terminated or revoked sooner. Fact Sheet for Healthcare Providers: https://www.[employer] m/Documents/Xpert%20Xpress%20SARS%20CoV-2/Fact%20Sheets/3023802%44QNQX-VAD-6%20 HEALTHCARE%20PROVIDERS%20FACT%20SHEET.pdf Fact Sheet for Healthcare Patients: https://www.[employer].com/Documents/Xpert%20Xp ress%20SARS%20CoV-2/Fact%20Sheets/3023801%52SAVG-RPL-2%20PATIENT%20FACT%20SHEET .pdfADVENTHEALTH [facility] W/PLT COUNT & AUTO [id number] 17:44:12 Test Item Value Reference Range Interpretation Comments WHITE BLOOD CELL COUNT (BEAKER) 12.3 K/ L 3.5-10.5 H (test code = 775) RED BLOOD CELL COUNT (BEAKER) 3.33 M/ L 3.93-5.22 L (test code = 761) HEMOGLOBIN (BEAKER) (test code = 9.1 GM/DL 11.2-15.7 L 410) HEMATOCRIT (BEAKER) (test code = 28.1 % 34.1-44.9 L 411) MEAN CORPUSCULAR VOLUME (BEAKER) 84 fL 79-95 (test code = 753) MEAN CORPUSCULAR HEMOGLOBIN 27.3 pg 25.6-32.2 (BEAKER) (test code = 751) MEAN CORPUSCULAR HEMOGLOBIN CONC 32.4 GM/DL 32.2-35.5 (BEAKER) (test code = 752) RED CELL DISTRIBUTION WIDTH 17.7 % 11.7-14.4 H (BEAKER) (test code = 412) PLATELET COUNT (BEAKER) (test code 76 K/CU MM 150-450 L = 756) MEAN PLATELET VOLUME (BEAKER) 12.0 fL 9.4-12.3 (test code = 754) NEUTROPHILS RELATIVE PERCENT 79 % (BEAKER) (test code = 429) LYMPHOCYTES RELATIVE PERCENT 12 % (BEAKER) (test code = 430) MONOCYTES RELATIVE PERCENT 8 % (BEAKER) (test code = 431) EOSINOPHILS RELATIVE PERCENT 0 % (BEAKER) (test code = 432) BASOPHILS RELATIVE PERCENT 0 % (BEAKER) (test code = 437) NEUTROPHILS ABSOLUTE COUNT 9.71 K/ L 1.56-6.13 H (BEAKER) (test code = 670) LYMPHOCYTES ABSOLUTE COUNT 1.47 K/ L 1.18-3.74 (BEAKER) (test code = 414) MONOCYTES ABSOLUTE COUNT (BEAKER) 0.96 K/ L 0.24-0.36 H (test code = 415) EOSINOPHILS ABSOLUTE COUNT 0.04 K/ L 0.04-0.36 (BEAKER) (test code = 416) BASOPHILS ABSOLUTE COUNT (BEAKER) 0.04 K/ L 0.01-0.08 (test code = 417) IMMATURE GRANULOCYTES-RELATIVE 0.50 % 0.00-1.00 PERCENT (BEAKER) (test code = 2801) [id number] 17:21:45 Test Item Value Reference Range Interpretation Comments PHOSPHORUS (BEAKER) (test code = 2.3 mg/dL 2.3-4.7 604) Thickener Operator ID - EMMANUELBASIC METABOLIC [id number] 16:17:29 Test Item Value Reference Range Interpretation Comments SODIUM (BEAKER) 136 meq/L 136-145 (test code = 381) POTASSIUM 4.1 meq/L 3.5-5.1 (BEAKER) (test code = 379) CHLORIDE (BEAKER) 104 meq/L 98-107 (test code = 382) CO2 (BEAKER) 23 meq/L 22-29 (test code = 355) BLOOD UREA 24 mg/dL 7-21 H NITROGEN (BEAKER) (test code = 354) CREATININE 0.97 mg/dL 0.57-1.25 (BEAKER) (test code = 358) GLUCOSE RANDOM 300 mg/dL 70-105 H (BEAKER) (test code = 652) CALCIUM (BEAKER) 8.4 mg/dL 8.4-10.2 (test code = 697) EGFR (BEAKER) 59 Interpretatio n of eGFR (test code = mL/min/1.73 values Stage De scription 1092) sq m Result G1 Nalini l or high >=90 G2 Mildly decreased 60-89 G3a Mildl y to moderately 45-5 9 G3b Moderately to s everely 30-44 G4 Severl y decreased 15-29 G5 Kidney failure <15Reported eGF R is based on the CKD-EPI 2020 equation that d oes not use a race coefficientEsti mated GFR is not as accur ate as Creatinine Keira saurabh in predicting glom erular filtration rate . Estimated GFR is not appl icable for dialysis patien ts Thickener Operator ID - EMMANUELLACTIC ACID, [id number] 16:07:33 Test Item Value Reference Range Interpretation Comments LACTATE BLOOD ARTERIAL (2) 2.8 mmol/L 0.5-2.2 H (BEAKER) (test code = 2874) Thickener Operator ID - EMMANUELBLOOD GAS, [id number] 15:44:47 Test Item Value Reference Range Interpretation Comments PH ARTERIAL (BEAKER) (test code = 7.48 7.35-7.45 H 383) PCO2 ARTERIAL (BEAKER) (test code 34 mm Hg 35-45 L = 384) PO2 ARTERIAL (BEAKER) (test code = 112 mm Hg 80-90 H 385) O2 SATURATION ARTERIAL (BEAKER) 98.4 % 96.0-97.0 H (test code = 386) HCO3 ARTERIAL (BEAKER) (test code 25 mmol/L 21-29 = 388) BASE EXCESS ARTERIAL (BEAKER) 1.6 mmol/L -2.0-3.0 (test code = 387) PATIENT TEMPERATURE (BEAKER) (test 37.0 code = 1818) FIO2 (BEAKER) (test code = 1819) 21.0 CALCIUM, [id number] 15:44:41 Test Item Value Reference Range Interpretation Comments CALCIUM IONIZED (BEAKER) (test 1.04 mmol/L 1.12-1.27 L code = 698) PH, BLOOD (BEAKER) (test code = 7.48 1810) OXYGEN SATURATION, [id number] 15:43:28 Test Item Value Reference Range Interpretation Comments O2 SATURATION (MEASURED) (BEAKER) 71.4 % (test code = 1455) POCT-GLUCOSE [id number] 13:17:58 Test Item Value Reference Range Interpretation Comments POC-GLUCOSE METER 225 mg/dL 70-110 H : TESTED A T [facility] 6720 (BEAKER) (test code = [facility], 1538) [address]: Thickener Operator/Techni jo ann ID = [id number] for LLEGAS, JANALY POCT-GLUCOSE [id number] 11:20:45 Test Item Value Reference Range Interpretation Comments POC-GLUCOSE METER 266 mg/dL 70-110 H : TESTED A T [facility] 6720 (BEAKER) (test code = [facility], 1538) [address]: Thickener Operator/Techni jo ann ID = [id number] for LLEGAS, JANALY POCT-GLUCOSE [id number] 09:52:41 Test Item Value Reference Range Interpretation Comments POC-GLUCOSE METER 239 mg/dL 70-110 H : TESTED A T [facility] 6720 (BEAKER) (test code = [facility], 1538) [address]: Thickener Operator/Techni jo ann ID = [id number] for LLEGAS, JANALY [id number] 09:33:06 Test Item Value Reference Range Interpretation Comments PHOSPHORUS (BEAKER) 2.6 mg/dL 2.3-4.7 Specimen slightly (test code = 604) hemolyzed Thickener Operator ID - EMMNEVAEHUELBASIC METABOLIC [id number] 09:33:06 Test Item Value Reference Range Interpretation Comments SODIUM (BEAKER) 141 meq/L 136-145 (test code = 381) POTASSIUM 3.9 meq/L 3.5-5.1 Specimen slight ly (BEAKER) (test hemolyzed code = 379) CHLORIDE (BEAKER) 108 meq/L 98-107 H (test code = 382) CO2 (BEAKER) 25 meq/L 22-29 (test code = 355) BLOOD UREA 21 mg/dL 7-21 NITROGEN (BEAKER) (test code = 354) CREATININE 0.81 mg/dL 0.57-1.25 Specimen slight ly (BEAKER) (test hemolyzed code = 358) GLUCOSE RANDOM 163 mg/dL 70-105 H (BEAKER) (test code = 652) CALCIUM (BEAKER) 8.9 mg/dL 8.4-10.2 (test code = 697) EGFR (BEAKER) 74 Interpretatio n of eGFR (test code = mL/min/1.73 values Stage De scription 1092) sq m Result G1 Nalini l or high >=90 G2 Mildly decreased 60-89 G3a Mild ly to moderately 45-5 9 G3b Moderately to s everely 30-44 G4 Severl y decreased 15-29 G5 Kidney failure <15Reported eGF R is based on the CKD-EPI 2020 equation that d oes not use a race coefficientEsti mated GFR is not as accur ate as Creatinine Keira saurabh in predicting glom erular filtration rate . Estimated GFR is not appl icable for dialysis patien ts Thickener Operator ID - [id number] 09:33:05 Test Item Value Reference Range Interpretation Comments MAGNESIUM (BEAKER) 2.0 mg/dL 1.6-2.6 Specimen slightly (test code = 627) hemolyzed Thickener Operator ID - NICCALCIUM, [id number] 09:12:05 Test Item Value Reference Range Interpretation Comments CALCIUM IONIZED (BEAKER) (test 1.10 mmol/L 1.12-1.27 L code = 698) PH, BLOOD (BEAKER) (test code = 7.50 1810) OXYGEN SATURATION, [id number] 08:35:34 Test Item Value Reference Range Interpretation Comments O2 SATURATION (MEASURED) (BEAKER) 82.2 % (test code = 1455) POCT-GLUCOSE [id number] 07:53:42 Test Item Value Reference Range Interpretation Comments POC-GLUCOSE METER 135 mg/dL 70-110 H : Notified RN/MD: (ARIE) (test code = TESTED AT [facility] 3891 9140) [facility], [address]: Thickener Operator/Techni jo ann ID = [id number] for Mo rris, Lawanda LACTIC ACID, [id number] 07:42:02 Test Item Value Reference Range Interpretation Comments LACTATE BLOOD ARTERIAL (2) 1.3 mmol/L 0.5-2.2 (BEAKER) (test code = 2874) Thickener Operator ID - MANOJ, CHEST, 1 VIEW, NON [id number] 07:42:00Reason for exam:->Post ACBReason for exam:->ImpellaShould this be performed at the bedside?->YesCHI [facility] : 1940 Sex: FFINAL REPORT RAD, CHEST, 1 VIEW, NON DEPT INDICATION: Post ACBImpella COMPARISON: Prior day's exam FINDINGS: Portable frontal view of the chest. IMPRESSION: Support Lines: [place] tip overlies the pulmonary outflow tract. Mediastinal tubes. Prior sternotomy. Lungs and pleura: Small bilateral effusions and adjacent atelectasis. No significant pneumothorax. Heart and mediastinum: Stable contours. Stable surgical changes. Additional findings: None. Signed: Irene Hyde Verified Date/Time: 06/24/2022 07:42:18 OXYGEN SATURATION, [id number] 07:08:35 Test Item Value Reference Range Interpretation Comments O2 SATURATION (MEASURED) (BEAKER) 60.3 % (test code = 1455) POCT-GLUCOSE [id number] 06:50:45 Test Item Value Reference Range Interpretation Comments POC-GLUCOSE METER 120 mg/dL 70-110 H : TESTED A T [facility] 6720 (BEAKER) (test code = [facility], 1538) [address]: Thickener Operator/Techni jo ann ID = [id number] for Gi ri, Nati POCT-GLUCOSE [id number] 06:05:00 Test Item Value Reference Range Interpretation Comments POC-GLUCOSE METER 118 mg/dL 70-110 H : TESTED A T [facility] 6720 (BEAKER) (test code = [facility], 1538) [address]: Thickener Operator/Techni jo ann ID = [id number] for Gi ri, Nati POCT-GLUCOSE [id number] 05:30:47 Test Item Value Reference Range Interpretation Comments POC-GLUCOSE METER 118 mg/dL 70-110 H : TESTED A T [facility] 6720 (BEAKER) (test code = [facility], 1538) [address]: Thickener Operator/Techni jo ann ID = [id number] for Gi ri, Nati POCT-GLUCOSE [id number] 04:34:53 Test Item Value Reference Range Interpretation Comments POC-GLUCOSE METER 114 mg/dL 70-110 H : TESTED A T [facility] 6720 (BEAKER) (test code = [facility], 1538) [address]: Thickener Operator/Techni jo ann ID = [id number] for Gi ri, Nati CBC W/PLT COUNT & AUTO [id number] 04:19:35 Test Item Value Reference Range Interpretation Comments WHITE BLOOD CELL COUNT (BEAKER) 11.7 K/ L 3.5-10.5 H (test code = 775) RED BLOOD CELL COUNT (BEAKER) 2.69 M/ L 3.93-5.22 L (test code = 761) HEMOGLOBIN (BEAKER) (test code = 7.4 GM/DL 11.2-15.7 L 410) HEMATOCRIT (BEAKER) (test code = 22.9 % 34.1-44.9 L 411) MEAN CORPUSCULAR VOLUME (BEAKER) 85 fL 79-95 (test code = 753) MEAN CORPUSCULAR HEMOGLOBIN 27.5 pg 25.6-32.2 (BEAKER) (test code = 751) MEAN CORPUSCULAR HEMOGLOBIN CONC 32.3 GM/DL 32.2-35.5 (BEAKER) (test code = 752) RED CELL DISTRIBUTION WIDTH 19.3 % 11.7-14.4 H (BEAKER) (test code = 412) PLATELET COUNT (BEAKER) (test code 77 K/CU MM 150-450 L = 756) MEAN PLATELET VOLUME (BEAKER) 11.1 fL 9.4-12.3 (test code = 754) NEUTROPHILS RELATIVE PERCENT 76 % (BEAKER) (test code = 429) LYMPHOCYTES RELATIVE PERCENT 13 % (BEAKER) (test code = 430) MONOCYTES RELATIVE PERCENT 11 % (BEAKER) (test code = 431) EOSINOPHILS RELATIVE PERCENT 0 % (BEAKER) (test code = 432) BASOPHILS RELATIVE PERCENT 0 % (BEAKER) (test code = 437) NEUTROPHILS ABSOLUTE COUNT 8.88 K/ L 1.56-6.13 H (BEAKER) (test code = 670) LYMPHOCYTES ABSOLUTE COUNT 1.47 K/ L 1.18-3.74 (BEAKER) (test code = 414) MONOCYTES ABSOLUTE COUNT (BEAKER) 1.24 K/ L 0.24-0.36 H (test code = 415) EOSINOPHILS ABSOLUTE COUNT 0.03 K/ L 0.04-0.36 L (BEAKER) (test code = 416) BASOPHILS ABSOLUTE COUNT (BEAKER) 0.04 K/ L 0.01-0.08 (test code = 417) IMMATURE GRANULOCYTES-RELATIVE 0.20 % 0.00-1.00 PERCENT (BEAKER) (test code = 2801) POCT-GLUCOSE [id number] 03:57:38 Test Item Value Reference Range Interpretation Comments POC-GLUCOSE METER 105 mg/dL 70-110 : TESTED A T [facility] 6720 (BEAKER) (test code = [facility], 1538) [address]: Thickener Operator/Techni jo ann ID = [id number] for October POCT-GLUCOSE [id number] 03:22:28 Test Item Value Reference Range Interpretation Comments POC-GLUCOSE METER 93 mg/dL 70-110 : TESTED A T [facility] 6720 (BEAKER) (test code = [facility], 1538) [address]: Thickener Operator/Techni jo ann ID = [id number] for Lauri Cecyi POCT-GLUCOSE [id number] 02:32:48 Test Item Value Reference Range Interpretation Comments POC-GLUCOSE METER 96 mg/dL 70-110 : TESTED A T [facility] 6720 (BEAKER) (test code = [place], 1538) [address]: Thickener Operator/Techni jo ann ID = [id number] for Nati Carreon [id number] 02:26:11 Test Item Value Reference Range Interpretation Comments PHOSPHORUS (BEAKER) (test code = 2.3 mg/dL 2.3-4.7 604) Thickener Operator ID - NAOMI WLACTATE DEHYDROGENASE (LDH)2022-06-24 02:26:11 Test Item Value Reference Range Interpretation Comments LACTATE DEHYDROGENASE (BEAKER) (test 294 U/L 125-220 H code = 635) Thickener Operator ID - NAOMI WCOMPREHENSIVE METABOLIC [id number] 02:26:10 Test Item Value Reference Range Interpretation Comments TOTAL PROTEIN 4.9 gm/dL 6.0-8.3 L (BEAKER) (test code = 770) ALBUMIN (BEAKER) 2.8 g/dL 3.5-5.0 L (test code = 1145) ALKALINE 48 U/L 40-150 PHOSPHATASE (BEAKER) (test code = 346) BILIRUBIN TOTAL 0.6 mg/dL 0.2-1.2 (BEAKER) (test code = 377) SODIUM (BEAKER) 143 meq/L 136-145 (test code = 381) POTASSIUM (BEAKER) 4.1 meq/L 3.5-5.1 (test code = 379) CHLORIDE (BEAKER) 112 meq/L 98-107 H (test code = 382) CO2 (BEAKER) (test 26 meq/L 22-29 code = 355) BLOOD UREA 21 mg/dL 7-21 NITROGEN (BEAKER) (test code = 354) CREATININE 0.78 mg/dL 0.57-1.25 (BEAKER) (test code = 358) GLUCOSE RANDOM 101 mg/dL 70-105 (BEAKER) (test code = 652) CALCIUM (BEAKER) 8.9 mg/dL 8.4-10.2 (test code = 697) AST (SGOT) 19 U/L 5-34 (BEAKER) (test code = 353) ALT (SGPT) 12 U/L 6-55 (BEAKER) (test code = 347) EGFR (BEAKER) 77 Interpretatio n of eGFR (test code = 1092) mL/min/1.[address] age Description sq m Result G1 Nalini l or high >=90 G2 Mildly decreased 60-89 G3a Mildl y to moderately 45-5 9 G3b Moderately to s everely 30-44 G4 Severl y decreased 15-29 G5 Kidney failure <15Reported eGF R is based on the CKD-EPI 2020 equation that d oes not use a race coefficientEsti mated GFR is not as accur ate as Creatinine Keira saurabh in predicting glom erular filtration rate . Estimated GFR is not appl icable for dialysis patien ts Thickener Operator ID - NAOMI [id number] 02:26:10 Test Item Value Reference Range Interpretation Comments MAGNESIUM (BEAKER) (test code = 2.3 mg/dL 1.6-2.6 627) Thickener Operator ID Priti SALGADO [id number] 02:13:47 Test Item Value Reference Range Interpretation Comments PROTIME (BEAKER) (test 15.3 seconds 11.9-14.2 H code = 759) INR (BEAKER) (test 1.23 See_Comment [Automat ed code = 370) message] The sy stem which generated this result transmitted reference range : <=5.90. The reference range was not used to interpret this result as normal/abnormal . PARTIAL THROMBOPLASTIN 35.7 seconds 22.5-36.0 TIME (BEAKER) (test code = 760) RECOMMENDED COUMADIN/WARFARIN INR THERAPY RANGESSTANDARD DOSE: 2.0 - 3.0 Includes: PROPHYLAXIS for venous thrombosis, systemic embolization; TREATMENT for venous thrombosis and/or pulmonary embolus.HIGH RISK: Target INR is 2.5-3.5 for patients with mechanical heart valves.BLOOD GAS, [id number] 02:04:35 Test Item Value Reference Range Interpretation Comments PH ARTERIAL (BEAKER) (test code = 7.55 7.35-7.45 H 383) PCO2 ARTERIAL (BEAKER) (test code 32 mm Hg 35-45 L = 384) PO2 ARTERIAL (BEAKER) (test code = 107 mm Hg 80-90 H 385) O2 SATURATION ARTERIAL (BEAKER) 98.5 % 96.0-97.0 H (test code = 386) HCO3 ARTERIAL (BEAKER) (test code 27 mmol/L 21-29 = 388) BASE EXCESS ARTERIAL (BEAKER) 4.7 mmol/L -2.0-3.0 H (test code = 387) PATIENT TEMPERATURE (BEAKER) (test 37.0 code = 1818) FIO2 (BEAKER) (test code = 1819) 21.0 CALCIUM, [id number] 02:04:30 Test Item Value Reference Range Interpretation Comments CALCIUM IONIZED (BEAKER) (test 1.08 mmol/L 1.12-1.27 L code = 698) PH, BLOOD (BEAKER) (test code = 7.55 1810) OXYGEN SATURATION, [id number] 02:01:43 Test Item Value Reference Range Interpretation Comments O2 SATURATION (MEASURED) (AKER) 61.6 % (test code = 1455) POCT-GLUCOSE [id number] 01:16:33 Test Item Value Reference Range Interpretation Comments POC-GLUCOSE METER 101 mg/dL 70-110 : TESTED A T [facility] 6720 (BEAKER) (test code = VAN WERT [facility] [address]: Thickener Operator/Techni jo ann ID = [id number] for October POCT-GLUCOSE [id number] 23:58:01 Test Item Value Reference Range Interpretation Comments POC-GLUCOSE METER 172 mg/dL 70-110 H : TESTED A T [facility] 6720 (BEAKER) (test code = [facility], [facility]) [address]: Thickener Operator/Techni jo ann ID = [id number] for Da vis, Soni POCT-GLUCOSE [id number] 22:57:44 Test Item Value Reference Range Interpretation Comments POC-GLUCOSE METER 211 mg/dL 70-110 H : TESTED A T [facility] 6720 (BEAKER) (test code = [facility], [facility]) [address]: Thickener Operator/Techni jo ann ID = [id number] for Da vis, Soni POCT-GLUCOSE [id number] 22:04:23 Test Item Value Reference Range Interpretation Comments POC-GLUCOSE METER 249 mg/dL 70-110 H : TESTED A T [facility] 6720 (BEAKER) (test code = [facility], [facility]) [address]: Thickener Operator/Techni jo ann ID = [id number] for Da vis, Soni [id number] 21:57:31 Test Item Value Reference Range Interpretation Comments POTASSIUM (BEAKER) (test code = 4.1 meq/L 3.5-5.1 379) Thickener Operator ID - TANISHA [id number] 21:57:31 Test Item Value Reference Range Interpretation Comments GLUCOSE RANDOM (BEAKER) (test code 306 mg/dL 70-105 H = 652) Thickener Operator ID - TANISHA BBLOOD GAS, [id number] 21:43:29 Test Item Value Reference Range Interpretation Comments PH ARTERIAL (BEAKER) (test code = 7.42 7.35-7.45 383) PCO2 ARTERIAL (BEAKER) (test code 40 mm Hg 35-45 = 384) PO2 ARTERIAL (BEAKER) (test code = 103 mm Hg 80-90 H 385) O2 SATURATION ARTERIAL (BEAKER) 97.8 % 96.0-97.0 H (test code = 386) HCO3 ARTERIAL (BEAKER) (test code 25 mmol/L 21-29 = 388) BASE EXCESS ARTERIAL (BEAKER) 0.4 mmol/L -2.0-3.0 (test code = 387) PATIENT TEMPERATURE (BEAKER) (test 37.0 code = 1818) FIO2 (BEAKER) (test code = 1819) 21.0 POCT-GLUCOSE [id number] 20:04:40 Test Item Value Reference Range Interpretation Comments POC-GLUCOSE METER 336 mg/dL 70-110 H : TESTED A T [facility] 6720 (BEAKER) (test code = [place], 1538) [address]: Thickener Operator/Techni jo ann ID = [id number] for Da vis, Soni HEMOGLOBIN AND [id number] 16:24:58 Test Item Value Reference Range Interpretation Comments HEMOGLOBIN (BEAKER) (test code = 8.0 GM/DL 11.2-15.7 L 410) HEMATOCRIT (BEAKER) (test code = 24.9 % 34.1-44.9 L 411) Thickener Operator ID - 6000HGB/HCT (H&H)-Stat [id number] 16:23:53 Test Item Value Reference Range Interpretation Comments Hemoglobin (test code = 8.8 See_Comment L [Au tomated message] 718-7) The system [employer] generated this result transmitted ref erence range: 12.0 - 1 5.0 GM/DL. The refe rence range was not u sed to interpret this result as normal/abnor mal. Hematocrit (test code = 26.0 % 36.0-45.0 L 4544-3) Lab Interpretation (test Abnormal code = 40101-4) [facility] - STAT [id number] 16:23:53 Test Item Value Reference Range Interpretation Comments HEMOGLOBIN (BEAKER) (test code = 8.8 GM/DL 12.0-15.0 L 410) HEMATOCRIT (BEAKER) (test code = 26.0 % 36.0-45.0 L 411) BLOOD GAS, [id number] 16:23:52 Test Item Value Reference Range Interpretation Comments PH ARTERIAL (BEAKER) (test code = 7.44 7.35-7.45 383) PCO2 ARTERIAL (BEAKER) (test code 37 mm Hg 35-45 = 384) PO2 ARTERIAL (BEAKER) (test code = 124 mm Hg 80-90 H 385) O2 SATURATION ARTERIAL (BEAKER) 98.6 % 96.0-97.0 H (test code = 386) HCO3 ARTERIAL (BEAKER) (test code 25 mmol/L 21-29 = 388) BASE EXCESS ARTERIAL (BEAKER) 0.9 mmol/L -2.0-3.0 (test code = 387) PATIENT TEMPERATURE (BEAKER) (test 37.0 code = 1818) FIO2 (BEAKER) (test code = 1819) 40.0 Potassium-Stat [id number] 16:23:17 Test Item Value Reference Range Interpretation Comments Potassium (test code = 2823-3) 3.8 meq/L 3.6-5.5 Lab Interpretation (test code = Normal 86252-6) [facility]OT[facility] [id number] 16:23:17 Test Item Value Reference Range Interpretation Comments POTASSIUM (BEAKER) (test code = 3.8 meq/L 3.6-5.5 379) Glucose-Stat [id number] 16:23:16 Test Item Value Reference Range Interpretation Comments Glucose (test code = 2345-7) 314 mg/dL 70-110 H Lab Interpretation (test code = Abnormal 24378-2) [facility] [id number] 16:23:16 Test Item Value Reference Range Interpretation Comments Sodium (test code = 2951-2) 139 meq/L 136-145 Lab Interpretation (test code = Normal 86433-7) [facility]GLU[facility] [id number] 16:23:16 Test Item Value Reference Range Interpretation Comments GLUCOSE RANDOM (BEAKER) (test code 314 mg/dL 70-110 H = 652) SODIUM NA-STAT [id number] 16:23:16 Test Item Value Reference Range Interpretation Comments SODIUM (BEAKER) (test code = 381) 139 meq/L 136-145 2D Echo W/Doppler(CW/PW/Color)2022-06-23 13:09:13Ejection FractionSLEH ECHO HEARTLAB MKCKESSON CPACHI [facility]BL[facility], [id number] 11:54:37 Test Item Value Reference Range Interpretation Comments PH ARTERIAL (BEAKER) (test code = 7.53 7.35-7.45 H 383) PCO2 ARTERIAL (BEAKER) (test code 30 mm Hg 35-45 L = 384) PO2 ARTERIAL (BEAKER) (test code = 169 mm Hg 80-90 H 385) O2 SATURATION ARTERIAL (BEAKER) 99.3 % 96.0-97.0 H (test code = 386) HCO3 ARTERIAL (BEAKER) (test code 25 mmol/L 21-29 = 388) BASE EXCESS ARTERIAL (BEAKER) 2.8 mmol/L -2.0-3.0 (test code = 387) PATIENT TEMPERATURE (BEAKER) (test 37.0 code = 1818) FIO2 (BEAKER) (test code = 1819) 21.0 HGB/HCT (H&H) - STAT [id number] 11:51:36 Test Item Value Reference Range Interpretation Comments HEMOGLOBIN (BEAKER) (test code = 8.1 GM/DL 12.0-15.0 L 410) HEMATOCRIT (BEAKER) (test code = 24.0 % 36.0-45.0 L 411) CBC W/PLT COUNT & AUTO [id number] 11:51:31 Test Item Value Reference Range Interpretation Comments WHITE BLOOD CELL COUNT (BEAKER) 11.7 K/ L 3.5-10.5 H (test code = 775) RED BLOOD CELL COUNT (BEAKER) 2.85 M/ L 3.93-5.22 L (test code = 761) HEMOGLOBIN (BEAKER) (test code = 7.8 GM/DL 11.2-15.7 L 410) HEMATOCRIT (BEAKER) (test code = 23.8 % 34.1-44.9 L 411) MEAN CORPUSCULAR VOLUME (BEAKER) 84 fL 79-95 (test code = 753) MEAN CORPUSCULAR HEMOGLOBIN 27.4 pg 25.6-32.2 (BEAKER) (test code = 751) MEAN CORPUSCULAR HEMOGLOBIN CONC 32.8 GM/DL 32.2-35.5 (BEAKER) (test code = 752) RED CELL DISTRIBUTION WIDTH 19.1 % 11.7-14.4 H (BEAKER) (test code = 412) PLATELET COUNT (BEAKER) (test code 88 K/CU MM 150-450 L = 756) MEAN PLATELET VOLUME (BEAKER) 10.9 fL 9.4-12.3 (test code = 754) NUCLEATED RED BLOOD CELLS (BEAKER) 0 /100 WBC 0-0 (test code = 413) NEUTROPHILS RELATIVE PERCENT 83 % (BEAKER) (test code = 429) LYMPHOCYTES RELATIVE PERCENT 6 % (BEAKER) (test code = 430) MONOCYTES RELATIVE PERCENT 10 % (BEAKER) (test code = 431) EOSINOPHILS RELATIVE PERCENT 0 % (BEAKER) (test code = 432) BASOPHILS RELATIVE PERCENT 0 % (BEAKER) (test code = 437) NEUTROPHILS ABSOLUTE COUNT 9.65 K/ L 1.56-6.13 H (BEAKER) (test code = 670) LYMPHOCYTES ABSOLUTE COUNT 0.74 K/ L 1.18-3.74 L (BEAKER) (test code = 414) MONOCYTES ABSOLUTE COUNT (BEAKER) 1.19 K/ L 0.24-0.36 H (test code = 415) EOSINOPHILS ABSOLUTE COUNT 0.00 K/ L 0.04-0.36 L (BEAKER) (test code = 416) BASOPHILS ABSOLUTE COUNT (BEAKER) 0.03 K/ L 0.01-0.08 (test code = 417) IMMATURE GRANULOCYTES-RELATIVE 0.30 % 0.00-1.00 PERCENT (BEAKER) (test code = 2801) SODIUM NA-STAT [id number] 11:50:35 Test Item Value Reference Range Interpretation Comments SODIUM (BEAKER) (test code = 381) 138 meq/L 136-145 POTASSIUM-STAT [id number] 11:50:35 Test Item Value Reference Range Interpretation Comments POTASSIUM (BEAKER) (test code = 3.9 meq/L 3.6-5.5 379) GLUCOSE-STAT [id number] 11:50:34 Test Item Value Reference Range Interpretation Comments GLUCOSE RANDOM (BEAKER) (test code 197 mg/dL 70-110 H = 652) [id number] 08:34:19 Test Item Value Reference Range Interpretation Comments MAGNESIUM (BEAKER) (test code = 2.4 mg/dL 1.6-2.6 627) Thickener Operator ID - tanisha [id number] 08:34:19 Test Item Value Reference Range Interpretation Comments POTASSIUM (BEAKER) (test code = 4.4 meq/L 3.5-5.1 379) Thickener Operator ID - tanisha bHGB/HCT (H&H) - STAT [id number] 08:11:37 Test Item Value Reference Range Interpretation Comments HEMOGLOBIN (BEAKER) (test code = 9.5 GM/DL 12.0-15.0 L 410) HEMATOCRIT (BEAKER) (test code = 28.0 % 36.0-45.0 L 411) BLOOD GAS, [id number] 08:11:36 Test Item Value Reference Range Interpretation Comments PH ARTERIAL (BEAKER) (test code = 7.46 7.35-7.45 H 383) PCO2 ARTERIAL (BEAKER) (test code 40 mm Hg 35-45 = 384) PO2 ARTERIAL (BEAKER) (test code = 128 mm Hg 80-90 H 385) O2 SATURATION ARTERIAL (BEAKER) 98.7 % 96.0-97.0 H (test code = 386) HCO3 ARTERIAL (BEAKER) (test code 28 mmol/L 21-29 = 388) BASE EXCESS ARTERIAL (BEAKER) 3.4 mmol/L -2.0-3.0 H (test code = 387) PATIENT TEMPERATURE (BEAKER) (test 37.0 code = 1818) FIO2 (BEAKER) (test code = 1819) 21.0 CALCIUM, [id number] 08:10:33 Test Item Value Reference Range Interpretation Comments CALCIUM IONIZED (BEAKER) (test 1.13 mmol/L 1.12-1.27 code = 698) PH, BLOOD (BEAKER) (test code = 7.46 1810) SODIUM NA-STAT [id number] 08:10:16 Test Item Value Reference Range Interpretation Comments SODIUM (BEAKER) (test code = 381) 141 meq/L 136-145 POTASSIUM-STAT [id number] 08:10:16 Test Item Value Reference Range Interpretation Comments POTASSIUM (BEAKER) (test code = 4.1 meq/L 3.6-5.5 379) GLUCOSE-STAT [id number] 08:10:15 Test Item Value Reference Range Interpretation Comments GLUCOSE RANDOM (BEAKER) (test code 188 mg/dL 70-110 H = 652) LACTATE DEHYDROGENASE (LDH)2022-06-23 04:57:14 Test Item Value Reference Range Interpretation Comments LACTATE DEHYDROGENASE (BEAKER) (test 327 U/L 125-220 H code = 635) Thickener Operator ID Priti SALGADO [id number] 04:57:13 Test Item Value Reference Range Interpretation Comments MAGNESIUM (BEAKER) (test code = 2.5 mg/dL 1.6-2.6 627) Thickener Operator ID Priti SALGADO [id number] 04:57:13 Test Item Value Reference Range Interpretation Comments PHOSPHORUS (BEAKER) (test code = 4.2 mg/dL 2.3-4.7 604) Thickener Operator ID Priti SALGADO WCOMPREHENSIVE METABOLIC [id number] 04:57:12 Test Item Value Reference Range Interpretation Comments TOTAL PROTEIN 4.6 gm/dL 6.0-8.3 L (BEAKER) (test code = 770) ALBUMIN (BEAKER) 2.7 g/dL 3.5-5.0 L (test code = 1145) ALKALINE 42 U/L 40-150 PHOSPHATASE (BEAKER) (test code = 346) BILIRUBIN TOTAL 0.7 mg/dL 0.2-1.2 (BEAKER) (test code = 377) SODIUM (BEAKER) 147 meq/L 136-145 H (test code = 381) POTASSIUM (BEAKER) 3.9 meq/L 3.5-5.1 (test code = 379) CHLORIDE (BEAKER) 112 meq/L 98-107 H (test code = 382) CO2 (BEAKER) (test 26 meq/L 22-29 code = 355) BLOOD UREA 18 mg/dL 7-21 NITROGEN (BEAKER) (test code = 354) CREATININE 0.83 mg/dL 0.57-1.25 (BEAKER) (test code = 358) GLUCOSE RANDOM 205 mg/dL 70-105 H (BEAKER) (test code = 652) CALCIUM (BEAKER) 8.9 mg/dL 8.4-10.2 (test code = 697) AST (SGOT) 27 U/L 5-34 (BEAKER) (test code = 353) ALT (SGPT) 11 U/L 6-55 (BEAKER) (test code = 347) EGFR (BEAKER) 72 Interpretati on of eGFR (test code = 1092) mL/min/1.[address] age Description sq m Result G1 Nalini l or high >=90 G2 Mildly decreased 60-89 G3a Mildl y to moderately 45-5 9 G3b Moderately to s everely 30-44 G4 Severl y decreased 15-29 G5 Kidney failure <15Reported eGF R is based on the CKD-EPI 2020 equation that d oes not use a race coefficientEsti mated GFR is not as accur ate as Creatinine Keira saurabh in predicting glom erular filtration rate . Estimated GFR is not appl icable for dialysis patien ts Thickener Operator ID - NAOMI WPT/[id number] 04:41:07 Test Item Value Reference Range Interpretation Comments PROTIME (BEAKER) (test 17.1 seconds 11.9-14.2 H code = 759) INR (BEAKER) (test 1.43 See_Comment [Automat ed code = 370) message] The sy stem which generated this result transmitted reference range : <=5.90. The reference range was not used to interpret this result as normal/abnormal . PARTIAL THROMBOPLASTIN 36.4 seconds 22.5-36.0 H TIME (BEAKER) (test code = 760) RECOMMENDED COUMADIN/WARFARIN INR THERAPY RANGESSTANDARD DOSE: 2.0 - 3.0 Includes: PROPHYLAXIS for venous thrombosis, systemic embolization; TREATMENT for venous thrombosis and/or pulmonary embolus.HIGH RISK: Target INR is 2.5-3.5 for patients with mechanical heart valves.CBC W/PLT COUNT & AUTO [id number] 04:20:49 Test Item Value Reference Range Interpretation Comments WHITE BLOOD CELL COUNT (BEAKER) 11.5 K/ L 3.5-10.5 H (test code = 775) RED BLOOD CELL COUNT (BEAKER) 2.51 M/ L 3.93-5.22 L (test code = 761) HEMOGLOBIN (BEAKER) (test code = 6.7 GM/DL 11.2-15.7 L 410) HEMATOCRIT (BEAKER) (test code = 20.6 % 34.1-44.9 L 411) MEAN CORPUSCULAR VOLUME (BEAKER) 82 fL 79-95 (test code = 753) MEAN CORPUSCULAR HEMOGLOBIN 26.7 pg 25.6-32.2 (BEAKER) (test code = 751) MEAN CORPUSCULAR HEMOGLOBIN CONC 32.5 GM/DL 32.2-35.5 (BEAKER) (test code = 752) RED CELL DISTRIBUTION WIDTH 21.2 % 11.7-14.4 H (BEAKER) (test code = 412) PLATELET COUNT (BEAKER) (test code 95 K/CU MM 150-450 L = 756) MEAN PLATELET VOLUME (BEAKER) 10.4 fL 9.4-12.3 (test code = 754) NUCLEATED RED BLOOD CELLS (BEAKER) 0 /100 WBC 0-0 (test code = 413) NEUTROPHILS RELATIVE PERCENT 80 % (BEAKER) (test code = 429) LYMPHOCYTES RELATIVE PERCENT 7 % (BEAKER) (test code = 430) MONOCYTES RELATIVE PERCENT 12 % (BEAKER) (test code = 431) EOSINOPHILS RELATIVE PERCENT 0 % (BEAKER) (test code = 432) BASOPHILS RELATIVE PERCENT 0 % (BEAKER) (test code = 437) NEUTROPHILS ABSOLUTE COUNT 9.22 K/ L 1.56-6.13 H (BEAKER) (test code = 670) LYMPHOCYTES ABSOLUTE COUNT 0.81 K/ L 1.18-3.74 L (BEAKER) (test code = 414) MONOCYTES ABSOLUTE COUNT (BEAKER) 1.38 K/ L 0.24-0.36 H (test code = 415) EOSINOPHILS ABSOLUTE COUNT 0.00 K/ L 0.04-0.36 L (BEAKER) (test code = 416) BASOPHILS ABSOLUTE COUNT (BEAKER) 0.03 K/ L 0.01-0.08 (test code = 417) IMMATURE GRANULOCYTES-RELATIVE 0.30 % 0.00-1.00 PERCENT (BEAKER) (test code = 2801) CALCIUM, [id number] 04:14:30 Test Item Value Reference Range Interpretation Comments CALCIUM IONIZED (BEAKER) (test 1.08 mmol/L 1.12-1.27 L code = 698) PH, BLOOD (BEAKER) (test code = 7.43 1810) OXYGEN SATURATION, [id number] 04:03:56 Test Item Value Reference Range Interpretation Comments O2 SATURATION (MEASURED) (BEAKER) 65.8 % (test code = 1455) RAD, CHEST, 1 VIEW, NON [id number] 03:18:00Reason for exam:->Post ACBReason for exam:->ImpellaShould this be performed at the bedside?->Yes [facility] 1940 Sex: FFINAL REPORT RAD, CHEST, 1 VIEW, NON DEPT INDICATION: Post ACBImpella COMPARISON: Prior day's exam FINDINGS: Portable frontal view of the chest. IMPRESSION: Support Lines: Intervalextubation and removal of the enteric tube. Otherwise, stable. Lungs and pleura: There are trace bilateral pleural effusions and bibasilar streaky opacities compatible with atelectasis. No pneumothorax. Heart and mediastinum: Stable contours. Additional findings: None. Signed: Cari Hines MDReport Verified Date/Time: 06/23/2022 03:18:38 CALCIUM, [id number] 00:35:37 Test Item Value Reference Range Interpretation Comments CALCIUM IONIZED (BEAKER) (test 1.06 mmol/L 1.12-1.27 L code = 698) PH, BLOOD (BEAKER) (test code = 7.48 1810) HGB/HCT (H&H) - STAT [id number] 00:35:36 Test Item Value Reference Range Interpretation Comments HEMOGLOBIN (BEAKER) (test code = 7.5 GM/DL 12.0-15.0 L 410) HEMATOCRIT (BEAKER) (test code = 22.0 % 36.0-45.0 L 411) BLOOD GAS, [id number] 00:35:35 Test Item Value Reference Range Interpretation Comments PH ARTERIAL (BEAKER) (test code = 7.47 7.35-7.45 H 383) PCO2 ARTERIAL (BEAKER) (test code 39 mm Hg 35-45 = 384) PO2 ARTERIAL (BEAKER) (test code = 102 mm Hg 80-90 H 385) O2 SATURATION ARTERIAL (BEAKER) 98.0 % 96.0-97.0 H (test code = 386) HCO3 ARTERIAL (BEAKER) (test code 28 mmol/L 21-29 = 388) BASE EXCESS ARTERIAL (BEAKER) 4.3 mmol/L -2.0-3.0 H (test code = 387) PATIENT TEMPERATURE (BEAKER) (test 37.3 code = 1818) FIO2 (BEAKER) (test code = 1819) 36.0 [id number] 00:31:35 Test Item Value Reference Range Interpretation Comments POTASSIUM (BEAKER) (test code = 4.1 meq/L 3.5-5.1 379) Thickener Operator ID - [id number] 00:31:34 Test Item Value Reference Range Interpretation Comments MAGNESIUM (BEAKER) (test code = 2.4 mg/dL 1.6-2.6 627) Thickener Operator ID - BSSODIUM NA-STAT [id number] 00:04:15 Test Item Value Reference Range Interpretation Comments SODIUM (BEAKER) (test code = 381) 143 meq/L 136-145 POTASSIUM-STAT [id number] 00:04:15 Test Item Value Reference Range Interpretation Comments POTASSIUM (BEAKER) (test code = 4.0 meq/L 3.6-5.5 379) GLUCOSE-STAT [id number] 00:04:14 Test Item Value Reference Range Interpretation Comments GLUCOSE RANDOM (BEAKER) (test code 195 mg/dL 70-110 H = 652) Prepare [id number] 23:54:00 Test Item Value Reference Range Interpretation Comments Unit ABO (test code = 9044516) O Pos UNIT NUMBER (test code = [id number] 934-0) Status (test code = 4844232) TX_TIMEINCHART Blood Bank Product (test code FFP = 2263) PRODUCT CODE (test code = C7154E65 933-2) [facility] Leuko-Red PLT, 2 [id number] 23:54:00 Test Item Value Reference Range Interpretation Comments Unit ABO (test code = 6146624) A Pos UNIT NUMBER (test code = [id number] 934-0) Status (test code = 0911159) [facility]IN[facility]ALT Blood Bank Product (test code PLATELETS = 2263) PRODUCT CODE (test code = J8717Y50 933-2) [facility] PeninsulaPOCT-GLUCOSE [id number] 18:32:53 Test Item Value Reference Range Interpretation Comments POC-GLUCOSE METER 138 mg/dL 70-110 H : TESTED A T [facility] 6720 (BEAKER) (test code = ЕЛЕ[place]А [place], 1538) [id number]: Thickener Operator/Techni jo ann ID = [id number] for AARON SANTANA [id number] 17:38:08 Test Item Value Reference Range Interpretation Comments MAGNESIUM (BEAKER) (test code = 2.0 mg/dL 1.6-2.6 627) Thickener Operator ID - BSBASIC METABOLIC [id number] 17:38:07 Test Item Value Reference Range Interpretation Comments SODIUM (BEAKER) 148 meq/L 136-145 H (test code = 381) POTASSIUM 4.2 meq/L 3.5-5.1 (BEAKER) (test code = 379) CHLORIDE (BEAKER) 113 meq/L 98-107 H (test code = 382) CO2 (BEAKER) 26 meq/L 22-29 (test code = 355) BLOOD UREA 17 mg/dL 7-21 NITROGEN (BEAKER) (test code = 354) CREATININE 0.79 mg/dL 0.57-1.25 (BEAKER) (test code = 358) GLUCOSE RANDOM 147 mg/dL 70-105 H (BEAKER) (test code = 652) CALCIUM (BEAKER) 8.6 mg/dL 8.4-10.2 (test code = 697) EGFR (BEAKER) 76 Interpretatio n of eGFR (test code = mL/min/1.73 values Stage De scription 1092) sq m Result G1 Nalini l or high >=90 G2 Mildly decreased 60-89 G3a Mildl y to moderately 45-5 9 G3b Moderately to s everely 30-44 G4 Severl y decreased 15-29 G5 Kidney failure <15Reported eGF R is based on the CKD-EPI 2020 equation that d oes not use a race coefficientEsti mated GFR is not as accur ate as Creatinine Keira saurabh in predicting glom erular filtration rate . Estimated GFR is not appl icable for dialysis patien ts Thickener Operator ID - BSCBC W/PLT COUNT & AUTO [id number] 17:21:52 Test Item Value Reference Range Interpretation Comments WHITE BLOOD CELL COUNT (BEAKER) 11.2 K/ L 3.5-10.5 H (test code = 775) RED BLOOD CELL COUNT (BEAKER) 2.98 M/ L 3.93-5.22 L (test code = 761) HEMOGLOBIN (BEAKER) (test code = 7.8 GM/DL 11.2-15.7 L 410) HEMATOCRIT (BEAKER) (test code = 23.8 % 34.1-44.9 L 411) MEAN CORPUSCULAR VOLUME (BEAKER) 80 fL 79-95 (test code = 753) MEAN CORPUSCULAR HEMOGLOBIN 26.2 pg 25.6-32.2 (BEAKER) (test code = 751) MEAN CORPUSCULAR HEMOGLOBIN CONC 32.8 GM/DL 32.2-35.5 (BEAKER) (test code = 752) RED CELL DISTRIBUTION WIDTH 20.8 % 11.7-14.4 H (BEAKER) (test code = 412) PLATELET COUNT (BEAKER) (test 128 K/CU MM 150-450 L code = 756) MEAN PLATELET VOLUME (BEAKER) 10.0 fL 9.4-12.3 (test code = 754) NUCLEATED RED BLOOD CELLS 0 /100 WBC 0-0 (BEAKER) (test code = 413) NEUTROPHILS RELATIVE PERCENT 78 % (BEAKER) (test code = 429) LYMPHOCYTES RELATIVE PERCENT 9 % (BEAKER) (test code = 430) MONOCYTES RELATIVE PERCENT 13 % (BEAKER) (test code = 431) EOSINOPHILS RELATIVE PERCENT 0 % (BEAKER) (test code = 432) BASOPHILS RELATIVE PERCENT 0 % (BEAKER) (test code = 437) NEUTROPHILS ABSOLUTE COUNT 8.68 K/ L 1.56-6.13 H (BEAKER) (test code = 670) LYMPHOCYTES ABSOLUTE COUNT 1.00 K/ L 1.18-3.74 L (BEAKER) (test code = 414) MONOCYTES ABSOLUTE COUNT (BEAKER) 1.39 K/ L 0.24-0.36 H (test code = 415) EOSINOPHILS ABSOLUTE COUNT 0.00 K/ L 0.04-0.36 L (BEAKER) (test code = 416) BASOPHILS ABSOLUTE COUNT (BEAKER) 0.04 K/ L 0.01-0.08 (test code = 417) IMMATURE GRANULOCYTES-RELATIVE 0.40 % 0.00-1.00 PERCENT (BEAKER) (test code = 2801) CALCIUM, [id number] 17:18:17 Test Item Value Reference Range Interpretation Comments CALCIUM IONIZED (BEAKER) (test 1.02 mmol/L 1.12-1.27 L code = 698) PH, BLOOD (BEAKER) (test code = 7.50 1810) POCT-GLUCOSE [id number] 17:16:17 Test Item Value Reference Range Interpretation Comments POC-GLUCOSE METER 135 mg/dL 70-110 H : TESTED A T [facility] 6720 (BEAKER) (test code = [place], 1538) [id number]: Thickener Operator/Techni jo ann ID = [id number] for AARON SANTANA [id number] 17:08:38 Test Item Value Reference Range Interpretation Comments AMMONIA (BEAKER) (test code = 348) 26 mol/L 18-72 Thickener Operator ID - BSBLOOD GAS, [id number] 14:58:04 Test Item Value Reference Range Interpretation Comments PH ARTERIAL (BEAKER) (test code = 7.50 7.35-7.45 H 383) PCO2 ARTERIAL (BEAKER) (test code 35 mm Hg 35-45 = 384) PO2 ARTERIAL (BEAKER) (test code = 139 mm Hg 80-90 H 385) O2 SATURATION ARTERIAL (BEAKER) 98.9 % 96.0-97.0 H (test code = 386) HCO3 ARTERIAL (BEAKER) (test code 26 mmol/L 21-29 = 388) BASE EXCESS ARTERIAL (BEAKER) 3.4 mmol/L -2.0-3.0 H (test code = 387) PATIENT TEMPERATURE (BEAKER) (test 37.8 code = 1818) FIO2 (BEAKER) (test code = 1819) 40.0 POCT-GLUCOSE [id number] 14:11:38 Test Item Value Reference Range Interpretation Comments POC-GLUCOSE METER 110 mg/dL 70-110 : TESTED A T [facility] 6720 (BEAKER) (test code = [facility] [employer] [facility], 1538) [id number]: Thickener Operator/Techni jo ann ID = [id number] for AARON SANTANA POCT-GLUCOSE [id number] 12:47:19 Test Item Value Reference Range Interpretation Comments POC-GLUCOSE METER 126 mg/dL 70-110 H : TESTED A T [facility] 6720 (BEAKER) (test code = [facility] [employer] [facility], 1538) [id number]: Thickener Operator/Techni jo ann ID = [id number] for Nancy edmond Maco [id number] 10:26:21 Test Item Value Reference Range Interpretation Comments Scan Result (test code = See scanned report. [id number]) YOGESH (test code = YOGESH) [facility] [id number] 10:26:21 Test Item Value Reference Range Interpretation Comments SCAN RESULT (test code = See scanned report. [id number]) See scanned reportHGB/HCT (H&H) - STAT [id number] 09:23:51 Test Item Value Reference Range Interpretation Comments HEMOGLOBIN (BEAKER) (test code = 9.1 GM/DL 12.0-15.0 L 410) HEMATOCRIT (BEAKER) (test code = 27.0 % 36.0-45.0 L 411) BLOOD GAS, [id number] 09:23:45 Test Item Value Reference Range Interpretation Comments PH ARTERIAL (BEAKER) (test code = 7.43 7.35-7.45 383) PCO2 ARTERIAL (BEAKER) (test code 39 mm Hg 35-45 = 384) PO2 ARTERIAL (BEAKER) (test code = 169 mm Hg 80-90 H 385) O2 SATURATION ARTERIAL (BEAKER) 99.2 % 96.0-97.0 H (test code = 386) HCO3 ARTERIAL (BEAKER) (test code 25 mmol/L 21-29 = 388) BASE EXCESS ARTERIAL (BEAKER) 1.0 mmol/L -2.0-3.0 (test code = 387) PATIENT TEMPERATURE (BEAKER) (test 37.8 code = 1818) FIO2 (BEAKER) (test code = 1819) 40.0 SODIUM NA-STAT [id number] 09:23:24 Test Item Value Reference Range Interpretation Comments SODIUM (BEAKER) (test code = 381) 143 meq/L 136-145 POTASSIUM-STAT [id number] 09:23:24 Test Item Value Reference Range Interpretation Comments POTASSIUM (BEAKER) (test code = 4.2 meq/L 3.6-5.5 379) GLUCOSE-STAT [id number] 09:23:23 Test Item Value Reference Range Interpretation Comments GLUCOSE RANDOM (BEAKER) (test code 132 mg/dL 70-110 H = 652) POCT-GLUCOSE [id number] 09:05:06 Test Item Value Reference Range Interpretation Comments POC-GLUCOSE METER 131 mg/dL 70-110 H : TESTED A T [facility] 6720 (BEAKER) (test code = [place], 1538) [id number]: Thickener Operator/Techni jo ann ID = [id number] for AARON SANTANA HEMOGLOBIN AND [id number] 08:39:13 Test Item Value Reference Range Interpretation Comments HEMOGLOBIN (BEAKER) (test code = 9.0 GM/DL 11.2-15.7 L 410) HEMATOCRIT (BEAKER) (test code = 26.8 % 34.1-44.9 L 411) Thickener Operator ID - [id number] ACID, [id number] 08:22:31 Test Item Value Reference Range Interpretation Comments LACTATE BLOOD 3.8 mmol/L 0.5-2.2 H Specimen sligh tly ARTERIAL (2) (BEAKER) hemoly zed (test code = 2874) Thickener Operator ID - MITCHBLOOD GAS, [id number] 07:17:42 Test Item Value Reference Range Interpretation Comments PH ARTERIAL (BEAKER) (test code = 7.44 7.35-7.45 383) PCO2 ARTERIAL (BEAKER) (test code 36 mm Hg 35-45 = 384) PO2 ARTERIAL (BEAKER) (test code = 79 mm Hg 80-90 L 385) O2 SATURATION ARTERIAL (BEAKER) 95.8 % 96.0-97.0 L (test code = 386) HCO3 ARTERIAL (BEAKER) (test code 24 mmol/L 21-29 = 388) BASE EXCESS ARTERIAL (BEAKER) 0.4 mmol/L -2.0-3.0 (test code = 387) PATIENT TEMPERATURE (BEAKER) (test 37.8 code = 1818) FIO2 (BEAKER) (test code = 1819) 40.0 (CELLAVISION MANUAL DIFF)2022-06-22 07:14:25 Test Item Value Reference Range Interpretation Comments NEUTROPHILS - REL 84 % (CELLAVISION)(BEAKER) (test code = 2816) LYMPHOCYTES - REL 5 % (CELLAVISION)(BEAKER) (test code = 2817) MONOCYTES - REL 9 % (CELLAVISION)(BEAKER) (test code = 2818) BASOPHILS - REL 2 % (CELLAVISION)(BEAKER) (test code = 2820) BANDS - REL (CELLAVISION)(BEAKER) 2 % 0-10 (test code = 2826) NEUTROPHILS - ABS 8.32 K/ul 1.56-6.13 H (CELLAVISION)(BEAKER) (test code = 2830) LYMPHOCYTES - ABS 0.50 K/ul 1.18-3.74 L (CELLAVISION)(BEAKER) (test code = 2831) MONOCYTES - ABS 0.89 K/uL 0.24-0.36 H (CELLAVISION)(BEAKER) (test code = 2832) BASOPHILS - ABS 0.20 K/uL 0.01-0.08 H (CELLAVISION)(BEAKER) (test code = 2835) BANDS - ABS (CELLAVISION)(BEAKER) 0.20 K/uL 0.00-0.80 (test code = 2840) TOTAL COUNTED (BEAKER) (test code 100 = 1351) MANUAL NRBC PER 100 CELLS 1 /100 WBC 0-0 H (BEAKER) (test code = 1353) WBC MORPHOLOGY (BEAKER) (test Normal code = 487) GIANT PLATELETS (BEAKER) (test Present code = 313) ANISOCYTOSIS (BEAKER) (test code 2+ moderate = 961) MICROCYTES (BEAKER) (test code = 2+ moderate 965) POIKILOCYTES (BEAKER) (test code 1+ few = 966) SPHEROCYTES (BEAKER) (test code = 1+ few 768) ELLIPTOCYTES (BEAKER) (test code 1+ few = 962) ARTIFACT (CELLAVISION)(BEAKER) Present (test code = 3432) PLATELET CONCENTRATION Adequate (CELLAVISION)(BEAKER) (test code = 3438) Thickener Operator ID - tanisha Zabala comments: Slide comments:CBC W/PLT COUNT & AUTO [id number] 07:14:24 Test Item Value Reference Range Interpretation Comments WHITE BLOOD CELL COUNT (BEAKER) 9.9 K/ L 3.5-10.5 (test code = 775) RED BLOOD CELL COUNT (BEAKER) 2.71 M/ L 3.93-5.22 L (test code = 761) HEMOGLOBIN (BEAKER) (test code = 6.9 GM/DL 11.2-15.7 L 410) HEMATOCRIT (BEAKER) (test code = 20.9 % 34.1-44.9 L 411) MEAN CORPUSCULAR VOLUME (BEAKER) 77 fL 79-95 L (test code = 753) MEAN CORPUSCULAR HEMOGLOBIN 25.5 pg 25.6-32.2 L (BEAKER) (test code = 751) MEAN CORPUSCULAR HEMOGLOBIN CONC 33.0 GM/DL 32.2-35.5 (BEAKER) (test code = 752) RED CELL DISTRIBUTION WIDTH 21.2 % 11.7-14.4 H (BEAKER) (test code = 412) PLATELET COUNT (BEAKER) (test 173 K/CU MM 150-450 code = 756) MEAN PLATELET VOLUME (BEAKER) 9.2 fL 9.4-12.3 L (test code = 754) NUCLEATED RED BLOOD CELLS 0 /100 WBC 0-0 (BEAKER) (test code = 413) [id number] 06:34:32 Test Item Value Reference Range Interpretation Comments PARTIAL THROMBOPLASTIN TIME 104.7 seconds 22.5-36.0 H (BEAKER) (test code = 760) POCT-GLUCOSE [id number] 06:27:07 Test Item Value Reference Range Interpretation Comments POC-GLUCOSE METER 118 mg/dL 70-110 H : TESTED A T [place] [address] (BEAKER) (test code = [facility], 1538) [address]: Thickener Operator/Techni jo ann ID = [id number] for ESTHER COHEN (V), [place] POC ACTIVATED CLOTTING [id number] 06:11:44 Test Item Value Reference Range Interpretation Comments Activated Clotting Time 109 sec : 74 -137 seconds, (test code = 3184-9) Baselin e: TESTED AT [address], [address]: Thickener Operator/Techni jo ann ID = [id number] for Cu rtis, [facility]-[id number] 06:11:44 Test Item Value Reference Range Interpretation Comments ACTIVATED CLOTTING TIME 109 sec : 74 -137 seconds, (BEAKER) (test code = Baseli ne: TESTED AT 441) [address], [address]: Thickener Operator/Techni jo ann ID = [id number] for Cu rtis, [place] [id number] 06:11:43 Test Item Value Reference Range Interpretation Comments ACTIVATED CLOTTING TIME 543 sec : 74 -137 seconds, (BEAKER) (test code = Baseli ne: TESTED AT 441) [address], [address]: Thickener Operator/Techni jo ann ID = [id number] for Cu rtis, [place] [id number] 06:11:42 Test Item Value Reference Range Interpretation Comments ACTIVATED CLOTTING TIME 555 sec : 74 -137 seconds, (BEAKER) (test code = Baseli ne: TESTED AT 441) [address], [address]: Thickener Operator/Techni jo ann ID = [id number] for Cu rtis, [place] [id number] 06:11:42 Test Item Value Reference Range Interpretation Comments ACTIVATED CLOTTING TIME 706 sec : 74 -137 seconds, (BEAKER) (test code = Ashish ne: TESTED AT 441) [facility] [address] [facility], [address]: Thickener Operator/Techni jo ann ID = [id number] for [place]erto Rajput [id number] 06:11:41 Test Item Value Reference Range Interpretation Comments ACTIVATED CLOTTING TIME 555 sec : 74 -137 seconds, (BEAKER) (test code = Ashish ne: TESTED AT 441) [address], [address]: Thickener Operator/Techni jo ann ID = [id number] for Carol Persaud [id number] 05:29:22 Test Item Value Reference Range Interpretation Comments PROTIME ([facility]) (test 17.3 seconds 11.9-14.2 H code = 759) INR ([facility]) (test 1.51 See_Comment [Automat ed code = 370) message] The system which generated this result transmit brian reference range : <=5.90. The reference range was not used to interpret this result as normal/abnormal . PARTIAL THROMBOPLASTIN 119.9 seconds 22.5-36.0 H TIME ([facility]) (test code = 760) RECOMMENDED COUMADIN/WARFARIN INR THERAPY RANGESSTANDARD DOSE: 2.0 - 3.0 Includes: PROPHYLAXIS for venous thrombosis, systemic embolization; TREATMENT for venous thrombosis and/or pulmonary embolus.HIGH RISK: Target INR is 2.5-3.5 for patients with mechanical heart valves.POCT-GLUCOSE [id number] 05:26:18 Test Item Value Reference Range Interpretation Comments POC-GLUCOSE METER 108 mg/dL 70-110 : TESTED A T [facility] 6720 (BEAKER) (test code = [facility], 1538) [address]: Thickener Operator/Techni jo ann ID = [id number] for ESTHER COHEN (Angelo)[place] LACTIC ACID, [id number] 05:08:16 Test Item Value Reference Range Interpretation Comments LACTATE BLOOD ARTERIAL (2) 5.4 mmol/L 0.5-2.2 HH (BEAKER) (test code = 2874) Thickener Operator ID - TK MRAD, CHEST, 1 VIEW, NON [id number] 04:43:00while patient is intubated or has chest tubes.Reason for exam:->Status post CV SurgeryShould thisbe performed at the bedside?->Yes [facility] : 1940 Sex: FFINAL REPORT PORTABLE AP CHEST ORDERED AT 06/22/2022 3:07 AM HISTORY: Cardiovascular surgery. COMPARISON: Chest radiograph 06/21/2022 IMPRESSION: Tubes and lines not significantly changed. Mild increase in atelectasis. No significant change in probable small bilateral effusions. The LEFT costophrenic angle was admitted from the exam. Signed: Eloisa Yepez Verified Date/Time: 06/22/2022 04:43:59 BLOOD GAS, [id number] 04:31:00 Test Item Value Reference Range Interpretation Comments PH ARTERIAL (BEAKER) (test code = 7.47 7.35-7.45 H 383) PCO2 ARTERIAL (BEAKER) (test code 35 mm Hg 35-45 = 384) PO2 ARTERIAL (BEAKER) (test code = 184 mm Hg 80-90 H 385) O2 SATURATION ARTERIAL (BEAKER) 99.3 % 96.0-97.0 H (test code = 386) HCO3 ARTERIAL (BEAKER) (test code 25 mmol/L 21-29 = 388) BASE EXCESS ARTERIAL (BEAKER) 1.0 mmol/L -2.0-3.0 (test code = 387) PATIENT TEMPERATURE (BEAKER) (test 37.6 code = 1818) FIO2 (BEAKER) (test code = 1819) 40.0 CALCIUM, [id number] 04:30:59 Test Item Value Reference Range Interpretation Comments CALCIUM IONIZED (BEAKER) (test 1.08 mmol/L 1.12-1.27 L code = 698) PH, BLOOD (BEAKER) (test code = 7.48 1810) [id number] 04:27:22 Test Item Value Reference Range Interpretation Comments PHOSPHORUS (BEAKER) (test code = 3.6 mg/dL 2.3-4.7 604) Thickener Operator ID - TK MLACTATE DEHYDROGENASE (LDH)2022-06-22 04:27:22 Test Item Value Reference Range Interpretation Comments LACTATE DEHYDROGENASE (BEAKER) (test 381 U/L 125-220 H code = 635) Thickener Operator ID - TK [id number] 04:27:21 Test Item Value Reference Range Interpretation Comments MAGNESIUM (BEAKER) (test code = 2.2 mg/dL 1.6-2.6 627) Thickener Operator ID - TK MCOMPREHENSIVE METABOLIC [id number] 04:27:20 Test Item Value Reference Range Interpretation Comments TOTAL PROTEIN 4.1 gm/dL 6.0-8.3 L (BEAKER) (test code = 770) ALBUMIN (BEAKER) 2.7 g/dL 3.5-5.0 L (test code = 1145) ALKALINE 29 U/L 40-150 L PHOSPHATASE (BEAKER) (test code = 346) BILIRUBIN TOTAL 0.6 mg/dL 0.2-1.2 (BEAKER) (test code = 377) SODIUM (BEAKER) 148 meq/L 136-145 H (test code = 381) POTASSIUM (BEAKER) 4.3 meq/L 3.5-5.1 (test code = 379) CHLORIDE (BEAKER) 115 meq/L 98-107 H (test code = 382) CO2 (BEAKER) (test 24 meq/L 22-29 code = 355) BLOOD UREA 20 mg/dL 7-21 NITROGEN (BEAKER) (test code = 354) CREATININE 0.77 mg/dL 0.57-1.25 (BEAKER) (test code = 358) GLUCOSE RANDOM 128 mg/dL 70-105 H (BEAKER) (test code = 652) CALCIUM (BEAKER) 8.6 mg/dL 8.4-10.2 (test code = 697) AST (SGOT) 40 U/L 5-34 H (BEAKER) (test code = 353) ALT (SGPT) 11 U/L 6-55 (BEAKER) (test code = 347) EGFR (BEAKER) 78 Interpretatio n of eGFR (test code = 1092) mL/min/1.[address] age Description sq m Result G1 Nalini l or high >=90 G2 Mildly decreased 60-89 G3a Mildl y to moderately 45-5 9 G3b Moderately to s everely 30-44 G4 Sever ly decreased 15-29 G5 Kidney failure <15Repo rted eGFR is based on the CKD-EPI 2021 equation t hat does not use a race coefficientEsti mated GFR is not as accur ate as Creatinine Keira wiley in predicting glom erular filtration rate . Estimated GFR is not appl icable for dialysis patien ts Thickener Operator ID - TK MOXYGEN SATURATION, [id number] 04:08:53 Test Item Value Reference Range Interpretation Comments O2 SATURATION (MEASURED) (BEAKER) 68.0 % (test code = 1455) POCT-GLUCOSE [id number] 03:53:25 Test Item Value Reference Range Interpretation Comments POC-GLUCOSE METER 125 mg/dL 70-110 H : TESTED A T [facility] 6720 (BEAKER) (test code = [place], 1538) [address]: Thickener Operator/Techni jo ann ID = [id number] for ESTHER COHEN (Angelo)[place] BLOOD GAS, [id number] 01:33:07 Test Item Value Reference Range Interpretation Comments PH ARTERIAL (BEAKER) (test code = 7.51 7.35-7.45 H 383) PCO2 ARTERIAL (BEAKER) (test code 29 mm Hg 35-45 L = 384) PO2 ARTERIAL (BEAKER) (test code = 123 mm Hg 80-90 H 385) O2 SATURATION ARTERIAL (BEAKER) 98.7 % 96.0-97.0 H (test code = 386) HCO3 ARTERIAL (BEAKER) (test code 23 mmol/L 21-29 = 388) BASE EXCESS ARTERIAL (BEAKER) 0.1 mmol/L -2.0-3.0 (test code = 387) PATIENT TEMPERATURE (BEAKER) (test 37.7 code = 1818) FIO2 (BEAKER) (test code = 1819) 40.0 HGB/HCT (H&H) - STAT [id number] 01:33:07 Test Item Value Reference Range Interpretation Comments HEMOGLOBIN (BEAKER) (test code = 8.2 GM/DL 12.0-15.0 L 410) HEMATOCRIT (BEAKER) (test code = 24.0 % 36.0-45.0 L 411) POTASSIUM-STAT [id number] 01:32:09 Test Item Value Reference Range Interpretation Comments POTASSIUM (BEAKER) (test code = 3.6 meq/L 3.6-5.5 379) SODIUM NA-STAT [id number] 01:32:08 Test Item Value Reference Range Interpretation Comments SODIUM (BEAKER) (test code = 381) 144 meq/L 136-145 GLUCOSE-STAT [id number] 01:32:07 Test Item Value Reference Range Interpretation Comments GLUCOSE RANDOM (BEAKER) (test code 158 mg/dL 70-110 H = 652) [id number] 01:20:41 Test Item Value Reference Range Interpretation Comments PROTIME (BEAKER) (test 17.1 seconds 11.9-14.2 H code = 759) INR (BEAKER) (test 1.43 See_Comment [Automat ed code = 370) message] The sy stem which generated this result transmitted reference range : <=5.90. The reference range was not used to interpret this result as normal/abnormal . PARTIAL THROMBOPLASTIN 56.9 seconds 22.5-36.0 H TIME (BEAKER) (test code = 760) RECOMMENDED COUMADIN/WARFARIN INR THERAPY RANGESSTANDARD DOSE: 2.0 - 3.0 Includes: PROPHYLAXIS for venous thrombosis, systemic embolization; TREATMENT for venous thrombosis and/or pulmonary embolus.HIGH RISK: Target INR is 2.5-3.5 for patients with mechanical heart valves.[id number] 01:20:19 Test Item Value Reference Range Interpretation Comments FIBRINOGEN LEVEL (BEAKER) (test 224 mg/dl 225-434 L code = 658) LACTIC ACID, [id number] 01:14:35 Test Item Value Reference Range Interpretation Comments LACTATE BLOOD 7.5 mmol/L 0.5-2.2 HH Specimen sligh tly ARTERIAL (2) (BEAKER) hemoly zed (test code = 2874) Thickener Operator ID - TK MCBC (HEMOGRAM ONLY)2022-06-22 00:55:25 Test Item Value Reference Range Interpretation Comments WHITE BLOOD CELL 10.8 K/ L 3.5-10.5 H COUNT (BEAKER) (test code = 775) RED BLOOD CELL COUNT 3.06 M/ L 3.93-5.22 L (BEAKER) (test code = 761) HEMOGLOBIN (BEAKER) 7.7 GM/DL 11.2-15.7 L (test code = 410) HEMATOCRIT (BEAKER) 23.9 % 34.1-44.9 L (test code = 411) MEAN CORPUSCULAR 78 fL 79-95 L VOLUME (BEAKER) (test code = 753) MEAN CORPUSCULAR 25.2 pg 25.6-32.2 L HEMOGLOBIN (BEAKER) (test code = 751) MEAN CORPUSCULAR 32.2 GM/DL 32.2-35.5 HEMOGLOBIN CONC (BEAKER) (test code = 752) RED CELL DISTRIBUTION 21.0 % 11.7-14.4 H WIDTH (BEAKER) (test code = 412) PLATELET COUNT 215 K/CU MM 150-450 "Delta PLT ca lled to (BEAKER) (test code = RN on floor; RN 756) [id number] acknowle dged receipt, heme r esults released to the patient chart" MEAN PLATELET VOLUME 9.6 fL 9.4-12.3 (BEAKER) (test code = 754) NUCLEATED RED BLOOD 0 /100 WBC 0-0 CELLS (BEAKER) (test code = 413) POCT-GLUCOSE [id number] 00:29:10 Test Item Value Reference Range Interpretation Comments POC-GLUCOSE METER 165 mg/dL 70-110 H : TESTED A T [facility] 67[address] (BEAKER) (test code = [place], 1538) [address]: Thickener Operator/Techni jo ann ID = [id number] for [place] FOSTER HGB/HCT (H&H) - STAT [id number] 22:20:39 Test Item Value Reference Range Interpretation Comments HEMOGLOBIN (BEAKER) (test code = 10.5 GM/DL 12.0-15.0 L 410) HEMATOCRIT (BEAKER) (test code = 31.0 % 36.0-45.0 L 411) BLOOD GAS, [id number] 22:20:38 Test Item Value Reference Range Interpretation Comments PH ARTERIAL (BEAKER) (test code = 7.48 7.35-7.45 H 383) PCO2 ARTERIAL (BEAKER) (test code 26 mm Hg 35-45 L = 384) PO2 ARTERIAL (BEAKER) (test code 143 mm Hg 80-90 H = 385) O2 SATURATION ARTERIAL (BEAKER) 99.0 % 96.0-97.0 H (test code = 386) HCO3 ARTERIAL (BEAKER) (test code 19 mmol/L 21-29 L = 388) BASE EXCESS ARTERIAL (BEAKER) -3.0 mmol/L -2.0-3.0 L (test code = 387) PATIENT TEMPERATURE (BEAKER) 37.9 (test code = 1818) FIO2 (BEAKER) (test code = 1819) 40.0 STAT-LAB IONIZED [id number] 22:20:37 Test Item Value Reference Range Interpretation Comments FILTER IONIZED CALCIUM (BEAKER) 1.16 nnol/L (test code = 1854) Reference Range: No NormalsSODIUM NA-STAT [id number] 22:20:15 Test Item Value Reference Range Interpretation Comments SODIUM (BEAKER) (test code = 381) 142 meq/L 136-145 POTASSIUM-STAT [id number] 22:20:15 Test Item Value Reference Range Interpretation Comments POTASSIUM (BEAKER) (test code = 3.7 meq/L 3.6-5.5 379) GLUCOSE-STAT [id number] 22:20:14 Test Item Value Reference Range Interpretation Comments GLUCOSE RANDOM (BEAKER) (test code 187 mg/dL 70-110 H = 652) POCT-GLUCOSE [id number] 21:14:17 Test Item Value Reference Range Interpretation Comments POC-GLUCOSE METER 179 mg/dL 70-110 H : TESTED A T [facility] 6720 (BEAKER) (test code = [place], 1538) [address]: Thickener Operator/Techni jo ann ID = [id number] for ESTHER COHEN (Angelo)[place] [id number] 20:40:39 Test Item Value Reference Range Interpretation Comments PHOSPHORUS (BEAKER) 1.7 mg/dL 2.3-4.7 L Specimen slightly (test code = 604) hemolyzed Thickener Operator ID - BSBASIC METABOLIC [id number] 20:40:39 Test Item Value Reference Range Interpretation Comments SODIUM (BEAKER) 148 meq/L 136-145 H (test code = 381) POTASSIUM 4.1 meq/L 3.5-5.1 Specimen slight ly (BEAKER) (test hemolyzed code = 379) CHLORIDE (BEAKER) 114 meq/L 98-107 H (test code = 382) CO2 (BEAKER) 20 meq/L 22-29 L (test code = 355) BLOOD UREA 26 mg/dL 7-21 H NITROGEN (BEAKER) (test code = 354) CREATININE 0.82 mg/dL 0.57-1.25 Specimen slight ly (BEAKER) (test hemolyzed code = 358) GLUCOSE RANDOM 185 mg/dL 70-105 H (BEAKER) (test code = 652) CALCIUM (BEAKER) 9.6 mg/dL 8.4-10.2 (test code = 697) EGFR (BEAKER) 73 Interpretatio n of eGFR (test code = mL/min/1.73 values Stage De scription 1092) sq m Result G1 Norm al or high >=90 G2 Mildly decreased 60-89 G3a Mildl y to moderately 45-5 9 G3b Moderately to s everely 30-44 G4 Severl y decreased 15-29 G5 Kidne y failure <15Reported eGF R is based on the CKD-EPI 2020 equation that d oes not use a race coefficientEsti mated GFR is not as accur ate as Creatinine Keira wiley in predicting glom erular filtration rate . Estimated GFR is not appl icable for dialysis patien ts Thickener Operator ID - [id number] 20:40:38 Test Item Value Reference Range Interpretation Comments MAGNESIUM (BEAKER) 2.8 mg/dL 1.6-2.6 H Specimen slightly (test code = 627) hemolyzed Thickener Operator ID - BSCBC W/PLT COUNT & AUTO [id number] 20:13:18 Test Item Value Reference Range Interpretation Comments WHITE BLOOD CELL COUNT (BEAKER) 17.0 K/ L 3.5-10.5 H (test code = 775) RED BLOOD CELL COUNT (BEAKER) 2.91 M/ L 3.93-5.22 L (test code = 761) HEMOGLOBIN (BEAKER) (test code = 7.3 GM/DL 11.2-15.7 L 410) HEMATOCRIT (BEAKER) (test code = 22.2 % 34.1-44.9 L 411) MEAN CORPUSCULAR VOLUME (BEAKER) 76 fL 79-95 L (test code = 753) MEAN CORPUSCULAR HEMOGLOBIN 25.1 pg 25.6-32.2 L (BEAKER) (test code = 751) MEAN CORPUSCULAR HEMOGLOBIN CONC 32.9 GM/DL 32.2-35.5 (BEAKER) (test code = 752) RED CELL DISTRIBUTION WIDTH 23.2 % 11.7-14.4 H (BEAKER) (test code = 412) PLATELET COUNT (BEAKER) (test code 78 K/CU MM 150-450 L = 756) MEAN PLATELET VOLUME (BEAKER) 9.6 fL 9.4-12.3 (test code = 754) NUCLEATED RED BLOOD CELLS (BEAKER) 0 /100 WBC 0-0 (test code = 413) NEUTROPHILS RELATIVE PERCENT 80 % (BEAKER) (test code = 429) LYMPHOCYTES RELATIVE PERCENT 8 % (BEAKER) (test code = 430) MONOCYTES RELATIVE PERCENT 12 % (BEAKER) (test code = 431) EOSINOPHILS RELATIVE PERCENT 0 % (BEAKER) (test code = 432) BASOPHILS RELATIVE PERCENT 0 % (BEAKER) (test code = 437) NEUTROPHILS ABSOLUTE COUNT 13.55 K/ L 1.56-6.13 H (BEAKER) (test code = 670) LYMPHOCYTES ABSOLUTE COUNT 1.29 K/ L 1.18-3.74 (BEAKER) (test code = 414) MONOCYTES ABSOLUTE COUNT (BEAKER) 2.06 K/ L 0.24-0.36 H (test code = 415) EOSINOPHILS ABSOLUTE COUNT 0.03 K/ L 0.04-0.36 L (BEAKER) (test code = 416) BASOPHILS ABSOLUTE COUNT (BEAKER) 0.03 K/ L 0.01-0.08 (test code = 417) IMMATURE GRANULOCYTES-RELATIVE 0.40 % 0.00-1.00 PERCENT (BEAKER) (test code = 2801) BLOOD GAS, [id number] 19:48:43 Test Item Value Reference Range Interpretation Comments PH ARTERIAL (BEAKER) (test code = 7.45 7.35-7.45 383) PCO2 ARTERIAL (BEAKER) (test code 30 mm Hg 35-45 L = 384) PO2 ARTERIAL (BEAKER) (test code 221 mm Hg 80-90 H = 385) O2 SATURATION ARTERIAL (BEAKER) 99.5 % 96.0-97.0 H (test code = 386) HCO3 ARTERIAL (BEAKER) (test code 20 mmol/L 21-29 L = 388) BASE EXCESS ARTERIAL (BEAKER) -3.7 mmol/L -2.0-3.0 L (test code = 387) PATIENT TEMPERATURE (BEAKER) 35.7 (test code = 1818) FIO2 (BEAKER) (test code = 1819) 60.0 CALCIUM, [id number] 19:47:38 Test Item Value Reference Range Interpretation Comments CALCIUM IONIZED (BEAKER) (test 0.95 mmol/L 1.12-1.27 L code = 698) PH, BLOOD (BEAKER) (test code = 7.40 1810) HGB/HCT (H&H) - STAT [id number] 19:47:38 Test Item Value Reference Range Interpretation Comments HEMOGLOBIN (BEAKER) (test code = 6.8 GM/DL 12.0-15.0 L 410) HEMATOCRIT (BEAKER) (test code = 20.0 % 36.0-45.0 L 411) POTASSIUM-STAT [id number] 19:46:52 Test Item Value Reference Range Interpretation Comments POTASSIUM (BEAKER) (test code = 4.2 meq/L 3.6-5.5 379) GLUCOSE-STAT [id number] 19:46:51 Test Item Value Reference Range Interpretation Comments GLUCOSE RANDOM (BEAKER) (test code 180 mg/dL 70-110 H = 652) SODIUM NA-STAT [id number] 19:46:51 Test Item Value Reference Range Interpretation Comments SODIUM (BEAKER) (test code = 381) 142 meq/L 136-145 THROMBOELASTOGRAPH (TEG)2022-06-21 19:24:25 Test Item Value Reference Range Interpretation Comments TEG ACTIVATED CLOTTING TIME 5.8 minutes 4.0-7.0 (BEAKER) (test code = 1407) TEG FIBRINOGEN ACTIVITY (BEAKER) 63.0 degrees 61.0-73.0 (test code = 1408) TEG PLT. AGGREGATION (BEAKER) 41.2 MM 55.0-65.0 L (test code = 1409) TEG FIBRINOLYSIS (BEAKER) (test 0.1 % 0.0-5.0 code = 1410) TGH ACTIVATED CLOTTING TIME 6.2 minutes 4.0-7.0 (BEAKER) (test code = 1411) TGH FIBRINOGEN ACTIVITY (BEAKER) 59.8 degrees 61.0-73.0 L (test code = 1412) TGH PLT. AGGREGATION (BEAKER) 49.9 MM 55.0-65.0 L (test code = 1413) TGH FIBRINOLYSIS (BEAKER) (test 0.0 % 0.0-5.0 code = 1414) LACTATE DEHYDROGENASE (LDH)2022-06-21 18:54:27 Test Item Value Reference Range Interpretation Comments LACTATE DEHYDROGENASE 612 U/L 125-220 H Specim en slightly (BEAKER) (test code = hemoly zed 635) Thickener Operator ID - BSHEPATIC FUNCTION [id number] 18:34:56 Test Item Value Reference Range Interpretation Comments TOTAL PROTEIN (BEAKER) 4.9 gm/dL 6.0-8.3 L Speci men slightly (test code = 770) hemolyzed ALBUMIN (BEAKER) (test 3.4 g/dL 3.5-5.0 L Speci men slightly code = 1145) hemolyzed BILIRUBIN TOTAL 0.9 mg/dL 0.2-1.2 Specimen sli ghtly (BEAKER) (test code = hemoly zed 377) BILIRUBIN DIRECT 0.3 mg/dL 0.1-0.5 Specimen sl ightly (BEAKER) (test code = hemoly zed 706) ALKALINE PHOSPHATASE 26 U/L 40-150 L (BEAKER) (test code = 346) AST (SGOT) (BEAKER) 46 U/L 5-34 H Specimen slightly (test code = 353) hemolyzed ALT (SGPT) (BEAKER) 11 U/L 6-55 Specimen slightly (test code = 347) hemolyzed Thickener Operator ID - BSRAD, CHEST, 1 VIEW, NON [id number] 17:56:00Reason for exam:- >s/p acbShould this be performed at the bedside?->Yes [facility] 1940 Sex: FFINAL REPORT TECHNIQUE: Frontal view of the chest. INDICATION: s/p acb. COMPARISON: 06/17/2022 FINDINGS: LINES/TUBES: Placement of an endotracheal tube with tip projecting 1.4 centers above the level the [place]. Esophagogastric tube extends below the diaphragm. Right IJ [place] catheter with tip projecting over the proximal right main pulmonary artery. Right subclavian approachImpella catheter with tip projecting over the left ventricle. Mediastinal tube is present. Catheter projects over the left mid to upper lung. HEART AND MEDIASTINUM: Cardiomediastinal contour is stable.Atherosclerotic calcifications are present within the arch of the aorta. LUNGS: Left lower lobe collapse and/or consolidation. Patchy right basilar opacity. No pulmonary edema. PLEURA: Small bilateral pleural effusions. No pneumothorax. SOFT TISSUES AND BONES: Unremarkable. IMPRESSION: 1. Endotrachealtube tip terminates 1.4 cm above the level the [place]. Consider withdrawing by 1 cm. Remainder of tubes and lines, as detailed above. No pneumothorax.2. Left lower lobe collapse and/or consolidation with small bilateral pleural effusions and mild right basilar atelectatic change. No overt edema. Signed: Kaila Clements MDReport Verified Date/Time: 06/21/2022 17:56:37 [id number] 17:38:08 Test Item Value Reference Range Interpretation Comments PHOSPHORUS (BEAKER) 3.0 mg/dL 2.3-4.7 Specimen slightly (test code = 604) hemolyzed Thickener Operator ID - BSBASIC METABOLIC [id number] 17:38:08 Test Item Value Reference Range Interpretation Comments SODIUM (BEAKER) 145 meq/L 136-145 (test code = 381) POTASSIUM 3.3 meq/L 3.5-5.1 L Specimen slight ly (BEAKER) (test hemolyzed code = 379) CHLORIDE (BEAKER) 113 meq/L 98-107 H (test code = 382) CO2 (BEAKER) 16 meq/L 22-29 L (test code = 355) BLOOD UREA 29 mg/dL 7-21 H NITROGEN (BEAKER) (test code = 354) CREATININE 0.90 mg/dL 0.57-1.25 Specimen slight ly (BEAKER) (test hemolyzed code = 358) GLUCOSE RANDOM 251 mg/dL 70-105 H (BEAKER) (test code = 652) CALCIUM (BEAKER) 9.1 mg/dL 8.4-10.2 (test code = 697) EGFR (BEAKER) 65 Interpretatio n of eGFR (test code = mL/min/1.73 values Stage De scription 1092) sq m Result G1 Norm al or high >=90 G2 Mildly decreased 60-89 G3a Mildl y to moderately 45-5 9 G3b Moderately to s everely 30-44 G4 Severl y decreased 15-29 G5 Kidne y failure <15Reported eGF R is based on the CKD-EPI 2020 equation that d oes not use a race coefficientEsti mated GFR is not as accur ate as Creatinine Keira wiley in predicting glom erular filtration rate . Estimated GFR is not appl icable for dialysis patien ts Thickener Operator ID - [id number] 17:38:07 Test Item Value Reference Range Interpretation Comments PARTIAL THROMBOPLASTIN TIME 41.5 seconds 22.5-36.0 H (BEAKER) (test code = 760) [id number] 17:38:07 Test Item Value Reference Range Interpretation Comments MAGNESIUM (BEAKER) 1.9 mg/dL 1.6-2.6 Specimen slightly (test code = 627) hemolyzed Thickener Operator ID - [id number] 17:37:45 Test Item Value Reference Range Interpretation Comments FIBRINOGEN LEVEL (BEAKER) (test 222 mg/dl 225-434 L code = 658) LACTIC ACID, [id number] 17:37:29 Test Item Value Reference Range Interpretation Comments LACTATE BLOOD 10.2 mmol/L 0.5-2.2 HH Specimen sligh tly ARTERIAL (2) (BEAKER) hemoly zed (test code = 2874) Thickener Operator ID - BSPROTHROMBIN TIME/[id number] 17:37:08 Test Item Value Reference Range Interpretation Comments PROTIME (BEAKER) 20.7 seconds 11.9-14.2 H (test code = 759) INR (BEAKER) (test 1.84 See_Comment [Automat ed message] code = 370) The system [employer] generated this result transmitted ref erence range: <=5.90. The reference range was not used to int erpret this result as normal/abnormal . RECOMMENDED COUMADIN/WARFARIN INR THERAPY RANGESSTANDARD DOSE: 2.0 - 3.0 Includes: PROPHYLAXIS for venous thrombosis, systemic embolization; TREATMENT for venous thrombosis and/or pulmonary embolus.HIGH RISK: Target INR is 2.5-3.5 for patients with mechanical heart valves.HGB/HCT (H&H) - STAT [id number] 17:33:34 Test Item Value Reference Range Interpretation Comments HEMOGLOBIN (BEAKER) (test code = 10.7 GM/DL 12.0-15.0 L 410) HEMATOCRIT (BEAKER) (test code = 31.0 % 36.0-45.0 L 411) POTASSIUM-STAT [id number] 17:33:33 Test Item Value Reference Range Interpretation Comments POTASSIUM (BEAKER) (test code = 3.1 meq/L 3.6-5.5 L 379) SODIUM NA-STAT [id number] 17:33:23 Test Item Value Reference Range Interpretation Comments SODIUM (BEAKER) (test code = 381) 142 meq/L 136-145 GLUCOSE-STAT [id number] 17:33:22 Test Item Value Reference Range Interpretation Comments GLUCOSE RANDOM (BEAKER) (test code 257 mg/dL 70-110 H = 652) BLOOD GAS, [id number] 17:32:34 Test Item Value Reference Range Interpretation Comments PH ARTERIAL (BEAKER) (test code = 7.44 7.35-7.45 383) PCO2 ARTERIAL (BEAKER) (test code 24 mm Hg 35-45 L = 384) PO2 ARTERIAL (BEAKER) (test code 133 mm Hg 80-90 H = 385) O2 SATURATION ARTERIAL (BEAKER) 98.9 % 96.0-97.0 H (test code = 386) HCO3 ARTERIAL (BEAKER) (test code 16 mmol/L 21-29 L = 388) BASE EXCESS ARTERIAL (BEAKER) -7.1 mmol/L -2.0-3.0 L (test code = 387) PATIENT TEMPERATURE (BEAKER) 35.6 (test code = 1818) FIO2 (BEAKER) (test code = 1819) 100.0 CALCIUM, [id number] 17:32:22 Test Item Value Reference Range Interpretation Comments CALCIUM IONIZED (BEAKER) (test 1.12 mmol/L 1.12-1.27 code = 698) PH, BLOOD (BEAKER) (test code = 7.42 1810) OXYGEN SATURATION, [id number] 17:24:22 Test Item Value Reference Range Interpretation Comments O2 SATURATION (MEASURED) (BEAKER) 63.0 % (test code = 1455) CBC (HEMOGRAM ONLY)2022-06-21 17:18:00 Test Item Value Reference Range Interpretation Comments WHITE BLOOD CELL COUNT (BEAKER) 20.0 K/ L 3.5-10.5 H (test code = 775) RED BLOOD CELL COUNT (BEAKER) 3.86 M/ L 3.93-5.22 L (test code = 761) HEMOGLOBIN (BEAKER) (test code = 9.8 GM/DL 11.2-15.7 L 410) HEMATOCRIT (BEAKER) (test code = 29.8 % 34.1-44.9 L 411) MEAN CORPUSCULAR VOLUME (BEAKER) 77 fL 79-95 L (test code = 753) MEAN CORPUSCULAR HEMOGLOBIN 25.4 pg 25.6-32.2 L (BEAKER) (test code = 751) MEAN CORPUSCULAR HEMOGLOBIN CONC 32.9 GM/DL 32.2-35.5 (BEAKER) (test code = 752) RED CELL DISTRIBUTION WIDTH 23.8 % 11.7-14.4 H (BEAKER) (test code = 412) PLATELET COUNT (BEAKER) (test code 80 K/CU MM 150-450 L = 756) MEAN PLATELET VOLUME (BEAKER) 9.8 fL 9.4-12.3 (test code = 754) NUCLEATED RED BLOOD CELLS (BEAKER) 0 /100 WBC 0-0 (test code = 413) [id number] 15:52:59 Test Item Value Reference Range Interpretation Comments PARTIAL THROMBOPLASTIN TIME 45.0 seconds 22.5-36.0 H (BEAKER) (test code = 760) [id number] 15:51:38 Test Item Value Reference Range Interpretation Comments FIBRINOGEN LEVEL (BEAKER) (test 199 mg/dl 225-434 L code = 658) PROTHROMBIN [id number] 15:50:54 Test Item Value Reference Range Interpretation Comments PROTIME (BEAKER) 23.4 seconds 11.9-14.2 H (test code = 759) INR (BEAKER) (test 2.23 See_Comment [Automat ed message] code = 370) The system [employer] generated this result transmitted ref erence range: <=5.90. The reference range was not used to int erpret this result as normal/abnormal . RECOMMENDED COUMADIN/WARFARIN INR THERAPY RANGESSTANDARD DOSE: 2.0 - 3.0 Includes: PROPHYLAXIS for venous thrombosis, systemic embolization; TREATMENT for venous thrombosis and/or pulmonary embolus.HIGH RISK: Target INR is 2.5-3.5 for patients with mechanical heart valves.Platelet [id number] 15:45:39 Test Item Value Reference Range Interpretation Comments Platelets (test code 74 See_Comment L [Autom ated = 777-3) message] The system which generated this result transmit brian reference range : 150 - 450 K/CU MM. The reference range was not u sed to interpret th is result as normal/abnormal . YOGESH (test code = YOGESH) Thickener Operator ID - [id number] Lab Interpretation Abnormal (test code = 06259-2) [facility] [id number] 15:45:39 Test Item Value Reference Range Interpretation Comments PLATELET COUNT (BEAKER) (test code 74 K/CU MM 150-450 L = 756) Thickener Operator ID - [id number]-STAT [id number] 15:40:44 Test Item Value Reference Range Interpretation Comments POTASSIUM (BEAKER) (test code = 3.3 meq/L 3.6-5.5 L 379) HGB/HCT (H&H) - STAT [id number] 15:40:44 Test Item Value Reference Range Interpretation Comments HEMOGLOBIN (BEAKER) (test code = 8.6 GM/DL 12.0-15.0 L 410) HEMATOCRIT (BEAKER) (test code = 25.0 % 36.0-45.0 L 411) BLOOD GAS, [id number] 15:40:43 Test Item Value Reference Range Interpretation Comments PH ARTERIAL (BEAKER) (test code = 7.40 7.35-7.45 383) PCO2 ARTERIAL (BEAKER) (test code 37 mm Hg 35-45 = 384) PO2 ARTERIAL (BEAKER) (test code 91 mm Hg 80-90 H = 385) O2 SATURATION ARTERIAL (BEAKER) 97.6 % 96.0-97.0 H (test code = 386) HCO3 ARTERIAL (BEAKER) (test code 23 mmol/L 21-29 = 388) BASE EXCESS ARTERIAL (BEAKER) -2.5 mmol/L -2.0-3.0 L (test code = 387) PATIENT TEMPERATURE (BEAKER) 34.6 (test code = 1818) FIO2 (BEAKER) (test code = 1819) 80.0 SODIUM NA-STAT [id number] 15:40:37 Test Item Value Reference Range Interpretation Comments SODIUM (BEAKER) (test code = 381) 141 meq/L 136-145 GLUCOSE-STAT [id number] 15:40:36 Test Item Value Reference Range Interpretation Comments GLUCOSE RANDOM (BEAKER) (test code 317 mg/dL 70-110 H = 652) HGB/HCT (H&H) - STAT [id number] 14:48:09 Test Item Value Reference Range Interpretation Comments HEMOGLOBIN (BEAKER) (test code = 7.0 GM/DL 12.0-15.0 L 410) HEMATOCRIT (BEAKER) (test code = 21.0 % 36.0-45.0 L 411) BLOOD GAS, [id number] 14:48:08 Test Item Value Reference Range Interpretation Comments PH ARTERIAL (BEAKER) (test code = 7.44 7.35-7.45 383) PCO2 ARTERIAL (BEAKER) (test code 42 mm Hg 35-45 = 384) PO2 ARTERIAL (BEAKER) (test code = 362 mm Hg 80-90 H 385) O2 SATURATION ARTERIAL (BEAKER) 99.8 % 96.0-97.0 H (test code = 386) HCO3 ARTERIAL (BEAKER) (test code 28 mmol/L 21-29 = 388) BASE EXCESS ARTERIAL (BEAKER) 2.9 mmol/L -2.0-3.0 (test code = 387) PATIENT TEMPERATURE (BEAKER) (test 34.6 code = 1818) FIO2 (BEAKER) (test code = 1819) 80.0 SODIUM NA-STAT [id number] 14:46:42 Test Item Value Reference Range Interpretation Comments SODIUM (BEAKER) (test code = 381) 141 meq/L 136-145 POTASSIUM-STAT [id number] 14:46:42 Test Item Value Reference Range Interpretation Comments POTASSIUM (BEAKER) (test code = 4.7 meq/L 3.6-5.5 379) GLUCOSE-STAT [id number] 14:46:41 Test Item Value Reference Range Interpretation Comments GLUCOSE RANDOM (BEAKER) (test code 362 mg/dL 70-110 H = 652) SODIUM NA-STAT [id number] 14:15:53 Test Item Value Reference Range Interpretation Comments SODIUM (BEAKER) (test code = 381) 140 meq/L 136-145 HGB/HCT (H&H) - STAT [id number] 14:15:53 Test Item Value Reference Range Interpretation Comments HEMOGLOBIN (BEAKER) (test code = 7.5 GM/DL 12.0-15.0 L 410) HEMATOCRIT (BEAKER) (test code = 22.0 % 36.0-45.0 L 411) BLOOD GAS, [id number] 14:15:52 Test Item Value Reference Range Interpretation Comments PH ARTERIAL (BEAKER) (test code = 7.45 7.35-7.45 383) PCO2 ARTERIAL (BEAKER) (test code 46 mm Hg 35-45 H = 384) PO2 ARTERIAL (BEAKER) (test code = 365 mm Hg 80-90 H 385) O2 SATURATION ARTERIAL (BEAKER) 99.8 % 96.0-97.0 H (test code = 386) HCO3 ARTERIAL (BEAKER) (test code 32 mmol/L 21-29 H = 388) BASE EXCESS ARTERIAL (BEAKER) 6.5 mmol/L -2.0-3.0 H (test code = 387) PATIENT TEMPERATURE (BEAKER) (test 32.6 code = 1818) FIO2 (BEAKER) (test code = 1819) 80.0 POTASSIUM-STAT [id number] 14:13:53 Test Item Value Reference Range Interpretation Comments POTASSIUM (BEAKER) (test code = 4.5 meq/L 3.6-5.5 379) GLUCOSE-STAT [id number] 14:13:52 Test Item Value Reference Range Interpretation Comments GLUCOSE RANDOM (BEAKER) (test code 377 mg/dL 70-110 H = 652) GLUCOSE-STAT [id number] 13:56:35 Test Item Value Reference Range Interpretation Comments GLUCOSE RANDOM (BEAKER) (test code 431 mg/dL 70-110 HH = 652) SODIUM NA-STAT [id number] 13:52:59 Test Item Value Reference Range Interpretation Comments SODIUM (BEAKER) (test code = 381) 129 meq/L 136-145 L HGB/HCT (H&H) - STAT [id number] 13:52:53 Test Item Value Reference Range Interpretation Comments HEMOGLOBIN (BEAKER) (test code = 6.4 GM/DL 12.0-15.0 L 410) HEMATOCRIT (BEAKER) (test code = 19.0 % 36.0-45.0 L 411) BLOOD GAS, [id number] 13:52:47 Test Item Value Reference Range Interpretation Comments PH ARTERIAL (BEAKER) (test code 7.34 7.35-7.45 L = 383) PCO2 ARTERIAL (BEAKER) (test 28 mm Hg 35-45 L code = 384) PO2 ARTERIAL (BEAKER) (test code 506 mm Hg 80-90 H = 385) O2 SATURATION ARTERIAL (BEAKER) 99.9 % 96.0-97.0 H (test code = 386) HCO3 ARTERIAL (BEAKER) (test 16 mmol/L 21-29 L code = 388) BASE EXCESS ARTERIAL (BEAKER) -10.5 mmol/L -2.0-3.0 L (test code = 387) PATIENT TEMPERATURE (BEAKER) 32.0 (test code = 1818) FIO2 (BEAKER) (test code = 1819) 100.0 POTASSIUM-STAT [id number] 13:52:31 Test Item Value Reference Range Interpretation Comments POTASSIUM (BEAKER) (test code = 5.4 meq/L 3.6-5.5 379) SODIUM NA-STAT [id number] 13:38:44 Test Item Value Reference Range Interpretation Comments SODIUM (BEAKER) (test code = 381) 129 meq/L 136-145 L HGB/HCT (H&H) - STAT [id number] 13:38:31 Test Item Value Reference Range Interpretation Comments HEMOGLOBIN (BEAKER) (test code = 6.8 GM/DL 12.0-15.0 L 410) HEMATOCRIT (BEAKER) (test code = 20.0 % 36.0-45.0 L 411) BLOOD GAS, [id number] 13:38:25 Test Item Value Reference Range Interpretation Comments PH ARTERIAL (BEAKER) (test code 7.29 7.35-7.45 L = 383) PCO2 ARTERIAL (BEAKER) (test 30 mm Hg 35-45 L code = 384) PO2 ARTERIAL (BEAKER) (test code 480 mm Hg 80-90 H = 385) O2 SATURATION ARTERIAL (BEAKER) 99.8 % 96.0-97.0 H (test code = 386) HCO3 ARTERIAL (BEAKER) (test 15 mmol/L 21-29 L code = 388) BASE EXCESS ARTERIAL (BEAKER) -11.6 mmol/L -2.0-3.0 L (test code = 387) PATIENT TEMPERATURE (BEAKER) 33.1 (test code = 1818) FIO2 (BEAKER) (test code = 1819) 100.0 POTASSIUM-STAT [id number] 13:38:08 Test Item Value Reference Range Interpretation Comments POTASSIUM (BEAKER) (test code = 3.7 meq/L 3.6-5.5 379) GLUCOSE-STAT [id number] 13:38:02 Test Item Value Reference Range Interpretation Comments GLUCOSE RANDOM (BEAKER) (test code 353 mg/dL 70-110 H = 652) BLOOD GAS, [id number] 10:18:15 Test Item Value Reference Range Interpretation Comments PH ARTERIAL (BEAKER) (test code = 7.46 7.35-7.45 H 383) PCO2 ARTERIAL (BEAKER) (test code 34 mm Hg 35-45 L = 384) PO2 ARTERIAL (BEAKER) (test code = 183 mm Hg 80-90 H 385) O2 SATURATION ARTERIAL (BEAKER) 99.4 % 96.0-97.0 H (test code = 386) HCO3 ARTERIAL (BEAKER) (test code 24 mmol/L 21-29 = 388) BASE EXCESS ARTERIAL (BEAKER) 0.0 mmol/L -2.0-3.0 (test code = 387) PATIENT TEMPERATURE (BEAKER) (test 36.0 code = 1818) FIO2 (BEAKER) (test code = 1819) 60.0 HGB/HCT (H&H) - STAT [id number] 10:18:09 Test Item Value Reference Range Interpretation Comments HEMOGLOBIN (BEAKER) (test code = 10.1 GM/DL 12.0-15.0 L 410) HEMATOCRIT (BEAKER) (test code = 30.0 % 36.0-45.0 L 411) SODIUM NA-STAT [id number] 10:18:04 Test Item Value Reference Range Interpretation Comments SODIUM (BEAKER) (test code = 381) 133 meq/L 136-145 L POTASSIUM-STAT [id number] 10:17:53 Test Item Value Reference Range Interpretation Comments POTASSIUM (BEAKER) (test code = 3.8 meq/L 3.6-5.5 379) GLUCOSE-STAT [id number] 10:17:52 Test Item Value Reference Range Interpretation Comments GLUCOSE RANDOM (BEAKER) (test code 153 mg/dL 70-110 H = 652) CBC W/PLT COUNT & AUTO [id number] 07:48:45 Test Item Value Reference Range Interpretation Comments WHITE BLOOD CELL COUNT (BEAKER) 6.8 K/ L 3.5-10.5 (test code = 775) RED BLOOD CELL COUNT (BEAKER) 4.35 M/ L 3.93-5.22 (test code = 761) HEMOGLOBIN (BEAKER) (test code = 9.9 GM/DL 11.2-15.7 L 410) HEMATOCRIT (BEAKER) (test code = 30.7 % 34.1-44.9 L 411) MEAN CORPUSCULAR VOLUME (BEAKER) 71 fL 79-95 L (test code = 753) MEAN CORPUSCULAR HEMOGLOBIN 22.8 pg 25.6-32.2 L (BEAKER) (test code = 751) MEAN CORPUSCULAR HEMOGLOBIN CONC 32.2 GM/DL 32.2-35.5 (BEAKER) (test code = 752) RED CELL DISTRIBUTION WIDTH 24.7 % 11.7-14.4 H (BEAKER) (test code = 412) PLATELET COUNT (BEAKER) (test 298 K/CU MM 150-450 code = 756) MEAN PLATELET VOLUME (BEAKER) 10.2 fL 9.4-12.3 (test code = 754) NUCLEATED RED BLOOD CELLS 0 /100 WBC 0-0 (BEAKER) (test code = 413) (CELLAVISION MANUAL DIFF)2022-06-21 07:48:45 Test Item Value Reference Range Interpretation Comments NEUTROPHILS - REL 53 % (CELLAVISION)(BEAKER) (test code = 2816) LYMPHOCYTES - REL 30 % (CELLAVISION)(BEAKER) (test code = 2817) MONOCYTES - REL 13 % (CELLAVISION)(BEAKER) (test code = 2818) EOSINOPHILS - REL 3 % (CELLAVISION)(BEAKER) (test code = 2819) BASOPHILS - REL 1 % (CELLAVISION)(BEAKER) (test code = 2820) NEUTROPHILS - ABS 3.60 K/ul 1.56-6.13 (CELLAVISION)(BEAKER) (test code = 2830) LYMPHOCYTES - ABS 2.04 K/ul 1.18-3.74 (CELLAVISION)(BEAKER) (test code = 2831) MONOCYTES - ABS 0.88 K/uL 0.24-0.36 H (CELLAVISION)(BEAKER) (test code = 2832) EOSINOPHILS - ABS 0.20 K/uL 0.04-0.36 (CELLAVISION)(BEAKER) (test code = 2834) BASOPHILS - ABS 0.07 K/uL 0.01-0.08 (CELLAVISION)(BEAKER) (test code = 2835) TOTAL COUNTED (BEAKER) (test code 100 = 1351) WBC MORPHOLOGY (BEAKER) (test Normal code = 487) PLT MORPHOLOGY (BEAKER) (test Normal code = 486) POLYCHROMATOPHILLIC RBCS(BEAKER) 2+ moderate (test code = 478) ANISOCYTOSIS (BEAKER) (test code 2+ moderate = 961) MICROCYTES (BEAKER) (test code = 2+ moderate 965) POIKILOCYTES (BEAKER) (test code 1+ few = 966) ELLIPTOCYTES (BEAKER) (test code 1+ few = 962) ARTIFACT (CELLAVISION)(BEAKER) Present (test code = 3432) PLATELET CONCENTRATION Adequate (CELLAVISION)(BEAKER) (test code = 3438) Thickener Operator ID - Kari OverholtUser comments: Slide comments:[id number] 06:53:31 Test Item Value Reference Range Interpretation Comments PHOSPHORUS (BEAKER) (test code = 4.9 mg/dL 2.3-4.7 H 604) Thickener Operator ID - TK MURIC [id number] 06:53:31 Test Item Value Reference Range Interpretation Comments URIC ACID (BEAKER) (test code = 9.5 mg/dL 2.6-7.2 H 773) Thickener Operator ID - TK MBASIC METABOLIC [id number] 06:53:30 Test Item Value Reference Range Interpretation Comments SODIUM (BEAKER) 133 meq/L 136-145 L (test code = 381) POTASSIUM 3.9 meq/L 3.5-5.1 (BEAKER) (test code = 379) CHLORIDE (BEAKER) 99 meq/L 98-107 (test code = 382) CO2 (BEAKER) 25 meq/L 22-29 (test code = 355) BLOOD UREA 42 mg/dL 7-21 H NITROGEN (BEAKER) (test code = 354) CREATININE 1.06 mg/dL 0.57-1.25 (BEAKER) (test code = 358) GLUCOSE RANDOM 121 mg/dL 70-105 H (BEAKER) (test code = 652) CALCIUM (BEAKER) 9.3 mg/dL 8.4-10.2 (test code = 697) EGFR (BEAKER) 53 Interpretatio n of eGFR (test code = mL/min/1.73 values Stage De scription 1092) sq m Result G1 Nalini l or high >=90 G2 Mildly decreased 60-89 G3a Mildl y to moderately 45-5 9 G3b Moderately to s everely 30-44 G4 Severl y decreased 15-29 G5 Kidney failure <15Reported eGF R is based on the CKD-EPI 2020 equation that d oes not use a race coefficientEsti mated GFR is not as accur ate as Creatinine Keira saurabh in predicting glom erular filtration rate . Estimated GFR is not appl icable for dialysis patien ts Thickener Operator ID - TK [id number] 06:53:30 Test Item Value Reference Range Interpretation Comments MAGNESIUM (BEAKER) (test code = 2.2 mg/dL 1.6-2.6 627) Thickener Operator ID - TK [id number] 06:21:12 Test Item Value Reference Range Interpretation Comments PARTIAL THROMBOPLASTIN TIME 101.5 seconds 22.5-36.0 H (BEAKER) (test code = 760) CALCIUM, [id number] 05:53:41 Test Item Value Reference Range Interpretation Comments CALCIUM IONIZED (BEAKER) (test 1.15 mmol/L 1.12-1.27 code = 698) PH, BLOOD (BEAKER) (test code = 7.43 1810) POCT-GLUCOSE [id number] 23:59:12 Test Item Value Reference Range Interpretation Comments POC-GLUCOSE METER 161 mg/dL 70-110 H : TESTED A T [facility] 6720 (BEAKER) (test code = [facility], 153) [id number]: Thickener Operator/Techni jo ann ID = [id number] for Emily Smith [id number] 20:18:20 Test Item Value Reference Range Interpretation Comments PARTIAL THROMBOPLASTIN TIME 78.1 seconds 22.5-36.0 H (BEAKER) (test code = 760) POCT-GLUCOSE [id number] 16:47:46 Test Item Value Reference Range Interpretation Comments POC-GLUCOSE METER 176 mg/dL 70-110 H : TESTED A T [facility] [address] (BEAKER) (test code = [facility], 153) [id number]: Thickener Operator/Techni jo ann ID = [id number] for ANTHONY CHOW [id number] 12:18:43 Test Item Value Reference Range Interpretation Comments PARTIAL THROMBOPLASTIN TIME 56.5 seconds 22.5-36.0 H (BEAKER) (test code = 760) POCT-GLUCOSE [id number] 10:48:18 Test Item Value Reference Range Interpretation Comments POC-GLUCOSE METER 277 mg/dL 70-110 H : TESTED Sonja Fritz [facility] [address] (BEAKER) (test code = [place], 1538) [id number]: Thickener Operator/Techni jo ann ID = [id number] for ANTHONY CHOW (CELLAVISION MANUAL DIFF)2022-06-20 07:32:40 Test Item Value Reference Range Interpretation Comments NEUTROPHILS - REL 59 % (CELLAVISION)(BEAKER) (test code = 2816) LYMPHOCYTES - REL 28 % (CELLAVISION)(BEAKER) (test code = 2817) MONOCYTES - REL 8 % (CELLAVISION)(BEAKER) (test code = 2818) EOSINOPHILS - REL 2 % (CELLAVISION)(BEAKER) (test code = 2819) BASOPHILS - REL 2 % (CELLAVISION)(BEAKER) (test code = 2820) MYELOCYTES - REL 1 % 0-0 H (CELLAVISION)(BEAKER) (test code = 2822) NEUTROPHILS - ABS 4.90 K/ul 1.56-6.13 (CELLAVISION)(BEAKER) (test code = 2830) LYMPHOCYTES - ABS 2.32 K/ul 1.18-3.74 (CELLAVISION)(BEAKER) (test code = 2831) MONOCYTES - ABS 0.66 K/uL 0.24-0.36 H (CELLAVISION)(BEAKER) (test code = 2832) EOSINOPHILS - ABS 0.17 K/uL 0.04-0.36 (CELLAVISION)(BEAKER) (test code = 2834) BASOPHILS - ABS 0.17 K/uL 0.01-0.08 H (CELLAVISION)(BEAKER) (test code = 2835) MYELOCYTES-ABS 0.08 K/uL 0.00-0.00 H (CELLAVISION)(BEAKER) (test code = 2837) TOTAL COUNTED (BEAKER) (test code 100 = 1351) WBC MORPHOLOGY (BEAKER) (test Normal code = 487) GIANT PLATELETS (BEAKER) (test Present code = 313) POLYCHROMATOPHILLIC RBCS(BEAKER) 3+ many (test code = 478) ANISOCYTOSIS (BEAKER) (test code 2+ moderate = 961) MICROCYTES (BEAKER) (test code = 1+ few 965) MACROCYTES (BEAKER) (test code = 1+ few 964) POIKILOCYTES (BEAKER) (test code 1+ few = 966) SPHEROCYTES (BEAKER) (test code = 1+ few 768) ELLIPTOCYTES (BEAKER) (test code 1+ few = 962) ARTIFACT (CELLAVISION)(BEAKER) Present (test code = 3432) PLATELET CONCENTRATION Adequate (CELLAVISION)(BEAKER) (test code = 3438) Thickener Operator ID - tanisha Zabala comments: Slide comments:CBC W/PLT COUNT & AUTO [id number] 07:32:39 Test Item Value Reference Range Interpretation Comments WHITE BLOOD CELL COUNT (BEAKER) 8.3 K/ L 3.5-10.5 (test code = 775) RED BLOOD CELL COUNT (BEAKER) 4.47 M/ L 3.93-5.22 (test code = 761) HEMOGLOBIN (BEAKER) (test code = 10.1 GM/DL 11.2-15.7 L 410) HEMATOCRIT (BEAKER) (test code = 31.6 % 34.1-44.9 L 411) MEAN CORPUSCULAR VOLUME (BEAKER) 71 fL 79-95 L (test code = 753) MEAN CORPUSCULAR HEMOGLOBIN 22.6 pg 25.6-32.2 L (BEAKER) (test code = 751) MEAN CORPUSCULAR HEMOGLOBIN CONC 32.0 GM/DL 32.2-35.5 L (BEAKER) (test code = 752) RED CELL DISTRIBUTION WIDTH 24.3 % 11.7-14.4 H (BEAKER) (test code = 412) PLATELET COUNT (BEAKER) (test 300 K/CU MM 150-450 code = 756) MEAN PLATELET VOLUME (BEAKER) 9.4 fL 9.4-12.3 (test code = 754) NUCLEATED RED BLOOD CELLS 0 /100 WBC 0-0 (BEAKER) (test code = 413) POCT-GLUCOSE [id number] 06:44:17 Test Item Value Reference Range Interpretation Comments POC-GLUCOSE METER 159 mg/dL 70-110 H : TESTED A T [facility] 6720 (BEAKER) (test code = [place], 1538) [id number]: Thickener Operator/Techni jo ann ID = [id number] for Emily Andrea [id number] 04:34:29 Test Item Value Reference Range Interpretation Comments PHOSPHORUS (BEAKER) (test code = 4.9 mg/dL 2.3-4.7 H 604) Thickener Operator ID - TK MBASIC METABOLIC [id number] 04:34:28 Test Item Value Reference Range Interpretation Comments SODIUM (BEAKER) 128 meq/L 136-145 L (test code = 381) POTASSIUM 4.4 meq/L 3.5-5.1 (BEAKER) (test code = 379) CHLORIDE (BEAKER) 95 meq/L 98-107 L (test code = 382) CO2 (BEAKER) 22 meq/L 22-29 (test code = 355) BLOOD UREA 45 mg/dL 7-21 H NITROGEN (BEAKER) (test code = 354) CREATININE 1.51 mg/dL 0.57-1.25 H (BEAKER) (test code = 358) GLUCOSE RANDOM 157 mg/dL 70-105 H (BEAKER) (test code = 652) CALCIUM (BEAKER) 9.3 mg/dL 8.4-10.2 (test code = 697) EGFR (BEAKER) 35 Interpretatio n of eGFR (test code = mL/min/1.73 values Stage De scription 1092) sq m Result G1 Nalini l or high >=90 G2 Mildly decreased 60-89 G3a Mildl y to moderately 45-5 9 G3b Moderately to s everely 30-44 G4 Severl y decreased 15-29 G5 Kidney failure <15Reported eGF R is based on the CKD-EPI 2020 equation that d oes not use a race coefficientEsti mated GFR is not as accur ate as Creatinine Keira saurabh in predicting glom erular filtration rate . Estimated GFR is not appl icable for dialysis patien ts Thickener Operator ID - TK [id number] 04:34:28 Test Item Value Reference Range Interpretation Comments MAGNESIUM (BEAKER) (test code = 2.0 mg/dL 1.6-2.6 627) Thickener Operator ID - TK [id number] 04:15:25 Test Item Value Reference Range Interpretation Comments PARTIAL THROMBOPLASTIN TIME 98.5 seconds 22.5-36.0 H (BEAKER) (test code = 760) CALCIUM, [id number] 03:48:51 Test Item Value Reference Range Interpretation Comments CALCIUM IONIZED (BEAKER) (test 1.12 mmol/L 1.12-1.27 code = 698) PH, BLOOD (BEAKER) (test code = 7.43 1810) POCT-GLUCOSE [id number] 21:47:46 Test Item Value Reference Range Interpretation Comments POC-GLUCOSE METER 172 mg/dL 70-110 H : TESTED A T [facility] 6720 (BEAKER) (test code = [place], 1538) [address]: Thickener Operator/Techni jo ann ID = [id number] for Emily Andrea PET/CT, CARDIAC METAB AND [id number] 16:56:00Reason for exam:->CAD [facility] 1940 Sex: FFINAL REPORT PROCEDURE: MYOCARDIAL METABOLISM PET IMAGING with MYOCARDIAL PERFUSION PET IMAGING (Rest-Only)CPT CODE: 11266 INDICATION: Ischemic cardiomyopathy; severe multivessel CAD CARDIOVASCULAR PROFILE:CAD History: Prior coronary angiography reported to have 50% left main disease, normal left circumflex, 100% mid LAD, and 100% proximal RCA stenoses.Symptoms: Chest pain, nausea, vomitingRisk Factors: Hypertension, hyperlipidemia, diabetesBMI: 24.2 IMAGING PROTOCOL:Limited low-dose CT imaging was performed for attenuation correction. 40.0 mCi of Rb-82 chloride was injected intravenously at rest, and gated PET images were obtained. Then, dextrose and insulin were administered intravenously per protocol, and 10.2 mCi of F-18 FDG was injected intravenously at rest. Limited low-dose CT imaging was repeated for attenuation correction, and PET images were obtained. Image qualityis good. REST FINDINGS:Perfusion: There is a moderate severity perfusion defect of the mid to apicalinferior wall, mid to apical anterior segments, mid and apical septal, and apical segments.Metabolism: Normal FDG uptake throughout the myocardium.Wall Motion: Moderate to marked global hypokinesis (LVEF 34%).LV Volume: Normal. IMPRESSION:1. Abnormal study.2. Normal myocardial perfusion. There is a large size, moderate severity perfusion abnormality in the apical, mid to apical inferior, mid to apical septal, and mid to apical anterior segments of the LV.3. Normal myocardial metabolism. 4. Markedly reduced resting LVEF.5. Normal extracardiac tracer distribution.6. In conclusion, the entire LV is viable.7. There is no prior study for comparison. Signed: Mckinley Godinez MDRepwestern missouri mental health center Verified Date/Time: 06/19/2022 16:56:47 POCT-GLUCOSE [id number] 16:32:19 Test Item Value Reference Range Interpretation Comments POC-GLUCOSE METER 325 mg/dL 70-110 H : Notified RN/: (ARIE) (test code = TESTED AT [facility] 6720 1538) [facility], [address]: Thickener Operator/Techni jo ann ID = [id number] for Zenaida Wallace POC-Glucose [id number] 11:08:05 Test Item Value Reference Range Interpretation Comments POC-Glucose Meter (test 160 mg/dL 70-110 H : TE STED AT [facility] code = 1538) 6720 [facility], [address]: Thickener Operator/Techni jo ann ID = [id number] for Janae Chu Lab Interpretation (test Abnormal code = 26748-2) [facility] [id number] 11:08:05 Test Item Value Reference Range Interpretation Comments POC-GLUCOSE METER 160 mg/dL 70-110 H : TESTED A T [facility] 6720 (ARIE) (test code = [facility], 153) [address]: Thickener Operator/Techni jo ann ID = [id number] for Janae Connelly POCT-GLUCOSE [id number] 09:29:37 Test Item Value Reference Range Interpretation Comments POC-GLUCOSE METER 256 mg/dL 70-110 H : Notified RN/MD: ([facility]) (test code = TESTED AT [facility] 6720 1538) [facility], [address]: Thickener Operator/Techni jo ann ID = [id number] for LIANG REILLY POCT-GLUCOSE [id number] 08:22:13 Test Item Value Reference Range Interpretation Comments POC-GLUCOSE METER 178 mg/dL 70-110 H : TESTED A T [facility] 6720 ([facility]) (test code = [facility], 1538) [address]: Thickener Operator/Techni jo ann ID = [id number] for Bhumi Pizano POCT-GLUCOSE [id number] 06:56:10 Test Item Value Reference Range Interpretation Comments POC-GLUCOSE METER 194 mg/dL 70-110 H : TESTED A T [facility] 6720 ([facility]) (test code = [facility], 153) [address]: Thickener Operator/Techni jo ann ID = [id number] for Emily Andrea [id number] 06:01:13 Test Item Value Reference Range Interpretation Comments MAGNESIUM (BEAKER) (test code = 1.9 mg/dL 1.6-2.6 627) Thickener Operator ID Priti SALGADO [id number] 06:01:13 Test Item Value Reference Range Interpretation Comments PHOSPHORUS (BEAKER) (test code = 5.0 mg/dL 2.3-4.7 H 604) Thickener Operator ID - NAOMI WBASIC METABOLIC [id number] 06:01:12 Test Item Value Reference Range Interpretation Comments SODIUM (BEAKER) 129 meq/L 136-145 L (test code = 381) POTASSIUM 4.5 meq/L 3.5-5.1 (BEAKER) (test code = 379) CHLORIDE (BEAKER) 94 meq/L 98-107 L (test code = 382) CO2 (BEAKER) 24 meq/L 22-29 (test code = 355) BLOOD UREA 42 mg/dL 7-21 H NITROGEN (BEAKER) (test code = 354) CREATININE 1.13 mg/dL 0.57-1.25 (BEAKER) (test code = 358) GLUCOSE RANDOM 183 mg/dL 70-105 H (BEAKER) (test code = 652) CALCIUM (BEAKER) 9.2 mg/dL 8.4-10.2 (test code = 697) EGFR (BEAKER) 49 Interpretatio n of eGFR (test code = mL/min/1.73 values Stage De scription 1092) sq m Result G1 Nalini l or high >=90 G2 Mildly decreased 60-89 G3a Mildl y to moderately 45-5 9 G3b Moderately to s everely 30-44 G4 Severl y decreased 15-29 G5 Kidney failure <15Reported eGF R is based on the CKD-EPI 2020 equation that d oes not use a race coefficientEsti mated GFR is not as accur ate as Creatinine Keira saurabh in predicting glom erular filtration rate . Estimated GFR is not appl icable for dialysis patien ts Thickener Operator ID - NAOMI [id number] 05:29:58 Test Item Value Reference Range Interpretation Comments PARTIAL THROMBOPLASTIN TIME 84.1 seconds 22.5-36.0 H (BEAKER) (test code = 760) CBC W/PLT COUNT & AUTO [id number] 05:26:40 Test Item Value Reference Range Interpretation Comments WHITE BLOOD CELL COUNT (BEAKER) 8.0 K/ L 3.5-10.5 (test code = 775) RED BLOOD CELL COUNT (BEAKER) 4.29 M/ L 3.93-5.22 (test code = 761) HEMOGLOBIN (BEAKER) (test code = 9.7 GM/DL 11.2-15.7 L 410) HEMATOCRIT (BEAKER) (test code = 30.2 % 34.1-44.9 L 411) MEAN CORPUSCULAR VOLUME (BEAKER) 70 fL 79-95 L (test code = 753) MEAN CORPUSCULAR HEMOGLOBIN 22.6 pg 25.6-32.2 L (BEAKER) (test code = 751) MEAN CORPUSCULAR HEMOGLOBIN CONC 32.1 GM/DL 32.2-35.5 L (BEAKER) (test code = 752) RED CELL DISTRIBUTION WIDTH 24.3 % 11.7-14.4 H (BEAKER) (test code = 412) PLATELET COUNT (BEAKER) (test 289 K/CU MM 150-450 code = 756) MEAN PLATELET VOLUME (BEAKER) 9.5 fL 9.4-12.3 (test code = 754) NUCLEATED RED BLOOD CELLS 0 /100 WBC 0-0 (BEAKER) (test code = 413) NEUTROPHILS RELATIVE PERCENT 48 % (BEAKER) (test code = 429) LYMPHOCYTES RELATIVE PERCENT 34 % (BEAKER) (test code = 430) MONOCYTES RELATIVE PERCENT 12 % (BEAKER) (test code = 431) EOSINOPHILS RELATIVE PERCENT 4 % (BEAKER) (test code = 432) BASOPHILS RELATIVE PERCENT 1 % (BEAKER) (test code = 437) NEUTROPHILS ABSOLUTE COUNT 3.88 K/ L 1.56-6.13 (BEAKER) (test code = 670) LYMPHOCYTES ABSOLUTE COUNT 2.74 K/ L 1.18-3.74 (BEAKER) (test code = 414) MONOCYTES ABSOLUTE COUNT (BEAKER) 0.98 K/ L 0.24-0.36 H (test code = 415) EOSINOPHILS ABSOLUTE COUNT 0.31 K/ L 0.04-0.36 (BEAKER) (test code = 416) BASOPHILS ABSOLUTE COUNT (BEAKER) 0.06 K/ L 0.01-0.08 (test code = 417) IMMATURE GRANULOCYTES-RELATIVE 0.40 % 0.00-1.00 PERCENT (BEAKER) (test code = 2801) CALCIUM, [id number] 05:21:57 Test Item Value Reference Range Interpretation Comments CALCIUM IONIZED (BEAKER) (test 1.12 mmol/L 1.12-1.27 code = 698) PH, BLOOD (BEAKER) (test code = 7.42 1810) POCT-GLUCOSE [id number] 22:31:13 Test Item Value Reference Range Interpretation Comments POC-GLUCOSE METER 207 mg/dL 70-110 H : Notified RN/: (ARIE) (test code = TESTED AT [facility] 8431 8073) [facility], [address]: Thickener Operator/Techni jo ann ID = [id number] for Emily Andrea POCT-GLUCOSE [id number] 16:30:33 Test Item Value Reference Range Interpretation Comments POC-GLUCOSE METER 404 mg/dL 70-110 HH : Notified RN/: (BEAKER) (test code = TESTED AT [facility] 6720 1538) [facility], [address]: Thickener Operator/Techni jo ann ID = [id number] for Zenaida Wallace POCT-GLUCOSE [id number] 13:43:50 Test Item Value Reference Range Interpretation Comments POC-GLUCOSE METER 360 mg/dL 70-110 H : TESTED A T [facility] 6720 (BEAKER) (test code = [facility], 1538) [address]: Thickener Operator/Techni jo ann ID = [id number] for B K, Saige POCT-GLUCOSE [id number] 10:45:43 Test Item Value Reference Range Interpretation Comments POC-GLUCOSE METER 213 mg/dL 70-110 H : [facility] (BEAKER) (test code = [facility] Michi [facility], 1538) [address]: Thickener Operator/Techni jo ann ID = [id number] for Zenaida Wallace LIPID [id number] 07:16:53 Test Item Value Reference Range Interpretation Comments TRIGLYCERIDES (BEAKER) (test code = 98 mg/dL 540) CHOLESTEROL (BEAKER) (test code = 137 mg/dL 631) HDL CHOLESTEROL (BEAKER) (test code 50 mg/dL = 976) LDL CHOLESTEROL CALCULATED (BEAKER) 67 mg/dL (test code = 633) Triglyceride Reference Range: Low Risk <150 Borderline 150-199 High Risk 200- 499 Very High Risk >=500Cholesterol Reference Range: Low Risk <200 Borderline 200-239 High Risk >240HDL Cholesterol Reference Range: Low Risk >=60 High Risk <40LDL Cholesterol Reference Range: Optimal <100 Near Optimal 100-129 Borderline 130-159 High 160-189 Very High >=190 Thickener Operator ID - TK MBASIC METABOLIC [id number] 07:16:52 Test Item Value Reference Range Interpretation Comments SODIUM (BEAKER) 130 meq/L 136-145 L (test code = 381) POTASSIUM 4.1 meq/L 3.5-5.1 (BEAKER) (test code = 379) CHLORIDE (BEAKER) 98 meq/L 98-107 (test code = 382) CO2 (BEAKER) 23 meq/L 22-29 (test code = 355) BLOOD UREA 32 mg/dL 7-21 H NITROGEN (BEAKER) (test code = 354) CREATININE 1.04 mg/dL 0.57-1.25 (BEAKER) (test code = 358) GLUCOSE RANDOM 198 mg/dL 70-105 H (BEAKER) (test code = 652) CALCIUM (BEAKER) 9.3 mg/dL 8.4-10.2 (test code = 697) EGFR (BEAKER) 55 Interpretatio n of eGFR (test code = mL/min/1.73 values Stage De scription 1092) sq m Result G1 Norm al or high >=90 G2 Mildly decreased 60-89 G3a Mildl y to moderately 45-5 9 G3b Moderately to s everely 30-44 G4 Severl y decreased 15-29 G5 Kidne y failure <15Reported eGF R is based on the CKD-EPI 2020 equation that d oes not use a race coefficientEsti mated GFR is not as accur ate as Creatinine Keira wiley in predicting glom erular filtration rate . Estimated GFR is not appl icable for dialysis patien ts Thickener Operator ID Priti FREY [id number] 07:16:52 Test Item Value Reference Range Interpretation Comments MAGNESIUM (BEAKER) (test code = 1.8 mg/dL 1.6-2.6 627) Thickener Operator JULI FREY [id number] 07:16:52 Test Item Value Reference Range Interpretation Comments PHOSPHORUS (BEAKER) (test code = 4.5 mg/dL 2.3-4.7 604) Thickener Operator JULI FREY [facility] W/PLT COUNT & AUTO [id number] 06:36:48 Test Item Value Reference Range Interpretation Comments WHITE BLOOD CELL COUNT (BEAKER) 8.3 K/ L 3.5-10.5 (test code = 775) RED BLOOD CELL COUNT (BEAKER) 4.54 M/ L 3.93-5.22 (test code = 761) HEMOGLOBIN (BEAKER) (test code = 10.4 GM/DL 11.2-15.7 L 410) HEMATOCRIT (BEAKER) (test code = 31.9 % 34.1-44.9 L 411) MEAN CORPUSCULAR VOLUME (BEAKER) 70 fL 79-95 L (test code = 753) MEAN CORPUSCULAR HEMOGLOBIN 22.9 pg 25.6-32.2 L (BEAKER) (test code = 751) MEAN CORPUSCULAR HEMOGLOBIN CONC 32.6 GM/DL 32.2-35.5 (BEAKER) (test code = 752) RED CELL DISTRIBUTION WIDTH 24.1 % 11.7-14.4 H (BEAKER) (test code = 412) PLATELET COUNT (BEAKER) (test 315 K/CU MM 150-450 code = 756) MEAN PLATELET VOLUME (BEAKER) 9.8 fL 9.4-12.3 (test code = 754) NUCLEATED RED BLOOD CELLS 0 /100 WBC 0-0 (BEAKER) (test code = 413) NEUTROPHILS RELATIVE PERCENT 52 % (BEAKER) (test code = 429) LYMPHOCYTES RELATIVE PERCENT 30 % (BEAKER) (test code = 430) MONOCYTES RELATIVE PERCENT 12 % (BEAKER) (test code = 431) EOSINOPHILS RELATIVE PERCENT 5 % (BEAKER) (test code = 432) BASOPHILS RELATIVE PERCENT 1 % (BEAKER) (test code = 437) NEUTROPHILS ABSOLUTE COUNT 4.32 K/ L 1.56-6.13 (BEAKER) (test code = 670) LYMPHOCYTES ABSOLUTE COUNT 2.52 K/ L 1.18-3.74 (BEAKER) (test code = 414) MONOCYTES ABSOLUTE COUNT (BEAKER) 1.00 K/ L 0.24-0.36 H (test code = 415) EOSINOPHILS ABSOLUTE COUNT 0.37 K/ L 0.04-0.36 H (BEAKER) (test code = 416) BASOPHILS ABSOLUTE COUNT (BEAKER) 0.06 K/ L 0.01-0.08 (test code = 417) IMMATURE GRANULOCYTES-RELATIVE 0.40 % 0.00-1.00 PERCENT (BEAKER) (test code = 2801) POCT-GLUCOSE [id number] 06:36:25 Test Item Value Reference Range Interpretation Comments POC-GLUCOSE METER 221 mg/dL 70-110 H : TESTED Sonja Fritz [facility] 6720 (BEAKER) (test code = [place], 1538) [address]: Thickener Operator/Techni jo ann ID = [id number] for Emily Andrea [id number] 06:30:17 Test Item Value Reference Range Interpretation Comments PARTIAL THROMBOPLASTIN TIME 72.3 seconds 22.5-36.0 H (ARIE) (test code = 760) CALCIUM, [id number] 06:07:25 Test Item Value Reference Range Interpretation Comments CALCIUM IONIZED (ARIE) (test 1.14 mmol/L 1.12-1.27 code = 698) PH, BLOOD (ARIE) (test code = 7.44 1810) POCT-GLUCOSE [id number] 22:03:38 Test Item Value Reference Range Interpretation Comments POC-GLUCOSE METER 362 mg/dL 70-110 H : Notified RN/MD: (ARIE) (test code = TESTED AT [facility] 6720 1538) [facility], [address]: Thickener Operator/Techni jo ann ID = [id number] for Emily Andrea SARS-CoV2/RT-PCR (Asymptomatic ONLY)2022-06-17 20:15:00 Test Item Value Reference Interpretation Comments Range SARS-COV2/RT-PCR Negative Negative The SARS-Co V-2 (test code = target nucleic 26023-2) acids are not detected in thi s specimen. Negat avril results do not preclude SARS-C oV-2 infection and should not be u sed as the sole bas is for patient management decisions. Nega tive results must be combined with clinical observations, patient history , and epidemiolog ical information. A false negative result may occu r if a specimen is improperly collected, transported or handled. This S ARS CoV-2 test is a rapid, real-cecy e RT-PCR test intended for th e qualitative detection of nucleic acid fr om SARS-CoV-2 in a nasopharyngeal swab specimen [facility] from individual s suspected of COVID-19 by the ir healthcare provider. YOGESH (test code = This test has been YOGESH) authorized by FDA under an EUA for use by authorized laboratories. This test is only authorized for the duration of the declaration that circumstances exist justifying the authorization of emergency use of in vitro diagnostic tests for detection and/or diagnosis of COVID-19 under Section 564(b)(1) of the Federal Food, Drug and Cosmetic Act, 21 U.S.C. 360bbb-3(b)(1), unless the authorization is terminated or revoked sooner. Fact Sheet for Healthcare Providers: https://www.RiskIQ.com/Documents/Xp ert%20Xpress%20SAR S%20CoV-2/Fact%20S heets/302-3802%20S ARS-COV-2%20HEALTH CARE%20PROVIDERS%2 0FACT%20SHEET.pdf Fact Sheet for Healthcare Patients: https://www.[employer]/Documents/Xp ert%20Xpress%20SAR S%20CoV-2/Fact%20S heets/302-3801%20S ARS-COV-2%20PATIEN T%20FACT%20SHEET.p df Lab Interpretation Normal (test code = 47937-6) [facility])2022-06-17 20:15:00 Test Item Value Reference Range Interpretation Comments SARS-COV2/RT-PCR Negative Negative The SARS-Co V-2 target (test code = nucleic acids a re not 7297649) detected in thi s specimen. Negative result s do not preclude SARS-C oV-2 infection and s hould not be used as the yanira e basis for patient managem ent decisions. Nega tive results must be combine d with clinical observ ations, patient history , and epidemiological information. A false negativ e result may occur if a spec imen is improperly deo ected, transported or handled. This SARS CoV-2 test is a rapid, real-time RT-PC R test intended for th e qualitative detection of nu cleic acid from SARS-CoV-2 in a nasopharyngeal swab specimen collected from individuals suspected of CO VID-19 by their healthcar e provider. This test has been authorized by FDA under an EUA for use by authorized laboratories. This test is only authorized for the duration of the declaration that circumstances exist justifying the authorization of emergency use of in vitro diagnostic tests for detection and/or diagnosis of COVID-19 under Section 564(b)(1) of the Federal Food, Drug and Cosmetic Act, 21 U.S.C. 360bbb-3(b)(1), unless the authorization is terminated or revoked sooner. Fact Sheet for Healthcare Providers: https://www.[employer] m/Documents/Xpert%20Xpress%20SARS%20CoV-2/Fact%20Sheets/302-3802%86WTXW-FZB-8%20 HEALTHCARE%20PROVIDERS%20FACT%20SHEET.pdf Fact Sheet for Healthcare Patients: https://www.St[employer]end.com/Documents/Xpert%20Xp ress%20SARS%20CoV-2/Fact%20Sheets/302-3801%87FBCB-TMD-1%20PATIENT%20FACT%20SHEET .pdfRAD, CHEST, 1 VIEW, NON [id number] 18:43:00Reason for exam:->Pre-opShould this be performed at the bedside?->Yes [facility] 1940 Sex: FFINAL REPORT INDICATION: Pre-op COMPARISON: 06/13/2022 TECHNIQUE: Single frontal view of the chest. FINDINGS: Lungs and pleura: Mild left basilar subsegmental atelectasis.Heart andmediastinum: Normal heart size. Unremarkable mediastinal contours.Osseous structures: No acute abnormality.Other: None. IMPRESSION: Mild left basilar subsegmental atelectasis. Signed: Irene Hyde MDReport Verified Date/Time: 06/17/2022 18:43:38 Blood gas, arterial. Do not draw from Right radial artery.2022-06-17 17:49:50 Test Item Value Reference Range Interpretation Comments pH, Arterial (test code 7.46 7.35-7.45 H = 2744-1) pCO2, Arterial (test 37 See_Comment [Autom ated message] code = 2019-8) The system [facility] generated this result transmit brian reference range : 35 - 45 mm Hg. The reference range was not used to interpret this result as normal/abnormal . pO2, Arterial (test 96 See_Comment H [Automa brian message] code = 2703-7) The system [facility] generated this result transmit brian reference range : 80 - 90 mm Hg. The reference range was not used to interpret this result as normal/abnormal . O2 Sat, Arterial (test 97.5 % 96.0-97.0 H code = 2708-6) HCO3, Arterial (test 25 mmol/L 21-29 code = 1960-4) Base Excess, Arterial 1.6 mmol/L -2.0-3.0 (test code = 1925-7) Patient Temperature 37.5 (test code = 8310-5) FIO2 (test code = 1819) 21 Lab Interpretation Abnormal (test code = 00819-3) [facility], [id number] 17:49:50 Test Item Value Reference Range Interpretation Comments PH ARTERIAL (BEAKER) (test code = 7.46 7.35-7.45 H 383) PCO2 ARTERIAL (BEAKER) (test code 37 mm Hg 35-45 = 384) PO2 ARTERIAL (BEAKER) (test code = 96 mm Hg 80-90 H 385) O2 SATURATION ARTERIAL (BEAKER) 97.5 % 96.0-97.0 H (test code = 386) HCO3 ARTERIAL (BEAKER) (test code 25 mmol/L 21-29 = 388) BASE EXCESS ARTERIAL (BEAKER) 1.6 mmol/L -2.0-3.0 (test code = 387) PATIENT TEMPERATURE (BEAKER) (test 37.5 code = 1818) FIO2 (BEAKER) (test code = 1819) 21.0 POCT-GLUCOSE [id number] 17:09:05 Test Item Value Reference Range Interpretation Comments POC-GLUCOSE METER 315 mg/dL 70-110 H : TESTED A T [facility] 6720 (BEAKER) (test code = [place], 1538) [address]: Thickener Operator/Techni jo ann ID = [id number] for Hugo Helm Katherine POCT-GLUCOSE [id number] 12:05:05 Test Item Value Reference Range Interpretation Comments POC-GLUCOSE METER 348 mg/dL 70-110 H : Notified RN/MD: (BEAKER) (test code = TESTED AT [facility] 5066 4496) [place], [address]: Thickener Operator/Techni jo ann ID = [id number] for Gonzales Contreras [id number] 09:30:11 Test Item Value Reference Range Interpretation Comments PARTIAL THROMBOPLASTIN TIME 78.1 seconds 22.5-36.0 H (BEAKER) (test code = 760) [id number] 07:36:32 Test Item Value Reference Range Interpretation Comments MAGNESIUM (BEAKER) (test code = 1.9 mg/dL 1.6-2.6 627) Thickener Operator ID - DANIELLE [id number] 07:36:32 Test Item Value Reference Range Interpretation Comments PHOSPHORUS (BEAKER) (test code = 5.4 mg/dL 2.3-4.7 H 604) Thickener Operator ID - DANIELLE LBASIC METABOLIC [id number] 07:36:31 Test Item Value Reference Range Interpretation Comments SODIUM (BEAKER) 131 meq/L 136-145 L (test code = 381) POTASSIUM 4.3 meq/L 3.5-5.1 (BEAKER) (test code = 379) CHLORIDE (BEAKER) 98 meq/L 98-107 (test code = 382) CO2 (BEAKER) 23 meq/L 22-29 (test code = 355) BLOOD UREA 24 mg/dL 7-21 H NITROGEN (BEAKER) (test code = 354) CREATININE 0.88 mg/dL 0.57-1.25 (BEAKER) (test code = 358) GLUCOSE RANDOM 172 mg/dL 70-105 H (BEAKER) (test code = 652) CALCIUM (BEAKER) 9.2 mg/dL 8.4-10.2 (test code = 697) EGFR (BEAKER) 67 Interpretatio n of eGFR (test code = mL/min/1.73 values Stage De scription 1092) sq m Result G1 Nalini l or high >=90 G2 Mildly decreased 60-89 G3a Mildl y to moderately 45-5 9 G3b Moderately to s everely 30-44 G4 Severl y decreased 15-29 G5 Kidney failure <15Reported eGF R is based on the CKD-EPI 2020 equation that d oes not use a race coefficientEsti mated GFR is not as accur ate as Creatinine Keira saurabh in predicting glom erular filtration rate . Estimated GFR is not appl icable for dialysis patien ts Thickener Operator ID - DANIELLE LCALCIUM, [id number] 07:22:10 Test Item Value Reference Range Interpretation Comments CALCIUM IONIZED (BEAKER) (test 1.13 mmol/L 1.12-1.27 code = 698) PH, BLOOD (BEAKER) (test code = 7.39 1810) CBC W/PLT COUNT & AUTO [id number] 06:36:11 Test Item Value Reference Range Interpretation Comments WHITE BLOOD CELL COUNT (BEAKER) 9.5 K/ L 3.5-10.5 (test code = 775) RED BLOOD CELL COUNT (BEAKER) 4.98 M/ L 3.93-5.22 (test code = 761) HEMOGLOBIN (BEAKER) (test code = 11.3 GM/DL 11.2-15.7 410) HEMATOCRIT (BEAKER) (test code = 35.4 % 34.1-44.9 411) MEAN CORPUSCULAR VOLUME (BEAKER) 71 fL 79-95 L (test code = 753) MEAN CORPUSCULAR HEMOGLOBIN 22.7 pg 25.6-32.2 L (BEAKER) (test code = 751) MEAN CORPUSCULAR HEMOGLOBIN CONC 31.9 GM/DL 32.2-35.5 L (BEAKER) (test code = 752) RED CELL DISTRIBUTION WIDTH 24.5 % 11.7-14.4 H (BEAKER) (test code = 412) PLATELET COUNT (BEAKER) (test 320 K/CU MM 150-450 code = 756) MEAN PLATELET VOLUME (BEAKER) 9.5 fL 9.4-12.3 (test code = 754) NUCLEATED RED BLOOD CELLS 0 /100 WBC 0-0 (BEAKER) (test code = 413) NEUTROPHILS RELATIVE PERCENT 59 % (BEAKER) (test code = 429) LYMPHOCYTES RELATIVE PERCENT 25 % (BEAKER) (test code = 430) MONOCYTES RELATIVE PERCENT 12 % (BEAKER) (test code = 431) EOSINOPHILS RELATIVE PERCENT 4 % (BEAKER) (test code = 432) BASOPHILS RELATIVE PERCENT 1 % (BEAKER) (test code = 437) NEUTROPHILS ABSOLUTE COUNT 5.56 K/ L 1.56-6.13 (BEAKER) (test code = 670) LYMPHOCYTES ABSOLUTE COUNT 2.36 K/ L 1.18-3.74 (BEAKER) (test code = 414) MONOCYTES ABSOLUTE COUNT (BEAKER) 1.15 K/ L 0.24-0.36 H (test code = 415) EOSINOPHILS ABSOLUTE COUNT 0.35 K/ L 0.04-0.36 (BEAKER) (test code = 416) BASOPHILS ABSOLUTE COUNT (BEAKER) 0.05 K/ L 0.01-0.08 (test code = 417) IMMATURE GRANULOCYTES-RELATIVE 0.40 % 0.00-1.00 PERCENT (BEAKER) (test code = 2801) POCT-GLUCOSE [id number] 06:35:06 Test Item Value Reference Range Interpretation Comments POC-GLUCOSE METER 172 mg/dL 70-110 H : TESTED A T [facility] 6720 (BEAKER) (test code = [facility], [facility]) [id number]: Thickener Operator/Techni jo ann ID = [id number] for Angelo Machado POCT-GLUCOSE [id number] 21:03:05 Test Item Value Reference Range Interpretation Comments POC-GLUCOSE METER 177 mg/dL 70-110 H : TESTED A T [facility] 6720 (BEAKER) (test code = [facility], [facility]) [id number]: Thickener Operator/Techni jo ann ID = [id number] for Angelo Machado POCT-GLUCOSE [id number] 18:25:12 Test Item Value Reference Range Interpretation Comments POC-GLUCOSE METER 265 mg/dL 70-110 H : TESTED A T [facility] 6720 (BEAKER) (test code = [facility], [facility]8) [address]: Thickener Operator/Techni jo ann ID = [id number] for Chante Rider POCT-GLUCOSE [id number] 11:10:34 Test Item Value Reference Range Interpretation Comments POC-GLUCOSE METER 280 mg/dL 70-110 H : TESTED A T [facility] 6720 (BEAKER) (test code = [facility], [facility]) [address]: Thickener Operator/Techni jo ann ID = [id number] for Joe Carrasco [id number] 10:23:12 Test Item Value Reference Range Interpretation Comments PARTIAL THROMBOPLASTIN TIME 76.4 seconds 22.5-36.0 H (BEAKER) (test code = 760) POCT-GLUCOSE [id number] 08:19:09 Test Item Value Reference Range Interpretation Comments POC-GLUCOSE METER 151 mg/dL 70-110 H : TESTED A T [facility] 6720 (BEAKER) (test code = [place], 1538) [address]: Thickener Operator/Techni jo ann ID = [id number] for Joe Carrasco CALCIUM, [id number] 06:00:09 Test Item Value Reference Range Interpretation Comments CALCIUM IONIZED (BEAKER) (test 1.18 mmol/L 1.12-1.27 code = 698) PH, BLOOD (BEAKER) (test code = 7.37 1810) CBC W/PLT COUNT & AUTO [id number] 03:47:15 Test Item Value Reference Range Interpretation Comments WHITE BLOOD CELL COUNT (BEAKER) 7.6 K/ L 3.5-10.5 (test code = 775) RED BLOOD CELL COUNT (BEAKER) 4.37 M/ L 3.93-5.22 (test code = 761) HEMOGLOBIN (BEAKER) (test code = 10.0 GM/DL 11.2-15.7 L 410) HEMATOCRIT (BEAKER) (test code = 31.3 % 34.1-44.9 L 411) MEAN CORPUSCULAR VOLUME (BEAKER) 72 fL 79-95 L (test code = 753) MEAN CORPUSCULAR HEMOGLOBIN 22.9 pg 25.6-32.2 L (BEAKER) (test code = 751) MEAN CORPUSCULAR HEMOGLOBIN CONC 31.9 GM/DL 32.2-35.5 L (BEAKER) (test code = 752) RED CELL DISTRIBUTION WIDTH 24.3 % 11.7-14.4 H (BEAKER) (test code = 412) PLATELET COUNT (BEAKER) (test 316 K/CU MM 150-450 code = 756) MEAN PLATELET VOLUME (BEAKER) 10.3 fL 9.4-12.3 (test code = 754) NUCLEATED RED BLOOD CELLS 0 /100 WBC 0-0 (BEAKER) (test code = 413) NEUTROPHILS RELATIVE PERCENT 47 % (BEAKER) (test code = 429) LYMPHOCYTES RELATIVE PERCENT 34 % (BEAKER) (test code = 430) MONOCYTES RELATIVE PERCENT 13 % (BEAKER) (test code = 431) EOSINOPHILS RELATIVE PERCENT 5 % (BEAKER) (test code = 432) BASOPHILS RELATIVE PERCENT 1 % (BEAKER) (test code = 437) NEUTROPHILS ABSOLUTE COUNT 3.61 K/ L 1.56-6.13 (BEAKER) (test code = 670) LYMPHOCYTES ABSOLUTE COUNT 2.57 K/ L 1.18-3.74 (BEAKER) (test code = 414) MONOCYTES ABSOLUTE COUNT (BEAKER) 0.98 K/ L 0.24-0.36 H (test code = 415) EOSINOPHILS ABSOLUTE COUNT 0.37 K/ L 0.04-0.36 H (BEAKER) (test code = 416) BASOPHILS ABSOLUTE COUNT (BEAKER) 0.06 K/ L 0.01-0.08 (test code = 417) IMMATURE GRANULOCYTES-RELATIVE 0.40 % 0.00-1.00 PERCENT (BEAKER) (test code = 2801) [id number] 03:42:23 Test Item Value Reference Range Interpretation Comments PARTIAL THROMBOPLASTIN TIME 67.2 seconds 22.5-36.0 H (BEAKER) (test code = 760) [id number] 03:38:26 Test Item Value Reference Range Interpretation Comments PHOSPHORUS (BEAKER) (test code = 3.9 mg/dL 2.3-4.7 604) Thickener Operator ID - PIAYA LBASIC METABOLIC [id number] 03:38:25 Test Item Value Reference Range Interpretation Comments SODIUM (BEAKER) 133 meq/L 136-145 L (test code = 381) POTASSIUM 4.3 meq/L 3.5-5.1 (BEAKER) (test code = 379) CHLORIDE (BEAKER) 102 meq/L 98-107 (test code = 382) CO2 (BEAKER) 20 meq/L 22-29 L (test code = 355) BLOOD UREA 13 mg/dL 7-21 NITROGEN (BEAKER) (test code = 354) CREATININE 0.74 mg/dL 0.57-1.25 (BEAKER) (test code = 358) GLUCOSE RANDOM 157 mg/dL 70-105 H (BEAKER) (test code = 652) CALCIUM (BEAKER) 9.1 mg/dL 8.4-10.2 (test code = 697) EGFR (BEAKER) 82 Interpretatio n of eGFR (test code = mL/min/1.73 values Stage De scription 1092) sq m Result G1 Nalini l or high >=90 G2 Mildly decreased 60-89 G3a Mildl y to moderately 45-5 9 G3b Moderately to s everely 30-44 G4 Severl y decreased 15-29 G5 Kidney failure <15Reported eGF R is based on the CKD-EPI 2020 equation that d oes not use a race coefficientEsti mated GFR is not as accur ate as Creatinine Keira saurabh in predicting glom erular filtration rate . Estimated GFR is not appl icable for dialysis patien ts Thickener Operator ID - DANIELLE [id number] 03:38:25 Test Item Value Reference Range Interpretation Comments MAGNESIUM ([employer]) (test code = 1.9 mg/dL 1.6-2.6 627) Thickener Operator ID - DANIELLE LPOCT-GLUCOSE [id number] 23:23:32 Test Item Value Reference Range Interpretation Comments POC-GLUCOSE METER 207 mg/dL 70-110 H : TESTED A T [facility] 6720 ([employer]) (test code [facility], = 1538) [address]: Thickener Operator/Techni jo ann ID = [id number] for Madisyn Govea [id number] 20:06:54 Test Item Value Reference Range Interpretation Comments PARTIAL THROMBOPLASTIN TIME 41.2 seconds 25.8-34.5 H (BEAKER) (test code = 760) POCT-GLUCOSE [id number] 17:15:31 Test Item Value Reference Range Interpretation Comments POC-GLUCOSE METER 266 mg/dL 70-110 H : TESTED A T [facility] 6720 (BEAKER) (test code = [facility], 1538) [address]: Thickener Operator/Techni jo ann ID = [id number] for FRANK SOTO POCT-GLUCOSE [id number] 11:25:22 Test Item Value Reference Range Interpretation Comments POC-GLUCOSE METER 192 mg/dL 70-110 H : TESTED A T [facility] 6720 ([employer]) (test code = [facility], 1538) [address]: Thickener Operator/Techni jo ann ID = [id number] for DALE RAYMOND [id number] 09:46:05 Test Item Value Reference Range Interpretation Comments PARTIAL THROMBOPLASTIN TIME 75.4 seconds 22.5-36.0 H (BEAKER) (test code = 760) Carotid doppler [id number] 08:56:41Ejection FractionSLEH ECHO HEARTLAB MKCKESSON [facility] Center[facility] [id number] 08:56:41Ejection FractionSLEH ECHO HEARTLAB MKCKESSON [facility] [id number] 07:45:14 Test Item Value Reference Range Interpretation Comments POC-GLUCOSE METER 164 mg/dL 70-110 H : TESTED A T [facility] 6720 (BEAKER) (test code = [place], 1538) [address]: Thickener Operator/Techni jo ann ID = [id number] for DALE RAYMOND [id number] 03:52:34 Test Item Value Reference Range Interpretation Comments PHOSPHORUS (BEAKER) (test code = 3.6 mg/dL 2.3-4.7 604) Thickener Operator ID - PIAYA LBASIC METABOLIC [id number] 03:52:33 Test Item Value Reference Range Interpretation Comments SODIUM (BEAKER) 134 meq/L 136-145 L (test code = 381) POTASSIUM 4.3 meq/L 3.5-5.1 (BEAKER) (test code = 379) CHLORIDE (BEAKER) 104 meq/L 98-107 (test code = 382) CO2 (BEAKER) 22 meq/L 22-29 (test code = 355) BLOOD UREA 14 mg/dL 7-21 NITROGEN (BEAKER) (test code = 354) CREATININE 0.75 mg/dL 0.57-1.25 (BEAKER) (test code = 358) GLUCOSE RANDOM 150 mg/dL 70-105 H (BEAKER) (test code = 652) CALCIUM (BEAKER) 9.2 mg/dL 8.4-10.2 (test code = 697) EGFR (BEAKER) 81 Interpretatio n of eGFR (test code = mL/min/1.73 values Stage De scription 1092) sq m Result G1 Nalini l or high >=90 G2 Mildly decreased 60-89 G3a Mildl y to moderately 45-5 9 G3b Moderately to s everely 30-44 G4 Severl y decreased 15-29 G5 Kidney failure <15Reported eGF R is based on the CKD-EPI 2020 equation that d oes not use a race coefficientEsti mated GFR is not as accur ate as Creatinine Keira wiley in predicting glom erular filtration rate . Estimated GFR is not appl icable for dialysis patien ts Thickener Operator ID - DANIELLE [id number] 03:52:33 Test Item Value Reference Range Interpretation Comments MAGNESIUM (BEAKER) (test code = 2.0 mg/dL 1.6-2.6 627) Thickener Operator ID - DANIELLE LCBC W/PLT COUNT & AUTO [id number] 03:30:09 Test Item Value Reference Range Interpretation Comments WHITE BLOOD CELL COUNT (BEAKER) 8.0 K/ L 3.5-10.5 (test code = 775) RED BLOOD CELL COUNT (BEAKER) 4.36 M/ L 3.93-5.22 (test code = 761) HEMOGLOBIN (BEAKER) (test code = 9.8 GM/DL 11.2-15.7 L 410) HEMATOCRIT (BEAKER) (test code = 30.5 % 34.1-44.9 L 411) MEAN CORPUSCULAR VOLUME (BEAKER) 70 fL 79-95 L (test code = 753) MEAN CORPUSCULAR HEMOGLOBIN 22.5 pg 25.6-32.2 L (BEAKER) (test code = 751) MEAN CORPUSCULAR HEMOGLOBIN CONC 32.1 GM/DL 32.2-35.5 L (BEAKER) (test code = 752) RED CELL DISTRIBUTION WIDTH 23.9 % 11.7-14.4 H (BEAKER) (test code = 412) PLATELET COUNT (BEAKER) (test 316 K/CU MM 150-450 code = 756) MEAN PLATELET VOLUME (BEAKER) 9.6 fL 9.4-12.3 (test code = 754) NUCLEATED RED BLOOD CELLS 0 /100 WBC 0-0 (BEAKER) (test code = 413) NEUTROPHILS RELATIVE PERCENT 49 % (BEAKER) (test code = 429) LYMPHOCYTES RELATIVE PERCENT 33 % (BEAKER) (test code = 430) MONOCYTES RELATIVE PERCENT 14 % (BEAKER) (test code = 431) EOSINOPHILS RELATIVE PERCENT 4 % (BEAKER) (test code = 432) BASOPHILS RELATIVE PERCENT 1 % (BEAKER) (test code = 437) NEUTROPHILS ABSOLUTE COUNT 3.86 K/ L 1.56-6.13 (BEAKER) (test code = 670) LYMPHOCYTES ABSOLUTE COUNT 2.60 K/ L 1.18-3.74 (BEAKER) (test code = 414) MONOCYTES ABSOLUTE COUNT (BEAKER) 1.09 K/ L 0.24-0.36 H (test code = 415) EOSINOPHILS ABSOLUTE COUNT 0.35 K/ L 0.04-0.36 (BEAKER) (test code = 416) BASOPHILS ABSOLUTE COUNT (BEAKER) 0.05 K/ L 0.01-0.08 (test code = 417) IMMATURE GRANULOCYTES-RELATIVE 0.10 % 0.00-1.00 PERCENT (BEAKER) (test code = 2801) [id number] 03:17:23 Test Item Value Reference Range Interpretation Comments PARTIAL THROMBOPLASTIN TIME 91.2 seconds 22.5-36.0 H (BEAKER) (test code = 760) POCT-GLUCOSE [id number] 21:00:54 Test Item Value Reference Range Interpretation Comments POC-GLUCOSE METER 143 mg/dL 70-110 H : TESTED A T [facility] 6720 (BEAKER) (test code = [facility], 1538) [address]: Thickener Operator/Techni jo ann ID = [id number] for Jim Austin [id number] 20:55:01 Test Item Value Reference Range Interpretation Comments PARTIAL THROMBOPLASTIN TIME 52.5 seconds 22.5-36.0 H (BEAKER) (test code = 760) POCT-GLUCOSE [id number] 17:31:14 Test Item Value Reference Range Interpretation Comments POC-GLUCOSE METER 206 mg/dL 70-110 H : TESTED A T [facility] 6720 (BEAKER) (test code = [facility], 1538) [address]: Thickener Operator/Techni jo ann ID = [id number] for FRANK SOTO 2D Echo W/Doppler(CW/PW/Color)2022-06-14 15:38:12Ejection FractionSLE ECHO HEART[facility] W/Doppler(CW/PW/Color)2022-06-14 15:38:12Ejection FractionSLEH ECHO HEARTLAB MKCKESSON [facility] 12:52:55 Test Item Value Reference Range Interpretation Comments PARTIAL THROMBOPLASTIN TIME 103.8 seconds 22.5-36.0 H (BEAKER) (test code = 760) POCT-GLUCOSE [id number] 11:37:52 Test Item Value Reference Range Interpretation Comments POC-GLUCOSE METER 213 mg/dL 70-110 H : TESTED A T [facility] 6720 ([employer]) (test code = [place], 1538) [address]: Thickener Operator/Techni jo ann ID = [id number] for Ramya Celeste [id number] 10:22:23 Test Item Value Reference Range Interpretation Comments FERRITIN (BEAKER) (test code = 23.97 ng/mL 5.00-275.00 361) Thickener Operator ID - AAHAMIDIRON, TIBC, % SAT. (WITHOUT FERRITIN)2022-06-14 10:01:21 Test Item Value Reference Range Interpretation Comments IRON (BEAKER) (test code = 547) 24.0 ug/dL 40.0-160.0 L TOTAL IRON BINDING CAPACITY 366 ug/dL 250-450 (BEAKER) (test code = 769) IRON % SATURATION (2) (BEAKER) 7 % 20-55 L (test code = 2590) Thickener Operator ID - AAHAMIDHEMOGLOBIN [id number] 09:09:58 Test Item Value Reference Range Interpretation Comments HEMOGLOBIN A1C 7.1 % See_Comment H [Automated m essage] ELECTROPHORESIS (BEAKER) The system which (test code = 3811) generated this result transmitted ref erence range: <=5.6%. The reference range was not used to int erpret this result as normal/abnormal . "The A1c is measured using a NGSP-certified method. HbA1c value equal to or greater than 6.5% as thediagnosis cutoff for diabetes. An HbA1c value of 5.7- 6.4% indicates increased risk for diabetes (prediabetes)."Thickener Operator ID - ADMPOCT- GLUCOSE [id number] 08:23:11 Test Item Value Reference Range Interpretation Comments POC-GLUCOSE METER 164 mg/dL 70-110 H : TESTED A T [facility] 6720 ([employer]) (test code = [place], 1538) [address]: Thickener Operator/Techni jo ann ID = [id number] for Ramya Celeste [id number] 07:00:50 Test Item Value Reference Range Interpretation Comments PARTIAL THROMBOPLASTIN TIME 71.0 seconds 22.5-36.0 H (BEAKER) (test code = 760) [id number] 04:38:26 Test Item Value Reference Range Interpretation Comments MAGNESIUM (BEAKER) (test code = 1.8 mg/dL 1.6-2.6 627) Thickener Operator ID - TK [id number] 04:38:26 Test Item Value Reference Range Interpretation Comments PHOSPHORUS (BEAKER) (test code = 3.5 mg/dL 2.3-4.7 604) Thickener Operator ID - TK MLIPID [id number] 04:38:26 Test Item Value Reference Range Interpretation Comments TRIGLYCERIDES (BEAKER) (test code = 119 mg/dL 540) CHOLESTEROL (BEAKER) (test code = 151 mg/dL 631) HDL CHOLESTEROL (BEAKER) (test code 48 mg/dL = 976) LDL CHOLESTEROL CALCULATED (BEAKER) 79 mg/dL (test code = 633) Triglyceride Reference Range: Low Risk <150 Borderline 150-199 High Risk 200- 499 Very High Risk >=500Cholesterol Reference Range: Low Risk <200 Borderline 200-239 High Risk >240HDL Cholesterol Reference Range: Low Risk >=60 High Risk <40LDL Cholesterol Reference Range: Optimal <100 Near Optimal 100-129 Borderline 130-159 High 160-189 Very High >=190 Thickener Operator ID - TK MBASIC METABOLIC [id number] 04:38:25 Test Item Value Reference Range Interpretation Comments SODIUM (BEAKER) 135 meq/L 136-145 L (test code = 381) POTASSIUM 4.0 meq/L 3.5-5.1 (BEAKER) (test code = 379) CHLORIDE (BEAKER) 105 meq/L 98-107 (test code = 382) CO2 (BEAKER) 22 meq/L 22-29 (test code = 355) BLOOD UREA 10 mg/dL 7-21 NITROGEN (BEAKER) (test code = 354) CREATININE 0.66 mg/dL 0.57-1.25 (BEAKER) (test code = 358) GLUCOSE RANDOM 136 mg/dL 70-105 H (BEAKER) (test code = 652) CALCIUM (BEAKER) 9.1 mg/dL 8.4-10.2 (test code = 697) EGFR (BEAKER) 89 Interpretatio n of eGFR (test code = mL/min/1.73 values Stage De scription 1092) sq m Result G1 Nalini l or high >=90 G2 Mildly decreased 60-89 G3a Mildl y to moderately 45-5 9 G3b Moderately to s everely 30-44 G4 Severl y decreased 15-29 G5 Kidney failure <15Reported eGF R is based on the CKD-EPI 2020 equation that d oes not use a race coefficientEsti mated GFR is not as accur ate as Creatinine Keira saurabh in predicting glom erular filtration rate . Estimated GFR is not appl icable for dialysis patien ts Thickener Operator ID - TK MCBC W/PLT COUNT & AUTO [id number] 04:04:36 Test Item Value Reference Range Interpretation Comments WHITE BLOOD CELL COUNT (BEAKER) 9.0 K/ L 3.5-10.5 (test code = 775) RED BLOOD CELL COUNT (BEAKER) 4.50 M/ L 3.93-5.22 (test code = 761) HEMOGLOBIN (BEAKER) (test code = 10.2 GM/DL 11.2-15.7 L 410) HEMATOCRIT (BEAKER) (test code = 32.0 % 34.1-44.9 L 411) MEAN CORPUSCULAR VOLUME (BEAKER) 71 fL 79-95 L (test code = 753) MEAN CORPUSCULAR HEMOGLOBIN 22.7 pg 25.6-32.2 L (BEAKER) (test code = 751) MEAN CORPUSCULAR HEMOGLOBIN CONC 31.9 GM/DL 32.2-35.5 L (BEAKER) (test code = 752) RED CELL DISTRIBUTION WIDTH 24.2 % 11.7-14.4 H (BEAKER) (test code = 412) PLATELET COUNT (BEAKER) (test 304 K/CU MM 150-450 code = 756) MEAN PLATELET VOLUME (BEAKER) 9.6 fL 9.4-12.3 (test code = 754) NUCLEATED RED BLOOD CELLS 0 /100 WBC 0-0 (BEAKER) (test code = 413) NEUTROPHILS RELATIVE PERCENT 53 % (BEAKER) (test code = 429) LYMPHOCYTES RELATIVE PERCENT 29 % (BEAKER) (test code = 430) MONOCYTES RELATIVE PERCENT 13 % (BEAKER) (test code = 431) EOSINOPHILS RELATIVE PERCENT 4 % (BEAKER) (test code = 432) BASOPHILS RELATIVE PERCENT 1 % (BEAKER) (test code = 437) NEUTROPHILS ABSOLUTE COUNT 4.76 K/ L 1.56-6.13 (BEAKER) (test code = 670) LYMPHOCYTES ABSOLUTE COUNT 2.65 K/ L 1.18-3.74 (BEAKER) (test code = 414) MONOCYTES ABSOLUTE COUNT (BEAKER) 1.17 K/ L 0.24-0.36 H (test code = 415) EOSINOPHILS ABSOLUTE COUNT 0.34 K/ L 0.04-0.36 (BEAKER) (test code = 416) BASOPHILS ABSOLUTE COUNT (BEAKER) 0.05 K/ L 0.01-0.08 (test code = 417) IMMATURE GRANULOCYTES-RELATIVE 0.30 % 0.00-1.00 PERCENT (BEAKER) (test code = 2801) [id number] 23:03:56 Test Item Value Reference Range Interpretation Comments PARTIAL THROMBOPLASTIN TIME 64.1 seconds 22.5-36.0 H (BEAKER) (test code = 760) POCT-GLUCOSE [id number] 22:49:34 Test Item Value Reference Range Interpretation Comments POC-GLUCOSE METER 149 mg/dL 70-110 H : TESTED A T [facility] 6720 (BEAKER) (test code = [place] [facility], 1538) [address]: Thickener Operator/Techni jo ann ID = [id number] for Yonny Pablo T4, [id number] 20:08:49 Test Item Value Reference Range Interpretation Comments FREE T4 (BEAKER) (test code = 655) 1.13 ng/dL 0.70-1.48 Thickener Operator ID - BSTSH/FREE T4 IF [id number] 19:37:54 Test Item Value Reference Range Interpretation Comments THYROID STIMULATING HORMONE 5.632 uIU/mL 0.350-4.940 H (BEAKER) (test code = 772) Thickener Operator ID - BSHIGH SENSITIVITY TROPONIN [id number] 18:58:11 Test Item Value Reference Range Interpretation Comments HIGH SENSITIVITY 1483 pg/ml See_Comment HH [Automated message] TROPONIN I (test code The sy stem which = [id number]) generated this result transmitted ref erence range: <=17. Th e reference range was not used to int erpret this result as normal/abnormal . Thickener Operator ID - BSThe COPY CENTER OPERATOR STAT High Sensitivity Troponin-I results should be used in conjunctionwith other diagnostic information such as ECG, clinical observations and information, and patient symptoms to aid in the diagnosis of [place].HIGH SENSITIVITY TROPONIN [id number] 16:10:08 Test Item Value Reference Range Interpretation Comments HIGH SENSITIVITY 1902 pg/ml See_Comment HH [Automated message] TROPONIN I (test code The sy stem which = [id number]) generated this result transmitted ref erence range: <=17. Th e reference range was not used to int erpret this result as normal/abnormal . Thickener Operator ID - BSThe COPY CENTER OPERATOR STAT High Sensitivity Troponin-I results should be used in conjunctionwith other diagnostic information such as ECG, clinical observations and information, and patient symptoms to aid in the diagnosis of [place].CBC W/PLT COUNT & AUTO [id number] 15:58:51 Test Item Value Reference Range Interpretation Comments WHITE BLOOD CELL COUNT (BEAKER) 8.0 K/ L 3.5-10.5 (test code = 775) RED BLOOD CELL COUNT (BEAKER) 4.44 M/ L 3.93-5.22 (test code = 761) HEMOGLOBIN (BEAKER) (test code = 10.0 GM/DL 11.2-15.7 L 410) HEMATOCRIT (BEAKER) (test code = 31.9 % 34.1-44.9 L 411) MEAN CORPUSCULAR VOLUME (BEAKER) 72 fL 79-95 L (test code = 753) MEAN CORPUSCULAR HEMOGLOBIN 22.5 pg 25.6-32.2 L (BEAKER) (test code = 751) MEAN CORPUSCULAR HEMOGLOBIN CONC 31.3 GM/DL 32.2-35.5 L (BEAKER) (test code = 752) RED CELL DISTRIBUTION WIDTH 24.0 % 11.7-14.4 H (BEAKER) (test code = 412) PLATELET COUNT (BEAKER) (test 315 K/CU MM 150-450 code = 756) MEAN PLATELET VOLUME (BEAKER) 9.8 fL 9.4-12.3 (test code = 754) NUCLEATED RED BLOOD CELLS 0 /100 WBC 0-0 (BEAKER) (test code = 413) NEUTROPHILS RELATIVE PERCENT 55 % (BEAKER) (test code = 429) LYMPHOCYTES RELATIVE PERCENT 27 % (BEAKER) (test code = 430) MONOCYTES RELATIVE PERCENT 14 % (BEAKER) (test code = 431) EOSINOPHILS RELATIVE PERCENT 4 % (BEAKER) (test code = 432) BASOPHILS RELATIVE PERCENT 1 % (BEAKER) (test code = 437) NEUTROPHILS ABSOLUTE COUNT 4.42 K/ L 1.56-6.13 (BEAKER) (test code = 670) LYMPHOCYTES ABSOLUTE COUNT 2.16 K/ L 1.18-3.74 (BEAKER) (test code = 414) MONOCYTES ABSOLUTE COUNT (BEAKER) 1.10 K/ L 0.24-0.36 H (test code = 415) EOSINOPHILS ABSOLUTE COUNT 0.29 K/ L 0.04-0.36 (BEAKER) (test code = 416) BASOPHILS ABSOLUTE COUNT (BEAKER) 0.04 K/ L 0.01-0.08 (test code = 417) IMMATURE GRANULOCYTES-RELATIVE 0.40 % 0.00-1.00 PERCENT (BEAKER) (test code = 2801) [id number] 15:58:08 Test Item Value Reference Range Interpretation Comments PHOSPHORUS (BEAKER) (test code = 3.7 mg/dL 2.3-4.7 604) Thickener Operator ID - BSCOMPREHENSIVE METABOLIC [id number] 15:58:07 Test Item Value Reference Range Interpretation Comments TOTAL PROTEIN 6.4 gm/dL 6.0-8.3 (BEAKER) (test code = 770) ALBUMIN (BEAKER) 3.6 g/dL 3.5-5.0 (test code = 1145) ALKALINE 47 U/L 40-150 PHOSPHATASE (BEAKER) (test code = 346) BILIRUBIN TOTAL 0.3 mg/dL 0.2-1.2 (BEAKER) (test code = 377) SODIUM (BEAKER) 135 meq/L 136-145 L (test code = 381) POTASSIUM (BEAKER) 4.1 meq/L 3.5-5.1 (test code = 379) CHLORIDE (BEAKER) 103 meq/L 98-107 (test code = 382) CO2 (BEAKER) (test 25 meq/L 22-29 code = 355) BLOOD UREA 11 mg/dL 7-21 NITROGEN (BEAKER) (test code = 354) CREATININE 0.67 mg/dL 0.57-1.25 (BEAKER) (test code = 358) GLUCOSE RANDOM 128 mg/dL 70-105 H (BEAKER) (test code = 652) CALCIUM (BEAKER) 9.2 mg/dL 8.4-10.2 (test code = 697) AST (SGOT) 22 U/L 5-34 (BEAKER) (test code = 353) ALT (SGPT) 14 U/L 6-55 (BEAKER) (test code = 347) EGFR (BEAKER) 89 Interpretatio n of eGFR (test code = 1092) mL/min/1.[address] age Description sq m Result G1 Nalini l or high >=90 G2 Mildly decreased 60-89 G3a Mildl y to moderately 45-5 9 G3b Moderately to s everely 30-44 G4 Severl y decreased 15-29 G5 Kidney failure <15Reported eGF R is based on the CKD-EPI 2021 equation that d oes not use a race coefficientEsti mated GFR is not as accur ate as Creatinine Keira wiley in predicting glom erular filtration rate . Estimated GFR is not appl icable for dialysis patien ts Thickener Operator ID - [id number] 15:58:07 Test Item Value Reference Range Interpretation Comments MAGNESIUM (BEAKER) (test code = 1.8 mg/dL 1.6-2.6 627) Thickener Operator ID - BSRAD, CHEST, 1 VIEW, NON [id number] 15:55:00Reason for exam:- >cadShould this be performed at the bedside?->Yes [facility] 1940 Sex: FFINAL REPORT CLINICAL HISTORY: cad TECHNIQUE: 1 view of the chest. COMPARISON:None IMPRESSION: There are no focal infiltrates or effusions. The cardiomediastinal silhouette is magnified by technique. The osseous structures appear intact. Signed: Nabil Vazquez MDReport Verified Date/Time: 06/13/2022 15:55:54 [id number] 15:44:22 Test Item Value Reference Range Interpretation Comments PARTIAL THROMBOPLASTIN TIME 41.8 seconds 22.5-36.0 H (BEAKER) (test code = 760) TSH, THIRD [id number] 06:52:21 Test Item Value Reference Range Interpretation Comments TSH, THIRD 1.330 UIU/ML 0.400-4.100 UNLESS OTHERWI SE GENERATION (test INDICATED, ALL TESTING code = 2821) PERFORMED [facility], [address] [place] [address] DIRECTOR: JACQUELINE SAUCEDA M.D. CLIA NUMBER [id number] CAP ACCREDITATION N O. [id number] COMPREHENSIVE METABOLIC [id number] 04:39:29 Test Item Value Reference Range Interpretation Comments GLUCOSE (test code = 167 MG/DL 70-99 H 2216) BUN (test code = 17 MG/DL 03-13) CREATININE (test 0.56 MG/DL 0.60-1.30 L code = 2214) eGFR (2020 CKD-EPI) 93 ML/MIN/1.73 >60 (test code = 22605) CALC BUN/CREAT (test 30 RATIO 6-28 H code = 2235) SODIUM (test code = 135 MEQ/L 933-306 5306) POTASSIUM (test code 4.5 MEQ/L 3.5-5.4 = 2227) CHLORIDE (test code 95 MEQ/L 95-107 = 2214) CARBON DIOXIDE (test 24 MEQ/L 19-31 code = 2206) CALCIUM (test code = 10.0 MG/DL 8.5-10.5 2208) PROTEIN, TOTAL (test 7.4 G/DL 6.1-8.3 code = 2229) ALBUMIN (test code = 4.8 G/DL 3.5-5.2 [...] PHOSPHATASE 60 U/L 40-142 (test code = 2204) AST (test code = 18 U/L 9-40 2217) ALT (test code = 11 U/L 5-40 2218) LIPID [id number] 04:39:29 Test Item Value Reference Range Interpretation [...] MOREINFORMATION , SEE CLIENT ANNOUNCE MENT AT [email or web address] RATIO LDL/HDL 2.14 RATIO <3.22 (test code = 2238) HEMOGLOBIN [id number] 03:51:11 Test Item Value Reference Range Interpretation Comments HEMOGLOBIN A1c (test 8.8 % 4.2-5.6 H [employer] AN DIABETES code = 78627) ASSOCIATION IDELINES FOR HGB A1C: PREDIABETES/INC REASED RISK . . . . . . . 5.7 -6.4% DIAGNOSIS OF DI ABETES . . . . . . . . . >=6 .5% WITH CONFIRMATION OR APPROPRIATE SYMPTOMS NOTE: ASSAY MAY BE AFFECTED BY HEMOGLOBINOPATH IES (SICKLE CELL ANEMIA, S- C DISEASE, OTHERS) OR EMMIE FICIALLY LOWERED BY DEC REASED RED CELL SURVIVAL ( HEMOLYTIC ANEMIAS, BLOOD LOSS, ETC.). CONSIDER ALTERN ATE TESTING OR LABORATORY C ONSULTATION. COMPREHENSIVE METABOLIC [id number] 00:00:00 Test Item Value Reference Range Interpretation Comments GLUCOSE (test code = 2217) 167 MG/DL BUN (test code = 2208) 17 MG/DL CREATININE (test code = 2214) 0.56 MG/DL eGFR (2020 CKD-EPI) (test code 93 ML/MIN/1.73 = 18599) CALC BUN/CREAT (test code = 30 RATIO 2235) SODIUM (test code = 2231) 135 MEQ/L POTASSIUM (test code = 2228) 4.5 MEQ/L CHLORIDE (test code = 2215) 95 MEQ/L CARBON DIOXIDE (test code = 24 MEQ/L 220) CALCIUM (test code = 2209) 10.0 MG/DL [...] code = 2219) 11 U/L COMPREHENSIVE METABOLIC [id number] 00:00:00 Test Item Value Reference Range Interpretation Comments GLUCOSE (test code = 2217) 167 MG/DL BUN (test code = 2208) 17 MG/DL CREATININE (test code = 2214) 0.56 MG/DL eGFR (2020 CKD-EPI) (test code 93 ML/MIN/1.73 = 41909) CALC BUN/CREAT (test code = 30 RATIO 2235) SODIUM (test code = 2231) 135 MEQ/L POTASSIUM (test code = 2228) 4.5 MEQ/L CHLORIDE (test code = 2215) 95 MEQ/L CARBON DIOXIDE (test code = 24 MEQ/L 2206) CALCIUM (test code = 2209) 10.0 MG/DL [...] (test code = 2219) 11 U/L LIPID [id number] 00:00:00 Test Item Value Reference Range Interpretation Comments CHOLESTEROL (test code = 2210) 212 MG/DL TRIGLYCERIDES (test code = 2232) 250 MG/DL HDL CHOLESTEROL (test code = 2220) 56 MG/DL CALC LDL CHOL (test code = 2237) 120 MG/DL RISK RATIO LDL/HDL (test code = 2.14 RATIO 2238) LIPID [id number] 00:00:00 Test Item Value Reference Range Interpretation Comments CHOLESTEROL (test code = 2210) 212 MG/DL TRIGLYCERIDES (test code = 2232) 250 MG/DL HDL CHOLESTEROL (test code = 2220) 56 MG/DL CALC LDL CHOL (test code = 2237) 120 MG/DL RISK RATIO LDL/HDL (test code = 2.14 RATIO 2238) HEMOGLOBIN [id number] 00:00:00 Test Item Value Reference Range Interpretation Comments HEMOGLOBIN A1c (test code = 58476) 8.8 % HEMOGLOBIN [id number] 00:00:00 Test Item Value Reference Range Interpretation Comments HEMOGLOBIN A1c (test code = 97581) 8.8 % HEMOGLOBIN [id number] 00:00:00 Test Item Value Reference Range Interpretation Comments HEMOGLOBIN A1c (test code = 28833) 8.8 % TSH, THIRD [id number] 00:00:00 Test Item Value Reference Range Interpretation Comments TSH, THIRD GENERATION (test code 1.330 UIU/ML = 2821) TSH, THIRD [id number] 00:00:00 Test Item Value Reference Range Interpretation Comments TSH, THIRD GENERATION (test code 1.330 UIU/ML = 2821) TSH, THIRD [id number] 00:00:00 Test Item Value Reference Range Interpretation Comments TSH, THIRD GENERATION (test code 1.330 UIU/ML = 2821) TSH, THIRD [id number] 05:54:02 Test Item Value Reference Range Interpretation Comments TSH, THIRD GENERATION (test code 0.342 UIU/ML 0.400-4.100 L = 2821) HEMOGLOBIN [id number] 05:29:39 Test Item Value Reference Range Interpretation Comments HEMOGLOBIN A1c (test 9.1 % 4.2-5.6 H AMERIC AN DIABETES code = 43361) ASSOCIATION IDELINES FOR HGB A1C: PREDIABETES/INC REASED [...] INDICATED, ALL TESTING PER FORMED ATCLINICAL PATH [facility], [facility]. [address] [place] [address] 69 LABORATORY DIRE CTOR: JACQUELINE SAUCEDA M.D. CLIA NUMBER [id number] [facility]. [id number] ALBUMIN/CREATININE RATIO, URINE, [id number] 03:25:39 Test Item Value Reference Range Interpretation Comments CREATININE, URINE, 126.8 MG/DL NOT ESTAB RANDOM (test code = 2072) ALBUMIN, URINE, 2.5 MG/DL NOT ESTAB RANDOM (test code = 59644) CALC ALBUMIN/CREAT, 20 MG/G <30 Note: RND (test code = Albumin/Cre atinine 13096) ratio reference interval reflec ts ADA and NKF guideli yassine. LIPID [id number] 03:18:58 Test Item Value Reference Range Interpretation [...] MOREINFORMATION , SEE CLIENT ANNOUNCE MENT AT [email or web address] [email or web address] RATIO LDL/HDL 2.19 RATIO <3.22 (test code = 2238) COMPREHENSIVE METABOLIC [id number] 03:18:58 Test Item Value Reference Range Interpretation Comments GLUCOSE (test code = 171 MG/DL 70-99 H 2216) BUN (test code = 16 MG/DL 8-23 2207) CREATININE (test 0.59 MG/DL 0.60-1.30 L code = 221) eGFR (2020 CKD-EPI) 92 ML/MIN/1.73 >60 (test code = 26615) CALC BUN/CREAT (test 27 RATIO 6-28 code = 2235) SODIUM (test code = 138 MEQ/L 315-748 8435) POTASSIUM (test code 4.6 MEQ/L 3.5-5.4 = 2227) CHLORIDE (test code 99 MEQ/L 95-107 = 2214) CARBON DIOXIDE (test 24 MEQ/L 19-31 code = 220) CALCIUM (test code = 10.2 MG/DL 8.5-10.5 [...] code = 17 U/L 5-40 2218) LIPID [id number] 00:00:00 Test Item Value Reference Range Interpretation Comments CHOLESTEROL (test code = 2210) 219 MG/DL TRIGLYCERIDES (test code = 2232) 229 MG/DL HDL CHOLESTEROL (test code = 2220) 57 MG/DL CALC LDL CHOL (test code = 2237) 125 MG/DL RISK RATIO LDL/HDL (test code = 2.19 RATIO 2238) LIPID [id number] 00:00:00 Test Item Value Reference Range Interpretation Comments CHOLESTEROL (test code = 2210) 219 MG/DL TRIGLYCERIDES (test code = 2232) 229 MG/DL HDL CHOLESTEROL (test code = 2220) 57 MG/DL CALC LDL CHOL (test code = 2237) 125 MG/DL RISK RATIO LDL/HDL (test code = 2.19 RATIO 2238) COMPREHENSIVE METABOLIC [id number] 00:00:00 Test Item Value Reference Range Interpretation Comments GLUCOSE (test code = 2217) 171 MG/DL BUN (test code = 2208) 16 MG/DL CREATININE (test code = 2214) 0.59 MG/DL eGFR (2020 CKD-EPI) (test code 92 ML/MIN/1.73 = 83909) CALC BUN/CREAT (test code = 27 RATIO [...] code = 2219) 17 U/L COMPREHENSIVE METABOLIC [id number] 00:00:00 Test Item Value Reference Range Interpretation Comments GLUCOSE (test code = 2217) 171 MG/DL BUN (test code = 2208) 16 MG/DL CREATININE (test code = 2214) 0.59 MG/DL eGFR (2020 CKD-EPI) (test code 92 ML/MIN/1.73 = 40086) CALC BUN/CREAT (test code = 27 RATIO 2234) SODIUM (test code = 2231) 138 MEQ/L POTASSIUM (test code = 2228) 4.6 MEQ/L CHLORIDE (test code = 2215) 99 MEQ/L CARBON DIOXIDE (test code = 24 MEQ/L 2205) CALCIUM (test code = 2209) 10.2 MG/DL PROTEIN, TOTAL (test code = 7.7 G/DL 2228) ALBUMIN (test code = 220) 4.9 G/DL CALC GLOBULIN (test code = 2.8 G/DL 2239) CALC A/G RATIO (test code = 1.8 RATIO 2233) BILIRUBIN, TOTAL (test code = 0.3 MG/DL 2206) ALKALINE PHOSPHATASE (test 62 U/L code = 2204) AST (test code = 2218) 19 U/L ALT (test code = 2219) 17 U/L HEMOGLOBIN [id number] 00:00:00 Test Item Value Reference Range Interpretation Comments HEMOGLOBIN A1c (test code = 55231) 9.1 % HEMOGLOBIN [id number] 00:00:00 Test Item Value Reference Range Interpretation Comments HEMOGLOBIN A1c (test code = 87298) 9.1 % HEMOGLOBIN [id number] 00:00:00 Test Item Value Reference Range Interpretation Comments HEMOGLOBIN A1c (test code = 19184) 9.1 % [id number] 00:00:00 Test Item Value Reference Range Interpretation Comments TSH, THIRD GENERATION (test code 0.342 UIU/ML = 2821) [id number] 00:00:00 Test Item Value Reference Range Interpretation Comments TSH, THIRD GENERATION (test code 0.342 UIU/ML = 2821) [id number] 00:00:00 Test Item Value Reference Range Interpretation Comments TSH, THIRD GENERATION (test code 0.342 UIU/ML = 2821) MICROALBUMIN/CREATININE, RANDOM AND [id number] 00:00:00 Test Item Value Reference Range Interpretation Comments CREATININE, URINE, RANDOM (test 126.8 MG/DL code = 2072) ALBUMIN, URINE, RANDOM (test code 2.5 MG/DL = 34287) CALC ALBUMIN/CREAT, RND (test 20 MG/G code = 22366) MICROALBUMIN/CREATININE, RANDOM AND [id number] 00:00:00 Test Item Value Reference Range Interpretation Comments CREATININE, URINE, RANDOM (test 126.8 MG/DL code = 2072) ALBUMIN, URINE, RANDOM (test code 2.5 MG/DL = 93155) CALC ALBUMIN/CREAT, RND (test 20 MG/G code = 16526) LIPID [id number] 00:00:00 Test Item Value Reference Range Interpretation Comments CHOLESTEROL (test code = 2210) 219 MG/DL TRIGLYCERIDES (test code = 2232) 229 MG/DL HDL CHOLESTEROL (test code = 2220) 57 MG/DL CALC LDL CHOL (test code = 2237) 125 MG/DL RISK RATIO LDL/HDL (test code = 2.19 RATIO 2238) LIPID [id number] 00:00:00 Test Item Value Reference Range Interpretation Comments CHOLESTEROL (test code = 2210) 219 MG/DL TRIGLYCERIDES (test code = 2232) 229 MG/DL HDL CHOLESTEROL (test code = 2220) 57 MG/DL CALC LDL CHOL (test code = 2237) 125 MG/DL RISK RATIO LDL/HDL (test code = 2.19 RATIO 2238) COMPREHENSIVE METABOLIC [id number] 00:00:00 Test Item Value Reference Range Interpretation Comments GLUCOSE (test code = 2217) 171 MG/DL BUN (test code = 2208) 16 MG/DL CREATININE (test code = 2214) 0.59 MG/DL eGFR (2020 CKD-EPI) (test code 92 ML/MIN/1.73 = 08014) CALC BUN/CREAT (test code = 27 RATIO [...] CALC GLOBULIN (test code = 2.8 G/DL 224) CALC A/G RATIO (test code = 1.8 RATIO 2234) BILIRUBIN, TOTAL (test code = 0.3 MG/DL 2206) ALKALINE PHOSPHATASE (test 62 U/L code = 2204) AST (test code = 2218) 19 U/L ALT (test code = 2219) 17 U/L COMPREHENSIVE METABOLIC [id number] 00:00:00 Test Item Value Reference Range Interpretation Comments GLUCOSE (test code = 2217) 171 MG/DL BUN (test code = 2208) 16 MG/DL CREATININE (test code = 2214) 0.59 MG/DL eGFR (2020 CKD-EPI) (test code 92 ML/MIN/1.73 = 47736) CALC BUN/CREAT (test code = 27 RATIO [...] CALC GLOBULIN (test code = 2.8 G/DL 0) CALC A/G RATIO (test code = 1.8 RATIO 4) BILIRUBIN, TOTAL (test code = 0.3 MG/DL 2206) ALKALINE PHOSPHATASE (test 62 U/L code = 2204) AST (test code = 2218) 19 U/L ALT (test code = 2219) 17 U/L HEMOGLOBIN [id number] 00:00:00 Test Item Value Reference Range Interpretation Comments HEMOGLOBIN A1c (test code = 12623) 9.1 % HEMOGLOBIN [id number] 00:00:00 Test Item Value Reference Range Interpretation Comments HEMOGLOBIN A1c (test code = 45917) 9.1 % HEMOGLOBIN [id number] 00:00:00 Test Item Value Reference Range Interpretation Comments HEMOGLOBIN A1c (test code = 42355) 9.1 % [id number] 00:00:00 Test Item Value Reference Range Interpretation Comments TSH, THIRD GENERATION (test code 0.342 UIU/ML = 2821) [id number] 00:00:00 Test Item Value Reference Range Interpretation Comments TSH, THIRD GENERATION (test code 0.342 UIU/ML = 2821) [id number] 00:00:00 Test Item Value Reference Range Interpretation Comments TSH, THIRD GENERATION (test code 0.342 UIU/ML = 2821) MICROALBUMIN/CREATININE, RANDOM AND [id number] 00:00:00 Test Item Value Reference Range Interpretation Comments CREATININE, URINE, RANDOM (test 126.8 MG/DL code = 2072) ALBUMIN, URINE, RANDOM (test code 2.5 MG/DL = 42444) CALC ALBUMIN/CREAT, RND (test 20 MG/G code = 67258) MICROALBUMIN/CREATININE, RANDOM AND [id number] 00:00:00 Test Item Value Reference Range Interpretation Comments CREATININE, URINE, RANDOM (test 126.8 MG/DL code = 2072) ALBUMIN, URINE, RANDOM (test code 2.5 MG/DL = 49453) CALC ALBUMIN/CREAT, RND (test 20 MG/G code = 90077) HEMOGLOBIN [id number] 06:20:45 Test Item Value Reference Range Interpretation Comments HEMOGLOBIN A1c (test 7.6 % 4.2-5.6 H AMERIC AN DIABETES code = 32276) ASSOCIATION IDELINES FOR HGB A1C: PREDIABETES/INC REASED [...] TESTING OR LABORATORY C ONSULTATION. TSH, THIRD [id number] 06:10:36 Test Item Value Reference Range Interpretation Comments TSH, THIRD GENERATION (test code 0.566 UIU/ML 0.400-4.100 = 2821) LIPID [id number] 05:02:41 Test Item Value Reference Range Interpretation [...] MOREINFORMATION , SEE CLIENT ANNOUNCE MENT AT [email or web address] RISK RATIO LDL/HDL 3.55 RATIO <3.22 H (test code = 2238) COMPREHENSIVE METABOLIC [id number] 05:02:41 Test Item Value Reference Range Interpretation Comments GLUCOSE (test code = 161 MG/DL 70-99 H 2216) BUN (test code = 16 MG/DL 8-23 2207) CREATININE (test 0.58 MG/DL 0.60-1.30 L code = 221) eGFR (2020 CKD-EPI) 92 >60 (test code = 69420) ML/MIN/1.73 CALC BUN/CREAT (test 28 RATIO 6-28 code = 2235) SODIUM (test code = 139 MEQ/L 753-310 7051) POTASSIUM (test code 4.6 MEQ/L 3.5-5.4 = 2227) CHLORIDE (test code 99 MEQ/L 95-107 = 2214) CARBON DIOXIDE (test 25 MEQ/L 19-31 code = 2206) CALCIUM (test code = 10.1 MG/DL 8.5-10.5 2208) PROTEIN, TOTAL (test 7.1 G/DL 6.1-8.3 code = 2229) ALBUMIN (test code = 4.5 G/DL 3.5-5.2 [...] PHOSPHATASE 64 U/L 40-142 (test code = 2203) AST (test code = 18 U/L 9-40 2217) ALT (test code = 16 U/L 5-40 UNLESS OTH ERWISE 2219) INDICATED, ALL TESTING PERFORM ED ATCLINICAL PATH [facility], [place]. [address] [facility] [address] [facility] DIRECTOR: Reba HORTONIA NUMBER [id number] CAP ACCREDITATION N O. [id number] CBC W/AUTO DIFF WITH [id number] 04:53:02 Test Item Value Reference Range Interpretation [...] RBCS 0.00 K/UL 0.00-0.11 (test code = 66903) LIPID [id number] 00:00:00 Test Item Value Reference Range Interpretation Comments CHOLESTEROL (test code = 2210) 289 MG/DL TRIGLYCERIDES (test code = 2232) 268 MG/DL HDL CHOLESTEROL (test code = 2220) 53 MG/DL CALC LDL CHOL (test code = 2237) 188 MG/DL RISK RATIO LDL/HDL (test code = 3.55 RATIO 2238) CBC W/AUTO [id number] 00:00:00 Test Item Value Reference Range Interpretation [...] NUCLEATED RBCS (test code = 0.00 K/UL 75924) CBC W/AUTO [id number] 00:00:00 Test Item Value Reference Range Interpretation [...] NUCLEATED RBCS (test code = 0.00 K/UL 30377) CBC W/AUTO [id number] 00:00:00 Test Item Value Reference Range Interpretation [...] NUCLEATED RBCS (test code = 0.00 K/UL 79704) COMPREHENSIVE METABOLIC [id number] 00:00:00 Test Item Value Reference Range Interpretation Comments GLUCOSE (test code = 2217) 161 MG/DL BUN (test code = 2208) 16 MG/DL CREATININE (test code = 2214) 0.58 MG/DL eGFR (2020 CKD-EPI) (test code 92 ML/MIN/1.73 = 16607) CALC BUN/CREAT (test code = 28 RATIO [...] code = 2219) 16 U/L COMPREHENSIVE METABOLIC [id number] 00:00:00 Test Item Value Reference Range Interpretation Comments GLUCOSE (test code = 2217) 161 MG/DL BUN (test code = 2208) 16 MG/DL CREATININE (test code = 2214) 0.58 MG/DL eGFR (2020 CKD-EPI) (test code 92 ML/MIN/1.73 = 33519) CALC BUN/CREAT (test code = 28 RATIO 2234) SODIUM (test code = 2231) 139 MEQ/L POTASSIUM (test code = 2228) 4.6 MEQ/L CHLORIDE (test code = 2215) 99 MEQ/L CARBON DIOXIDE (test code = 25 MEQ/L 2205) CALCIUM (test code = 2209) 10.1 MG/DL PROTEIN, TOTAL (test code = 7.1 G/DL 2228) ALBUMIN (test code = 220) 4.5 G/DL CALC GLOBULIN (test code = 2.6 G/DL 2239) CALC A/G RATIO (test code = 1.7 RATIO 2233) BILIRUBIN, TOTAL (test code = <0.2 MG/DL 2206) ALKALINE PHOSPHATASE (test 64 U/L code = 2204) AST (test code = 2218) 18 U/L ALT (test code = 2219) 16 U/L HEMOGLOBIN [id number] 00:00:00 Test Item Value Reference Range Interpretation Comments HEMOGLOBIN A1c (test code = 68352) 7.6 % HEMOGLOBIN [id number] 00:00:00 Test Item Value Reference Range Interpretation Comments HEMOGLOBIN A1c (test code = 17644) 7.6 % HEMOGLOBIN [id number] 00:00:00 Test Item Value Reference Range Interpretation Comments HEMOGLOBIN A1c (test code = 64597) 7.6 % [id number] 00:00:00 Test Item Value Reference Range Interpretation Comments TSH, THIRD GENERATION (test code 0.566 UIU/ML = 2821) [id number] 00:00:00 Test Item Value Reference Range Interpretation Comments TSH, THIRD GENERATION (test code 0.566 UIU/ML = 2821) [id number] 00:00:00 Test Item Value Reference Range Interpretation Comments TSH, THIRD GENERATION (test code 0.566 UIU/ML = 2821) LIPID [id number] 00:00:00 Test Item Value Reference Range Interpretation Comments CHOLESTEROL (test code = 2210) 289 MG/DL TRIGLYCERIDES (test code = 2232) 268 MG/DL HDL CHOLESTEROL (test code = 2220) 53 MG/DL CALC LDL CHOL (test code = 2237) 188 MG/DL RISK RATIO LDL/HDL (test code = 3.55 RATIO 2238) LIPID [id number] 00:00:00 Test Item Value Reference Range Interpretation Comments CHOLESTEROL (test code = 2210) 289 MG/DL TRIGLYCERIDES (test code = 2232) 268 MG/DL HDL CHOLESTEROL (test code = 2220) 53 MG/DL CALC LDL CHOL (test code = 2237) 188 MG/DL RISK RATIO LDL/HDL (test code = 3.55 RATIO 2238) CBC W/AUTO [id number] 00:00:00 Test Item Value Reference Range Interpretation [...] NUCLEATED RBCS (test code = 0.00 K/UL 13893) CBC W/AUTO [id number] 00:00:00 Test Item Value Reference Range Interpretation [...] NUCLEATED RBCS (test code = 0.00 K/UL 10911) CBC W/AUTO [id number] 00:00:00 Test Item Value Reference Range Interpretation [...] NUCLEATED RBCS (test code = 0.00 K/UL 49726) COMPREHENSIVE METABOLIC [id number] 00:00:00 Test Item Value Reference Range Interpretation Comments GLUCOSE (test code = 2217) 161 MG/DL BUN (test code = 2208) 16 MG/DL CREATININE (test code = 2214) 0.58 MG/DL eGFR (2020 CKD-EPI) (test code 92 ML/MIN/1.73 = 80054) CALC BUN/CREAT (test code = 28 RATIO [...] code = 2219) 16 U/L COMPREHENSIVE METABOLIC [id number] 00:00:00 Test Item Value Reference Range Interpretation Comments GLUCOSE (test code = 2217) 161 MG/DL BUN (test code = 2208) 16 MG/DL CREATININE (test code = 2214) 0.58 MG/DL eGFR (2020 CKD-EPI) (test code 92 ML/MIN/1.73 = 79054) CALC BUN/CREAT (test code = 28 RATIO [...] A/G RATIO (test code = 1.7 RATIO 2233) BILIRUBIN, TOTAL (test code = <0.2 MG/DL 2206) ALKALINE PHOSPHATASE (test 64 U/L code = 220) AST (test code = 2218) 18 U/L ALT (test code = 2219) 16 U/L HEMOGLOBIN [id number] 00:00:00 Test Item Value Reference Range Interpretation Comments HEMOGLOBIN A1c (test code = 77583) 7.6 % HEMOGLOBIN [id number] 00:00:00 Test Item Value Reference Range Interpretation Comments HEMOGLOBIN A1c (test code = 93179) 7.6 % HEMOGLOBIN [id number] 00:00:00 Test Item Value Reference Range Interpretation Comments HEMOGLOBIN A1c (test code = 45112) 7.6 % [id number] 00:00:00 Test Item Value Reference Range Interpretation Comments TSH, THIRD GENERATION (test code 0.566 UIU/ML = 2821) [id number] 00:00:00 Test Item Value Reference Range Interpretation Comments TSH, THIRD GENERATION (test code 0.566 UIU/ML = 2821) [id number] 00:00:00 Test Item Value Reference Range Interpretation Comments TSH, THIRD GENERATION (test code 0.566 UIU/ML = 2821) LIPID [id number] 00:00:00 Test Item Value Reference Range Interpretation Comments CHOLESTEROL (test code = 2210) 289 MG/DL TRIGLYCERIDES (test code = 2232) 268 MG/DL HDL CHOLESTEROL (test code = 2220) 53 MG/DL CALC LDL CHOL (test code = 2237) 188 MG/DL RISK RATIO LDL/HDL (test code = 3.55 RATIO 2238) [id number] 00:00:00 Test Item Value Reference Range Interpretation Comments TSH, THIRD GENERATION (test code 0.428 UIU/ML = 2821) [id number] 00:00:00 Test Item Value Reference Range Interpretation Comments TSH, THIRD GENERATION (test code 0.428 UIU/ML = 2821) [id number] 00:00:00 Test Item Value Reference Range Interpretation Comments TSH, THIRD GENERATION (test code 0.428 UIU/ML = 2821) COMPREHENSIVE METABOLIC [id number] 00:00:00 Test Item Value Reference Range Interpretation Comments GLUCOSE (test code = 2217) 140 MG/DL BUN (test code = 2208) 19 MG/DL CREATININE (test code = 2214) 0.80 MG/DL eGFR AMER. (test code 82 ML/MIN/1.73 = 96531) eGFR NON- AMER. (test 71 ML/MIN/1.73 code = 33994) CALC BUN/CREAT (test code = 24 RATIO [...] code = 2219) 17 U/L COMPREHENSIVE METABOLIC [id number] 00:00:00 Test Item Value Reference Range Interpretation Comments GLUCOSE (test code = 2217) 140 MG/DL BUN (test code = 2208) 19 MG/DL CREATININE (test code = 2214) 0.80 MG/DL eGFR AMER. (test code 82 ML/MIN/1.73 = 98853) eGFR NON- AMER. (test 71 ML/MIN/1.73 code = 68684) CALC BUN/CREAT (test code = 24 RATIO [...] (test code = 2219) 17 U/L LIPID [id number] 00:00:00 Test Item Value Reference Range Interpretation Comments CHOLESTEROL (test code = 2210) 218 MG/DL TRIGLYCERIDES (test code = 2232) 200 MG/DL HDL CHOLESTEROL (test code = 2220) 46 MG/DL CALC LDL CHOL (test code = 2237) 138 MG/DL RISK RATIO LDL/HDL (test code = 3.00 RATIO 2238) LIPID [id number] 00:00:00 Test Item Value Reference Range Interpretation Comments CHOLESTEROL (test code = 2210) 218 MG/DL TRIGLYCERIDES (test code = 2232) 200 MG/DL HDL CHOLESTEROL (test code = 2220) 46 MG/DL CALC LDL CHOL (test code = 2237) 138 MG/DL RISK RATIO LDL/HDL (test code = 3.00 RATIO 2238) [id number] 00:00:00 Test Item Value Reference Range Interpretation Comments TSH, THIRD GENERATION (test code 0.428 UIU/ML = 2821) [id number] 00:00:00 Test Item Value Reference Range Interpretation Comments TSH, THIRD GENERATION (test code 0.428 UIU/ML = 2821) [id number] 00:00:00 Test Item Value Reference Range Interpretation Comments TSH, THIRD GENERATION (test code 0.428 UIU/ML = 2821) COMPREHENSIVE METABOLIC [id number] 00:00:00 Test Item Value Reference Range Interpretation Comments GLUCOSE (test code = 2217) 140 MG/DL BUN (test code = 2208) 19 MG/DL CREATININE (test code = 2214) 0.80 MG/DL eGFR AMER. (test code 82 ML/MIN/1.73 = 03245) eGFR NON- AMER. (test 71 ML/MIN/1.73 code = 29194) CALC BUN/CREAT (test code = 24 RATIO 2235) SODIUM (test code = 2231) 135 MEQ/L POTASSIUM (test code = 2228) 4.7 MEQ/L CHLORIDE (test code = 2215) 94 MEQ/L CARBON DIOXIDE (test code = 18 MEQ/L 220) CALCIUM (test code = 2209) 10.3 MG/DL PROTEIN, TOTAL (test code = 8.0 G/DL 2228) ALBUMIN (test code = 2201) 5.1 G/DL CALC GLOBULIN (test code = 2.9 G/DL 2240) CALC A/G RATIO (test code = 1.8 RATIO 2234) BILIRUBIN, TOTAL (test code = <0.2 MG/DL 2206) ALKALINE PHOSPHATASE (test 75 U/L code = 2204) AST (test code = 2218) 26 U/L ALT (test code = 2219) 17 U/L COMPREHENSIVE METABOLIC [id number] 00:00:00 Test Item Value Reference Range Interpretation Comments GLUCOSE (test code = 2217) 140 MG/DL BUN (test code = 2208) 19 MG/DL CREATININE (test code = 2214) 0.80 MG/DL eGFR AMER. (test code 82 ML/MIN/1.73 = 58148) eGFR NON- AMER. (test 71 ML/MIN/1.73 code = 16489) CALC BUN/CREAT (test code = 24 RATIO 2235) SODIUM (test code = 2231) 135 MEQ/L POTASSIUM (test code = 2228) 4.7 MEQ/L CHLORIDE (test code = 2215) 94 MEQ/L CARBON DIOXIDE (test code = 18 MEQ/L 220) CALCIUM (test code = 2209) 10.3 MG/DL PROTEIN, TOTAL (test code = 8.0 G/DL 2228) ALBUMIN (test code = 2201) 5.1 G/DL CALC GLOBULIN (test code = 2.9 G/DL 2240) CALC A/G RATIO (test code = 1.8 RATIO 2234) BILIRUBIN, TOTAL (test code = <0.2 MG/DL 2206) ALKALINE PHOSPHATASE (test 75 U/L code = 2204) AST (test code = 2218) 26 U/L ALT (test code = 2219) 17 U/L LIPID [id number] 00:00:00 Test Item Value Reference Range Interpretation Comments CHOLESTEROL (test code = 2210) 218 MG/DL TRIGLYCERIDES (test code = 2232) 200 MG/DL HDL CHOLESTEROL (test code = 2220) 46 MG/DL CALC LDL CHOL (test code = 2237) 138 MG/DL RISK RATIO LDL/HDL (test code = 3.00 RATIO 2238) LIPID [id number] 00:00:00 Test Item Value Reference Range Interpretation Comments CHOLESTEROL (test code = 2210) 218 MG/DL TRIGLYCERIDES (test code = 2232) 200 MG/DL HDL CHOLESTEROL (test code = 2220) 46 MG/DL CALC LDL CHOL (test code = 2237) 138 MG/DL RISK RATIO LDL/HDL (test code = 3.00 RATIO 2238) CBC W/AUTO [id number] 00:00:00 Test Item Value Reference Range Interpretation [...] NUCLEATED RBCS (test code = 0.00 K/UL 00985) HEMOGLOBIN [id number] 00:00:00 Test Item Value Reference Range Interpretation Comments HEMOGLOBIN A1c (test code = 79179) 6.6 % HEMOGLOBIN [id number] 00:00:00 Test Item Value Reference Range Interpretation Comments HEMOGLOBIN A1c (test code = 59627) 6.6 % HEMOGLOBIN [id number] 00:00:00 Test Item Value Reference Range Interpretation Comments HEMOGLOBIN A1c (test code = 46205) 6.6 % CBC W/AUTO [id number] 00:00:00 Test Item Value Reference Range Interpretation [...] NUCLEATED RBCS (test code = 0.00 K/UL 52862) CBC W/AUTO [id number] 00:00:00 Test Item Value Reference Range Interpretation [...] NUCLEATED RBCS (test code = 0.00 K/UL 73102) CBC W/AUTO [id number] 00:00:00 Test Item Value Reference Range Interpretation [...] NUCLEATED RBCS (test code = 0.00 K/UL 83822) HEMOGLOBIN [id number] 00:00:00 Test Item Value Reference Range Interpretation Comments HEMOGLOBIN A1c (test code = 59612) 6.6 % HEMOGLOBIN [id number] 00:00:00 Test Item Value Reference Range Interpretation Comments HEMOGLOBIN A1c (test code = 35098) 6.6 % HEMOGLOBIN [id number] 00:00:00 Test Item Value Reference Range Interpretation Comments HEMOGLOBIN A1c (test code = 66458) 6.6 % CBC W/AUTO [id number] 00:00:00 Test Item Value Reference Range Interpretation [...] NUCLEATED RBCS (test code = 0.00 K/UL 64679) CBC W/AUTO [id number] 00:00:00 Test Item Value Reference Range Interpretation [...] NUCLEATED RBCS (test code = 0.00 K/UL 46469) SCR MAMM BILATERAL CHIN CAD [id number] 16:22:46 - SCR MAMM BILATERAL CHIN CAD DIGITALBILATERAL DIGITAL SCREENING MAMMOGRAM 3D/2D WITH CAD: 02/26/2019C LINICAL: Asymptomatic. Digital breast tomosynthesis was performed in addition to routine CC and MLO views. Current mammographic images were evaluated by either a [employer] M-Vu or a [employer] ImageI Am Smart Technologycker CAD (computer aided detection system). No requested [...] available for comparison.Andrea Luna M.D. rb/:03/16/2019 16:22:46 Account Receivable Clerk: Renetta DANIELS, [employer] [facility]-FWletter sent: BIRADS 1-2 Normal Mammogram BI-RADS: 2 Benign
[2022-07-25 18:00] VITALS: BMI 23.1
[2022-07-25 19:11] LABS: Thyroid Stimulating Hormone 1.01 uIU/mL (0.358-3.740)
[2022-07-25] MEDS: INSULIN -REGULAR HUMAN 50 UNIT/0.5 ML ML SQ SCH (21:00)
[2022-07-25] MEDS ORDERED: VANCOMYCIN 1 GM in NA CHLORIDE 0.9% 250 ML IVPB ONE (21:00)
[2022-07-25] MEDS: MIRTAZAPINE 15 MG TAB PO SCH (21:37)
[2022-07-25] MEDS: ROSUVASTATIN 10 MG TAB PO SCH (21:41)
[2022-07-26] MEDS: METOPROLOL XL 25 MG TAB PO SCH (06:14)
[2022-07-26] MEDS: LEVOTHYROXINE SOD 0.1 MG TAB PO SCH (06:14)
[2022-07-26] MEDS: PANTOPRAZOLE 40MG TABLET PO SCH (06:14)
[2022-07-26 06:37] LABS: Absolute Lymphocytes (CBC) 1.6 K/uL (0.7-4.9); Hematocrit 34.8 % (36.0-45.0); Lymphocytes % 27.7 % (15.3-44.8); MCV 87.2 fL (80-100); MPV 7.8 fL (7.6-11.3); RBC Red Blood Cell Count 3.99 M/uL (3.86-4.86)
[2022-07-26 06:54] LABS: Albumin 3.1 g/dL (3.4-5.0); Bilirubin Total 0.3 mg/dL (0.2-1.0); Potassium 3.3 mmol/L (3.5-5.1); Protein, Total 6.3 g/dL (6.4-8.2); Thyroid Stimulating Hormone 0.635 uIU/mL (0.358-3.740)
[2022-07-26] MEDS: INSULIN -REGULAR HUMAN 50 UNIT/0.5 ML ML SQ SCH ×4 (07:30→20:28)
[2022-07-26 07:54] LABS: Blood Morphology Comment NOT SEEN (NOT SEEN); Platelet Estimate ADEQ
--- NOTE | 2022-07-26 08:11 | P.PN ---
Subjective Date of Service: 07/26/22 Primary Care Provider: Cirilo Chief Complaint: Surgical wound infections Subjective: No new changes Review of Systems 10-point ROS is otherwise unremarkable Physical Examination - Vital Signs Temperature: 97.7 F Blood Pressure: 116/65 Pulse: 98 Respirations: 18 Pulse Ox (%): 96 - Physical Exam General: Alert, In no apparent distress HEENT: Atraumatic, PERRLA, EOMI Neck: Supple, JVD not distended Respiratory: Clear to auscultation bilaterally, Normal air movement Cardiovascular: Regular rate/rhythm, Normal S1 S2 Gastrointestinal: Normal bowel sounds, No tenderness Musculoskeletal: No tenderness Integumentary: No rashes Neurological: Normal speech, Normal tone, Normal affect Lymphatics: No axilla or inguinal lymphadenopathy - Studies Laboratory Data (last 24 hrs) 07/26/22 06:11: Sodium 138, Potassium 3.3 L, BUN 17, Creatinine 0.88, Glucose 120 H, Total Bilirubin 0.3, AST 28, ALT 29, Alkaline Phosphatase 81 07/26/22 06:11: WBC 5.90, Hgb 11.5 L, Hct 34.8 L, Plt Count 248 07/26/22 05:00: Sodium Cancelled, Potassium Cancelled, BUN Cancelled, Creatinine Cancelled, Glucose Cancelled, Total Bilirubin Cancelled, AST Cancelled, ALT Cancelled, Alkaline Phosphatase Cancelled 07/26/22 05:00: WBC Cancelled, Hgb Cancelled, Hct Cancelled, Plt Count Cancelled Microbiology Data (last 24 hrs): 07/25/22 20:35 Blood - Blood Anaerobic Blood Culture - Final Assessment And Plan - Current Problems (Diagnosis) (1) Skin abscess Current Visit: Yes Status: Acute Plan: possible abcess. Will have her seen by Dr. Chapman as she may need incision and drainage of the wound Qualifiers: Site of cutaneous abscess of trunk: abdominal wall (2) Surgical wound infection Current Visit: Yes Status: Acute Plan: start the patient on fluids and antibiotics. (3) CAD (coronary artery disease) Current Visit: Yes Status: Chronic Plan: no active chest pain. restart atorvastatin, asp and metoprolol. Will consult Dr. Mejía. patient needs a local metal sprayer protective coating at this point. Qualifiers: Coronary Disease-Associated Artery/Lesion type: bypass graft [place] vs. transplanted heart: [place] heart Associated angina: without angina Qualified Code(s): I25.810 - Atherosclerosis of coronary artery bypass graft(s) without angina pectoris (4) HTN (hypertension) Current Visit: Yes Status: Acute Plan: restart nifedipine Qualifiers: Hypertension type: primary hypertension Qualified Code(s): I10 - Essential (primary) hypertension (5) DM type 2 (diabetes mellitus, type 2) Current Visit: No Status: Resolved Plan: she is currently only on metformin 850mg po bid. Will check her labs first before restarting. Order an ada diet, check an a1c and start an insulin sliding scale on the patient. Qualifiers: Diabetes mellitus usp insulin use: without long term care pharmacist use Diabetes mellitus complication status: without complication Qualified Code(s): E11.9 - Type 2 diabetes mellitus without complications (6) Hypothyroidism Current Visit: No Status: Acute Plan: check a tsh. Will restart her home dosage of levothyroxine Qualifiers: Hypothyroidism type: unspecified Qualified Code(s): E03.9 - Hypothyroidism, unspecified Discharge Plan: Home Plan to discharge in: 48 Hours - Code Status/Comfort Care Code Status Assessed: No Physician Review: Patient Assessed, Agree with Above Assessment and Plan Critical Care: No Time Spent Managing PTS Care (In Minutes): 20
[2022-07-26] MEDS: TORSEMIDE 20 MG TAB PO SCH (08:58)
[2022-07-26] MEDS: NIFEDIPINE XL 30 MG TABLET PO SCH (08:58)
[2022-07-26] MEDS: ASPIRIN EC 81 MG TAB PO SCH (08:58)
[2022-07-26] MEDS: VANCOMYCIN 0.75 GM in NA CHLORIDE 0.9% 150 ML IVPB SCH (15:18)
[2022-07-26] MEDS: BACITRACIN OINTMENT 14 GM TUBE TOP SCH (16:05)
[2022-07-26] MEDS: ROSUVASTATIN 10 MG TAB PO SCH (20:26)
[2022-07-26] MEDS: MIRTAZAPINE 15 MG TAB PO SCH (20:27)
[2022-07-26] MEDS ORDERED: VANCOMYCIN 1 GM in NA CHLORIDE 0.9% 250 ML IVPB SCH (21:00)
[2022-07-27] MEDS: BACITRACIN OINTMENT 14 GM TUBE TOP SCH ×2 (01:00→09:00)
[2022-07-27 01:24] VITALS: O2SAT 94
[2022-07-27 04:25] LABS: Absolute Lymphocytes (CBC) 1.9 K/uL (0.7-4.9); Hematocrit 35.1 % (36.0-45.0); Lymphocytes % 29.7 % (15.3-44.8); MCV 86.6 fL (80-100); MPV 7.8 fL (7.6-11.3); RBC Red Blood Cell Count 4.05 M/uL (3.86-4.86)
[2022-07-27 05:00] LABS: Albumin 3.2 g/dL (3.4-5.0); Bilirubin Total 0.3 mg/dL (0.2-1.0); Protein, Total 6.7 g/dL (6.4-8.2)
[2022-07-27 05:01] LABS: Potassium 2.7 mmol/L (3.5-5.1)
[2022-07-27] MEDS: METOPROLOL XL 25 MG TAB PO SCH (05:12)
[2022-07-27] MEDS: PANTOPRAZOLE 40MG TABLET PO SCH (05:30)
[2022-07-27] MEDS: LEVOTHYROXINE SOD 0.1 MG TAB PO SCH (05:30)
[2022-07-27] MEDS: KCL 20 MEQ/100 mL IVPB 20 MEQ/100 ML BAG IV SCH ×2 (06:52→09:10)
[2022-07-27] MEDS: NA CHLORIDE 0.9% 250 ML ONE ×2 (06:52→09:10)
[2022-07-27] MEDS ORDERED: KCL 20 MEQ/100 mL IVPB 20 MEQ/100 ML BAG IV SCH (07:00)
[2022-07-27] MEDS: INSULIN -REGULAR HUMAN 50 UNIT/0.5 ML ML SQ SCH ×2 (07:30→12:30)
[2022-07-27 07:40] LABS: Specific Gravity 1.007 (1.005-1.030); Transitional Epithelial <5 /HPF (None Seen); Urine Bacteria <20 /HPF (<20); Urine Bilirubin NEGATIVE (Negative); Urine Blood Negative (Negative); Urine Clarity Clear (Clear); Urine Color Light-Yellow (Yellow); Urine Glucose NEGATIVE (Negative); Urine Protein 1+ (Negative); Urine RBC <5 /HPF (None Seen); Urine Urobilinogen Normal (Normal); Urine pH 6.5 (5.0-7.0)
--- NOTE | 2022-07-27 08:12 | P.PN ---
Subjective Date of Service: 07/27/22 Primary Care Provider: Cirilo Chief Complaint: Surgical wound infections Subjective: No new changes Review of Systems 10-point ROS is otherwise unremarkable Physical Examination - Vital Signs Temperature: 96.9 F Blood Pressure: 135/61 Pulse: 92 Respirations: 18 Pulse Ox (%): 97 - Physical Exam General: Alert, In no apparent distress HEENT: Atraumatic, PERRLA, EOMI Neck: Supple, JVD not distended Respiratory: Clear to auscultation bilaterally, Normal air movement Cardiovascular: Regular rate/rhythm, Normal S1 S2 Gastrointestinal: Normal bowel sounds, No tenderness Musculoskeletal: No tenderness Integumentary: No rashes Neurological: Normal speech, Normal tone, Normal affect Lymphatics: No axilla or inguinal lymphadenopathy - Studies Laboratory Data (last 24 hrs) 07/27/22 06:00: Sodium Cancelled, Potassium Cancelled, BUN Cancelled, Creatinine Cancelled, Glucose Cancelled, Total Bilirubin Cancelled, AST Cancelled, ALT Cancelled, Alkaline Phosphatase Cancelled 07/27/22 06:00: WBC Cancelled, Hgb Cancelled, Hct Cancelled, Plt Count Cancelled 07/27/22 03:58: Sodium 137, Potassium 2.7 L* D, BUN 21 H, Creatinine 0.93, Glucose 150 H, Total Bilirubin 0.3, AST 27, ALT 29, Alkaline Phosphatase 80 07/27/22 03:58: WBC 6.30, Hgb 11.9 L, Hct 35.1 L, Plt Count 258 Microbiology Data (last 24 hrs): 07/25/22 17:04 Other - Abdomen Gram Stain - Final 07/25/22 20:35 Blood - Blood Anaerobic Blood Culture - Final Assessment And Plan - Current Problems (Diagnosis) (1) Skin abscess Current Visit: Yes Status: Acute Plan: possible abcess. Will have her seen by Dr. Chapman as she may need incision and drainage of the wound Qualifiers: Site of cutaneous abscess of trunk: abdominal wall (2) Surgical wound infection Current Visit: Yes Status: Acute Plan: start the patient on fluids and antibiotics. (3) CAD (coronary artery disease) Current Visit: Yes Status: Chronic Plan: no active chest pain. restart atorvastatin, asp and metoprolol. Will consult Dr. Mejía. patient needs a local digital editor at this point. Qualifiers: Coronary Disease-Associated Artery/Lesion type: bypass graft [place] vs. transplanted heart: [place] heart Associated angina: without angina Qualified Code(s): I25.810 - Atherosclerosis of coronary artery bypass graft(s) without angina pectoris (4) HTN (hypertension) Current Visit: Yes Status: Acute Plan: restart nifedipine Qualifiers: Hypertension type: primary hypertension Qualified Code(s): I10 - Essential (primary) hypertension (5) DM type 2 (diabetes mellitus, type 2) Current Visit: No Status: Resolved Plan: she is currently only on metformin 850mg po bid. Will check her labs first before restarting. Order an ada diet, check an a1c and start an insulin sliding scale on the patient. Qualifiers: Diabetes mellitus senior living insulin use: without senior living use Diabetes mellitus complication status: without complication Qualified Code(s): E11.9 - Type 2 diabetes mellitus without complications (6) Hypothyroidism Current Visit: No Status: Acute Plan: check a tsh. Will restart her home dosage of levothyroxine Qualifiers: Hypothyroidism type: unspecified Qualified Code(s): E03.9 - Hypothyroidism, unspecified Discharge Plan: Home Plan to discharge in: 24 Hours - Code Status/Comfort Care Code Status Assessed: No Physician Review: Patient Assessed, Agree with Above Assessment and Plan Critical Care: No Time Spent Managing PTS Care (In Minutes): 20
[2022-07-27] MEDS ORDERED: NA CHLORIDE 0.9% 0 ML ONE (09:10)
[2022-07-27] MEDS: ASPIRIN EC 81 MG TAB PO SCH (09:10)
[2022-07-27] MEDS: VANCOMYCIN 0.75 GM in NA CHLORIDE 0.9% 150 ML IVPB SCH (09:10)
[2022-07-27] MEDS: TORSEMIDE 20 MG TAB PO SCH (09:10)
[2022-07-27] MEDS: NIFEDIPINE XL 30 MG TABLET PO SCH (09:11)
[2022-07-27] MEDS ORDERED: NA CHLORIDE 0.9% 250 ML ONE (09:11)
[2022-07-27 12:42] VITALS: BP 108/55; TEMP 96.7
--- NOTE | 2022-07-27 13:32 | P.DS ---
Admission Date: 07/25/22 Discharge Date: 07/27/22 Primary Care Provider: Cirilo Disposition: ROUTINE DISCHARGE Discharge Condition: GOOD Reason for Admission: Surgical wound infections - Problems (1) Skin abscess Status: Acute Qualifiers: Site of cutaneous abscess of trunk: abdominal wall (2) Surgical wound infection Status: Acute (3) CAD (coronary artery disease) Status: Chronic Qualifiers: Coronary Disease-Associated Artery/Lesion type: bypass graft [place] vs. transplanted heart: [place] heart Associated angina: without angina Qualified Code(s): I25.810 - Atherosclerosis of coronary artery bypass graft(s) without angina pectoris (4) HTN (hypertension) Status: Acute Qualifiers: Hypertension type: primary hypertension Qualified Code(s): I10 - Essential (primary) hypertension (5) DM type 2 (diabetes mellitus, type 2) Status: Resolved Qualifiers: Diabetes mellitus snf insulin use: without buttermaker use Diabetes mellitus complication status: without complication Qualified Code(s): E11.9 - Type 2 diabetes mellitus without complications (6) Hypothyroidism Status: Acute Qualifiers: Hypothyroidism type: unspecified Qualified Code(s): E03.9 - Hypothyroidism, unspecified Brief History of Present Illness: Patient is an office patient of ours. She has a history of dm2, cad, hypothyroidism,htn and hypothyroidism. She had a cabg in [place] on 07/03. She came to the office today complaining of pain. She as 3 sutures in 3 surgical wounds on her abdomen. She was worried as they have not been removed and they are starting to hurt as of last night. On examination the left most wound had yellow drainage and was tender. There was some erythema in adjoining areas. Considering these were surgical wounds and there is a possible abcess. Safest course would be admission with a surgical consult. The patient also recommended a grove superintendent see her. Hospital Course: Patient was admitted for the office. She had infected surgical wounds. The patient is doing well. removed the sutures. She has MSSA in her wound cultures. Has negative blood cultures The patient can follow up in the wound care center with Dr. Chapman this coming Saturday. She can call and make the appointment on Saturday Vital Signs/Physical Exam: Temp Pulse Resp BP Pulse Ox 96.7 F L 97 H 16 108/55 L 94 07/27/22 12:00 07/27/22 12:00 07/27/22 12:00 07/27/22 12:00 07/27/22 12:00 General: Alert, In no apparent distress HEENT: Atraumatic, PERRLA, EOMI Neck: Supple, JVD not distended Respiratory: Clear to auscultation bilaterally, Normal air movement Cardiovascular: Regular rate/rhythm, Normal S1 S2 Gastrointestinal: Normal bowel sounds, No tenderness Musculoskeletal: No tenderness Integumentary: No rashes Neurological: Normal speech, Normal tone, Normal affect Lymphatics: No axilla or inguinal lymphadenopathy Laboratory Data at Discharge: WBC Cancelled 07/27/22 06:00 Hgb Cancelled 07/27/22 06:00 Hct Cancelled 07/27/22 06:00 Plt Count Cancelled 07/27/22 06:00 Sodium Cancelled 07/27/22 06:00 Potassium Cancelled 07/27/22 06:00 BUN Cancelled 07/27/22 06:00 Creatinine Cancelled 07/27/22 06:00 Glucose Cancelled 07/27/22 06:00 Total Bilirubin Cancelled 07/27/22 06:00 AST Cancelled 07/27/22 06:00 ALT Cancelled 07/27/22 06:00 Alkaline Phosphatase Cancelled 07/27/22 06:00 Home Medications: Levothyroxine [Synthroid] 88 mcg PO [id number] 06/10/22 Metformin HCl 850 mg PO BID 06/10/22 Nifedipine [Nifedipine ER] 30 mg PO DAILY 06/10/22 Aspirin [Aspirin EC] 81 mg PO DAILY 07/25/22 Metoprolol Succinate 25 mg PO DAILY 07/25/22 Smz./Tmp. [Bactrim Ds 800 MG/160 MG] 1 tab PO BID 7 Days #14 tab 07/27/22 New Medications: Smz./Tmp. [Bactrim Ds 800 MG/160 MG] 1 tab PO BID 7 Days #14 tab Diet: ADA Activity: Ad humphrey Followup: Quentin Chapman MD [ACTIVE - CAN ADMIT] - 1 Week (on Saturday in the wound care center [phone]) Keysha Kerr FNP BC [ALLIED HEALTH PROFESSIONAL] - 1 Week Time spent managing pt's care (in minutes): 30
--- NOTE | 2022-07-27 19:08 | CON ---
Date of Consultation: 07/26/2022 History Of Present Illness: This patient was seen on the floor. This is the case of an 82-year-old patient who had acardiac surgery about 3 weeks ago. She has been doing great, but the primary doctor , Dr. Barriga saw her recently and found her to have pus from the incisions on the abdominal wound, braden cottno still had some stitches. She has not followed with her surgeon yet so the stitches are still pres ent. I was called for consultation. She denies any dysuria, hematuria, hematochezia, or melena. De nies any chest pain. Past Medical History: Cardiac disease. Past Surgical History: Include CABG. Medications: Reviewed. Family History: Noncontributory. Social History: She does not smoke. She does not drink alcohol. Review of Systems: See above. Ten points otherwise unremarkable. Physical Examination: General: The patient is awake and alert. Eyes: Pupils equal and reactive. Anicteric. Neck: Supple. Chest: Clear. Incision is intact. Abdomen: Soft and depressible. There are 3 incisions on the abdomen that look like the incision fro m the chest tube coming out. There are still some stitches present in that area. Those stitches are going through the skin itself creating a suture abscess. When we removed the stitches from that are a, we were able to separate the skin a little bit and allow this to come out and it seems to be super ficial with no deep abscess found. Extremities: Good capillary refill. Laboratory Data: Blood work reviewed. Assessment: Cellulitis of the incisions, once again with the presence of foreign body. Plan: Removal of the sutures and then, after that, Bactroban. May clean with soap and water and fol low up with her surgeon. ELVIS/MODL Voice ID: [id number] Report ID: [id number]
--- NOTE | 2022-07-27 19:08 | OP ---
Date of Procedure: 07/26/2022 Surgeon: Quentin Chapman MD Procedure: Removal of the sutures from the abdomen. Procedure In Detail: Under aseptic condition, using a suture removal kit, we proceeded to remove the stitches individually. The skin gapped a little bit. There is a superficial abscess in each one of them that were carefully drained and cultured. Area was irrigated and then the area was covered wit h a wet-to-dry dressing. The patient tolerated the procedure well. ELVIS/JASON Voice ID: [id number] Report ID: [id number]
--- NOTE | 2022-07-31 18:34 | CON ---
Date of Consultation: 07/26/2022 Reason For Consultation: Sternal wound infection. History Of Present Illness: The patient is 82 years old. Has a history of diabetes, hypertension. Underwent CABG on July 03, 2022, has done well from a cardiac standpoint. Comes in with sternal wound dehiscence and I was consulted. She does not have any cardiac symptoms. She has had a localized chest pain with infection. Denied PND, orthopnea, pedal edema, palpitations, or syncope. Denied any fever or chills. The patient has already been seen by Dr. Chapman, who was planning debridement on her. Case was discussed with him. Allergies: NONE. Review of Systems: Negative. Social History: Negative. Family History: Negative. Medications: Listed by Dr. Barriga. Physical Examination: Vital Signs: Stable, afebrile. HEENT: Negative. Neck: Supple with no bruit. Chest: Clear. Cardiac: Revealed a regular rhythm and rate. No murmurs, gallops, or rubs. Abdomen: Benign. Extremities: Revealed no clubbing, cyanosis, or edema. Skin: Examination revealed dehiscence and some of the sutures on the sternum. Impression And Plan: The patient with diabetes, history of coronary artery bypass graft, hypertension, recent coronary artery bypass graft in June 2022, sternal wound infection. I would leave the case up to Dr. Chapman and Dr. Barriga. If her sternal wound does not heal, we will consider transferring her to [place] to her cardiovascular surgeon. I agree with her present regimen for now. I will continue to follow as needed. ARIANNE/JASON Voice ID: [id number] Report ID: [id number] CAROL
== END 2022-07-27 13:15 | disposition home or self-care (01) | DRG 863 ==
LOC: 4TH 16:35
PROVIDERS: ADMIT Internal Medicine; ATTEND Internal Medicine
PROC: 8E0WXY8 Suture Removal from Trunk Region (ICD-10-PCS; principal; 2022-07-26)
DX: T81.41XA Infection following a procedure, superficial incisional surgical site, initial encounter (principal); L02.211 Cutaneous abscess of abdominal wall; I25.810 Atherosclerosis of coronary artery bypass graft(s) without angina pectoris; L03.311 Cellulitis of abdominal wall; E03.9 Hypothyroidism, unspecified; E11.9 Type 2 diabetes mellitus without complications; K21.9 Gastro-esophageal reflux disease without esophagitis; I10 Essential (primary) hypertension; L08.9 Local infection of the skin and subcutaneous tissue, unspecified; B95.61 Methicillin susceptible Staphylococcus aureus infection as the cause of diseases classified elsewhere; Z95.1 Presence of aortocoronary bypass graft; Z79.84 Long term (current) use of oral hypoglycemic drugs; Z79.890 Hormone replacement therapy; Z79.899 Other long term (current) drug therapy; Z20.822 Contact with and (suspected) exposure to COVID-19; Y83.8 Other surgical procedures as the cause of abnormal reaction of the patient, or of later complication, without mention of misadventure at the time of the procedure
CPT/HCPCS: 36415; 80053; 80202; 81001; 82947; 83036; 83615; 84443; 85025; 87040; 87070; 87077; 87186; 87205; 87811; J1815; J3370; J3480; J7050